=== PATIENT | male | born 1950 | race Caucasian/White ===

== ENCOUNTER 2018-05-07 12:44 | Observation (INO) | payer OTHER ==
[2018-05-07 13:24] LABS: Absolute Lymphocytes (CBC) 1.4 K/uL (0.7-4.9); Absolute Monocytes 0.5 K/uL (0.1-1.3); Absolute Neutrophil 8.1 K/uL (1.8-8.0); Basophils % 0.6 % (0-1.3); Eosinophils % 0.5 % (0-4.4); MCH 28.7 pg (27.0-35.0); MCV 86.6 fL (80-100); Monocytes % 4.8 % (3.3-12.3); RBC Red Blood Cell Count 4.62 M/uL (4.33-5.43)
[2018-05-07 13:28] LABS: Protime INR 1.02
[2018-05-07] MEDS ORDERED: ASPIRIN 81 MG CHEWABLE TABLET ONE (13:30)
[2018-05-07] MEDS ORDERED: MECLIZINE HCL 12.5 MG TAB ONE (13:31)
[2018-05-07] MEDS ORDERED: ONDANSETRON 4 MG/2 ML VIAL ONE (13:31)
[2018-05-07 13:39] LABS: Albumin 3.8 g/dL (3.4-5.0); Bilirubin Direct 0.1 mg/dL (0-0.2); Bilirubin Total 0.6 mg/dL (0.2-1.0); CKMB Creatine Kinase MB 2.2 ng/mL (0.3-3.6); Magnesium 1.9 mg/dL (1.8-2.4); Potassium 4.5 mmol/L (3.5-5.1); Protein, Total 7.8 g/dL (6.4-8.2)
--- NOTE | 2018-05-07 14:31 | EKG ---
Test Date: 2018-05-07 Test Time: 13:10:41 Space Scheduler: CESAR MEASUREMENT RESULTS: Intervals: Rate: 67 WV: 172 QRSD: 80 QT: 408 QTc: 431 [place]: P: 33 WV: 172 QRS: 42 T: 46 INTERPRETIVE STATEMENTS: Normal sinus rhythm Normal ECG Compared to ECG 09/09/2017 10:54:26 No significant changes Electronically Signed On 05-07-18 14:30:48 CDT by Daniel Taylor
--- NOTE | 2018-05-07 14:37 | RAD REPORT ---
EXAM DESCRIPTION: CT - Head Brain Wo Cont - 05/07/2018 2:25 pm CLINICAL HISTORY: Dizziness, syncope COMPARISON: None. TECHNIQUE: Axial 5 mm thick images of the head were obtained without IV contrast. All CT scans are performed using dose optimization technique as appropriate and may include automated exposure control or mA/KV adjustment according to patient size. FINDINGS: No intracranial hemorrhage, mass, edema or shift of mid-line structures. No acute infarcti on changes seen. No abnormal extra-axial fluid collections. Mild atrophy and chronic ischemic changes are present. Ventricular size is in proportion. Arterial and physiologic calcifications are present. Mastoid air cells are clear. No significant paranasal sinus finding. No acute bony findings. IMPRESSION: Negative non-contrast CT head examination for acute finding. Mild atrophy and chronic ischemic change.
--- NOTE | 2018-05-07 15:04 | EDPHYS ---
Physician Documentation [facility] Name: Augustine Gooden Age: 68 yrs Sex: Male : 1950 Arrival Date: 05/07/2018 Time: 12:48 Bed 23 Private MD: Fawad Gonzalez H ED Physician Greyson Grimm HPI: 05/07 13:17 This 68 yrs old Male presents to ER via Wheelchair with complaints of Chest jmm Pain, Dizziness, Vomiting. 13:17 The patient presents with dizziness. Onset: The symptoms/episode began/occurred jmm acutely, 2 day(s) ago. This is a 68 year old male with a history of CAD that presents to the ED with acute onset dizziness worsening with movement beginning Saturday. The patient also complains of a dull ache to his chest. Patient states his symptoms are worsened with movement. Patient also complains of a headache. Denies similar symptoms in the past. . Historical: - Allergies: 12:58 Codeine; ph - Home Meds: 12:58 Ecotrin 81MG Oral once daily [Active]; glimepiride 4 mg Oral tab [Active]; ph Hydrochlorothiazide Oral [Active]; losartan 100 mg Oral tab 1 tab once daily [Active]; meloxicam Oral [Active]; metformin 1,000 mg Oral TG24 2 times per day [Active]; Plavix 75 mg Oral tab 1 tab once daily [Active]; simvastatin 40 mg Oral tab once daily [Active]; Levemir subcutaneous subcutaneous [Active]; - PMHx: 12:58 Hyperlipidemia; Hypertension; Diabetes - IDDM; ph - PSHx: 12:58 Heart stents; Knee surgery; ph - Immunization history:: Pneumococcal vaccine is up to date, Flu vaccine is up to date. - Social history:: Smoking status: Patient/guardian denies using tobacco. - Ebola Screening: : No symptoms or risks identified at this time. ROS: 13:17 Constitutional: Negative for fever, chills, and weight loss, Eyes: Negative for injury, jmm pain, redness, and discharge. 13:17 Cardiovascular: Positive for chest pain. 13:17 Respiratory: Positive for shortness of breath. 13:17 Abdomen/GI: Positive for vomiting. 13:17 Neuro: Positive for dizziness, headache. 13:17 All other systems are negative. Exam: 13:17 Constitutional: This is a well developed, well nourished patient who is awake, alert, jmm and in no acute distress. Head/Face: atraumatic. 13:17 Neck: Trachea midline, Supple 13:17 Cardiovascular: Regular rate and rhythm. No edema appreciated Respiratory: Normal respirations, no respiratory distress appreciated Abdomen/GI: Non distended, soft 13:17 Eyes: Extraocular movements: intact throughout, Nystagmus: 13:17 Cardiovascular: Rate: normal, Rhythm: regular. 13:17 Respiratory: the patient does not display signs of respiratory distress, Respirations: normal, Breath sounds: are clear throughout. 13:17 Abdomen/GI: Inspection: abdomen appears normal, Bowel sounds: normal, Palpation: abdomen is soft and non-tender, in all quadrants. 13:17 Skin: Appearance: Color: normal in color. 13:17 Neuro: Orientation: is normal, Mentation: is normal, Memory: is normal, Cerebellar function: normal finger to nose testing. 13:17 Psych: Behavior/mood is pleasant, cooperative. Vital Signs: 12:56 BP 149 / 78; Pulse 80; Resp 28; Temp 98.1; Pulse Ox 100% on R/A; Weight 117.93 kg; ph Height 5 ft. 9 in. (175.26 cm); Pain 8/10; 14:15 BP 131 / 69; Pulse 69; Resp 26; Temp 98.5; Pulse Ox 95% on R/A; Pain 7/10; ch 15:17 BP 129 / 64; Pulse 71; Resp 28; Pulse Ox 98% on R/A; Pain 5/10; ch 17:16 BP 116 / 66; Pulse 69; Resp 26; Temp 98.5; Pulse Ox 99% on R/A; Pain 3/10; ch 12:56 Body Mass Index 38.39 (117.93 kg, 175.26 cm) ph MDM: 13:11 Patient medically screened. [facility] 15:01 Data reviewed: vital signs, nurses notes, lab test result(s), EKG, radiologic studies, [facility] CT scan, plain films. Counseling: I had a detailed discussion with the patient and/or guardian regarding: the historical points, exam findings, and any diagnostic results supporting the discharge/admit diagnosis, radiology results, the need for further work-up and treatment in the hospital. Physician consultation: Candida Pink MD. 05/07 13:01 Order name: Basic Metabolic Panel; Complete Time: 13:44 ch 05/07 13:01 Order name: CBC with Diff; Complete Time: 13:44 ch 05/07 13:01 Order name: Ckmb; Complete Time: 13:44 ch 05/07 13:01 Order name: CPK; Complete Time: 13:44 ch 05/07 13:01 Order name: LFT's; Complete Time: 13:44 ch 05/07 13:01 Order name: Magnesium; Complete Time: 13:44 ch 05/07 13:01 Order name: NT PRO-BNP; Complete Time: 13:44 ch 05/07 13:01 Order name: PT-INR; Complete Time: 13:44 ch 05/07 13:01 Order name: Ptt, Activated; Complete Time: 13:44 ch 05/07 13:01 Order name: Troponin (emerg Dept Use Only); Complete Time: 13:44 05/07 16:18 Order name: Basic Metabolic Panel [facility] 05/07 16:18 Order name: Troponin I [facility] 05/07 16:18 Order name: Hemoglobin A1c [facility] 05/07 16:18 Order name: Hemoglobin A1c [facility] 05/07 13:01 Order name: XRAY Chest (1 view); Complete Time: 15:07 05/07 13:01 Order name: EKG; Complete Time: 13:02 05/07 13:01 Order name: Cardiac monitoring; Complete Time: 13:24 05/07 13:01 Order name: EKG - Nurse/Tech; Complete Time: 13:24 05/07 13:01 Order name: IV Saline Lock; Complete Time: 13:24 05/07 13:01 Order name: Labs collected and sent; Complete Time: 13:24 05/07 13:01 Order name: O2 Per Protocol; Complete Time: 13:24 05/07 13:01 Order name: O2 Sat Monitoring; Complete Time: 13:24 05/07 14:12 Order name: CT Head Brain wo Cont; Complete Time: 14:41 jm 05/07 16:18 Order name: Consistent Carb (ADA) [address] [facility] 05/07 16:18 Order name: Echo with Doppler [facility] 05/07 16:39 Order name: Diet Regular; Complete Time: 16:40 bd Administered Medications: 13:33 Drug: Meclizine 25 mg Route: PO; 14:55 Follow up: Response: No adverse reaction; Marked relief of symptoms ch 13:33 Drug: Aspirin Chewable Tablet 324 mg Route: PO; ch 14:54 Follow up: Response: No adverse reaction; Marked relief of symptoms 14:18 Drug: Zofran 4 mg Route: IVP; Site: right antecubital; 14:55 Follow up: Response: No adverse reaction; Marked relief of symptoms Point of Care Testing: Blood Glucose: 17:47 Blood Glucose: 71 mg/dL; Ranges: Critical Glucose Levels:Adult <50 mg/dl or >400 mg/dl <40 mg/dl or >180 mg/dl Disposition: 05/07/18 15:03 Hospitalization ordered by Candida Pink for Observation. Preliminary diagnosis are Other chest pain, Dizziness. - Bed requested for Telemetry/MedSurg (observation). - Status is Observation. ch - Condition is Stable. - Problem is new. - Symptoms have improved. UTI on Admission? No Addendum: 05/09/2018 19:56 Co-signature as Attending Physician, Greyson Grimm MD I agree with the assessment and w a plan of care. Signatures: Dispatcher [employer] Glo Mcnamara RN Eva Piña ch RN Bill Olivares PA PA jmm Hall, Patricia, RN RN ph Appiah, William, MD MD wa Corrections: (The following items were deleted from the chart) 05/07 17:09 15:03 Hospitalization Ordered by Candida Pink MD for Observation. Preliminary diagnosis dw is Other chest pain; Dizziness. Bed requested for Telemetry/MedSurg (observation). Status is Observation. Condition is Stable. Problem is new. Symptoms have improved. UTI on Admission? No. [facility] 18:03 17:09 05/07/2018 15:03 Hospitalization Ordered by Candida Pink MD for Observation. ch Preliminary diagnosis is Other chest pain; Dizziness. Bed requested for Telemetry/MedSurg (observation). Status is Observation. Condition is Stable. Problem is new. Symptoms have improved. UTI on Admission? No. dw
--- NOTE | 2018-05-07 15:04 | ER ---
Nurse's Notes [facility] Name: Augustine Gooden Age: 68 yrs Sex: Male : 1950 Arrival Date: 05/07/2018 Time: 12:48 Bed 23 Private MD: Fawad oGnzalez H Diagnosis: Other chest pain;Dizziness Presentation: 05/07 12:54 Presenting complaint: Significant other states: " He has been having dizziness for a ph while now, this morning he started saying his chest was hurting and that he was feeling really SOB, we went to Dr Gonzalez's office and he said to come here." Pt reports R sided CP, dizziness, SOB, N/V. Transition of care: patient was not received from another setting of care. Onset of symptoms was May 07, 2018. Risk Assessment: Do you want to hurt yourself or someone else? Patient reports no desire to harm self or others. Initial Sepsis Screen: Does the patient meet any 2 criteria? No. Patient's initial sepsis screen is negative. Does the patient have a suspected source of infection? No. Patient's initial sepsis screen is negative. Care prior to arrival: None. 12:54 Method Of Arrival: Wheelchair ph 12:54 Acuity: JULIUS 3 ph Historical: - Allergies: 12:58 Codeine; ph - Home Meds: 12:58 Ecotrin 81MG Oral once daily [Active]; glimepiride 4 mg Oral tab [Active]; ph Hydrochlorothiazide Oral [Active]; losartan 100 mg Oral tab 1 tab once daily [Active]; meloxicam Oral [Active]; metformin 1,000 mg Oral TG24 2 times per day [Active]; Plavix 75 mg Oral tab 1 tab once daily [Active]; simvastatin 40 mg Oral tab once daily [Active]; Levemir subcutaneous subcutaneous [Active]; - PMHx: 12:58 Hyperlipidemia; Hypertension; Diabetes - IDDM; ph - PSHx: 12:58 Heart stents; Knee surgery; ph - Immunization history:: Pneumococcal vaccine is up to date, Flu vaccine is up to date. - Social history:: Smoking status: Patient/guardian denies using tobacco. - Ebola Screening: : No symptoms or risks identified at this time. Screenin:20 Abuse screen: Denies threats or abuse. Denies injuries from another. Nutritional ch screening: No deficits noted. Tuberculosis screening: No symptoms or risk factors identified. Fall Risk None identified. Assessment: 13:20 General: Appears in no apparent distress. uncomfortable, Behavior is calm, cooperative, ch appropriate for age. Pain: Complains of pain in head, back, chest, right arm and left arm Pain does not radiate. Pain currently is 7 out of 10 on a pain scale. Pain began gradually. Neuro: No deficits noted. Cardiovascular: Reports chest pain, shortness of breath, Heart tones S1 S2 present Capillary refill < 3 seconds in bilateral fingers toes Clubbing of nail beds is present Pulses are all present. Edema is 2+ to left midcalf, left ankle, right midcalf and right ankle Rhythm is regular. Respiratory: Airway is patent Trachea midline Respiratory effort is even, labored, gasping, pursed lip, with retractions, Respiratory pattern is tachypnea Breath sounds with wheezes bilaterally. GI: No signs and/or symptoms were reported involving the gastrointestinal system. : No signs and/or symptoms were reported regarding the genitourinary system. 13:20 Reassessment: Patient appears in no apparent distress at this time. Patient and/or ch family updated on plan of care and expected duration. Pain level reassessed. Patient is alert, oriented x 3, equal unlabored respirations, skin warm/dry/pink. Derm: Skin is intact, Skin is clammy, Skin is pale. 14:14 Reassessment: Patient appears in no apparent distress at this time. No changes from previously documented assessment. Patient and/or family updated on plan of care and expected duration. Pain level reassessed. Patient is alert, oriented x 3, equal unlabored respirations, skin warm/dry/pink. 14:19 Reassessment: Patient appears in no apparent distress at this time. pt vomiting, states ch he would like the nausea medication now. pt medicated per orders. pt has small amount of vomit in bag. 14:55 Reassessment: pt states he feels better, no s/s of distress. pt placed in recliner, ch states he can breathe better. pt is still very dizzy with standing and ambulation, but pt wanted to sit on the edge of bed. pt states he can stay in the recliner just fine, family is with pt, pt verb understanding not to stand without assistance. 15:16 Reassessment: Patient appears in no apparent distress at this time. pt states he does ch not need to urinate at this time, pt attempts to urinate in urinal, unsuccessful. pt states he just doesn't need to go. Hospitalist at bedside now. 17:16 Reassessment: Patient appears in no apparent distress at this time. attempting to call ch report now Patient states feeling better. Patient states symptoms have improved. 17:28 Reassessment: report given to Olinda Del Castillo 17:46 Reassessment: Patient appears in no apparent distress at this time. Patient and/or ch family updated on plan of care and expected duration. Pain level reassessed. Patient is alert, oriented x 3, equal unlabored respirations, skin warm/dry/pink. Patient states feeling better. Patient states symptoms have improved. Vital Signs: 12:56 BP 149 / 78; Pulse 80; Resp 28; Temp 98.1; Pulse Ox 100% on R/A; Weight 117.93 kg; ph Height 5 ft. 9 in. (175.26 cm); Pain 8/10; 14:15 BP 131 / 69; Pulse 69; Resp 26; Temp 98.5; Pulse Ox 95% on R/A; Pain 7/10; ch 15:17 BP 129 / 64; Pulse 71; Resp 28; Pulse Ox 98% on R/A; Pain 5/10; ch 17:16 BP 116 / 66; Pulse 69; Resp 26; Temp 98.5; Pulse Ox 99% on R/A; Pain 3/10; ch 12:56 Body Mass Index 38.39 (117.93 kg, 175.26 cm) ph ED Course: 12:48 Patient arrived in ED. as 12:48 Fawad Gonzalez DO is Private Physician. as 12:54 Bill Kumar PA is PHCP. [facility] 12:54 Greyson Grimm MD is Attending Physician. [facility] 12:56 Triage completed. ph 12:58 Arm band placed on. ph 13:00 Glo Yang, JUD is Primary Nurse. ch 13:18 EKG done, by carpet technician. reviewed by Bill SALVADOR. at1 13:20 No apparent distress. Resting quietly. ch 13:20 Patient has correct armband on for positive identification. Placed in gown. Bed in low ch position. Call light in reach. Side rails up X 1. Adult w/ patient. case monitor on. Pulse ox on. NIBP on. Warm blanket given. 13:20 Inserted saline lock: 18 gauge in right antecubital area, using aseptic technique. Blood collected. 13:55 XRAY Chest (1 view) In Process Unspecified. EDMS 13:56 X-ray completed. Portable x-ray completed in exam room. Patient tolerated procedure la2 well. 14:25 CT Head Brain wo Cont In Process Unspecified. EDMS 15:02 Candida Pikn MD is Hospitalizing Provider. [facility] 17:17 No provider procedures requiring assistance completed. Patient admitted, IV remains in ch place. Patient maintains SpO2 saturation greater than 95% on room air. Administered Medications: 13:33 Drug: Meclizine 25 mg Route: PO; ch 14:55 Follow up: Response: No adverse reaction; Marked relief of symptoms ch 13:33 Drug: Aspirin Chewable Tablet 324 mg Route: PO; ch 14:54 Follow up: Response: No adverse reaction; Marked relief of symptoms ch 14:18 Drug: Zofran 4 mg Route: IVP; Site: right antecubital; ch 14:55 Follow up: Response: No adverse reaction; Marked relief of symptoms Point of Care Testing: Blood Glucose: 17:47 Blood Glucose: 71 mg/dL; Ranges: Outcome: 15:03 Decision to Hospitalize by Provider. [facility] 17:46 Admitted to Med/surg accompanied by nurse, via wheelchair, room 422, with chart, Report ch called to Olinda Shah 17:46 Condition: stable 17:46 Instructed on the need for admit. 18:03 Patient left the ED. Signatures: Dispatcher [employer] EDMS Glo Yang, RN RN Bill Webber PA PA jmm Martinez, Amelia as gonzales, Amanda, powdered metal supervisor EKG Tat1 Wendie Nails RN RN Trang Garcia la2 Corrections: (The following items were deleted from the chart) 13:00 12:56 Pulse 80bpm; Resp 28bpm; Pulse Ox 100% RA; 117.93 kg; Height 5 ft. 9 in.; BMI: ph 38.3; Pain 8/10; ph 14:15 13:20 BP 131 / 69; Pulse 69bpm; Resp 26bpm; Pulse Ox 95% RA; Temp 98.5F; Pain 7/10; ch ch 17:18 17:16 BP 166 / 66; Pulse 69bpm; Resp 26bpm; Pulse Ox 99% RA; Temp 98.5F; Pain 3/10; ch ch
--- NOTE | 2018-05-07 15:05 | RAD REPORT ---
EXAM DESCRIPTION: RAD - Chest Single View - 05/07/2018 1:55 pm CLINICAL HISTORY: Shortness of breath COMPARISON: August 2017 TECHNIQUE: AP portable chest image was obtained 1345 hours . FINDINGS: Lung volumes are low. Body habitus and portable technique accentuate chest findings. No fo joselin lung parenchymal process suspected. Heart and vasculature are normal. No measurable pleural effus ion and no pneumothorax. No gross bony abnormality seen. No acute aortic findings suspected. IMPRESSION: Limited portable imaging without acute cardiopulmonary finding. No significant change from comparison.
[2018-05-07] MEDS ORDERED: NITROGLYCERIN 0.4 MG/TAB SL PRN (16:10)
[2018-05-07] MEDS ORDERED: MORPHINE 4 MG/ML SYR IV PRN (16:10)
[2018-05-07] MEDS: INSULIN -REGULAR HUMAN 50 UNIT/0.5 ML ML SQ SCH ×2 (16:30→21:00)
[2018-05-07] MEDS ORDERED: MECLIZINE HCL 12.5 MG TAB PO PRN (16:31)
[2018-05-07] MEDS ORDERED: ENOXAPARIN 30 MG/0.3 ML SQ SCH (17:00)
[2018-05-07 18:35] VITALS: BMI 38.4
[2018-05-07] MEDS: ACETAMINOPHEN 500 MG TAB PO PRN (18:41)
[2018-05-07 19:00] LABS: Urine Appearance CLEAR; Urine Bilirubin NEGATIVE (NEG); Urine Blood NEGATIVE (NEG); Urine Color YELLOW; Urine Glucose NEGATIVE (NEG); Urine Protein NEGATIVE (NEG); Urine pH 5.5 (5.0-7.0)
[2018-05-07 19:01] LABS: Urine Microscopic Reflex NO UMIC
[2018-05-07] MEDS ORDERED: METOPROLOL TAR 25 MG TAB PO SCH (21:00)
[2018-05-07] MEDS ORDERED: ATORVASTATIN 40 MG TAB PO SCH (21:00)
--- NOTE | 2018-05-08 00:22 | HP ---
Date of Admission: 05/07/2018 Mold Cooler: Cardiology. Primary Care Physician: Dr. Gonzalez. Chief Complaint: Dizziness, chest pain. History Of Present Illness: The patient is a 68-year-old male with past medical history of hypertension, hyperlipidemia, diabetes, coronary artery disease status post stent, arthritis, who has been having dizziness off and on for the past month, worse with change in position. The patient does get nauseated and has headache with these symptoms and has multiple episodes of vomiting. The patient denies any tinnitus. No changes in his medications recently. The patient also reports chest pain that has initiated 2 days prior to admission, substernal, nonradiating, constant, moderate, progressively worsening over the past 2 days. No palpitations or diaphoresis. The patient does have some shortness of breath secondary to his asbestosis, which is worse in the past couple of days. Due to his symptoms, the patient was seen by his primary care physician, Dr. Gonzalez, and was recommended to come to the ER after evaluation by his primary care physician for further workup. Upon arrival, the patient received aspirin, which improved his symptoms. His blood pressure was stable. When he came in, he was saturating 100% on room air. His workup revealed normal troponin level. No changes on EKG. His creatinine was 1.8. WBC count was normal. CT scan of the head was done, which was negative for any acute changes, did show some chronic changes. Chest x-ray was also normal. The patient was then referred for admission for chest pain, rule out ACS and dizziness. When seen in the ER, he was awake, alert, oriented x3, in some moderate distress. Past Medical History: Hypertension, hyperlipidemia, coronary artery disease, diabetes mellitus type 2 insulin requiring. He also has asbestosis and arthritis. Past Surgical History: Heart stents, knee surgery. Allergies: CODEINE. Medications: As per medication reconciliation list, reviewed. Social History: The patient denies any illicit drug use, alcohol use, tobacco use. The patient is and independent in his activities of daily living. Family History: No premature coronary artery disease. Review of Systems: An 11-point system reviewed, negative except as per HPI. Physical Examination: Vital Signs: Blood pressure 149/78, pulse 80, respirations 28, temperature 98.1 , O2 100% on room air. General: Awake, alert, oriented x3, in some mild distress. Obese male. HEENT: Normocephalic, atraumatic. PERRLA. EOMI. Dry mucous membranes. Oropharynx is clear. Normal dentition. Conjunctivae anicteric. Neck: Supple. No JVD. Trachea midline. CV: S1, S2. No murmurs. Regular rate and rhythm. Peripheral pulses are present. Respiratory: Clear to auscultation bilaterally. No wheezing. No stridor. No use of accessory muscles. Gastrointestinal: Abdomen is obese, soft, nontender, nondistended. Positive bowel sounds. No guarding or rigidity. No splenomegaly or hepatomegaly. Extremities: No clubbing, cyanosis. Trace pedal edema. No calf tenderness. Neuro: Cranial nerves 2 through 12 intact grossly. No focal neurological deficits. Speech is normal. Strength is 5/5 in bilateral upper and lower extremities. Sensation intact to light touch. Skin: No rashes. Normal skin turgor. Psych: Mood is okay. Affect is full. Insight and judgment are good. Laboratory Data: WBC 10.1, H and H 13.3 and 40, platelets 253, neutrophils 80% . INR 1.02. Sodium 142, potassium 4.5, chloride 111, CO2 23, BUN 34, creatinine 1.8, glucose 184, calcium 9.1, magnesium 1.9. AST 12, ALT 27, alkaline phosphatase 93. Troponin less than 0.02. BNP 174. EKG shows normal sinus rhythm, rate of 67, no significant changes from previous. Head CT scan shows negative noncontrast CT head examination for acute finding, mild atrophy and chronic ischemic change. Chest x-ray personally reviewed, shows limited portable imaging without acute cardiopulmonary finding, no significant change from previous. Assessment: A 68-year-old male with; 1. Chest pain, rule out acute coronary syndrome. The patient does have history of heart disease with stents, possibly unstable angina. We will start on chest pain guidelines, aspirin, statin, beta-araceli. The patient is on ARB , nitroglycerin p.r.n. We will obtain serial cardiac enzymes and EKG. Consult Cardiology. The patient sees Dr. 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 We will obtain echocardiogram. 2. Dizziness. The patient's symptoms seem to be indicative of benign positional vertigo. The patient may benefit from Katelyn maneuver. We will order meclizine for symptomatic treatment. 3. Obesity. 4. Essential hypertension. 5. Hyperlipidemia, mixed. 6. Diabetes mellitus type 2, insulin requiring, with hyperglycemia. We will check hemoglobin A1c, start on sliding scale insulin and continue Accu-Cheks. 7. Osteoarthritis, multiple joints. 8. Asbestosis. 9. Gastrointestinal and deep vein thrombosis prophylaxis with PPI and Lovenox. Plan: Admit the patient to Med-Surg, place as observation. CODE STATUS: FULL SA/MODL Voice ID: [id number] MTDD
[2018-05-08 06:18] LABS: BUN Blood Urea Nitrogen 37 mg/dL (7-18); Bicarbonate 24 mmol/L (21-32); Glucose Level 124 mg/dL (74-106); HDL Cholesterol 26 mg/dL (40-60); LDL Cholesterol, Calculated ND (<130); Potassium 3.9 mmol/L (3.5-5.1); Sodium Level 143 mmol/L (136-145)
[2018-05-08 06:21] LABS: Absolute Lymphocytes (CBC) 2.4 K/uL (0.7-4.9); Absolute Monocytes 0.7 K/uL (0.1-1.3); Absolute Neutrophil 5.6 K/uL (1.8-8.0); Basophils % 0.7 % (0-1.3); Eosinophils % 1.5 % (0-4.4); Hematocrit 34.3 % (39.6-49.0); Lymphocytes % 27.1 % (15.3-44.8); MCH 30.1 pg (27.0-35.0); MCV 86.6 fL (80-100); MPV 7.7 fL (7.6-11.3); RBC Red Blood Cell Count 3.96 M/uL (4.33-5.43)
[2018-05-08 06:42] LABS: LDL, Direct 53 mg/dL (100-129)
[2018-05-08] MEDS: INSULIN -REGULAR HUMAN 50 UNIT/0.5 ML ML SQ SCH ×2 (07:30→11:30)
[2018-05-08] MEDS: ACETAMINOPHEN 500 MG TAB PO PRN (08:09)
[2018-05-08] MEDS ORDERED: REGADENOSON 0.4 MG/5 ML SYR IV ONE (08:34)
[2018-05-08] MEDS ORDERED: ASPIRIN EC 81 MG TAB PO SCH (09:00)
[2018-05-08] MEDS ORDERED: HOME MED 1 EA UNK (Glimepiride [Amaryl] 4 MG) PO SCH (09:00)
[2018-05-08] MEDS ORDERED: INSULIN DETEMIR 26 UNIT SQ SCH (09:00)
[2018-05-08] MEDS ORDERED: CARVEDILOL 25 MG PO SCH (09:00)
[2018-05-08] MEDS ORDERED: ASPIRIN 81 MG PO SCH (09:00)
[2018-05-08] MEDS ORDERED: HYDROCHLOROTHIAZIDE 25 MG PO SCH (09:00)
[2018-05-08] MEDS ORDERED: HOME MED 1 EA UNK (Clopidogrel Bisulfate [Plavix*] 75 MG) PO SCH (09:00)
--- NOTE | 2018-05-08 10:29 | RAD REPORT ---
EXAM DESCRIPTION: NM - Rest Stress Cardiac Imaging - 05/08/2018 9:42 am CLINICAL HISTORY: Chest pain. COMPARISON: None. TECHNIQUE: The patient was administered approximately 10mCi of Tc 99m Sestamibi prior to resting SPE CT imaging of the heart. The patient was then administered approximately 30 mCi of Tc 99m Sestamibi f ollowing exercise or pharmacologic stress. Multiplanar SPECT images were reviewed. FINDINGS: There is uniformity of radiotracer uptake involving the entire left ventricular myocardium on rest and stress images. The left ventricular ejection fraction equals 65% IMPRESSION: Negative for a myocardial perfusion defect
[2018-05-08 12:26] VITALS: O2SAT 96
[2018-05-08 12:40] VITALS: BP 129/57; TEMP 97.6
--- NOTE | 2018-05-08 14:00 | ECHO ---
HEIGHT: 5 ft 9 in WEIGHT: 260 lb 0 oz DATE OF STUDY: 05/08/[address]: Candida Pink MD 2-DIMENSIONAL: YES M.MODE: YES DOPPLER: YES COLOR FLOW: YES TDS: PORTABLE: DEFINITY: BUBBLE STUDY: DIAGNOSIS: CHEST PAIN CARDIAC HISTORY: CATHERIZATION: NO SURGERY: YES PROSTHETIC VALVE: NO PACEMAKER: NO MEASUREMENTS (cm) DIASTOLIC (NORMALS) SYSTOLIC (NORMALS) IVSd 1.3 (0.6-1.2) LA Diam 3.7 (1.9-4.0) LVEF 72% LVIDd 4.3 (3.5-5.7) LVIDs 2.5 (2.0-3.5) %FS 41% LVPWd 1.3 (0.6-1.2) Ao Diam 3.1 (2.0-3.7) 2 DIMENSIONAL ASSESSMENT: RIGHT ATRIUM: NORMAL LEFT ATRIUM: NORMAL RIGHT VENTRICLE: NORMAL LEFT VENTRICLE: NORMAL TRICUSPID VALVE: NORMAL MITRAL VALVE: NORMAL PULMONIC VALVE: NORMAL AORTIC VALVE: NORMAL PERICARDIAL EFFUSION: NONE AORTIC ROOT: NORMAL LEFT VENTRICULAR WALL MOTION: NORMAL DOPPLER/COLOR FLOW: MILD TRICUSPID REGURGITATION. COMMENTS: NORMAL TWO DIMENSIONAL ECHOCARDIOGRAM. MILD TRICUSPID REGURGITATION. NORMAL RIGHT VENTRICULAR SYSTOLIC PRESSURE. NO WALL MOTION ABNORMALITY. NO EFFUSION. TECHNOLOGIST: HEMANTH ALMONTE
[2018-05-08] MEDS ORDERED: ATORVASTATIN 20 MG TAB PO SCH (21:00)
[2018-05-08] MEDS ORDERED: HOME MED 1 EA UNK (Losartan Potassium [Cozaar] 100 MG) PO SCH (21:00)
--- NOTE | 2018-05-09 05:34 | DS ---
Date of Discharge: 05/08/2018 Wireless Manager: Dr. Taylor with Cardiology. Procedures: Lexiscan stress test on 05/08/2018, negative for myocardial perfusion defect. EF 65%. Admitting Diagnoses: 1.Unstable angina. Rule out acute coronary syndrome. 2.Dizziness. 3.Obesity. 4.Essential hypertension. 5.Hyperlipidemia, mixed. 6.Diabetes mellitus type 2, insulin requiring with hyperglycemia. 7.Osteoarthritis, generalized. 8.Asbestosis. Discharge Diagnoses: 1.Unstable angina, acute coronary syndrome ruled out. Lexiscan negative. 2.Benign paroxysmal positional vertigo, improved with meclizine. The patient instructed on Katelyn anglin. 3.Obesity, body mass index 38.4, counseled. 4.Essential hypertension, stable. 5.Mixed hyperlipidemia, stable on statin. The patient has elevated triglycerides. 6.Diabetes mellitus type 2, insulin requiring with hyperglycemia. The patient has labile blood gluc ose levels. Hemoglobin A1c 7.4%. 7.Osteoarthritis, generalized. 8.History of asbestos exposure. 9.Chronic kidney injury. Hospital Course: The patient is a 68-year-old male, who comes into the hospital with chest pain and dizziness. The patient was sent in from his primary care physician's office after evaluation. The p livan was admitted to the hospital for chest pain to rule out ACS. His cardiac workup was negative. His troponin levels were negative x3. Lexiscan test was done, which showed no stress-induced perfu tong defect. Lipid panel did show a very low LDL at 53; however, his triglycerides were elevated at 414. His blood glucose levels were slightly elevated. He will continue on his home dose of insulin. His hemoglobin A1c is 7.4%. The patient's creatinine remained stable, slightly above baseline. Th e patient felt significantly better after IV fluids and rehydration. He was seen by Dr. Recio and was then cleared for discharge. His head CT scan did not show any acute changes. The patient was th en discharged home in a fair condition. Activity: Fall precautions. Diet: Diabetic. Followup: With PCP, Dr. Gonzalez, in 2 to 3 days. Follow up with university teacher, Dr. Recio, in 2 weeks. Return to ER for worsening condition. Medications: As per medication reconciliation list. Physical Examination: General: Awake, alert, oriented, no acute distress. CV: S1, S2. No murmurs. Respiratory: Clear to auscultation bilaterally. No wheezing. Gastrointestinal: Abdomen is soft, nontender, nondistended. Positive bowel sounds. Extremities: No clubbing, cyanosis, edema. Neurologic: Nonfocal. SA/MODL Voice ID: [id number] Report ID: [id number]
--- NOTE | 2018-05-10 00:29 | CON ---
Date of Consultation: 05/08/2018 Reason For Consultation: Chest pain, dizziness, vertigo, and headaches. History Of Present Illness: Mr. Gooden is a 68-year-old male, has seen Dr. Yap in the past. Has a history of coronary artery disease, status post stent. Has a history of diabetes, hypertension, and dyslipidemia. He sees Dr. Gonzalez as a family physician. He basically came in with symptoms of dizzine ss, vertigo, vomiting, headache, very atypical chest pain. EKG has been normal and chest x-ray and C T of his head has been normal. All his laboratory evaluations have been normal. Denied PND, orthopn ea, pedal edema, or palpitation. Symptoms were not exertional. They were related to head positions. Allergies: CODEINE. Review of Systems: Negative. Social History: Negative for tobacco, drugs, or alcohol. Family History: Positive for diabetes. Medications At Home: Include aspirin, glimepiride, losartan, metformin, Zocor, hydrochlorothiazide, and insulin. Physical Examination: General: Mr. Gooden was very pleasant, alert and oriented x3. vital Signs: Stable. He was afebrile. HEENT: Negative. Neck: Supple without any bruit, lymphadenopathy, JVD, or thyromegaly. Chest: Clear to auscultation and percussion. Cardiac: Revealed a regular rhythm and rate without any murmurs, gallops, or rubs. Abdomen: Benign. Extremities: Revealed no clubbing, cyanosis, or edema. Diagnostic Data: Normal. Impression And Plan: I believe Mr. Gooden's symptoms are secondary to benign positional vertigo or may be viral labyrinthitis. He has been started on meclizine by Dr. Pink and is feeling better. An ech ocardiogram and Lexiscan are pending because of his chest pain, but his chest pain is very atypical, but he has a history of CAD and stent and multiple risk factors including diabetes, dyslipidemia, and hypertension and we will make sure he is not having any cardiac issues. So far, his workup includin g EKGs, blood work, chest x-ray, and CT of his head have been negative. We will see what his testing shows before making final decisions. GORDON/MIKE Voice ID: [id number] Report ID: [id number]
== END 2018-05-08 14:36 | disposition home or self-care (01) ==
LOC: ER 12:44 → ERHOLD 15:56 → 4TH 17:54
PROVIDERS: ADMIT Family Medicine; ATTEND Family Medicine
DX: I25.110 Atherosclerotic heart disease of native coronary artery with unstable angina pectoris (principal); H81.10 Benign paroxysmal vertigo, unspecified ear; I10 Essential (primary) hypertension; E11.65 Type 2 diabetes mellitus with hyperglycemia; Z95.5 Presence of coronary angioplasty implant and graft; M19.90 Unspecified osteoarthritis, unspecified site; E78.2 Mixed hyperlipidemia; J61 Pneumoconiosis due to asbestos and other mineral fibers; E66.9 Obesity, unspecified; Z68.38 Body mass index [BMI] 38.0-38.9, adult; N17.9 Acute kidney failure, unspecified
CPT/HCPCS: 36415; 70450; 71045; 78452; 80048 ×2; 80061; 80076; 81003; 82550; 82553; 82962 ×4; 83036; 83721; 83735; 83880; 84484 ×3; 85025 ×2; 85610; 85730; 93005; 93017; 93306; 94760 ×3; 96374; 99285; A9500; G0378 ×2; J1650; J2405; J2785

== ENCOUNTER 2020-07-13 19:50 | Emergency (ER) | payer OTHER ==
[2020-07-13 20:36] LABS: Absolute Lymphocytes (CBC) 1.1 K/uL (0.7-4.9); Basophils % 0.5 % (0-1.3); Hematocrit 40.6 % (39.6-49.0); Lymphocytes % 9.8 % (15.3-44.8); MPV 7.6 fL (7.6-11.3); RBC Red Blood Cell Count 4.73 M/uL (4.33-5.43)
[2020-07-13 20:45] LABS: Protime INR 0.95
--- NOTE | 2020-07-13 20:48 | RAD REPORT ---
EXAM DESCRIPTION: RAD - Chest Single View - 07/13/2020 8:38 pm CLINICAL HISTORY: Code Sepsis Chest pain. COMPARISON: Chest Single View dated 05/07/2018; Chest Pa And Lat (2 Views) dated 09/09/2017; CHEST SI NGLE VIEW dated 05/26/2005 FINDINGS: Portable technique limits examination quality. The lungs are grossly clear. The heart is normal in size. No displaced fractures. IMPRESSION: No acute intrathoracic process suspected.
[2020-07-13 20:56] LABS: ALT/SGPT 21 U/L (12-78); AST/SGOT 14 U/L (15-37); Albumin 3.5 g/dL (3.4-5.0); Alkaline Phosphatase 104 U/L (45-117); Amylase 41 U/L (25-115); BUN Blood Urea Nitrogen 19 mg/dL (7-18); Bicarbonate 20 mmol/L (21-32); Bilirubin Direct 0.2 mg/dL (0-0.2); Bilirubin Total 0.5 mg/dL (0.2-1.0); CKMB Creatine Kinase MB 2.1 ng/mL (0.3-3.6); Creatine Phosphokinase 107 U/L (39-308); Glucose Level 189 mg/dL (74-106); Lipase 100 U/L (73-393); Potassium 4.3 mmol/L (3.5-5.1); Protein, Total 7.5 g/dL (6.4-8.2); Sodium Level 142 mmol/L (136-145); Troponin (Emerg Dept Use Only) < 0.02 ng/mL (0.0-0.045)
[2020-07-13] MEDS ORDERED: MORPHINE 2 MG/ML SYR ONE (21:14)
[2020-07-13] MEDS ORDERED: ONDANSETRON 4 MG/2 ML VIAL ONE (21:14)
[2020-07-13] MEDS ORDERED: NA CHLORIDE 0.9% 1,000 ML ONE ×2 (21:14→23:02)
--- NOTE | 2020-07-13 23:01 | ER ---
Nurse's Notes [facility] Name: Augustine Gooden Age: 70 yrs Sex: Male : 1950 Arrival Date: 07/13/2020 Time: 19:55 Bed 2 Private MD: Fawad Gonzalez H Diagnosis: Hydronephrosis with renal and ureteral calculous obstruction-5 mm distal right ureter;Unspecified kidney failure-renal insufficency Presentation: 07/13 20:15 Chief complaint: Patient states: abd pain started today, progressively got worse, dm5 started vomiting around 1630. Pain in RLQ rated at 9/10 at this time. Pt has a history of hernia. Coronavirus screen: Client denies travel out of the [place] in the last 14 days. nausea, vomiting. Client presents with at least one sign or symptom that may indicate coronavirus-19. Standard/surgical mask placed on the client. Provider contacted for isolation considerations. Ebola Screen: Patient negative for fever greater than or equal to 101.5 degrees Fahrenheit, and additional compatible Ebola Virus Disease symptoms Patient denies exposure to infectious person. Patient denies travel to an Ebola-affected area in the 21 days before illness onset. No symptoms or risks identified at this time. Initial Sepsis Screen: Does the patient meet any 2 criteria? RR > 20 per min. No. Patient's initial sepsis screen is negative. Does the patient have a suspected source of infection? Yes: Acute abdominal pain If YES to both, name of provider notified: Husam Nicolas MD Risk Assessment: Do you want to hurt yourself or someone else? Patient reports no desire to harm self or others. Onset of symptoms was July 13, 2020. 20:15 Method Of Arrival: Ambulatory dm5 20:15 Acuity: JULIUS 3 dm5 Triage Assessment: 20:15 General: Appears uncomfortable, obese, Behavior is cooperative, restless. Pain: dm5 Complains of pain in right lower quadrant Pain currently is 9 out of 10 on a pain scale. Pain began suddenly, 4 hours ago. Also complains of nausea. GI: Reports nausea, vomiting, normal BM this morning. Derm: Skin is intact, Skin is clammy, Skin is pale, Skin temperature is cool. - Family history:: not pertinent. Screenin:20 Abuse screen: Denies threats or abuse. Nutritional screening: No deficits noted. jb4 Tuberculosis screening: No symptoms or risk factors identified. Fall Risk None identified. Assessment: 20:20 General: Appears in no apparent distress. uncomfortable, Behavior is calm, cooperative, jb4 appropriate for age. Pain: Complains of pain in right lower quadrant Pain does not radiate. Pain currently is 9 out of 10 on a pain scale. Quality of pain is described as stabbing. Neuro: Level of Consciousness is awake, alert, obeys commands, Oriented to person, place, time, situation. Cardiovascular: Patient's skin is warm and dry. Respiratory: Airway is patent Respiratory effort is even, unlabored, Respiratory pattern is regular, symmetrical. GI: Abdomen is non-distended, obese, Bowel sounds present X 4 quads. Abd is soft and non tender X 4 quads. : No signs and/or symptoms were reported regarding the genitourinary system. EENT: No deficits noted. No signs and/or symptoms were reported regarding the EENT system. Derm: Skin is intact, Skin is pink, warm \T\ dry. Musculoskeletal: Circulation, motion, and sensation intact. Range of motion: intact in all extremities. 21:30 Reassessment: Patient appears in no apparent distress at this time. Patient and/or jb4 family updated on plan of care and expected duration. Pain level reassessed. Patient is alert, oriented x 3, equal unlabored respirations, skin warm/dry/pink. 22:15 Reassessment: Patient appears in no apparent distress at this time. Patient and/or jb4 family updated on plan of care and expected duration. Pain level reassessed. Patient is alert, oriented x 3, equal unlabored respirations, skin warm/dry/pink. Patient states feeling better. 23:30 Reassessment: Patient appears in no apparent distress at this time. Patient and/or jb4 family updated on plan of care and expected duration. Pain level reassessed. Patient is alert, oriented x 3, equal unlabored respirations, skin warm/dry/pink. Pt rates pain at 3/10. informed of providers plan to transfer. Pt and request to speak with provider about need for transfer. Provider notified. Patient states feeling better. 23:45 Reassessment: Provider notified of pt and families desire to be informed of need for jb4 transfer. 09/24 00:45 Reassessment: Patient appears in no apparent distress at this time. Patient and/or jb4 family updated on plan of care and expected duration. Pain level reassessed. Patient is alert, oriented x 3, equal unlabored respirations, skin warm/dry/pink. Vital Signs: 07/13 20:15 BP 191 / 87; Pulse 79; Resp 22; Temp 97.1; Pulse Ox 98% on R/A; Weight 117.93 kg; dm5 Height 5 ft. 9 in. (175.26 cm); Pain 9/10; 20:30 BP 187 / 81; Pulse 76; Resp 16; Pulse Ox 97% on R/A; Pain 8/10; jb4 22:00 BP 179 / 75; Pulse 79; Resp 19; Pulse Ox 98% on R/A; jb4 22:41 Pain 5/10; jb4 23:00 BP 165 / 88; Pulse 82; Resp 20; Pulse Ox 98% on R/A; jb4 07/14 00:00 BP 170 / 74; Pulse 76; Resp 21; Pulse Ox 100% on R/A; jb4 01:00 BP 172 / 68; Pulse 76; Resp 18; Pulse Ox 97% on R/A; jb4 07/13 20:15 Body Mass Index 38.39 (117.93 kg, 175.26 cm) 5 ED Course: 07/13 19:55 Patient arrived in ED. am2 19:55 Fawad Gonzalez DO is Private Physician. am2 20:15 Arm band placed on Patient placed in an exam room, on a stretcher. dm5 20:18 Triage completed. dm5 20:20 Patient has correct armband on for positive identification. Bed in low position. Call jb4 light in reach. Side rails up X 1. 20:27 Sorin Martinez, JUD is Primary Nurse. jb4 20:27 Inserted saline lock: 20 gauge in left antecubital area, using aseptic technique. Blood ds4 collected. 20:38 Chest Single View XRAY In Process Unspecified. EDMS 20:47 Husam Nicolas MD is Attending Physician. caleb 21:44 Abdomen In Process Unspecified. EDMS 23:00 initiated a transfer with Padmini Chambers from [facility]. mw2 23:45 administrative approval given by Padmini Chambers RN/ patient has been accepted to [address] transfer center/ pt going to bed 1643/ dr. Medel will be accepting the patient in transfer/ report number [id number]. 23:47 transfer approval time 2345 per Padmini Chambers RN with transfer center. 07/14 00:34 Daron Mcgovern MD is Referral Physician. [facility] 01:05 No provider procedures requiring assistance completed. IV discontinued, intact, jb4 bleeding controlled, No redness/swelling at site. Pressure dressing applied. Administered Medications: 07/13 21:12 Drug: Zofran (Ondansetron) 4 mg Route: IVP; Site: left antecubital; jb4 21:45 Follow up: Response: No adverse reaction; Nausea is decreased jb4 21:14 Drug: morphine 2 mg Route: IVP; Site: left antecubital; jb4 21:30 Drug: NS 0.9% 1000 ml Route: IV; Rate: 1 bolus; Site: left antecubital; jb4 21:43 Drug: morphine 2 mg Route: IVP; Site: left antecubital; jb4 22:41 Follow up: Pain 5/10 Adult; Response: No adverse reaction; Pain is decreased; RASS: [facility] Alert and Calm (0) 22:55 Drug: Flomax 0.4 mg Route: PO; jb4 23:25 Follow up: Response: No adverse reaction 4 23:00 Drug: Rocephin 1 grams Route: IV; Rate: per protocol; Site: left antecubital; jb4 23:05 Follow up: Response: No adverse reaction; IV Status: Completed infusion 4 23:00 Drug: NS 0.9% 1000 ml Route: IV; Rate: 1 bolus; Site: left antecubital; jb4 07/14 00:00 Follow up: Response: No adverse reaction; IV Status: Completed infusion [facility] 07/13 23:03 Drug: morphine 4 mg {Note: rass score 0.} Route: IVP; Site: left antecubital; jb4 23:30 Follow up: Response: No adverse reaction; Pain is decreased; RASS: Alert and Calm (0) [facility] Outcome: 23:01 ER care complete, transfer ordered by . [facility] 07/14 00:34 Discharge ordered by . [facility] 01:05 Discharged to home via wheelchair, with family. jb4 01:05 Condition: stable 01:05 Discharge instructions given to patient, family, Instructed on discharge instructions, follow up and referral plans. medication usage, Demonstrated understanding of instructions, follow-up care, medications, Prescriptions given X 3. 01:25 Patient left the ED. mw2 Signatures: Dispatcher [employer] EDMS Mehnaz Ocampo RN RN dm5 Jefferson Ross RN RN sg Anderson, Corey, MD MD cha Swanson, Donovan ds4 Sorin Martinez RN RN jb4 Senia Sharma am2 Meena Rhoades mw2 Corrections: (The following items were deleted from the chart) 07/13 22:18 22:00 BP 179 / 75; Pulse 79bpm; Resp 16bpm; Pulse Ox 98% RA; jb4 jb4
[2020-07-13] MEDS ORDERED: CEFTRIAXONE/SWI 1gm 1 GM/10 ML SYR ONE (23:02)
[2020-07-13] MEDS ORDERED: MORPHINE 4 MG/ML SYR ONE (23:02)
[2020-07-13] MEDS ORDERED: TAMSULOSIN 0.4 MG SR CAP ONE (23:02)
--- NOTE | 2020-07-13 23:02 | EDPHYS ---
Physician Documentation [facility] Name: Augustine Gooden Age: 70 yrs Sex: Male : 1950 Arrival Date: 07/13/2020 Time: 19:55 Bed 2 Private MD: Fawad Gonzalez H ED Physician Husam Nicolas HPI: 07/13 20:51 This 70 yrs old Male presents to ER via Ambulatory with complaints of Flank caleb Pain, Nausea/Vomiting. 20:51 The patient complains of pain in the right mid back and right low back. caleb 20:52 The patient presents with abdominal pain right lower quadrant, abdominal distention in caleb the upper abdomen, in the lower abdomen. Onset: The symptoms/episode began/occurred 4 hour(s) ago. The pain does not radiate. Onset: The symptoms/episode began/occurred 4 hour(s) ago. Modifying factors: The symptoms are alleviated by nothing. the symptoms are aggravated by nothing. Associated signs and symptoms: The patient has no apparent associated signs or symptoms. Associated signs and symptoms: none. - Family history:: not pertinent. ROS: 20:52 Constitutional: Negative for fever, chills, and weight loss, Eyes: Negative for injury, caleb pain, redness, and discharge, ENT: Negative for injury, pain, and discharge, Neck: Negative for injury, pain, and swelling, Cardiovascular: Negative for chest pain, palpitations, and edema, Respiratory: Negative for shortness of breath, cough, wheezing, and pleuritic chest pain, Back: Negative for injury and pain, : Negative for injury, bleeding, discharge, and swelling, MS/Extremity: Negative for injury and deformity, Skin: Negative for injury, rash, and discoloration, Neuro: Negative for headache, weakness, numbness, tingling, and seizure, Psych: Negative for depression, anxiety, suicide ideation, homicidal ideation, and hallucinations, Allergy/Immunology: Negative for hives, rash, and allergies, Endocrine: Negative for neck swelling, polydipsia, polyuria, polyphagia, and marked weight changes, Hematologic/Lymphatic: Negative for swollen nodes, abnormal bleeding, and unusual bruising. 20:52 Abdomen/GI: Positive for abdominal pain, of the right upper quadrant and right lower quadrant. Exam: 20:52 Constitutional: This is a well developed, well nourished patient who is awake, alert, caleb and in no acute distress. Head/Face: Normocephalic, atraumatic. Eyes: Pupils equal round and reactive to light, extra-ocular motions intact. Lids and lashes normal. Conjunctiva and sclera are non-icteric and not injected. Cornea within normal limits. Periorbital areas with no swelling, redness, or edema. ENT: Nares patent. No nasal discharge, no septal abnormalities noted. Tympanic membranes are normal and external auditory canals are clear. Oropharynx with no redness, swelling, or masses, exudates, or evidence of obstruction, uvula midline. Mucous membranes moist. Neck: Trachea midline, no thyromegaly or masses palpated, and no cervical lymphadenopathy. Supple, full range of motion without nuchal rigidity, or vertebral point tenderness. No Meningismus. Chest/axilla: Normal chest wall appearance and motion. Nontender with no deformity. No lesions are appreciated. Cardiovascular: Regular rate and rhythm with a normal S1 and S2. No gallops, murmurs, or rubs. Normal PMI, no JVD. No pulse deficits. Respiratory: Lungs have equal breath sounds bilaterally, clear to auscultation and percussion. No rales, rhonchi or wheezes noted. No increased work of breathing, no retractions or nasal flaring. Back: No spinal tenderness. No costovertebral tenderness. Full range of motion. Male : Normal genitalia with no discharge or lesions. Skin: Warm, dry with normal turgor. Normal color with no rashes, no lesions, and no evidence of cellulitis. MS/ Extremity: Pulses equal, no cyanosis. Neurovascular intact. Full, normal range of motion. Neuro: Awake and alert, GCS 15, oriented to person, place, time, and situation. Cranial nerves II-XII grossly intact. Motor strength 5/5 in all extremities. Sensory grossly intact. Cerebellar exam normal. Normal gait. Psych: Awake, alert, with orientation to person, place and time. Behavior, mood, and affect are within normal limits. 20:52 Abdomen/GI: Inspection: distension, Bowel sounds: normal, Palpation: mild abdominal tenderness, in the right lower quadrant, Liver: no appreciated palpable abnormalities, Hernia: not appreciated. 20:52 : CVA tenderness, is absent, Male external genitalia: normal, no abrasion, no discharge, no erythema, no injury, no swelling, no tenderness, no evidence of ulceration, Bladder: is normal, Sexual behavior: the patient is sexually active, and reports a single partner. 20:56 ECG was reviewed by the Attending Physician. caleb Vital Signs: 20:15 BP 191 / 87; Pulse 79; Resp 22; Temp 97.1; Pulse Ox 98% on R/A; Weight 117.93 kg; dm5 Height 5 ft. 9 in. (175.26 cm); Pain 9/10; 20:30 BP 187 / 81; Pulse 76; Resp 16; Pulse Ox 97% on R/A; Pain 8/10; jb4 22:00 BP 179 / 75; Pulse 79; Resp 19; Pulse Ox 98% on R/A; jb4 22:41 Pain 5/10; jb4 23:00 BP 165 / 88; Pulse 82; Resp 20; Pulse Ox 98% on R/A; jb4 07/14 00:00 BP 170 / 74; Pulse 76; Resp 21; Pulse Ox 100% on R/A; jb4 01:00 BP 172 / 68; Pulse 76; Resp 18; Pulse Ox 97% on R/A; jb4 07/13 20:15 Body Mass Index 38.39 (117.93 kg, 175.26 cm) dm5 MDM: 07/13 20:47 Patient medically screened. [facility] 20:54 Differential diagnosis: nephrolithiasis, pyelonephritis, pancreatitis, appendicitis, caleb cholecystitis, Cholelithiasis, gastritis, Mesenteric ischemia or infarction, non-specific abd pain, pancreatitis, Ureterolithiasis, urinary tract infection. Data reviewed: vital signs, nurses notes, lab test result(s), radiologic studies, CT scan. Data interpreted: monitor and storage bin tender: rate is 79 beats/min, rhythm is regular, Pulse oximetry: on room air is 98 %. Test interpretation: by ED physician or midlevel provider: ECG, plain radiologic studies. Counseling: I had a detailed discussion with the patient and/or guardian regarding: the historical points, exam findings, and any diagnostic results supporting the discharge/admit diagnosis, lab results, radiology results. 07/13 20:14 Order name: Amylase, Serum; Complete Time: 22:37 [facility] 07/13 20:14 Order name: Basic Metabolic Panel; Complete Time: 22:37 07/13 20:14 Order name: Blood Culture Adult (2) 07/13 20:14 Order name: CBC with Diff; Complete Time: 20:49 07/13 20:14 Order name: Ckmb; Complete Time: 22:37 07/13 20:14 Order name: CPK; Complete Time: 22:37 07/13 20:14 Order name: Lactate; Complete Time: 22:37 07/13 20:14 Order name: LFT's; Complete Time: 22:37 07/13 20:14 Order name: Lipase; Complete Time: 22:37 07/13 20:14 Order name: Procalcitonin; Complete Time: 22:37 07/13 20:14 Order name: Protime (+inr); Complete Time: 20:49 07/13 20:14 Order name: Ptt, Activated; Complete Time: 20:49 07/13 20:14 Order name: Troponin (emerg Dept Use Only); Complete Time: 22:37 07/13 20:14 Order name: Urine Microscopic Only 07/13 20:14 Order name: Chest Single View XRAY; Complete Time: 22:37 07/13 20:14 Order name: Accucheck; Complete Time: 20:45 07/13 20:14 Order name: Cardiac monitoring; Complete Time: 20:45 07/13 20:14 Order name: EKG - Nurse/Tech; Complete Time: 20:45 07/13 20:14 Order name: IV Saline Lock - Large Bore; Complete Time: 20:29 07/13 20:52 Order name: Glucose, Ancillary Testing; Complete Time: 22:37 EDMS 07/13 21:06 Order name: Abdomen EDMS 07/13 23:26 Order name: Urine Dipstick--Ancillary (enter results) [facility] 07/13 20:14 Order name: Labs collected and sent; Complete Time: 20:45 07/13 20:14 Order name: O2 Per Protocol; Complete Time: 20:44 07/13 20:14 Order name: O2 Sat Monitoring; Complete Time: 20:44 07/13 20:14 Order name: Urine Dipstick-Ancillary (obtain specimen); Complete Time: 23:25 5 EC:56 Rate is 77 beats/min. Rhythm is regular. QRS [place] is Normal. NC interval is normal. QRS caleb interval is normal. QT interval is normal. No Q waves. T waves are Normal. No ST changes noted. Clinical impression: Normal ECG and No evidence of ischemia. Interpreted by me. Reviewed by me. Administered Medications: 21:12 Drug: Zofran (Ondansetron) 4 mg Route: IVP; Site: left antecubital; [facility] 21:45 Follow up: Response: No adverse reaction; Nausea is decreased [facility] 21:14 Drug: morphine 2 mg Route: IVP; Site: left antecubital; [facility] 21:30 Drug: NS 0.9% 1000 ml Route: IV; Rate: 1 bolus; Site: left antecubital; [facility] 21:43 Drug: morphine 2 mg Route: IVP; Site: left antecubital; [facility] 22:41 Follow up: Pain 5/10 Adult; Response: No adverse reaction; Pain is decreased; RASS: [facility] Alert and Calm (0) 22:55 Drug: Flomax 0.4 mg Route: PO; [facility] 23:25 Follow up: Response: No adverse reaction [facility] 23:00 Drug: Rocephin 1 grams Route: IV; Rate: per protocol; Site: left antecubital; [facility] 23:05 Follow up: Response: No adverse reaction; IV Status: Completed infusion [facility] 23:00 Drug: NS 0.9% 1000 ml Route: IV; Rate: 1 bolus; Site: left antecubital; [facility] 07/14 00:00 Follow up: Response: No adverse reaction; IV Status: Completed infusion [facility] 07/13 23:03 Drug: morphine 4 mg {Note: rass score 0.} Route: IVP; Site: left antecubital; [facility] 23:30 Follow up: Response: No adverse reaction; Pain is decreased; RASS: Alert and Calm (0) [facility] Disposition: 07/14/20 00:34 Discharged to Home. Impression: Hydronephrosis with renal and ureteral calculous obstruction - 5 mm distal right ureter, Unspecified kidney failure - renal insufficency. - Condition is Stable. - Discharge Instructions: Kidney Stones, Kidney Stones, [id number], Hydronephrosis, Chronic Kidney Disease, Adult, [id number], Dietary Guidelines to Help Prevent Kidney Stones. - Prescriptions for Zofran 4 mg Oral Tablet - take 1 tablet by ORAL route every 12 hours As needed; 20 tablet. Flomax 0.4 mg Oral Capsule, Sust. Release 24 hr - take 1 capsule by ORAL route once daily 1/2 hour following the same meal each day; 30 capsule. Cipro 500 mg Oral Tablet - take 1 tablet by ORAL route every 12 hours for 7 days; 14 tablet. Tramadol 50 mg Oral Tablet - take 1 tablet by ORAL route every 8 hours as needed; 24 tablet. - Medication Reconciliation Form, Thank You Letter, Antibiotic Education, Prescription Opioid Use form. - Follow up: Daron Mcgovern; When: 2 - 3 days; Reason: Recheck today's complaints, Continuance of care, Re-evaluation by your physician. - Problem is new. - Symptoms have improved. Signatures: Dispatcher [employer] [facility] Mehnaz Ocampo RN RN [id number] Husam Nicolas MD MD cha Bryson, James, RN RN [id number] Meena Rhoades [id number] Corrections: (The following items were deleted from the chart) 21:06 20:51 Abdomen Pelvis W Con+CT.RAD.BRZ ordered. [facility] 07/14 00:32 07/13 23:01 07/13/2020 23:01 Transfer ordered to [facility]. [facility] Diagnosis is Hydronephrosis with renal and ureteral calculous obstruction - 5 mm distal ureter. Reason for transfer: Higher level of care. Accepting physician is to [facility]. Condition is Stable. Problem is new. Symptoms have improved. [facility] 07/14 01:25 00:34 07/14/2020 00:34 Discharged to Home. Impression: Hydronephrosis with renal and mw2 ureteral calculous obstruction - 5 mm distal right ureter; Unspecified kidney failure - renal insufficency. Condition is Stable. Discharge Instructions: Kidney Stones, Kidney Stones, [id number], Hydronephrosis, Chronic Kidney Disease, Adult, [id number], Dietary Guidelines to Help Prevent Kidney Stones. Prescriptions for Tylenol-Codeine #3 300-30 mg Oral Tablet - take 2 tablet by ORAL route every 6 hours As needed; 30 tablet, Zofran 4 mg Oral Tablet - take 1 tablet by ORAL route every 12 hours As needed; 20 tablet, Flomax 0.4 mg Oral Capsule, Sust. Release 24 hr - take 1 capsule by ORAL route once daily 1/2 hour following the same meal each day; 30 capsule, Cipro 500 mg Oral Tablet - take 1 tablet by ORAL route every 12 hours for 7 days; 14 tablet, Tylenol-Codeine #3 300-30 mg Oral Tablet - take 2 tablet by ORAL route every 6 hours As needed; 30 tablet, Zofran 4 mg Oral Tablet - take 1 tablet by ORAL route every 12 hours As needed; 20 tablet, Flomax 0.4 mg Oral Capsule, Sust. Release 24 hr - take 1 capsule by ORAL route once daily 1/2 hour following the same meal each day; 30 capsule, Cipro 500 mg Oral Tablet - take 1 tablet by ORAL route every 12 hours for 7 days; 14 tablet. and Forms are Medication Reconciliation Form, Thank You Letter, Antibiotic Education, Prescription Opioid Use. Follow up: Daron Mcgovern; When: 2 - 3 days; Reason: Recheck today's complaints, Continuance of care, Re-evaluation by your physician. Problem is new. Symptoms have improved. caleb
[2020-07-14 01:08] LABS: Urine Bacteria <20 /HPF (NONE SEEN); Urine RBC 20-50 /HPF (NONE SEEN)
[2020-07-14 01:09] LABS: Urine Culture Reflex Order NOT NEEDED
[2020-07-14 01:13] LABS: Urine Blood 2+ (NEG); Urine Glucose NEGATIVE (NEG); Urine Protein TRACE (NEG); Urine pH 5.5 (5.0-7.0)
[2020-07-14 01:32] VITALS: TEMP 97.1
[2020-07-14 01:35] VITALS: BP 179/75; O2SAT 98
--- NOTE | 2020-07-14 09:05 | RAD REPORT ---
EXAM DESCRIPTION: CT - Abdomen Pelvis Wo Contrast - 07/14/2020 6:41 am CLINICAL HISTORY: Abdominal pain. COMPARISON: 10/03/2014 TECHNIQUE: CT scan of the abdomen and pelvis was performed without IV contrast. This exam was perfor med according to our departmental dose-optimization program, which includes automated exposure contro l, adjustment of the mA and/or kV according to patient size and/or use of iterative reconstruction te chnique. FINDINGS: The lung bases are clear. No pleural or pericardial effusions. There is no hiatal hernia. There is a 5 mm obstructing stone in the distal right ureter with mild right-sided inflammation and h ydronephrosis. Liver, gallbladder, spleen, pancreas, adrenal glands, left kidney, and pelvic organs a re normal. The stomach and duodenum are unremarkable. No small bowel obstruction. The appendix is normal. No jarret dence of acute diverticulitis. No adenopathy, free fluid, or free air is identified. There is a small fat-containing umbilical hernia but without inflammatory changes. The aorta is zach l caliber and contains atherosclerotic calcifications. There are mild degenerative changes of the spi ne. IMPRESSION: 5 mm obstructing stone in the distal right ureter with mild right-sided inflammation and hydronephrosis. Electronically signed by: Markos Mayer MD 07/13/2020 10:08 PM CDT Due to temporary technical issues with the PACS/Fluency reporting system, reports are being signed by the in house radiologist without review as a courtesy to ensure prompt reporting. The interpreting r adiologist is fully responsible for the content of the report.
== END 2020-07-14 01:25 | disposition home or self-care (01) ==
LOC: ER 19:50
DX: N13.2 Hydronephrosis with renal and ureteral calculous obstruction (principal); N19 Unspecified kidney failure
CPT/HCPCS: 96361; 93005; 87040 ×2; 85025; 80048; 36415; 82150; 82550; 85610; 82947; 80076; 83605; 85730; 84484; 82553; 83690; 84145; 74176; 71045; 96375; 96374; 99284; J2270; J0696; J7030 ×2; J2405; 81003; 81015

== ENCOUNTER 2021-11-15 19:44 | Emergency (ER) | payer OTHER ==
--- OUTSIDE RECORDS SUMMARY | 2021-11-15 19:49 | XMS REPORT | Continuity of Care Document ---
:1950 Author Organization [facility] t Address [address] [place] [address] Care Team Providers Name Role Phone Jeancarlos Cj Attending Clinician Unavailable Stepan RENNER Attending Clinician Singer WILSON Attending Clinician Violeta Dumont MD Attending Clinician Carla HARRIS Attending Clinician Cami Kahn MD Attending Clinician Attending Clinician Unavailable Cami Kahn MD Admitting Clinician Payers Payer Name Policy Type Policy Number Effective Date Expiration Date S ource Problems Condition Condition Condition Status Onset Resolution Last Treating Co mments Source Name Details Category Date Date Treatment Clinician Date Type 2 Type 2 Disease Active Univers diabetes diabetes 07-17 ity of mellitus mellitus 00:00: [place] with with 00 Medical hyperglyce hyperglyce Br anch osvaldo, with osvaldo, with long-term long-term current current use of use of insulin insulin Hypertensi Hypertensi Disease Active U nivers , on, 07-17 [place] essential [place] Ureteral Ureteral Disease Active Unive rs stone with stone with 07-17 it y of hydronephr hydrone[place]r [place] osis [place]sis [place] CVA CVA Disease Active Univers (cerebral (cerebral 07-17 ity of vascular vascular 00:00: [place] accident) accident) 00 Medi joselin Branch CAD CAD Disease Active Univers (coronary (coronary 07-17 ity of artery artery 00:00: [place] disease) disease) 00 Medica l Branch Asbestosis Asbestosis Disease Active 2020- U nivers 07-17 ity of 00:00: [place] 00 Medical Branch Allergies, Adverse Reactions, Alerts Allergy Allergy Status Severity Reaction(s) Onset Inactive Treating Comm ents Source Name Type Date Date Clinician CODEINE DRUG Active N/V Univers INGREDI 07-17 ity of 00:00: [place] 00 Medical Branch Codeine Propensi Active Nausea Univers ty to and/or 07-17 ity of adverse Vomiting 00:00: [place] reaction 00 Medical s Branch Social History Social Habit Start Date Stop Date Quantity Comments Source Exposure to Not sure [facility] SARS-CoV-2 [place] [facility] (event) Branch History SDOH University o f Alcohol Std [place] Medical Drinks Branch History SDOH University o f Alcohol Binge [place] Medic al Branch Sex Assigned At [facility] of [place] [facility] Tobacco use and 2020-07-17 2020-07-17 Never used Universit y of exposure 00:00:00 00:00:00 [place] [facility] Alcohol intake 2020-07-17 2020-07-17 Ex-drinker University of 00:00:00 00:00:00 (finding) [place] [facility] History SDOH 2020-07-17 2020-07-17 1 University o f Alcohol Frequency 00:00:00 00:00:00 [facility] edical Branch Smoking Status Start Date Stop Date Source Never smoker [facility] Medical Branch Medications Ordered Filled Start Stop Current Ordering Indication Dosage Frequency Signature Comments Components Source Medication Medication Date Date Medication? Clinician (SIG) Name Name metFORMIN 2019- Yes 1000mg Take 1,000 Univers 1,000 mg 9-30 mg by ity of tablet 22:31: mouth 2 [place] 02 (two) Medical times Branch daily with meals. carvediloL 2019-0 Yes 25mg Take 25 mg U nivers 25 mg 9-30 by mouth 2 ity of tablet 22:31: (two) [place] 02 times Medical daily with Branch meals. losartan 2019-0 Yes 100mg Take 100 Univ ers 100 mg 9-30 mg by ity of tablet 22:31: mouth [place] 02 daily. Medical Branch glimepiride 2020-0 Yes 4mg Take 4 mg U nivers 4 mg tablet 9-30 by mouth 2 it y of 22:31: (two) [place] 02 times Medical daily. Branch metFORMIN 2020-0 Yes 1000mg Take 1,000 Univers 1,000 mg 9-30 mg by ity of tablet 22:31: mouth 2 [place] 02 (two) Medical times [place] daily with meals. carvediloL 2020-0 Yes 25mg Take 25 mg U nivers 25 mg 9-30 by mouth 2 ity of tablet 22:31: (two) [place] 02 times Medical daily with Branch meals. losartan 2020-0 Yes 100mg Take 100 Univ ers 100 mg 9-30 mg by ity of tablet 22:31: mouth [place] 02 daily. Medical Branch glimepiride 2020-0 Yes 4mg Take 4 mg U nivers 4 mg tablet 9-30 by mouth 2 it y of 22:31: (two) [place] 02 times Medical daily. Branch metFORMIN 2020-0 Yes 1000mg Take 1,000 Univers 1,000 mg 9-30 mg by ity of tablet 22:31: mouth 2 [place] 02 (two) Medical times [place] daily with meals. carvediloL 2020-0 Yes 25mg Take 25 mg U nivers 25 mg 9-30 by mouth 2 ity of tablet 22:31: (two) [place] 02 times Medical daily with Branch meals. losartan 2020-0 Yes 100mg Take 100 Univ ers 100 mg 9-30 mg by ity of tablet 22:31: mouth [place] 02 daily. Medical Branch glimepiride 2020-0 Yes 4mg Take 4 mg U nivers 4 mg tablet 9-30 by mouth 2 it y of 22:31: (two) [place] 02 times Medical daily. Branch carvediloL 2020-0 Yes 25mg 25 mg, Unive rs (COREG) 9-30 Oral, BID ity of tablet 25 22:00: MEALS, [place] mg 00 First dose Medical (after Branch last modificati on) on Sat07/20/20 at 1700, Until Discontinu ed, Routine aspirin 81 2020-0 2020- No 81mg Take 81 mg Univers mg chewable 07-20 by mouth ity of tablet 18:50: 00:00 daily. [place] 35 :00 Medical Branch simvastatin 2020-0 2020- No 40mg Take 40 mg Univers 40 mg 07-20 by mouth ity of tablet 18:50: 00:00 at [place] 35 :00 bedtime. Medical Branch carvediloL 2019-0 2020- No 6.25mg 6.25 mg, Univers (COREG) 07-20 Oral, BID ity of tablet 6.25 17:45: 18:20 MEALS, 1 [place] mg 00 :00 dose, Medical First dose Branch (after last modificati on) on Sat07/20/20 at 1245, Routine carvediloL 2019-0 2020- No 6.25mg 6.25 mg, Univers (COREG) 07-20 Oral, BID ity of tablet 6.25 13:00: 17:37 MEALS, [place] as mg 00 :03 First dose Medical on Sat Branch 07/20/20 at 0800, Until Discontinu ed, Routine aspirin 81 2019-0 Yes [id number] 81mg Take 1 Univers mg chewable 9-30 tablet by ity of tablet 00:00: mouth [place] 00 daily. Medical Branch simvastatin 2020-0 Yes [id number] 40mg Take 1 Univers 40 mg 9-30 tablet by ity of tablet 00:00: mouth at [place] 00 bedtime. Medical Branch tamsulosin 2020-0 Yes [id number] .4mg Take 1 Univers 0.4 mg 24 9-30 capsule by ity of hr capsule 00:00: mouth [place] 00 daily. Medical Branch aspirin 81 2020-0 Yes [id number] 81mg Take 1 Univers mg chewable 9-30 tablet by ity of tablet 00:00: mouth [place] 00 daily. Medical Branch simvastatin 2020-0 Yes [id number] 40mg Take 1 Univers 40 mg 9-30 tablet by ity of tablet 00:00: mouth at [place] 00 bedtime. Medical Branch tamsulosin 2020-0 Yes [id number] .4mg Take 1 Univers 0.4 mg 24 9-30 capsule by ity of hr capsule 00:00: mouth [place] 00 daily. Medical Branch aspirin 81 2020-0 Yes [id number] 81mg Take 1 Univers mg chewable 9-30 tablet by ity of tablet 00:00: mouth [place] 00 daily. Medical Branch simvastatin 2020-0 Yes [id number] 40mg Take 1 Univers 40 mg 9-30 tablet by ity of tablet 00:00: mouth at [place] 00 bedtime. Medical Branch tamsulosin 2020-0 Yes [id number] .4mg Take 1 Univers 0.4 mg 24 9-30 capsule by ity of hr capsule 00:00: mouth [place] 00 daily. Medical Branch clopidogreL 2020-0 2020- No [id number] 75mg Take 1 Univers 75 mg 9-30 10-22 tablet by ity of tablet 00:00: 04:59 mouth [place] 00 :00 daily for Medical 21 days. Branch clopidogreL 2020-0 2020- No [id number] 75mg Take 1 Univers 75 mg 9-30 10-22 tablet by ity of tablet 00:00: 04:59 mouth [place] 00 :00 daily for Medical 21 days. Branch clopidogreL 2020-0 2020- No [id number] 75mg Take 1 Univers 75 mg 9-30 10-22 tablet by ity of tablet 00:00: 04:59 mouth [place] 00 :00 daily for Medical 21 days. Branch iodixanol 2019-0 2020- No 200mL 200 mL, Uni vers (VISIPAQUE 07-19 Injection, it y of 320-100 mL) 23:00: 23:00 ONCE, 1 [place] injection 00 :00 dose, Tue Medic al 200 mL 07/19/20 at Branch 1800, Routine HYDROcodone 2020-0 Yes Oral, PRN, Univers -acetaminop 07-19 Starting ity of hen (NORCO 22:12: [facility] 5) 5-325 mg 34 07/19/20 at Wi dical tablet 1712, Branch Until Discontinu ed, Routine FENTanyl PF 2020-0 Yes Slow IV Uni vers (SUBLIMAZE 07-19 Push, PRN, ity of (PF)) 20:30: Starting [place] injection 21 [facility] 07/19/20 at Branch 1530, Until Discontinu ed, Routine midazolam 2020-0 Yes IV Push, Univ ers (VERSED) 07-19 PRN, ity of injection 20:30: [place] 11 [facility] 07/19/20 at Branch 1530, Until Discontinu ed, Routine sulfur 2020-0 2020- No 5mL 5 mL, Univers hexafluorid 07-19 Intravenou i ty of e microsphr 15:00: 20:00 s, ONCE, 1 [place] (LUMASON) 00 :00 dose, Tue Medic al injection 5 07/19/20 at Br anch mL 1000, Routine
hull line crew member approving Restricted medication : KAMILA WONG famotidine 2020-0 Yes 20mg 20 mg, Unive rs (PEPCID AC) 07-19 Oral, ity of tablet 20 14:00: DAILY, [place] mg 00 First dose Medical (after [place] last modificati on) on [facility] 07/19/20 at 0900, Until Discontinu ed, Routine Saline 2020-0 Yes 6mL 6 mL, Univers Bubble 07-19 Injection, ity of Study 13:46: SEE-INSTRU [place] 29 CTIONS, 2 Medical doses, Branch Starting [facility] 07/19/20 at 0846, Until Discontinu ed, Routine Saline 2020-0 Yes 6mL 6 mL, Univers Bubble 07-19 Injection, ity of Study 13:46: SEE-INSTRU [place] 24 CTIONS, 2 Medical doses, Branch Starting [facility] 07/19/20 at 0846, Until Discontinu ed, Routine simvastatin 2020-0 Yes 40mg 40 mg, Univ ers (ZOCOR) 07-19 Oral, QHS, ity of tablet 40 02:00: First dose [place] mg 00 on [facility] 07/18/20 at Branch 2100, Until Discontinu ed, Routine clopidogreL 2020-0 Yes 75mg 75 mg, Univ ers (PLAVIX) 07-18 Oral, ity of tablet 75 14:00: DAILY, [place] mg 00 First dose Medical on [facility] 07/18/20 at 0900, Until Discontinu ed, Routine carvediloL 2020-0 2020- No 25mg 25 mg, Univ ers (COREG) 07-18 Oral, BID ity of tablet 25 13:00: 13:39 MEALS, [place] mg 00 :02 First dose Medical on [facility] 07/18/20 at 0800, Until Discontinu ed, Routine atorvastati 2020-0 2020- No 20mg 20 mg, Uni vers n (LIPITOR) 07-18 Oral, QHS, i ty of tablet 20 02:00: 16:43 First dose [place] mg 00 :17 on [facility] 07/17/20 at Branch 2100, Until Discontinu ed, Routine tamsulosin 2020-0 Yes .4mg 0.4 mg, Univ ers (FLOMAX) 07-17 Oral, ity of capsule 0.4 14:30: DAILY, [place] mg 00 First dose Medical on [facility] 07/17/20 at 0930, Until Discontinu ed, Routine docusate 2020-0 Yes 100mg 100 mg, Unive rs (COLACE) 07-17 Oral, ity of capsule 100 14:00: DAILY, [place] mg 00 First dose Medical on [facility] 07/17/20 at 0900, Until Discontinu ed, Routine aspirin 2020-0 Yes 81mg 81 mg, Univers chewable 07-17 Oral, ity of tablet 81 14:00: DAILY, [place] mg 00 First dose Medical on [facility] 07/17/20 at 0900, Until Discontinu ed, Routine NaCl 0.9% 2020-0 Yes IV Univers (NS) IV 07-17 Infusion, ity of infusion 13:30: at 125 [place] 00 mL/hr, Medical CONTINUOUS [place] , Starting [place] 07/17/20 at 0830, Until Discontinu ed, Routine
Please start after 1L bolus has finished<b r> Sliding 2020-0 Yes Subcutaneo Univ ers Scale 07-17 us, TID ity of Insulin - 13:00: MEALS+HS, [place] Aspart 00 First dose Medical (NOVOLOG) + on [facility] 07/17/20 at Testing 0800, Until Discontinu ed, Routine heparin 2020-0 Yes 5000U 5,000 Univers (porcine) 07-17 Units, ity of injection 13:00: [place]cut[place]o [place] 5,000 Units 00 us, Q12H, Med ical First dose Branch on [place] 07/17/20 at 0800, Until Discontinu ed, Routine NaCl 0.9% 2020-0 2020- No 1000mL at 999 Uni vers (NS) bolus 07-17 mL/hr, ity of infusion 11:30: 10:54 1,000 mL, [place] 1,000 mL 00 :00 IV Medical Piggyback, [place] ONCE, 1 dose, [place] 07/17/20 at 0630, STAT ondansetron 2019-0 2020- No 4mg 4 mg, Slow Univers (ZOFRAN 07-17 IV Push, ity of (PF)) 08:30: 07:30 ONCE, 1 [place] injection 4 00 :00 dose, [place] Med ical mg 07/17/20 at Branch 0330, RAKAN NaCl 0.9% 0 2020- No 1000mL at 999 Uni vers (NS) bolus 07-17 mL/hr, ity of infusion 08:15: 08:28 1,000 mL, [place] 1,000 mL 00 :00 IV Medical Piggyback, Branch ONCE, 1 dose, 07/17/20 at 0315, STAT iohexol 100mL 100 mL, Unive rs (OMNIPAQUE 07-17 Intravenou it y of 350 07:30: 07:07 s, ONCE, 1 [place] BULK-100 00 :00 dose, [place] Medica l mL) 07/17/20 at Branch injection 0230, 100 mL Routine Vital Signs Vital Name Observation Time Observation Value Comments Source Systolic blood 2020-07-20 17:26:00 167 mm[facility]Hg[facility] Diastolic blood 2020-07-20 17:26:00 84 mm[Hg] [facility] 2020-07-20 17:26:00 70 /min [facility] Body temperature 2020-07-20 17:26:00 36.22 Jia [facility] Respiratory rate 2020-07-20 17:26:00 18 /min [facility] Oxygen saturation in 2020-07-20 17:26:00 97 /min [facility] Arterial blood by [facility] Pulse oximetry [place] Body height 2020-07-19 18:31:00 175.3 cm [facility] Body weight 2020-07-19 18:31:00 117.935 kg [facility] BMI 2020-07-19 18:31:00 38.40 kg/m2 [facility] Procedures Procedure Date / Time Performing Clinician Source Performed POCT GLUCOSE (AUTOMATED) 2020-07-20 18:09:00 Tere Dumont [facility] POCT GLUCOSE (AUTOMATED) 2020-07-20 13:42:00 Tere Dumont [facility] MAGNESIUM 2020-07-20 10:57:00 González Ponce [facility] BASIC METABOLIC PANEL 2020-07-20 10:57:00 González Ponce [facility] (NA, K, CL, CO2, GLUCOSE, Medica l Branch BUN, CREATININE, CA) POCT GLUCOSE (AUTOMATED) 2020-07-20 02:48[facility]00 [facility]) 2020-07-19 22:55:00 Tere Dumont [facility] IR ANGIOGRAM CEREBRAL 2020-07-19 21:45:04 [facility] 2020-07-19 17:00:00 Tere Dumont [facility] CAROTID DUPLEX BILATERAL 2020-07-19 13:57:06 Roosevelt Ponce [facility] BY VASCULAR LAB [facility] POCT GLUCOSE (AUTOMATED) 2020-07-19 13:06:00 [facility] 2020-07-19 10:52:00 González Ponce [facility] BASIC METABOLIC PANEL 2020-07-19 10:52:00 Jose Goldsmith [facility] (NA, K, CL, CO2, GLUCOSE, Medica l Branch BUN, CREATININE, CA) CBC WITH DIFF 2020-07-19 10:52:00 Jose Goldsmith [facility] PROTHROMBIN TIME / INR 2020-07-19 10:52:00 González Ponce [facility] POCT GLUCOSE (AUTOMATED) 2020-07-19 02:24:00 Tere Dumont [facility] POCT GLUCOSE (AUTOMATED) 2020-07-18 21:48:00 Tere Dumont [facility] VERIFYNOW ASPIRIN TEST 2020-07-18 19:30:00 González Ponce [facility] ECHO ROUTINE W/DOPPLER 2020-07-18 18:18:37 Jose Goldsmith [facility] COLOR [facility] POCT GLUCOSE (AUTOMATED) 2020-07-18 17:07:00 [facility] PO[facility]SE (AUTOMATED) 2020-07-18 13:11:00 Tere Dumont [facility] BASIC METABOLIC PANEL 2020-07-18 10:27:00 Jose Goldsmith [facility] (NA, K, CL, CO2, GLUCOSE, Medica l Branch BUN, CREATININE, CA) CBC WITH DIFF 2020-07-18 10:27:00 Jose Goldsmith [facility] PROTHROMBIN TIME / INR 2020-07-18 10:27:00 ToribioAdelfo [facility] ACTIVATED PARTIAL 2020-07-18 10:27:00 [facility] THRMPLAS [facility] MR BRAIN WO CONTRAST 2020-07-18 04:35:12 Jose Goldsmith [facility] BASIC METABOLIC PANEL 2020-07-18 02:28:00 [facility] (NA, K, CL, CO2, GLUCOSE, Medica l Branch BUN, CREATININE, CA) CREATININE, URINE RANDOM 2020-07-18 02:22:00 [facility] NITROGEN, URINE 2020-07-18 02:22:00 [facility] RAND[facility] SODIUM, URINE RANDOM 2020-07-18 02:22:00 [facility] PO[facility]SE (AUTOMATED) 2020-07-18 02:12:00 Tere Dumont [facility] POCT GLUCOSE (AUTOMATED) 2020-07-17 22:11:00 Tere Dumont [facility] POCT GLUCOSE (AUTOMATED) 2020-07-17 17:30:00 Tere Dumont [facility] POCT GLUCOSE (AUTOMATED) 2020-07-17 14:40:00 Tere Dumont [facility] COVID-19 (ID NOW RAPID 2020-07-17 07:40:00 Alida Carpenter [facility] TESTING) Medical Branch CT ANGIOGRAM HEAD 2020-07-17 07:15:16 Alida Carpenter [facility] CT ANGIOGRAM NECK 2020-07-17 07:15:16 Alida Carpenter [facility] CT ABDOMEN PELVIS WO 2020-07-17 07:13:32 Alida Carpenter [facility] CONTRAST Medical Branch CT HEAD WO CONTRAST 2020-07-17 07:12:11 Alida Carpenter [facility] Medical [place] URINALYSIS 2020-07-17 06:06:00 Singer [facility] XR CHEST 1 VW 2020-07-17 05:52:29 Singer [facility] EKG-12 LEAD 2020-07-17 05:25:31 Singer [facility] TROPONIN I 2020-07-17 05:22:00 Singer [facility] THYROID STIMULATING 2020-07-17 05:22:00 [facility] Branch COMP. METABOLIC PANEL 2020-07-17 05:22:00 Singer [facility] ([id number]) Medical Branch LIPID PANEL (44004)(TOTAL 2020-07-17 05:22:00 Alida Carpenter [facility] CHOLESTEROL, Medical Branch TRIGLYCERIDES, HDL) CBC WITH DIFF 2020-07-17 05:22:00 Singer [facility] GLYCOSYLATED HEMOGLOBIN 2020-07-17 05:22:00 Singer [facility] (A1C) Medical Branch EKG-12 LEAD 2020-07-17 05:18:57 Singer [facility] EMERGENCY DEPARTMENT 2020-07-17 05:01:00 Doctor Unassigned, [facility] DOCUMENTS [facility] [place] EMERGENCY [facility] 2020-07-17 05:01:00 [facility] AGRE[facility]S AND [facility] AUTHORIZATIONS Encounters Start End Encounter Admission Attending Care Care Encounter Source Date/Time Date/Time Type Type Clinicians Facility Department ID 2021-11-15 Outpatient Arshad, [facility] [id number] [address] 13:30:17 [place] [id number] [facility] 2021-11-15 Outpatient Arshad, [facility] [id number] 13:29:55 [place] [id number] [facility] 2021-11-15 Outpatient Arshad, [facility] [id number] 13:12:17 [place] [id number] [facility] 2021-11-15 Outpatient Arshad, [facility] 12:55:42 [place] [id number] [facility] 2021-11-15 Outpatient Arshad, [facility] 12:54:02 [place] [id number] [facility] 2021-11-15 Outpatient Arshad, [facility] 12:41:32 [place] [id number] [facility] 2021-11-15 Outpatient Arshad, [facility] 12:39:04 [place] [id number] [facility] 2021-11-15 [facility] 2021-08-14 2021-08-14 Outpatient [facility] [id number] [facility] 2021-05-15 2021-05-15 Outpatient [facility] [id number] [facility] 2021-05-08 2021-05-08 Outpatient [facility] [id number] [facility] 2021-03-31 2021-03-31 Outpatient [facility] [id number] [facility] 2021-03-09 2021-03-09 Outpatient [facility] [id number] [facility] 2021-02-13 2021-02-13 Outpatient [facility] [id number] [facility] 2021-02-13 2021-02-13 Outpatient [facility] [id number] [facility] 2021-02-07 2021-02-07 Out[facility] [id number] [facility] 2020-12-29 2020-12-29 Outpatient [facility] [id number] [facility] 2020-07-21 2020-07-21 Transition Julia Yingmiracle [id number] Univers 00:00:00 00:00:00 of Care Ashley Holty [id number] it y of [place] [id number] [facility] [id number] [place] [id number] Branch 2020-07-17 2020-07-20 Hospital Alida Carpenter [id number] Univers 00:15:00 16:05:00 Encounter Tere Dumont [id number] ity [employer] [id number] [place] Dinesh Deanadriel Almanza [id number] [place] [id number] Branch 2020-07-17 2020-07-17 Emergency X [facility]ER [facility] ERT [id number] Univers 00:15:00 00:15:00 ALIDA jaime [facility] Results Test Description Test Time Test Comments Results Result Comments Source POCT GLUCOSE (AUTOMATED) 2020-07-20 18:21:00 Test Item Value Reference Range Interpretation Comme nts POCT GLU (test code = 4924368555) 189 mg/dL 70-110 H Lab Interpretation (test code = 39654-5) [facility]normal [facility] 13:45:00 Test Item Value Reference Range Interpretation Comments POCT GLU (test code = 8118255208) 353 mg/dL 70-110 H Lab Interpretation (test code = Abnormal 03379-2) [facility] (NA, K, CL, CO2, GLUCOSE, BUN, CREATININE, CA)2020-07-20 11:48:00 Test Item Value Reference Range Interpretation Comments NA (test code = 141 mmol/L 135-145 0628207218) K (test code = 4.3 mmol/L 3.5-5 9475259118) CL (test code = 113 mmol/L 98-108 H 3734749529) CO2 TOTAL (test code = 21 mmol/L 23-31 L 9942672790) AGAP (test code = 2-16 5968441714) BUN (test code = 16 mg/dL 7-23 1405823423) GLUCOSE (test code = 189 mg/dL 70-110 H 0626336363) CREATININE (test code = 1.44 mg/dL 0.6-1.25 H 6412163556) CALCIUM (test code = 8.5 mg/dL 8.6-10.6 L 8601902740) eGFR Calculation mL/min/1.73m2 (Non-) (test code = 2717735430) eGFR Calculation mL/min/1.73m2 () (test code = 9517066578) SHAKIRA (test code = SHAKIRA) Association of Glomerular Filtration Rate (GFR) and Staging of Kidney Disease* + --+ --+ ------+| GFR (mL/min/1.73 m2) ?| With Kidney Damage ?| ?Without Kidney Damage+ --------+ --------+ +| ?>90 ?| ?Stage one ?| ? Normal ?+ ---+ ---+ -------+| ?60-89 ?| ?Stage two ?| ? Decreased GFR ? + --+ --+ ------+| ?30-59 ?| ?Stage three ?| ? Stage three ? + --+ --+ ------+| ?15-29 ?| ?Stage four ? | ? Stage four ?+ ---+ ---+ -------+| ?<15 (or dialysis) ? ?| ?Stage five ? | ? Stage five ?+ ---+ ---+ -------+ *Each stage assumes the associated GFR level has been in effect for at least three months. ?Stages 1 to 5, with or without kidney disease, indicate chronic kidney disease. Notes: Determination of stages one and two (with eGFR >59mL/min/1.73 m2) requires estimation of kidney damage for at least three months as defined by structural or functional abnormalities of the kidney, manifested by either:Pathological abnormalities or Markers of kidney damage (including abnormalities in the composition of the blood or urine or abnormalities in imaging tests). Lab Interpretation Abnormal (test code = 43275-0) [facility] 11:48:00 Test Item Value Reference Range Interpretation Comments MAGNESIUM (test code = 8245421938) 2.0 mg/dL 1.7-2.4 Lab Interpretation (test code = Normal 31407-2) [facility] GLUCOSE (AUTOMATED)2020-07-20 02:49:00 Test Item Value Reference Range Interpretation Comments POCT GLU (test code = 7918266673) 205 mg/dL 70-110 H Lab Interpretation (test code = Abnormal 19025-6) [facility] GLUCOSE (AUTOMATED)2020-07-19 22:58:00 Test Item Value Reference Range Interpretation Comments POCT GLU (test code = 9081330014) 139 mg/dL 70-110 H Lab Interpretation (test code = Abnormal 18499-5) [facility] GLUCOSE (AUTOMATED)2020-07-19 17:03:00 Test Item Value Reference Range Interpretation Comments POCT GLU (test code = 8279272771) 174 mg/dL 70-110 H Lab Interpretation (test code = Abnormal 68235-7) [facility] GLUCOSE (AUTOMATED)2020-07-19 13:11:00 Test Item Value Reference Range Interpretation Comments POCT GLU (test code = 2563621551) 183 mg/dL 70-110 H Lab Interpretation (test code = Abnormal 64374-8) [facility] (NA, K, CL, CO2, GLUCOSE, BUN, CREATININE, CA)2020-07-19 11:42:00 Test Item Value Reference Range Interpretation Comments NA (test code = 140 mmol/L 135-145 4539382217) K (test code = 4.4 mmol/L 3.5-5 7032461965) CL (test code = 113 mmol/L 98-108 H 0332989745) CO2 TOTAL (test code = 19 mmol/L 23-31 L 7669997356) AGAP (test code = 2-16 8684068107) BUN (test code = 27 mg/dL 7-23 H 5608766678) GLUCOSE (test code = 156 mg/dL 70-110 H 5094882038) CREATININE (test code = 2.29 mg/dL 0.6-1.25 H 1668968018) CALCIUM (test code = 8.1 mg/dL 8.6-10.6 L 2705144790) eGFR Calculation mL/min/1.73m2 (Non-) (test code = 6213640679) eGFR Calculation mL/min/1.73m2 () (test code = 4427084176) SHAKIRA (test code = SHAKIRA) Association of Glomerular Filtration Rate (GFR) and Staging of Kidney Disease* + --+ --+ ------+| GFR (mL/min/1.73 m2) ?| With Kidney Damage ?| ?Without Kidney Damage+ --------+ --------+ +| ?>90 ?| ?Stage one ?| ? Normal ?+ ---+ ---+ -------+| ?60-89 ?| ?Stage two ?| ? Decreased GFR ? + --+ --+ ------+| ?30-59 ?| ?Stage three ?| ? Stage three ? + --+ --+ ------+| ?15-29 ?| ?Stage four ? | ? Stage four ?+ ---+ ---+ -------+| ?<15 (or dialysis) ? ?| ?Stage five ? | ? Stage five ?+ ---+ ---+ -------+ *Each stage assumes the associated GFR level has been in effect for at least three months. ?Stages 1 to 5, with or without kidney disease, indicate chronic kidney disease. Notes: Determination of stages one and two (with eGFR >59mL/min/1.73 m2) requires estimation of kidney damage for at least three months as defined by structural or functional abnormalities of the kidney, manifested by either:Pathological abnormalities or Markers of kidney damage (including abnormalities in the composition of the blood or urine or abnormalities in imaging tests). Lab Interpretation Abnormal (test code = 65979-4) [facility] 11[facility]42:00 Test Item Value Reference Range Interpretation Comments MAGNESIUM (test code = 3676509262) 2.0 mg/dL 1.7-2.4 Lab Interpretation (test code = Normal 54659-6) [facility] / [id number] 11:31:00 Test Item Value Reference Range Interpretation Comments PROTIME PATIENT (test See_Comment H [Auto mated message] code = 5964-2) The system wh ich generated this result transmitted ref erence range: 10.1 - 1 2.6 Seconds. The reference range was not used to int erpret this result as normal/abnormal . INR (test code = 6301-6) Nor mal INR <1.1; Warfarin Therap eutic range 2.0 to 3. 0 or 2.5 to 3.5, dep ending upon the indica tions. Lab Interpretation (test Abnormal code = 64482-8) [facility] WITH [id number] 11:09:00 Test Item Value Reference Range Interpretation Comments WBC (test code = See_Comment [Automated 6690-2) message] The sy stem which generated this result transmitted reference range : 4.20 - 10.70 10*3/?L. The reference range was not used to interpret this result as normal/abnormal . RBC (test code = See_Comment L [Automated 789-8) message] The sy stem which generated this result transmitted reference range : 4.26 - 5.52 10*6/?L. The reference range was not used to interpret this result as normal/abnormal . HGB (test code = 11.0 g/dL 12.2-16.4 L 718-7) HCT (test code = 34.5 % 38.4-49.3 L 4544-3) MCV (test code = 87.6 fL 81.7-95.6 787-2) MCH (test code = 27.9 pg 26.1-32.7 785-6) MCHC (test code = 31.9 g/dL 31.2-35 786-4) RDW-SD (test code = 42.7 fL 38.5-51.6 60687-7) RDW-CV (test code = 13.3 % 12.1-15.4 788-0) PLT (test code = See_Comment [Automated 777-3) message] The sy stem which generated this result transmitted reference range : 150 - 328 10*3/ ?L. The reference r rossy was not used to interpret this result as normal/abnormal . MPV (test code = 9.2 fL 9.8-13 L 67487-0) NRBC/100 WBC (test See_Comment [Automat ed code = 7911148420) message] The system which generated this result transmitted reference range : 0.0 - 10.0 /100 WBCs. The refer ence range was not u sed to interpret th is result as normal/abnormal . NRBC x10^3 (test code <0.01 See_Comment [Auto mated = 6137675580) message] The s ystem which generated this result transmitted reference range : 10*3/?L. The reference range was not used to interpret this result as normal/abnormal . GRAN MAT (NEUT) % 68.1 % (test code = 770-8) IMM GRAN % (test code 0.40 % = 6744890886) LYMPH % (test code = 19.5 % 736-9) MONO % (test code = 9.2 % 5905-5) EOS % (test code = 2.4 % 713-8) BASO % (test code = 0.4 % 706-2) GRAN MAT x10^3(ANC) 4.88 10*3/uL 1.99-6.95 (test code = 0633545937) IMM GRAN x10^3 (test 0.03 10*3/uL 0-0.06 code = 7363919561) LYMPH x10^3 (test code 1.40 10*3/uL 1.09-3.23 = 731-0) MONO x10^3 (test code 0.66 10*3/uL 0.36-1.02 = 742-7) EOS x10^3 (test code = 0.17 10*3/uL 0.06-0.53 711-2) BASO x10^3 (test code 0.03 10*3/uL 0.01-0.09 = 704-7) Lab Interpretation Abnormal (test code = 29715-8) [facility] GLUCOSE (AUTOMATED)2020-07-19 02:24:00 Test Item Value Reference Range Interpretation Comments POCT GLU (test code = 8500294151) 211 mg/dL 70-110 H Lab Interpretation (test code = Abnormal 70449-2) [facility] GLUCOSE (AUTOMATED)2020-07-18 21:49:00 Test Item Value Reference Range Interpretation Comments POCT GLU (test code = 2781967608) 147 mg/dL 70-110 H Lab Interpretation (test code = Abnormal 08404-0) [facility] Center[facility]IFY[facility] ASPIRIN [id number] 20:11:00 Test Item Value Reference Range Interpretation Comments Ver[employer]Now Aspirin See Comment ARU Test (test code = 9638450278) SHAKIRA (test code = < 550 ARU - Evidence of SHAKIRA) platelet dysfunction due to aspirin>= 550 ARU - No evidence of aspirin-induced platelet dysfunction The performance of VerifyNow Aspirin test on patients with acquired non-drug induced platelet abnormalities is not known. Patients who have been treated with Glycoprotein IIb/IIIa inhibitor drugs should not be tested until platelet function has recovered. The recovery period after drug administration is discontinued is approximately 14 days for abciximab (ReoPro) and up to 48 hours for eptifibatide (Integrilin) and tirofiban (Aggrastat). The time to recovery of platelet functions varies among individuals and is longer for patients with renal dysfunction. Patient with low platelet counts may not give consistent results. Results should be interpreted in conjunction with other laboratory and clinical data available to the clinician. 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 Chronic microvascular ischemic changes in the deep white matter. Preliminary Report Dictated by Resident: Carol Ennis MD., have reviewed this study and agree with theabove report.EXAMINATION: MR BRAIN WO CONTRAST HISTORY: Neuro deficit(s), subacute COMPARISON: ?CT head without contrast 07/17/2020 TECHNIQUE: Multiplanar and multisequence MRI imaging of the brain wasobtained without contrast. FINDINGS: The ventricles and cerebral sulci are normal in caliber and configuration.No midline shift, hydrocephalus or pathological extra-axial fluidcollection is present. The basal cisterns are unremarkable. No intracranial hemorrhage or mass. At T2/FLAIR hyperintensity within the right precentral gyrus and adjacentdeep white matter is seen with corresponding diffusion restriction. Anothersmall focus of T2/FLAIR hyperintensity with corresponding diffusionrestriction is seen in the right postcentral gyrus. No abnormal gradientblooming. A few scattered periventricular and deep white matter T2/FLAIRhyperintensities are consistent with microvascular ischemic changes. Remote lacunar infarctions in the bilateral basal ganglia. The rightinternal carotid T2 flow void is not visualized, otherwise, the T2 flowvoids for the major intracranial vessels are unremarkable. No abnormalfluid signal is present in the mastoidair cells or paranasal air sinuses.The calvarium is normal. The orbits are unremarkable. The paranasal sinusesare essentially clear. [facility], Radiant Results Inft User - 07/18/2020 11:12 AM CDTEXAMINATION: MR BRAIN WO CONTRASTHISTORY: Neuro deficit(s), subacute COMPARISON: CT head without contrast 07/17/2020TECHNIQUE: Multiplanar and multisequence MRI imaging of the brain wasobtained without contrast.FINDINGS:The ventricles and cerebral sulci are normal in caliber and configuration.No midline shift, hydrocephalus or pathological extra-axial fluidcollection is present. The basal cisterns are unremarkable.No intracranial hemorrhage or mass. At T2/FLAIR hyperintensity within the right precentral gyrus and adjacentdeep white matter is seen with corresponding diffusion restriction. Anothersmall focus ofT2/FLAIR hyperintensity with corresponding diffusionrestriction is seen in the right postcentral gyrus. No abnormal gradientblooming. A few scattered periventricular and deep white matter T2/FLAIRhyperintensities are consistent with microvascular ischemic changes. Remote lacunar infarctions in the bilateral basal ganglia. The rightinternal carotid T2 flow void is not visualized, otherwise, the T2 flow voids for the major intracranial vessels are unremarkable. No abnormalfluid signal is present in themastoid air cells or paranasal air sinuses.The calvarium is normal. The orbits are unremarkable. Theparanasal sinusesare essentially clear. IMPRESSIONImpression:Acute infarctions in the right frontal and parietal region in the right MCAterritory. 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.Chronic microvascular ischemic changes in the deep white matter.Preliminary ReportDictated by Resident: Carol Andrade MD., have reviewed this study and agree with theabove report.[facility]2020-07-18 13:12:00 Test Item Value Reference Range Interpretation Comments POCT GLU (test code = 1928088474) 134 mg/dL 70-110 H Lab Interpretation (test code = Abnormal 35270-6) [facility] CenterPROTHROM[facility] / [id number] 11:34:00 Test Item Value Reference Range Interpretation Comments PROTIME PATIENT (test See_Comment H [Auto mated message] code = 5964-2) The system [email or web address] ich generated this result transmitted ref erence range: 10.1 - 1 2.6 Seconds. The reference range was not used to int erpret this result as normal/abnormal . INR (test code = 6301-6) Nor mal INR <1.1; Warfarin Therap eutic range 2.0 to 3. 0 or 2.5 to 3.5, dep ending upon the indica tions. Lab Interpretation (test Abnormal code = 19068-8) [facility] CenteraPTT2020-09-28 11:34:00 Test Item Value Reference Range Interpretation Comments APTT Patient (test code See_Comment L [Au tomated message] = 3173-2) The system [email or web address] generated this result transmitted ref erence range: 26 - 36 Seconds. The reference range was not used to int erpret this result as normal/abnormal . Lab Interpretation (test Abnormal code = 06391-7) [facility] (NA, K, CL, CO2, GLUCOSE, BUN, CREATININE, CA)2020-07-18 10:52:00 Test Item Value Reference Range Interpretation Comments NA (test code = 141 mmol/L 135-145 6550772078) K (test code = 4.4 mmol/L 3.5-5 5899049250) CL (test code = 112 mmol/L 98-108 H 3318535076) CO2 TOTAL (test code = 20 mmol/L 23-31 L 8485388134) AGAP (test code = 2-16 9926722640) BUN (test code = 28 mg/dL 7-23 H 5965905839) GLUCOSE (test code = 116 mg/dL 70-110 H 9290352966) CREATININE (test code = 2.30 mg/dL 0.6-1.25 H 2907173827) CALCIUM (test code = 7.9 mg/dL 8.6-10.6 L 2387990382) eGFR Calculation mL/min/1.73m2 (Non-) (test code = 5644813300) eGFR Calculation mL/min/1.73m2 () (test code = 4394136630) SHAKIRA (test code = SHAKIRA) Association of Glomerular Filtration Rate (GFR) and Staging of Kidney Disease* + --+ --+ ------+| GFR (mL/min/1.73 m2) ?| With Kidney Damage ?| ?Without Kidney Damage+ --------+ --------+ +| ?>90 ?| ?Stage one ?| ? Normal ?+ ---+ ---+ -------+| ?60-89 ?| ?Stage two ?| ? Decreased GFR ? + --+ --+ ------+| ?30-59 ?| ?Stage three ?| ? Stage three ? + --+ --+ ------+| ?15-29 ?| ?Stage four ? | ? Stage four ?+ ---+ ---+ -------+| ?<15 (or dialysis) ? ?| ?Stage five ? | ? Stage five ?+ ---+ ---+ -------+ *Each stage assumes the associated GFR level has been in effect for at least three months. ?Stages 1 to 5, with or without kidney disease, indicate chronic kidney disease. Notes: Determination of stages one and two (with eGFR >59mL/min/1.73 m2) requires estimation of kidney damage for at least three months as defined by structural or functional abnormalities of the kidney, manifested by either:Pathological abnormalities or Markers of kidney damage (including abnormalities in the composition of the blood or urine or abnormalities in imaging tests). Lab Interpretation Abnormal (test code = 41692-6) [facility] WITH [id number] 10:52:00 Test Item Value Reference Range Interpretation Comments WBC (test code = See_Comment [Automated 6590-2) message] The sy stem which generated this result transmitted reference range : 4.20 - 10.70 10*3/?L. The reference range was not used to interpret this result as normal/abnormal . RBC (test code = See_Comment L [Automated 789-8) message] The sy stem which generated this result transmitted reference range : 4.26 - 5.52 10*6/?L. The reference range was not used to interpret this result as normal/abnormal . HGB (test code = 11.1 g/dL 12.2-16.4 L 718-7) HCT (test code = 34.9 % 38.4-49.3 L 4544-3) MCV (test code = 89.5 fL 81.7-95.6 787-2) MCH (test code = 28.5 pg 26.1-32.7 785-6) MCHC (test code = 31.8 g/dL 31.2-35 786-4) RDW-SD (test code = 43.8 fL 38.5-51.6 48640-3) RDW-CV (test code = 13.4 % 12.1-15.4 788-0) PLT (test code = See_Comment [Automated 777-3) message] The sy stem which generated this result transmitted reference range : 150 - 328 10*3/ ?L. The reference r rossy was not used to interpret this result as normal/abnormal . MPV (test code = 9.1 fL 9.8-13 L 96432-4) NRBC/100 WBC (test See_Comment [Automat ed code = 2423043495) message] The system which generated this result transmitted reference range : 0.0 - 10.0 /100 WBCs. The refer ence range was not u sed to interpret th is result as normal/abnormal . NRBC x10^3 (test code <0.01 See_Comment [Auto mated = 6995367425) message] The s ystem which generated this result transmitted reference range : 10*3/?L. The reference range was not used to interpret this result as normal/abnormal . GRAN MAT (NEUT) % 65.9 % (test code = 770-8) IMM GRAN % (test code 0.40 % = 3578068422) LYMPH % (test code = 21.8 % 736-9) MONO % (test code = 9.5 % 5905-5) EOS % (test code = 2.1 % 713-8) BASO % (test code = 0.3 % 706-2) GRAN MAT x10^3(ANC) 5.07 10*3/uL 1.99-6.95 (test code = 7900831472) IMM GRAN x10^3 (test 0.03 10*3/uL 0-0.06 code = 3014702084) LYMPH x10^3 (test code 1.68 10*3/uL 1.09-3.23 = 731-0) MONO x10^3 (test code 0.73 10*3/uL 0.36-1.02 = 742-7) EOS x10^3 (test code = 0.16 10*3/uL 0.06-0.53 711-2) BASO x10^3 (test code <0.03 0.01-0.09 = 704-7) Lab Interpretation Abnormal (test code = 39190-5) [facility] CenterTHYROID STIMULATING [id number] 03:37:00 Test Item Value Reference Range Interpretation Comments TSH (test code = See_Comment Biotin has been 4359228531) reported to cau se a negative bias, interpret resul ts relative to grace romo's use of biotin. [Automated mess age] The system [employer] generated this result transmitted ref erence range: 0.45 - 4 .70 mIU/L. The refe rence range was not u sed to interpret this result as normal/abnor mal. Lab Interpretation (test Normal code = 15457-7) [facility] CenterSODIUM, URINE [id number] 02:48:00 Test Item Value Reference Range Interpretation Comments NA URINE (test code = 7766089324) 129 mmol/L [facility] CenterCREATININE, URINE [id number] 02:48:00 Test Item Value Reference Range Interpretation Comments CREAT U (test code = 6727057305) 112.6 mg/dL [facility] CenterUREA NITROGEN, URINE [id number] 02:48:00 Test Item Value Reference Range Interpretation Comments UREA N UR (test code = 7986695348) 808 mg/dL [facility] CenterBasic [facility] Panel (NA, K, CL, CO2, GLUCOSE, BUN, CREATININE, CA)2020-07-18 02:48:00 Test Item Value Reference Range Interpretation Comments NA (test code = 138 mmol/L 135-145 0028096286) K (test code = 4.5 mmol/L 3.5-5 0391220997) CL (test code = 110 mmol/L 98-108 H 5671419167) CO2 TOTAL (test code = 22 mmol/L 23-31 L 6886108117) AGAP (test code = 2-16 9614003436) BUN (test code = 29 mg/dL 7-23 H 1361503845) GLUCOSE (test code = 193 mg/dL 70-110 H 6511151072) CREATININE (test code = 2.34 mg/dL 0.6-1.25 H 4130543975) CALCIUM (test code = 8.1 mg/dL 8.6-10.6 L 9041001179) eGFR Calculation mL/min/1.73m2 (Non-) (test code = 1523835459) eGFR Calculation mL/min/1.73m2 () (test code = 3271719504) SHAKIRA (test code = SHAKIRA) Association of Glomerular Filtration Rate (GFR) and Staging of Kidney Disease* + --+ --+ ------+| GFR (mL/min/1.73 m2) ?| With Kidney Damage ?| ?Without Kidney Damage+ --------+ --------+ +| ?>90 ?| ?Stage one ?| ? Normal ?+ ---+ ---+ -------+| ?60-89 ?| ?Stage two ?| ? Decreased GFR ? + --+ --+ ------+| ?30-59 ?| ?Stage three ?| ? Stage three ? + --+ --+ ------+| ?15-29 ?| ?Stage four ? | ? Stage four ?+ ---+ ---+ -------+| ?<15 (or dialysis) ? ?| ?Stage five ? | ? Stage five ?+ ---+ ---+ -------+ *Each stage assumes the associated GFR level has been in effect for at least three months. ?Stages 1 to 5, with or without kidney disease, indicate chronic kidney disease. Notes: Determination of stages one and two (with eGFR >59mL/min/1.73 m2) requires estimation of kidney damage for at least three months as defined by structural or functional abnormalities of the kidney, manifested by either:Pathological abnormalities or Markers of kidney damage (including abnormalities in the composition of the blood or urine or abnormalities in imaging tests). Lab Interpretation Abnormal (test code = 93745-9) [facility] GLUCOSE (AUTOMATED)2020-07-18 02:13:00 Test Item Value Reference Range Interpretation Comments POCT GLU (test code = 4422869568) 193 mg/dL 70-110 H Lab Interpretation (test code = Abnormal 17613-0) [facility] GLUCOSE (AUTOMATED)2020-07-17 22:12:00 Test Item Value Reference Range Interpretation Comments POCT GLU (test code = 4078332580) 178 mg/dL 70-110 H Lab Interpretation (test code = Abnormal 81068-9) [facility] GLUCOSE (AUTOMATED)2020-07-17 17:41:00 Test Item Value Reference Range Interpretation Comments POCT GLU (test code = 1358473605) 166 mg/dL 70-110 H Lab Interpretation (test code = Abnormal 68599-6) [facility] CenterXR CHEST 1 [id number] 15:17:07 No acute intrathoracic abnormality. Preliminary Report Dictated by Resident: Javi Hancock MD., have reviewed this study and agree with the abovereport.PROCEDURE: XR CHEST 1 VW CLINICAL INDICATION: stroke COMPARISON: None FINDINGS: The lungs are clear. No pleural effusion or pneumothorax is seen. The heartis normal in size. No acute bony abnormality. [facility], Radiant Results Inft 07/17/2020 10:18 AM CDTPROCEDURE: XR CHEST 1 VWCLINICAL INDICATION: stroke COMPARISON: NoneFINDINGS:The lungs are clear. No pleural effusion or pneumothorax is seen. 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 The right MCA is smaller in caliber comparedto the left. Hypoplastic versus aplastic right A1. Findings were discussed with Dr. Carpenter at 2:50 AM. Preliminary Report Dictated by Resident: Bhavya Vaughn Report change Tamar Gomes reviewed this study and agree with the above reportwith the following modifications: 2 mm posterior inferior outpouching of left supraclinoid internal carotidartery favored to be infundibulum, aneurysm not excluded. Attention onfollow-up. Tamar Gomes ?MD. Logan, have reviewed this study and agree with theabove report.CT ANGIOGRAM NECK, CT ANGIOGRAM HEAD HISTORY: Neuro deficit(s), subacute TECHNIQUE: CTA of the head with coronal, sagittal reformats, and MIPSreconstruction was performed. COMPARISON: ?Same day CT head. FINDINGS: CTA NECK: Aortic arch and arch vessel origins: Two-vessel anatomy. The left commoncarotid artery shares a common origin with the brachiocephalicartery. Theostia of the major vessels are free of stenosis. Innominate and subclavian arteries: Mildatherosclerosis of the leftsubclavian artery is seen without significant stenosis. The rightsubclavian artery is unremarkable. Common carotids: Mild atherosclerosis of the bilateral common carotidarteries without significant stenosis. 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 Mild atherosclerosis of the left carotid bulb on the proximal cervical ICAwithout significantstenosis. Vertebral arteries: The vertebral arteries originate from the subclavianarteries. Mild atherosclerosis is seen at the ostium of the left vertebralartery without significant stenosis. The leftvertebral artery is dominant.The right vertebral artery functionally terminates as PICA. CTA HEAD: The PICA origin is visualized bilaterally. The basilar artery is normal incaliber. The superior cerebellar arteries are unremarkable. The posteriorcerebral arteries are unremarkable. 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 Calcified atherosclerosis of theleft carotid siphon resulting in mild to moderate stenosis of theparaclinoid ICA. The right anterior cerebral artery A1 segment is notvisualized. Otherwise, the anterior and left middle cerebral arteries areunremarkable. An anterior communicating artery is visualized. [facility], Radiant Results Inft User - 07/17/2020 10:04 AM CDTCT ANGIOGRAM NECK, CT ANGIOGRAM HEADHISTORY: Neuro deficit(s), subacute TECHNIQUE: CTA of the head with coronal, sagittal reformats, and MIPSreconstruction was performed.COMPARISON: Same day CT head.FINDINGS:CTA NECK:Aortic arch and arch vessel origins: Two-vessel anatomy. The left commoncarotid artery shares a com mon origin with the brachiocephalic artery. Theostia of the major vessels are free of stenosis.Innominate and subclavian arteries: Mild atherosclerosis of the leftsubclavian artery is seen without significant stenosis. 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 Mild atherosclerosis is seen at the ostium of the left vertebralartery without s ignificant stenosis. The left vertebral artery is dominant.The right vertebral artery functionally terminates as PICA.CTA HEAD:The PICA origin is visualized bilaterally. The basilar artery is normal incaliber. The superior cerebellar arteries are unremarkable. The posteriorcerebral arteries are unremarkable. 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 Calcified atherosclerosis of theleft carotid siphon resulting in mild to moderate stenosis of theparaclinoid ICA. The right anterior cerebral artery A1 segment is notvisualized. Otherwise, the anterior and left middle cerebral arteries areunremarkable. An anterior communicating artery is visualized.IMPRESSIONComplete occlusion of the right proximal internal carotid artery withdistal reconstitution of the right supraclinoid ICA probably from t heipsilateral ophthalmic artery. The right MCA is smaller in caliber comparedto the left. Hypoplastic versus aplastic right A1.Findings were discussed with Dr. Carpenter at 2:50 AM.Preliminary Report Dictated by Resident: Tamar Zacariash reviewed this study and agree with the above reportwith the following modifications:2 mm posterior inferior outpouching of left supraclinoid internal carotidartery favored to be infundibulum, aneurysm not excluded. Attention onfollow-up. 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 The right MCA is smaller in caliber comparedto the left. Hypoplastic versus aplastic right A1. Findings were discussed with Dr. Carpenter at 2:50 AM. Preliminary Report Dictated by Resident: Bhavya Vaughn Report change Tamar Gomes reviewed this study and agree with the above reportwith the following modifications: 2 mm posterior inferior outpouching of left supraclinoid internal carotidartery favored to be infundibulum, aneurysm not excluded. Attention onfollow-up. Tamar Gomes MD., have reviewed this study and agree with theabove report.CT ANGIOGRAM NECK, CT ANGIOGRAM HEAD HISTORY: Neuro deficit(s), subacute TECHNIQUE: CTA of the head with coronal, sagittal reformats, and MIPSreconstruction was performed. COMPARISON: ?Same day CT head. FINDINGS: CTA NECK: Aortic arch and arch vessel origins: Two-vessel anatomy. The left commoncarotid artery shares a common origin with the brachiocephalicartery. Theostia of the major vessels are free of stenosis. Innominate and subclavian arteries: Mildatherosclerosis of the leftsubclavian artery is seen without significant stenosis. The rightsubclavian artery is unremarkable. Common carotids: Mild atherosclerosis of the bilateral common carotidarteries without significant stenosis. 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 Mild atherosclerosis of the left carotid bulb on the proximal cervical ICAwithout significantstenosis. Vertebral arteries: The vertebral arteries originate from the subclavianarteries. Mild atherosclerosis is seen at the ostium of the left vertebralartery without significant stenosis. The leftvertebral artery is dominant.The right vertebral artery functionally terminates as PICA. CTA HEAD: The PICA origin is visualized bilaterally. The basilar artery is normal incaliber. The superior cerebellar arteries are unremarkable. The posteriorcerebral arteries are unremarkable. 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 Calcified atherosclerosis of theleft carotid siphon resulting in mild to moderate stenosis of theparaclinoid ICA. The right anterior cerebral artery A1 segment is notvisualized. Otherwise, the anterior and left middle cerebral arteries areunremarkable. An anterior communicating artery is visualized. [facility], [facility]iant Results Inft User - 07/17/2020 10:04 AM CDTCT ANGIOGRAM NECK, CT ANGIOGRAM HEADHISTORY: Neuro deficit(s), subacute TECHNIQUE: CTA of the head with coronal, sagittal reformats, and MIPSreconstruction was performed.COMPARISON: Same day CT head.FINDINGS:CTA NECK:Aortic arch and arch vessel origins: Two-vessel anatomy. The left commoncarotid artery shares a com mon origin with the brachiocephalic artery. Theostia of the major vessels are free of stenosis.Innominate and subclavian arteries: Mild atherosclerosis of the leftsubclavian artery is seen without significant stenosis. 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 Mild atherosclerosis is seen at the ostium of the left vertebralartery without s ignificant stenosis. The left vertebral artery is dominant.The right vertebral artery functionally terminates as PICA.CTA HEAD:The PICA origin is visualized bilaterally. The basilar artery is normal incaliber. The superior cerebellar arteries are unremarkable. The posteriorcerebral arteries are unremarkable. 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 Calcified atherosclerosis of theleft carotid siphon resulting in mild to moderate stenosis of theparaclinoid ICA. The right anterior cerebral artery A1 segment is notvisualized. Otherwise, the anterior and left middle cerebral arteries areunremarkable. An anterior communicating artery is visualized.IMPRESSIONComplete occlusion of the right proximal internal carotid artery withdistal reconstitution of the right supraclinoid ICA probably from t heipsilateral ophthalmic artery. The right MCA is smaller in caliber comparedto the left. Hypoplastic versus aplastic right A1.Findings were discussed with Dr. Carpenter at 2:50 AM.Preliminary Report Dictated by Resident: Tamar Zacarias reviewed this study and agree with the above reportwith the following modifications:2 mm posterior inferior outpouching of left supraclinoid internal carotidartery favored to be infundibulum, aneurysm not excluded. Attention onfollow-up. Tamar Gomes MD., have reviewed this study and agree with theabove report.[facility] GLUCOSE (AUTOMATED)2020-07-17 14:51:00 Test Item Value Reference Range Interpretation Comments POCT GLU (test code = 9625056916) 163 mg/dL 70-110 H Lab Interpretation (test code = Abnormal 35328-7) [facility] HEAD WO [id number] 14:36:44 Small right frontal lobe infarct. ASPECTS score (9) Findings were discussed with Dr. Carpenter at 2:33AM. Preliminary Report Dictated by Resident: Tamar Hancock reviewed this study and agree with the above reportwith the following additions: Small focal rightcortical/subcortical frontal acute to subacute infarct. Bilateral basal ganglia lacunar infarcts nadira angel dilated perivascularspaces. Intracranial atherosclerosis. Mild paranasal sinus mucosal thickening. Tamar Gomes MD., have reviewed this study and agree with theabove report.CT HEAD WO CONTRAST HISTORY: Neuro deficit(s), subacute , 2 days trouble writing numbers. COMPARISON: None. TECHNIQUE: Noncontrast CT scan of the head with coronal and sagittalreformats was performed. FINDINGS: The ventricles and cerebral sulci are normal in caliber and configuration.No hydrocephalus, midline shift or pathological extra-axial fluidcollection is present. The basal cisterns are unremarkable. Thereis no acute intracranial hemorrhage or significant mass effect. Rightfrontal lobe transcortical hypoattenuation is seen, most consistent with anacute infarct. The mastoid air cells and paranasal air sinuses are clear. The calvariumand central skull base are unremarkable. [facility], [facility] Results Inft User - 07/17/2020 9:41 AM CDTCT HEAD WO CONTRASTHISTORY: Neuro deficit(s), subacute , 2 days trouble writing numbers. COMPARISON: None.TECHNIQUE: Noncontrast CT scan of the head with coronal and sagittalreformats was performed.FINDINGS:The ventricles and cerebral sulci are normal in caliber and configuration.No hydrocephalus, midline shift or pathological extra-axial fluidcollection is present. The basal cisterns are unremarkable.There is no acute intracranial hemorrhage or significant mass effect. Rightfrontal lobe transcortical hypoattenuation is seen, most consistent with anacute infarct. The mastoid air cells and paranasal air sinuses are clear. The calvariumand central skull base are unremarkable.IMPRESSIONSmall right frontal lobe infarct. ASPECTS score (9)Findings were discussed with Dr. Carpenter at 2:33 AM.Preliminary Report Dictated by Resident: Tamar Kaminski reviewed this study and agree with the above reportwith the following additions: Small focal right cortical/subcortical frontal acute to subacute infarct. Bilateral basal ganglia lacunar infarcts versus dilated perivascularspaces. Intracranial atherosclerosis. Mild paranasal sinus mucosal thickening. Bobbi Gomes MD., have reviewed this study and agree with theabove report. [facility] WO [id number] 14:21:29 1. 3 mm obstructing right distal ureteric stone with mild upstreamhydroureteronephrosis.2. Diverticulosis of the sigmoid colon without CT evidence ofdiverticulitis3. Fat-containing umbilical hernia. Preliminary Report Dictated by Resident: Javi Hancock MD., have reviewed this study and agree with the abovereport.EXAM: CT ABDOMEN AND PELVIS WITHOUT CONTRAST HISTORY: Flank pain, stone disease suspected Stone suspected COMPARISON: None. TECHNIQUE AND FINDINGS: Contiguous axial imaging from the level of the lungbases through the pubic symphysis was performed w ithout the intravenousadministration of contrast. Coronal and sagittal reconstructions wereobtained.?Auto mA and/or iterative reconstruction were used to reduceradiation dose. FINDINGS: LOWER THORAX: The lungs bases are clear. No cardiomegaly. LIVER: No focal hepatic lesions. ?Normal liver contour. GA LLBLADDER AND BILIARY TREE: No biliary ductal dilation. ?No gallbladderwall thickening. SPLEEN: No splenomegaly. PANCREAS: No ductal dilation or masses. ADRENAL GLANDS: No adrenal nodules. KIDNEYS: A 4cm right renal interpolar simple cyst. A few other smallerlow-density lesions are seen in the right kidney. A 3 mm right distalureteric obstructing stone is seen with upstream mild righthydroureteronephrosis. No left hydronephrosis, stones, or masses. PERITONEUM AND RETROPERITONEUM: No free air or fluid. Fat-containingumbilical hernia is seen. LYMPH NODES: No enlarged lymphadenopathy. GI TRACT: No dilation or wall thickening. Diverticulosis involving thedescending and sigmoid colon. No evidence of diffuse withoutdiverticulitis. PELVIS/BLADDER: The urinary bladder is unremarkable.. VESSELS: Mild atherosclerosis. BONES AND SOFT TISSUES: No suspicious lytic or sclerotic bony lesions.Moderately severespondylosis are seen at L4-L5 and L5-S1 [facility], [facility] Results Inft User - 07/17/2020 9:22 AM CDTEXAM : CT ABDOMEN AND PELVIS WITHOUT CONTRASTHISTORY: Flank pain, stone disease suspected Stone suspectedCOMPARISON: None.TECHNIQUE AND FINDINGS: Contiguous axial imaging from the level of the lungbases through the pubic symphysis was performed without the intravenousadministration of contrast. Coronal andsagittal reconstructions wereobtained. Auto mA and/or iterative reconstruction were used to reduceradiation dose.FINDINGS:LOWER THORAX: The lungs bases are clear. No cardiomegaly.LIVER: No focal hepatic lesions. Normal liver contour.GALLBLADDER AND BILIARY TREE: No biliary ductal dilation. No gallbladderwall thickening.SPLEEN: No splenomegaly.PANCREAS: No ductal dilation or masses.ADRENAL GLANDS: No adrenal nodules.KIDNEYS: A 4 cm right renal interpolar simple cyst. A few other smallerlow-densitylesions are seen in the right kidney. A 3 mm right distalureteric obstructing stone is seen with upstream mild righthydroureteronephrosis. No left hydronephrosis, stones, or masses.PERITONEUM AND RETROPERITONEUM: No free air or fluid. Fat-containingumbilical hernia is seen.LYMPH NODES: No enlarged lymphadenopathy.GI TRACT: No dilation or wall thickening. Diverticulosis involving thedescending and sigmoid colon. No evidence of diffuse withoutdiverticulitis.PELVIS/BLADDER: The urinary bladder is unremarkable..VESSELS: Mild atherosclerosis.BONES AND SOFT TISSUES: No suspicious lytic or sclerotic bony lesions.Moderately severe spondylosis are seen at L4-L5 and L5-Z3TNGBIUGQLH4. 3 mm obstructing right distal ureteric stone with mild upstreamhydroureteronephrosis.2. Diverticulosis of the sigmoid colon w ithout CT evidence ofdiverticulitis3. Fat-containing umbilical hernia.Preliminary Report Dictated byResident: Bhavya Hart, Javi Das MD., have reviewed this study and agree with the abovereport.[facility]OVID[facility] ([facility] NOW RAPID TESTING) 2020-07-17 08:04:00 Test Item Value Reference Range Interpretation Comments SARS-CoV-2 Rapid ID NOW Not Detected Not Detected (test code = 88428-2) SHAKIRA (test code = SHAKIRA) ID NOW COVID-19 Assay is an isothermal nucleic acid amplification test intended for the qualitative detection of nucleic acid from SARS-CoV-2 viral RNA in nasopharyngeal ([employer]) specimens. It is used under Emergency Use Authorization (EUA) by FDA. The limit of detection (LOD) of the assay is 125 Genome Equivalents/mL. A positive result is indicative of the presence of SARS-CoV-2 RNA. ?Clinical correlation with patient history and other diagnostic information is necessary to determine patient infection status. A negative (Not Detected) result does not preclude SARS-CoV-2 infection. In patients with clinical symptoms and other tests that are consistent with SARS-CoV-2 infection, negative results should be treated as presumptive negative and a new specimen should be tested with alternative PCR molecular test. Invalid: Please collect a new specimen for repeat patient testing if clinically indicated. Lab Interpretation Normal (test code = 03433-4) [facility]2020-[facility]-27 06:24:00 Test Item Value Reference Range Interpretation Comments APPEARANCE (test code = Clear Clear 7917951301) COLOR (test code = Yellow Yellow 7274185805) PH (test code = 4.8-8.0 0095116827) SP GRAVITY (test code = 1.003-1.030 9087605646) GLU U QUAL (test code = Normal Normal 8133147243) BLOOD (test code = 1+ Negative A 0562667251) KETONES (test code = Negative Negative 6894004410) PROTEIN (test code = Negative Negative 2887-8) UROBILIN (test code = 2.0 mg/dL Normal A 7896649412) BILIRUBIN (test code = Negative Negative 3207698265) NITRITE (test code = Negative Negative 4165252861) LEUK MARLENE (test code = Negative Negative 7815705145) RBC/HPF (test code = See_Comment H [Autom ated message] 8247228883) The system [email or web address] generated this result transmit chris reference range : 0 - 3 HPF. The refe rence range was not u sed to interpret th is result as normal/abnormal . WBC/HPF (test code = See_Comment [Autom ated message] 6389352326) The system [email or web address] generated this result transmit chris reference range : 0 - 5 HPF. The refe rence range was not u sed to interpret th is result as normal/abnormal . BACTERIA (test code = Few Negative A 6373136550) SQ EPITH (test code = <1 HPF 7655969189) Lab Interpretation (test Abnormal code = 83243-6) [facility] CenterGLYCOSYLATED HEMOGLOBIN (A1C)2020-07-17 05:56:00 Test Item Value Reference Range Interpretation Comments HGB A1C (test code = 7.7 % 4-6 H 4548-4) SHAKIRA (test code = SHAKIRA) %A1C (NGSP) Interpretation (ADA)4.8-5.6 ? ? Normal or (Non-Diabetic Range)5.7-6.4 ? ? Increased Risk (Pre-Diabetic)>6.5 ?Diabetes Indicated Lab Interpretation Abnormal (test code = 11473-5) [facility] CenterTROPONIN [id number] 05:56:00 Test Item Value Reference Range Interpretation Comments TROPONIN I (test 0.001 ng/mL See_Comment [Automated code = 9641658660) message] The system which generated this result transmitted reference range : <=0.034. The reference range was not used to interpret this result as normal/abnormal . SHAKIRA (test code = Equal or Less than SHAKIRA) 0.034 ng/ml---Normal ?Note: Cardiac troponin begins to rise 3-4 hours after the onset of ischemia. Repeat in 4-6 hours if the sample was drawn within 3-4 hours of the onset of the symptom and found normal. Between 0.035 and 0.120 ng/mL--- Borderline. Questionable myocardial injury or necrosis ? ?Note: Serial measurement may be necessary to confirm or exclude the diagnosis of myocardial injury or necrosis; Clinical correlation (symptoms, EKGs, imaging studies, and others) required; Repeat in 4-6 hours if clinically indicated. ? Equal or Higher than 0.121 ng/mL---Abnormal. Myocardial Injury or Necrosis Likely ? Biotin has been reported to cause a negative bias, interpret results relative to patient's use of biotin. ? Lab Interpretation Normal (test code = 40250-5) [facility] CenterCOMP. METABOLIC PANEL (86418)2020-07-17 05:43:00 Test Item Value Reference Range Interpretation Comments NA (test code = 139 mmol/L 135-145 8303853190) K (test code = 4.3 mmol/L 3.5-5 8399245424) CL (test code = 106 mmol/L 98-108 4495482574) CO2 TOTAL (test code = 24 mmol/L 23-31 7562506462) AGAP (test code = 2-16 2943293870) BUN (test code = 29 mg/dL 7-23 H 5643749677) GLUCOSE (test code = 178 mg/dL 70-110 H 1815798934) CREATININE (test code = 2.55 mg/dL 0.6-1.25 H 8844317494) TOTAL BILI (test code = 0.7 mg/dL 0.1-1.5 2978202645) CALCIUM (test code = 8.8 mg/dL 8.6-10.6 3571578231) T PROTEIN (test code = 6.8 g/dL 6.3-8.2 1272195463) ALBUMIN (test code = 3.7 g/dL 3.5-5 2188445181) ALK PHOS (test code = 75 U/L 34-122 7427142423) ALTv (test code = 14 U/L 5-50 1742-6) AST(SGOT) (test code = 17 U/L 13-40 7443481201) eGFR Calculation mL/min/1.73m2 (Non-) (test code = 0165277253) eGFR Calculation mL/min/1.73m2 () (test code = 7416572268) SHAKIRA (test code = SHAKIRA) Association of Glomerular Filtration Rate (GFR) and Staging of Kidney Disease* + --+ --+ ------+| GFR (mL/min/1.73 m2) ?| With Kidney Damage ?| ?Without Kidney Damage+ --------+ --------+ +| ?>90 ?| ?Stage one ?| ? Normal ?+ ---+ ---+ -------+| ?60-89 ?| ?Stage two ?| ? Decreased GFR ? + --+ --+ ------+| ?30-59 ?| ?Stage three ?| ? Stage three ? + --+ --+ ------+| ?15-29 ?| ?Stage four ? | ? Stage four ?+ ---+ ---+ -------+| ?<15 (or dialysis) ? ?| ?Stage five ? | ? Stage five ?+ ---+ ---+ -------+ *Each stage assumes the associated GFR level has been in effect for at least three months. ?Stages 1 to 5, with or without kidney disease, indicate chronic kidney disease. Notes: Determination of stages one and two (with eGFR >59mL/min/1.73 m2) requires estimation of kidney damage for at least three months as defined by structural or functional abnormalities of the kidney, manifested by either:Pathological abnormalities or Markers of kidney damage (including abnormalities in the composition of the blood or urine or abnormalities in imaging tests). Lab Interpretation Abnormal (test code = 20736-6) [facility] BranchLIPID PANEL (94293)(TOTAL CHOLESTEROL, TRIGLYCERIDES, HDL)2020-07-17 05:43:00 Test Item Value Reference Range Interpretation Comments CHOL (test code = 105 mg/dL 120-200 L 4466849322) HDL (test code = 32 mg/dL >40 L 4446125786) HDLC RATIO (test code = See_Comment [Au tomated message] 3489065077) The system [email or web address] generated this result transmit chris reference range : <=5.0. The refe rence range was not u sed to interpret th is result as normal/abnormal . TRIG (test code = 104 mg/dL 30-170 4769897092) LDL CHOL (test code = 52 mg/dL See_Comment [Auto mated message] 77576-7) The system [email or web address] generated this result transmit chris reference range : <=160. The refe rence range was not u sed to interpret th is result as normal/abnormal . VLDL (test code = 21 mg/dL 5-60 1027973771) Lab Interpretation (test Abnormal code = 58174-1) [facility] WITH [id number] 05:28:00 Test Item Value Reference Range Interpretation Comments WBC (test code = See_Comment [Automated 6690-2) message] The sy stem which generated this result transmitted reference range : 4.20 - 10.70 10*3/?L. The reference range was not used to interpret this result as normal/abnormal . RBC (test code = See_Comment L [Automated 789-8) message] The sy stem which generated this result transmitted reference range : 4.26 - 5.52 10*6/?L. The reference range was not used to interpret this result as normal/abnormal . HGB (test code = 11.8 g/dL 12.2-16.4 L 718-7) HCT (test code = 38.0 % 38.4-49.3 L 4544-3) MCV (test code = 89.8 fL 81.7-95.6 787-2) MCH (test code = 27.9 pg 26.1-32.7 785-6) MCHC (test code = 31.1 g/dL 31.2-35 L 786-4) RDW-SD (test code = 43.8 fL 38.5-51.6 69445-3) RDW-CV (test code = 13.3 % 12.1-15.4 788-0) PLT (test code = See_Comment [Automated 777-3) message] The sy stem which generated this result transmitted reference range : 150 - 328 10*3/ ?L. The reference r rossy was not used to interpret this result as normal/abnormal . MPV (test code = 9.2 fL 9.8-13 L 26362-5) NRBC/100 WBC (test See_Comment [Automat ed code = 5504568954) message] The system which generated this result transmitted reference range : 0.0 - 10.0 /100 WBCs. The refer ence range was not u sed to interpret th is result as normal/abnormal . NRBC x10^3 (test code <0.01 See_Comment [Auto mated = 7012397903) message] The s ystem which generated this result transmitted reference range : 10*3/?L. The reference range was not used to interpret this result as normal/abnormal . GRAN MAT (NEUT) % 68.5 % (test code = 770-8) IMM GRAN % (test code 0.70 % = 1271925304) LYMPH % (test code = 18.5 % 736-9) MONO % (test code = 10.6 % 5905-5) EOS % (test code = 1.3 % 713-8) BASO % (test code = 0.4 % 706-2) GRAN MAT x10^3(ANC) 6.31 10*3/uL 1.99-6.95 (test code = 4599263017) IMM GRAN x10^3 (test 0.06 10*3/uL 0-0.06 code = 1805997455) LYMPH x10^3 (test code 1.70 10*3/uL 1.09-3.23 = 731-0) MONO x10^3 (test code 0.98 10*3/uL 0.36-1.02 = 742-7) EOS x10^3 (test code = 0.12 10*3/uL 0.06-0.53 711-2) BASO x10^3 (test code 0.04 10*3/uL 0.01-0.09 = 704-7) Lab Interpretation Abnormal (test code = 59076-6) [facility]"
[2021-11-15 20:53] LABS: Hematocrit 39.1 % (39.6-49.0); Lymphocytes % 14.7 % (15.3-44.8); MPV 7.7 fL (7.6-11.3)
--- NOTE | 2021-11-15 21:21 | RAD REPORT ---
EXAM DESCRIPTION: RAD - Chest Single View - 11/15/2021 9:14 pm CLINICAL HISTORY: Cough;Dyspnea Chest pain. COMPARISON: <Comparisons> FINDINGS: Portable technique limits examination quality. Mild interstitial opacities bilaterally this likely represents a viral infection. The heart is upper limit of in size. No displaced fractures.
[2021-11-15 21:24] LABS: SARS-COV-2 RT PCR POSITIVE (NEGATIVE)
[2021-11-15] MEDS ORDERED: ONDANSETRON 4 MG/2 ML VIAL ONE (21:41)
[2021-11-15] MEDS ORDERED: METHYLPREDNISOLONE 125 MG INJ ONE (21:41)
[2021-11-15] MEDS ORDERED: NA CHLORIDE 0.9% 1,000 ML ONE (21:42)
[2021-11-15 21:55] LABS: Ferritin 863.4 ng/mL (26-388); Potassium 4.5 mmol/L (3.5-5.1)
--- NOTE | 2021-11-15 23:29 | ER ---
Nurse's Notes [facility] Name: Augustine Gooden Age: 71 yrs Sex: Male : 1950 Arrival Date: 11/15/2021 Time: 19:48 Bed 18 Private MD: Diagnosis: SARS-associated coronavirus as the cause of diseases classified elsewhere;Dehydration Presentation: 11/15 20:20 Chief complaint: Patient states: Patient has had diarrhea, body aches, nausea and al4 fatigue for the past week. Coronavirus screen: Vaccine status: Patient reports being unvaccinated. Client presents with at least one sign or symptom that may indicate coronavirus-19. Ebola Screen: No symptoms or risks identified at this time. Initial Sepsis Screen: Does the patient meet any 2 criteria? No. Patient's initial sepsis screen is negative. Does the patient have a suspected source of infection? No. Patient's initial sepsis screen is negative. Risk Assessment: Do you want to hurt yourself or someone else? Patient reports no desire to harm self or others. Onset of symptoms was November 09, 2021. 20:20 Method Of Arrival: Wheelchair al4 20:20 Acuity: JULIUS 3 al4 Triage Assessment: 20:22 General: Appears in no apparent distress. uncomfortable, Behavior is calm, cooperative, al4 appropriate for age. General:. Pain: Denies pain. Cardiovascular: Capillary refill < 3 seconds Patient's skin is warm and dry. Respiratory: Airway is patent Respiratory effort is even, unlabored, Respiratory pattern is regular, symmetrical. GI: Patient currently denies nausea, vomiting. Historical: - Allergies: 20:22 Codeine; al4 - PMHx: 20:22 Diabetes - IDDM; Hyperlipidemia; Hypertension; al4 - Immunization history:: Adult Immunizations up to date, Client reports having NOT received the Covid vaccine. Pneumococcal vaccine is not up to date. - Social history:: Smoking status: Patient denies any tobacco usage or history of. - Family history:: not pertinent. - Hospitalizations: : No recent hospitalization is reported. Screenin:00 Abuse screen: Denies threats or abuse. Denies injuries from another. Nutritional tk1 screening: No deficits noted. Tuberculosis screening: No symptoms or risk factors identified. Fall Risk No fall in past 12 months (0 pts). Secondary diagnosis (15 points) impaired mobility, IV access (20 points). Ambulatory Aid- Crutches/Cane/Walker (15 pts). Gait- Impaired (20 pts.). Mental Status- Oriented to own ability (0 pts). Total Cardoso Fall Scale indicates High Risk Score (45 or more points). Fall prevention measures have been instituted. Side Rails Up X 2 Placed Close to Nursing Station Frequent Obs/Assessments Occuring As available patient and family educated on Fall Prevention Program and Strategies. Pneumonia Screening: Non.Productive Cough (2pts), Shortness of Breath (3pts), Total Score: 3 Pts. or > (High Risk), Charge Nurse notified of patients arrival. Assessment: 21:00 General: Appears in no apparent distress. uncomfortable, obese, Behavior is calm, tk1 cooperative, appropriate for age. Pain: Complains of pain in Whole body Pain currently is 7 out of 10 on a pain scale. Quality of pain is described as aching, Pain began 1 day ago. Is continuous. Neuro: No deficits noted. Level of Consciousness is awake, alert, obeys commands. Cardiovascular: No deficits noted. 21:00 Respiratory: Reports shortness of breath cough that is non-productive, pain with cough tk1 Airway is patent Breath sounds are diminished bilaterally. GI: Abdomen is round obese, Last BM was November 15, 2021. Bowel sounds present X 4 quads. Abd is soft X 4 quads Abdomen is tender to palpation Reports diarrhea, nausea. : No deficits noted. EENT: No deficits noted. Derm: No deficits noted. Musculoskeletal: No deficits noted. 22:15 Reassessment: Patient appears in no apparent distress at this time. No changes from tk1 previously documented assessment. 23:56 Reassessment: D/C per MD order. Discharge/Prescription instructions given to patient. tk1 Verbalized understanding. Vital Signs: 20:28 BP 82 / 57; Pulse 79; Resp 18; Temp 98.6; Pulse Ox 96% on R/A; Weight 124.74 kg; Height al4 5 ft. 9 in. (175.26 cm); 21:00 BP 105 / 41 Sitting (auto/reg); Pulse 89 MON; Resp 22 S; Pulse Ox 97% ; Pain 4/10; tk1 22:00 BP 123 / 60 LA Sitting (auto/reg); Pulse 89 MON; Resp 20 S; Temp 98.6(O); Pulse Ox 96% tk1 ; Pain 4/10; 23:00 BP 134 / 83 LA Sitting (auto/reg); Pulse 91 MON; Resp 20 S; Pulse Ox 96% ; Pain 3/10; tk1 20:28 Body Mass Index 40.61 (124.74 kg, 175.26 cm) al4 Vitals: 21:00 Cardiac Rhythm Assessment Regular Sinus rhythm. tk1 ED Course: 19:48 Patient arrived in ED. ja2 20:20 Clinton Mcclain MD is Attending Physician. rn 20:22 Triage completed. al4 20:24 Arm band placed on left wrist. al4 20:45 COVID-19/FLU A+B (Document "Date of Onset" if Symptomatic) Sent, Ferritin, tk1 Procalcitonin, Basic Metabolic Panel Sent. 20:45 Inserted saline lock: 20 gauge in right antecubital area, using aseptic technique. tk1 21:00 Bed in low position. Call light in reach. Side rails up X2. tk1 21:00 No provider procedures requiring assistance completed. tk1 21:14 XRAY Chest (1 view) In Process Unspecified. EDMS 21:22 Barbara Irving is Primary Nurse. tk1 23:56 IV discontinued, intact, bleeding controlled, No redness/swelling at site. Pressure tk1 dressing applied. Administered Medications: 20:35 CANCELLED (Duplicate Order): NS 0.9% 500 ml IV at bolus once rn 21:00 Drug: Zofran (Ondansetron) 4 mg Route: IVP; Site: right antecubital; tk1 21:00 Drug: SOLU-Medrol (methylPrednisoLONE) 125 mg Route: IVP; Site: right antecubital; tk1 21:47 Drug: NS 0.9% 1000 ml Route: IV; Rate: 1000 ml; Site: right antecubital; tk1 Outcome: 23:00 Discharged to home via wheelchair, with family, with significant other. tk1 23:00 Condition: stable 23:00 Discharge instructions given to patient, family, Instructed on discharge instructions, medication usage, Demonstrated understanding of instructions, follow-up care, medications, Prescriptions given X 3. 23:28 Discharge ordered by . rn 11/16 00:00 Patient left the ED. tk1 Signatures: Dispatcher [employer] EDMS Clinton Mcclain MD MD rn Cristina Hunter Alexis al4 Kirby, Tammie tk1 Corrections: (The following items were deleted from the chart) 11/15 21:51 21:49 COVID-19/FLU A+B+MOL.LAB.BRZ drawn and sent. tk1 tk1 : 21:49 FERRITIN+C.LAB.BRZ drawn and sent. tk1 tk1 : 21:49 PCT+C.LAB.BRZ drawn and sent. tk1 tk1 : 21:49 BASIC METABOLIC PANEL+C.LAB.BRZ drawn and sent. tk1 tk1 22: 22:07 Respiratory: Reports shortness of breath cough that is non-productive, pain with tk1 cough Airway is patent Breath sounds are diminished bilaterally. tk1 : 22:07 GI: Abdomen is round obese, Last BM was November 15, 2021. Bowel sounds present X tk1 4 quads. Abd is soft X 4 quads Abdomen is tender to palpation Reports diarrhea, nausea, tk1 : 22:07 : No deficits noted. tk1 tk1 : 22:07 EENT: No deficits noted. tk1 tk1 : 22:07 Derm: No deficits noted. tk1 tk1 22: 22:07 Musculoskeletal: No deficits noted. tk1 tk1 22: 21:49 C-REACTIVE PROTEIN+C.LAB.BRZ drawn and sent. tk1 EDMS 22: 20:45 C-REACTIVE PROTEIN+C.LAB.BRZ drawn and sent. tk1 EDMS
--- NOTE | 2021-11-15 23:29 | EDPHYS ---
Physician Documentation [facility] Name: Augustine Gooden Age: 71 yrs Sex: Male : 1950 Arrival Date: 11/15/2021 Time: 19:48 Bed 18 Private MD: ED Physician Clinton Mcclain HPI: 11/15 20:31 This 71 yrs old Male presents to ER via Wheelchair with complaints of FATIGUE, rn Diarrhea, Decreased Appetite, Nausea. 20:31 The patient presents to the emergency department with nausea, vomiting, diarrhea. rn Onset: The symptoms/episode began/occurred 1 week(s) ago. Possible causes: unknown, sick contacts, by family, . The symptoms are aggravated by nothing. The symptoms are alleviated by nothing. Associated signs and symptoms: Pertinent positives: diarrhea, nausea, vomiting, Pertinent negatives: abdominal pain, fever, GI bleeding. Severity of symptoms: At their worst the symptoms were moderate in the emergency department the symptoms are unchanged. The patient has not experienced similar symptoms in the past. The patient has not recently seen a physician. Pt reports 1 week of not feeling well, with identical symptoms, + cough with mild sob, + malaise and headache, no GI bleed. Not COVID vaccinated. . Historical: - Allergies: 20:22 Codeine; al4 - PMHx: 20:22 Diabetes - IDDM; Hyperlipidemia; Hypertension; al4 - Immunization history:: Adult Immunizations up to date, Client reports having NOT received the Covid vaccine. Pneumococcal vaccine is not up to date. - Social history:: Smoking status: Patient denies any tobacco usage or history of. - Family history:: not pertinent. - Hospitalizations: : No recent hospitalization is reported. ROS: 20:31 Constitutional: + chills and malaise Eyes: Negative for injury, pain, redness, and tax intern, ENT: Negative for injury, pain, and discharge, Neck: Negative for injury, pain, and swelling, Cardiovascular: Negative for chest pain, palpitations, and edema, Respiratory: + cough and sob Abdomen/GI: + nausea/vomiting/diarrhea MS/Extremity: Negative for injury and deformity, Skin: Negative for injury, rash, and discoloration, Neuro: + headache and generalized weakness Exam: 20:31 Constitutional: Overweight male, appears weak Head/Face: Normocephalic, atraumatic. rn Eyes: Periorbital areas with no swelling, redness, or edema. ENT: dry MM Cardiovascular: Regular rate and rhythm . No pulse deficits. Respiratory: Mild tachypnea, no retractions. Mild cough during exam. Abdomen/GI: soft, non-tender Skin: Warm, dry MS/ Extremity: Pulses equal, no cyanosis. Neurovascular intact. Full, normal range of motion. Equal circumference. Neuro: Awake and alert, GCS 15, oriented to person, place, time, and situation. Vital Signs: 20:28 BP 82 / 57; Pulse 79; Resp 18; Temp 98.6; Pulse Ox 96% on R/A; Weight 124.74 kg; Height al4 5 ft. 9 in. (175.26 cm); 21:00 BP 105 / 41 Sitting (auto/reg); Pulse 89 MON; Resp 22 S; Pulse Ox 97% ; Pain 4/10; tk1 22:00 BP 123 / 60 LA Sitting (auto/reg); Pulse 89 MON; Resp 20 S; Temp 98.6(O); Pulse Ox 96% tk1 ; Pain 4/10; 23:00 BP 134 / 83 LA Sitting (auto/reg); Pulse 91 MON; Resp 20 S; Pulse Ox 96% ; Pain 3/10; tk1 20:28 Body Mass Index 40.61 (124.74 kg, 175.26 cm) al4 MDM: 20:20 Patient medically screened. rn 22:46 Differential diagnosis: viral gastroenteritis, gastroenteritis, dehydration, COVID. rn Data reviewed: vital signs, nurses notes, lab test result(s), EKG, radiologic studies, plain films. Counseling: I had a detailed discussion with the patient and/or guardian regarding: the historical points, exam findings, and any diagnostic results supporting the discharge/admit diagnosis, lab results, radiology results. Response to treatment: the patient's symptoms have mildly improved after treatment. 23:26 Special discussion: I discussed with the patient/guardian in detail that at this point rn there is no indication for admission to the hospital. It is understood, however, that if the symptoms persist or worsen the patient needs to return immediately for re-evaluation. ED course: Pt with moderate dehydration, markedly improved with IV fluids, states feels much better, CXR without pneumonia, shows mild viral infection, no oxygen requirement. After long discussion with patient, joint decision made to dc home with return precautions. . 11/15 20:26 Order name: CBC with Diff; Complete Time: 21:44 rn 11/15 20:26 Order name: Basic Metabolic Panel; Complete Time: 22:14 rn 11/15 20:26 Order name: Procalcitonin; Complete Time: 22:14 rn 11/15 20:26 Order name: Ferritin; Complete Time: 22:14 rn 11/15 20:26 Order name: XRAY Chest (1 view); Complete Time: 21:44 rn 11/15 20:36 Order name: COVID-19/FLU A+B (Document "Date of Onset" if Symptomatic) mw2 11/15 20:37 Order name: COVID-19/FLU A+B; Complete Time: 21:44 EDMS 11/15 22:04 Order name: Glucose, Ancillary Testing; Complete Time: 22:14 EDMS 11/15 20:26 Order name: IV Start; Complete Time: 21:49 rn 11/15 20:26 Order name: EKG; Complete Time: 20:26 rn 11/15 20:26 Order name: EKG - Nurse/Tech rn 11/15 20:35 Order name: Glucose Level; Complete Time: 21:41 rn 11/15 20:52 Order name: Cardiac monitoring; Complete Time: 21:41 rn Administered Medications: 20:35 CANCELLED (Duplicate Order): NS 0.9% 500 ml IV at bolus once rn 21:00 Drug: Zofran (Ondansetron) 4 mg Route: IVP; Site: right antecubital; tk1 21:00 Drug: SOLU-Medrol (methylPrednisoLONE) 125 mg Route: IVP; Site: right antecubital; tk1 21:47 Drug: NS 0.9% 1000 ml Route: IV; Rate: 1000 ml; Site: right antecubital; tk1 Disposition Summary: 11/15/21 23:28 Discharge Ordered Location: Home rn Problem: new rn Symptoms: have improved rn Condition: Stable rn Diagnosis - SARS-associated coronavirus as the cause of diseases classified elsewhere rn - Dehydration rn Followup: rn - With: Private Physician - When: As needed - Reason: Recheck today's complaints, Re-evaluation by your physician Discharge Instructions: - Discharge Summary Sheet rn - Dehydration, Adult rn - COVID-19 rn - 10 Things You Can Do to Manage Your COVID-19 Symptoms at Home - [facility] rn - Viral Illness, Adult rn Forms: - Medication Reconciliation Form rn - Thank You Letter rn - Antibiotic epidemiology intern - Prescription Opioid Use rn Prescriptions: - ondansetron 4 mg Oral tablet,disintegrating - place 1 tablet by TRANSLINGUAL route every 8 hours As needed; 15 tablet; rn Refills: 0, Product Selection Permitted - Zithromax Z-Jaylen 250 mg Oral Tablet - take 1 tablet by ORAL route as directed for 5 days Day 1 - take two (2) tablets rn one time. Day 2, 3, 4 , 5 take one (1) tablet once daily.; 6 tablet; Refills: 0, Product Selection Permitted - Medrol (Jaylen) 4 mg Oral Tablets, Dose Pack - take 1 tablet by ORAL route as directed - follow package instructions; 1 rn packet; Refills: 0, Product Selection Permitted Signatures: Dispatcher [employer] EDClinton Cowan MD MD rn Ledbetter, Alexis al4 Barbara Irving tk1 Corrections: (The following items were deleted from the chart) 20:35 20:26 NS 0.9% 500 ml IV at bolus once ordered. rn rn 22:10 20:26 C-REACTIVE PROTEIN+C.LAB.BRZ ordered. EDCT EDCT 23:30 23:29 ED course: Pt with moderate dehydration, markedly improved with IV fluids, states rn feels much better, CXR without pneumonia, shows mild viral infection, no oxygen requirement. After long discussion with patient, joint decision made to dc home with return precautions. . rn
[2021-11-16 00:37] VITALS: TEMP 98.6; O2SAT 96
[2021-11-16 00:39] VITALS: BP 134/83
== END 2021-11-16 | disposition home or self-care (01) ==
LOC: ER 19:44
DX: U07.1 COVID-19 (principal); E86.0 Dehydration; I10 Essential (primary) hypertension; Z88.5 Allergy status to narcotic agent
CPT/HCPCS: 93005; 85025; 80048; 36415; 82947; 82728; 84145; 0240U; 71045; 96375; 96374; 99284; J7030; J2930; J2405

== ENCOUNTER 2021-11-25 10:55 | Inpatient (IN) | payer OTHER ==
--- OUTSIDE RECORDS SUMMARY | 2021-11-25 10:59 | XMS REPORT | Continuity of Care Document ---
:1950 Author Organization [facility] t Address [address] [place] [address] Care Team Providers Name Role Phone Jeancarlos [...] insulin insulin Hypertensi Hypertensi Disease Active U nivalysa , , 07-17 ity of essential essential 00:00: [place] [...] Quantity Comments Source Exposure to Not sure [facility] SARS-CoV-2 [place] Medical (event) Branch [...] University o f Alcohol Frequency 00:00:00 00:00:00 [facility] edical Branch Smoking Status Start Date Stop Date Source Never smoker [facility] Medical Branch Medications Ordered Filled Start [...] mouth 2 [place] 02 (two) Medical times [place] daily with meals. carvediloL 2020-0 Yes 25mg [...] mouth 2 [place] 02 (two) Medical times [place] daily with meals. carvediloL 2020-0 Yes 25mg [...] Discontinu ed, Routine aspirin 81 2019-0 Yes [id number] 81mg Take 1 Univers mg chewable 9-30 tablet by ity of tablet 00:00: mouth [place] 00 daily. Medical Branch simvastatin 2020-0 Yes [id number] 40mg Take 1 Univers 40 mg 9-30 tablet by ity of tablet 00:00: mouth at [place] 00 bedtime. Medical Branch tamsulosin 2020-0 Yes [id number] .4mg Take 1 Univers 0.4 mg 24 9-30 capsule by ity of hr capsule 00:00: mouth [place] 00 daily. Medical Branch aspirin 81 2020-0 Yes [id number] 81mg Take 1 Univers mg chewable 9-30 tablet by ity of tablet 00:00: mouth [place] 00 daily. Medical Branch simvastatin 2020-0 Yes [id number] 40mg Take 1 Univers 40 mg 9-30 tablet by ity of tablet 00:00: mouth at [place] 00 bedtime. Medical Branch tamsulosin 2020-0 Yes [id number] .4mg Take 1 Univers 0.4 mg 24 9-30 capsule by ity of hr capsule 00:00: mouth [place] 00 daily. Medical Branch aspirin 81 2020-0 Yes [id number] 81mg Take 1 Univers mg chewable 9-30 tablet by ity of tablet 00:00: mouth [place] 00 daily. Medical Branch simvastatin 2020-0 Yes [id number] 40mg Take 1 Univers 40 mg 9-30 tablet by ity of tablet 00:00: mouth at [place] 00 bedtime. Medical Branch tamsulosin 2020-0 Yes [id number] .4mg Take 1 Univers 0.4 mg 24 9-30 capsule by ity of hr capsule 00:00: mouth [place] 00 daily. Medical Branch clopidogreL 2020-0 2020- No [id number] 75mg Take 1 Univers 75 mg 9-30 10-22 tablet by ity of tablet 00:00: 04:59 mouth [place] 00 :00 daily for Medical 21 days. Branch clopidogreL 2020-0 2020- No [id number] 75mg Take 1 Univers 75 mg 9-30 10-22 tablet by ity of tablet 00:00: 04:59 mouth [place] 00 :00 daily for Medical 21 days. Branch clopidogreL 2020-0 2020- No [id number] 75mg Take 1 Univers 75 mg 9-30 [...] 07-19 Starting ity of hen (NORCO 22:12: [facility] 5) 5-325 mg 34 07/19/20 at Pr dical tablet 1712, Branch Until Discontinu ed, Routine FENTanyl PF 2020-0 Yes Slow IV Uni vers (SUBLIMAZE 07-19 Push, PRN, ity of (PF)) 20:30: Starting [place] injection 21 [facility] 07/19/20 at Branch 1530, Until Discontinu ed, Routine midazolam 2020-0 Yes IV Push, Univ ers (VERSED) 07-19 PRN, ity of injection 20:30: [place] 11 [facility] 07/19/20 at Branch 1530, Until Discontinu ed, Routine sulfur 2020-0 2020- No 5mL 5 mL, Univers hexafluorid 07-19 Intravenou i ty of e microsphr 15:00: 20:00 s, ONCE, 1 [place] (LUMASON) 00 :00 dose, Tue Medic al injection 5 07/19/20 at Br anch mL 1000, Routine
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 approving Restricted medication : KAMILA WONG famotidine 2020-0 Yes 20mg 20 mg, Unive rs (PEPCID AC) 07-19 Oral, ity of tablet 20 14:00: DAILY, [place] mg 00 First dose Medical (after [place] last modificati on) on [facility] 07/19/20 at 0900, Until Discontinu ed, Routine Saline 2020-0 Yes 6mL 6 mL, Univers Bubble 07-19 Injection, ity of Study 13:46: SEE-INSTRU [place] 29 CTIONS, 2 Medical doses, Branch Starting [facility] 07/19/20 at 0846, Until Discontinu ed, Routine Saline 2020-0 Yes 6mL 6 mL, Univers Bubble 07-19 Injection, ity of Study 13:46: SEE-INSTRU [place] 24 CTIONS, 2 Medical doses, Branch Starting [facility] 07/19/20 at 0846, Until Discontinu ed, Routine simvastatin 2020-0 Yes 40mg 40 mg, Univ ers (ZOCOR) 07-19 Oral, QHS, ity of tablet 40 02:00: First dose [place] mg 00 on [facility] 07/18/20 at Branch 2100, Until Discontinu ed, Routine clopidogreL 2020-0 Yes 75mg 75 mg, Univ ers (PLAVIX) 07-18 Oral, ity of tablet 75 14:00: DAILY, [place] mg 00 First dose Medical on [facility] 07/18/20 at 0900, Until Discontinu ed, Routine carvediloL 2020-0 2020- No 25mg 25 mg, Univ ers (COREG) 07-18 Oral, BID ity of tablet 25 13:00: 13:39 MEALS, [place] mg 00 :02 First dose Medical on [facility] 07/18/20 at 0800, Until Discontinu ed, Routine atorvastati 2020-0 2020- No 20mg 20 mg, Uni vers n (LIPITOR) 07-18 Oral, QHS, i ty of tablet 20 02:00: 16:43 First dose [place] mg 00 :17 on [facility] 07/17/20 at Branch 2100, Until Discontinu ed, Routine tamsulosin 2020-0 Yes .4mg 0.4 mg, Univ ers (FLOMAX) 07-17 Oral, ity of capsule 0.4 14:30: DAILY, [place] mg 00 First dose Medical on [facility] 07/17/20 at 0930, Until Discontinu ed, Routine docusate 2020-0 Yes 100mg 100 mg, Unive rs (COLACE) 07-17 Oral, ity of capsule 100 14:00: DAILY, [place] mg 00 First dose Medical on [facility] 07/17/20 at 0900, Until Discontinu ed, Routine aspirin 2020-0 Yes 81mg 81 mg, Univers chewable 07-17 Oral, ity of tablet 81 14:00: DAILY, [place] mg 00 First dose Medical on [facility] 07/17/20 at 0900, Until Discontinu ed, Routine NaCl 0.9% 2020-0 Yes IV Univers (NS) IV 07-17 Infusion, ity of infusion 13:30: at 125 [place] 00 mL/hr, Medical CONTINUOUS [place] , Starting [place] 07/17/20 at 0830, Until Discontinu ed, Routine
Please start after 1L bolus has finished<b r> Sliding 2020-0 Yes Subcutaneo Univ ers Scale 07-17 us, TID ity of Insulin - 13:00: MEALS+HS, [place] as Aspart 00 First dose Medical (NOVOLOG) + on [facility] 07/17/20 at Testing 0800, Until Discontinu ed, Routine heparin 2020-0 Yes 5000U 5,000 Univers (porcine) 07-17 Units, ity of injection 13:00: Subcut[place]o [place] 5,000 Units 00 us, Q12H, Med ical First dose Branch on [place] 07/17/20 at 0800, Until Discontinu ed, Routine NaCl 0.9% 2020-0 2020- No 1000mL at 999 Uni vers (NS) bolus 07-17 mL/hr, ity of infusion 11:30: 10:54 1,000 mL, [place] as 1,000 mL 00 :00 IV Medical Piggyback, [place] ONCE, 1 dose, [place] 07/17/20 at 0630, STAT ondansetron 2019-0 2020- No 4mg 4 mg, Slow Univers (ZOFRAN 07-17 IV Push, ity of (PF)) 08:30: 07:30 ONCE, 1 [place] injection 4 00 :00 dose, [place] Med ical mg 07/17/20 at Branch 0330, [...] 1 [place] BULK-100 00 :00 dose, [place] Medica l mL) 07/17/20 at Branch injection 0230, 100 mL Routine Vital Signs Vital Name Observation Time Observation Value Comments Source Systolic blood 2020-07-20 17:26:00 167 mm[Hg] [facility] Diastolic blood 2020-07-20 17:26:00 84 mm[Hg] [facility] rate 2020-07-20 17:26:00 70 /min [facility] Body temperature 2020-07-20 17:26:00 36.22 [facility] Respiratory rate 2020-07-20 17:26:00 18 /[facility] Oxygen saturation in 2020-07-20 17:26:00 97 /min [facility] Arterial blood by [facility] Pulse oximetry [place] Body height 2020-07-19 18:31:00 175.3 cm [facility] Body weight 2020-07-19 18:31:00 117.935 kg [facility] BMI 2020-07-19 18:31:00 38.40 kg/m2 [facility] Procedures Procedure Date / Time Performing Clinician Source Performed POCT GLUCOSE (AUTOMATED) 2020-07-20 18:09:00 Tere Dumont [facility] POCT GLUCOSE (AUTOMATED) 2020-07-20 13:42:00 Tere Dumont [facility] MAGNESIUM 2020-07-20 10:57:00 González Ponce [facility] BASIC METABOLIC PANEL 2020-07-20 10:57:00 González Ponce [facility] (NA, K, CL, CO2, GLUCOSE, Medica l Branch BUN, CREATININE, CA) POCT GLUCOSE (AUTOMATED) 2020-07-20 [facility]:48[facility] 2020-07-19 22:55:00 Tere Dumont [facility] IR ANGIOGRAM CEREBRAL 2020-07-19 21:45:04 [facility] ([facility]OMATED) 2020-07-19 17:00:00 Tere Dumont [facility] CAROTID DUPLEX BILATERAL 2020-07-19 13:57:06 Roosevelt Ponce [facility] BY VASCULAR LAB [facility] POCT GLUCOSE (AUTOMATED) 2020-07-19 13:06[facility] 2020-07-19 10:52:00 González Ponce [facility] BASIC METABOLIC PANEL 2020-07-19 10:52:00 Jose Goldsmith [facility] (NA, K, CL, CO2, GLUCOSE, Medica l Branch BUN, CREATININE, CA) CBC WITH DIFF 2020-07-19 10:52:00 Jose Goldsmith [facility] PROTHROMBIN TIME / INR 2020-07-19 10:52:00 González Ponce [facility] POCT GLUCOSE (AUTOMATED) 2020-07-19 02:24:00 Tere Dumont [facility] POCT GLUCOSE (AUTOMATED) 2020-07-18 21:48:00 Tere Dumont [facility] VERIFYNOW ASPIRIN TEST 2020-07-18 19:30:00 González Ponce [facility] ECHO ROUTINE W/DOPPLER 2020-07-18 18:18:37 Jose Goldsmith [facility] COLOR [facility] POCT GLUCOSE (AUTOMATED) 2020-07-18 [facility]:07[facility] ([facility]OMATED) 2020-07-18 13:11:00 Tere Dumont [facility] BASIC METABOLIC PANEL 2020-07-18 10:27:00 Jose Goldsmith [facility] (NA, K, CL, CO2, GLUCOSE, Medica l Branch BUN, CREATININE, CA) CBC WITH DIFF 2020-07-18 10:27:00 Jose Goldsmith [facility] PROTHROMBIN TIME / INR 2020-07-18 10:27:00 ToribioAdelfo [facility] ACTIVATED PARTIAL 2020-07-18 10:27:00 [facility] THRMPLAS [facility] MR BRAIN WO CONTRAST 2020-07-18 04:35:12 Jose Goldsmith [facility] BASIC METABOLIC PANEL 2020-07-18 02:28:00 Bari Gibbons [facility] (NA, K, CL, CO2, GLUCOSE, Medica l Branch BUN, CREATININE, CA) CREATININE, URINE RANDOM 2020-07-18 02:22:00 [facility] [place] UREA NITROGEN, URINE 2020-07-18 02:22:00 [facility] RANDOM [facility] SODIUM, URINE RANDOM 2020-07-18 02:22:00 [facility] POCT GLUCOSE (AUTOMATED) 2020-07-18 02:12:00 Tere Dumont [facility] POCT GLUCOSE (AUTOMATED) 2020-07-17 22:11:00 Tere Dumont [facility] POCT GLUCOSE (AUTOMATED) 2020-07-17 17:30:00 Tere Dumont [facility] POCT GLUCOSE (AUTOMATED) 2020-07-17 14:40:00 Tere Dumont [facility] COVID-19 (ID NOW RAPID 2020-07-17 07:40:00 Alida Carpenter [facility] TESTING) Medical Branch CT ANGIOGRAM HEAD 2020-07-17 07:15:16 Alida Carpenter [facility] CT ANGIOGRAM NECK 2020-07-17 07:15:16 Alida Carpenter [facility] CT ABDOMEN PELVIS WO 2020-07-17 07:13:32 Alida Carpenter [facility] CONTRAST Medical Branch CT HEAD WO CONTRAST 2020-07-17 07:12:11 Alida Carpenter [facility] Medical [place] URINALYSIS 2020-07-17 06:06:00 Singer [facility] XR CHEST 1 VW 2020-07-17 05:52:29 Singer [facility] EKG-12 LEAD 2020-07-17 05:25:31 [facility] TROPONIN I 2020-07-17 05:22:00 [facility] THYROID STIMULATING 2020-07-17 05:22:00 [facility] Trung [facility] Branch COMP. METABOLIC PANEL 2020-07-17 05:22:00 Singer Alida [facility] ([id number]) Medical Branch LIPID PANEL ([id number])(TOTAL 2020-07-17 05:22:00 Alida Carpenter [facility] CHOLESTEROL, Medical Branch TRIGLYCERIDES, HDL) CBC WITH DIFF 2020-07-17 05:22:00 Singer [facility] GLYCOSYLATED HEMOGLOBIN 2020-07-17 05:22:00 Singer [facility] (A1C) Medical Branch EKG-12 LEAD 2020-07-17 05:18:57 Singer [facility] EMERGENCY DEPARTMENT 2020-07-17 05:01:00 Doctor Unassigned, [facility] DOCUMENTS [place] [facility] [place] EMERGENCY SERVICES 2020-07-17 05:01:00 Doctor Marco, [facility] AGREEMENTS AND [place] [facility] Branch AUTHORIZATIONS Encounters Start End Encounter Admission Attending Care Care Encounter Source Date/Time Date/Time Type Type Clinicians Facility Department ID 2021-11-15 Outpatient Arshad, [facility] [id number] [address] 13:30:17 [place] [id number] [facility] 2021-11-15 Outpatient Arshad, [facility] [id number] 13:29:55 [place] [id number] [facility] 2021-11-15 Outpatient Arshad, [facility] [id number] 13:12:17 [place] [id number] [facility] 2021-11-15 Outpatient Arshad, [facility] 12:55:42 [place] [id number] [facility] 2021-11-15 Outpatient Arshad, [facility] 12:54:02 [place] [id number] [facility] 2021-11-15 Outpatient Arshad, [facility] 12:41:32 [place] [id number] [facility] 2021-11-15 Outpatient Arshad, [facility] 12:39:04 [place] [address] [facility] 2021-11-15 Outpatient Arshad, [facility] 10:56:02 [facility] [facility] 2021-11-15 2021-11-15 ambulatory [facility] [id number] [facility] 2021-11-15 2021-11-15 ambulatory [facility] [id number] [facility] 2021-08-14 2021-08-14 Outpatient [facility] [id number] [facility] 2021-05-15 2021-05-15 Outpatient [facility] [id number] [facility] 2021-05-08 2021-05-08 Outpatient [facility] [id number] [facility] 2021-03-31 2021-03-31 Outpatient [facility]LMLC [facility] [id number] [facility] 2021-03-09 2021-03-09 Outpatient [facility] [id number] [facility] 2021-02-13 2021-02-13 Outpatient [facility] [id number] [facility] 2021-02-13 2021-02-13 Outpatient [facility] [id number] [facility] 2021-02-07 2021-02-07 Outpatient [facility] [id number] [facility] 2020-12-29 2020-12-29 Outpatient [facility] [id number] [facility] 2020-07-21 2020-07-21 Olivia Beal [id number] Univers 00:00:00 00:00:00 of Care Ashley Stuart [id number] it y of [place] [id number] [facility] [id number] [address] 2020-07-17 2020-07-20 Hospital Alida Carpenter [id number] Univers 00:15:00 16:05:00 Encounter Tere Dumont [id number] ity of [facility] [id number] [place] Dean Kahn [id number] [address] 2020-07-17 2020-07-17 Emergency X [facility] ERT [id number] Univers 00:15:00 00:15:00 ALIDA jaime [facility] Results Test Description Test Time Test Comments Results Result Comments Source POCT GLUCOSE (AUTOMATED) 2020-07-20 18:21:00 Test Item Value Reference Range Interpretation Comme nts POCT GLU (test code = 1118084721) 189 mg/dL 70-110 H Lab Interpretation (test code = 29401-7) Abnormal [facility]2020-07-20 13:45:00 Test Item Value Reference Range Interpretation Comments POCT GLU (test code = 7716905456) 353 mg/dL 70-110 H Lab Interpretation (test code = Abnormal 89213-0) [facility] METABOLIC PANEL (NA, K, CL, CO2, GLUCOSE, BUN, CREATININE, CA)2020-07-20 11:48:00 Test Item Value Reference Range Interpretation Comments NA (test code = 141 mmol/L 135-145 4925748071) K (test code = 4.3 mmol/L 3.5-5 1164032124) CL (test code = 113 mmol/L 98-108 H 3352606950) CO2 TOTAL (test code = 21 mmol/L 23-31 L 3792441042) AGAP (test code = 2-16 4920011248) BUN (test code = 16 mg/dL 7-23 0221064481) GLUCOSE (test code = 189 mg/dL 70-110 H 7135372083) CREATININE (test code = 1.44 mg/dL 0.6-1.25 H 5258235032) CALCIUM (test code = 8.5 mg/dL 8.6-10.6 L 0521889066) eGFR Calculation mL/min/1.73m2 (Non-) (test code = 8212004415) eGFR Calculation mL/min/1.73m2 () (test code = 1428337240) SHAKIRA (test code = SHAKIRA) Association of [...] tests). Lab Interpretation Abnormal (test code = 89861-5) [facility]30 11:48:00 Test Item Value Reference Range Interpretation Comments MAGNESIUM (test code = 4290033220) 2.0 mg/dL 1.7-2.4 Lab Interpretation (test code = Normal 10344-9) [facility] GLUCOSE (AUTOMATED)2020-07-20 02:49:00 Test Item Value Reference Range Interpretation Comments POCT GLU (test code = 1199452916) 205 mg/dL 70-110 H Lab Interpretation (test code = Abnormal 10101-7) [facility] GLUCOSE (AUTOMATED)2020-07-19 22:58:00 Test Item Value Reference Range Interpretation Comments POCT GLU (test code = 4534976950) 139 mg/dL 70-110 H Lab Interpretation (test code = Abnormal 10020-1) [facility] GLUCOSE (AUTOMATED)2020-07-19 17:03:00 Test Item Value Reference Range Interpretation Comments POCT GLU (test code = 3382671987) 174 mg/dL 70-110 H Lab Interpretation (test code = Abnormal 24579-8) [facility] GLUCOSE (AUTOMATED)2020-07-19 13:11:00 Test Item Value Reference Range Interpretation Comments POCT GLU (test code = 7558004119) 183 mg/dL 70-110 H Lab Interpretation (test code = Abnormal 58129-8) [facility] (NA, K, CL, CO2, GLUCOSE, BUN, CREATININE, CA)2020-07-19 11:42:00 Test Item Value Reference Range Interpretation Comments NA (test code = 140 mmol/L 135-145 3360821662) K (test code = 4.4 mmol/L 3.5-5 8017262318) CL (test code = 113 mmol/L 98-108 H 3410229981) CO2 TOTAL (test code = 19 mmol/L 23-31 L 8362561759) AGAP (test code = 2-16 0698850821) BUN (test code = 27 mg/dL 7-23 H 0663727725) GLUCOSE (test code = 156 mg/dL 70-110 H 8987511870) CREATININE (test code = 2.29 mg/dL 0.6-1.25 H 3121730444) CALCIUM (test code = 8.1 mg/dL 8.6-10.6 L 1003218793) eGFR Calculation mL/min/1.73m2 (Non-) (test code = 8504609384) eGFR Calculation mL/min/1.73m2 () (test code = 1920454145) SHAKIRA (test code = SHAKIRA) Association of [...] tests). Lab Interpretation Abnormal (test code = 25550-4) [facility]2020-09-29 11:42:00 Test Item Value Reference Range Interpretation Comments MAGNESIUM (test code = 1690522038) 2.0 mg/dL 1.7-2.4 Lab Interpretation (test code = Normal 66276-2) [facility]wood[facility] / [id number] 11:31:00 Test Item Value Reference Range Interpretation [...] tions. Lab Interpretation (test Abnormal code = 09721-5) [facility]wood[facility] WITH [id number] 11:09:00 Test Item Value Reference Range Interpretation Comments WBC (test code = See_Comment [Automated 6690-2) message] The sy stem which generated this result transmitted reference range : 4.20 - 10.70 10*3/?L. The reference range was not used to interpret this result as normal/abnormal . RBC (test code = See_Comment L [Automated 969-8) message] The sy stem which generated this [...] RDW-SD (test code = 42.7 fL 38.5-51.6 97942-9) RDW-CV (test code = 13.3 % 12.1-15.4 788-0) PLT (test code = See_Comment [Automated 777-3) message] The sy stem which generated this result transmitted reference range : 150 - 328 10*3/ ?L. The reference r rossy was not used to interpret this result as normal/abnormal . MPV (test code = 9.2 fL 9.8-13 L 29537-0) NRBC/100 WBC (test See_Comment [Automat ed code = 0115419936) message] The system which generated this result transmitted reference range : 0.0 - 10.0 /100 WBCs. The refer ence range was not u sed to interpret th is result as normal/abnormal . NRBC x10^3 (test code <0.01 See_Comment [Auto mated = 5647625728) message] The s ystem which generated this result transmitted reference range : 10*3/?L. The reference range was not used to interpret this result as normal/abnormal . GRAN MAT (NEUT) % 68.1 % (test code = 770-8) IMM GRAN % (test code 0.40 % = 7683835845) LYMPH % (test code = 19.5 % 736-9) MONO % (test code = 9.2 % 5905-5) EOS % (test code = 2.4 % 713-8) BASO % (test code = 0.4 % 706-2) GRAN MAT x10^3(ANC) 4.88 10*3/uL 1.99-6.95 (test code = 3206896396) IMM GRAN x10^3 (test 0.03 10*3/uL 0-0.06 code = 2236968547) LYMPH x10^3 (test code 1.40 10*3/uL 1.09-3.23 = 731-0) MONO x10^3 (test code 0.66 10*3/uL 0.36-1.02 = 742-7) EOS x10^3 (test code = 0.17 10*3/uL 0.06-0.53 711-2) BASO x10^3 (test code 0.03 10*3/uL 0.01-0.09 = 704-7) Lab Interpretation Abnormal (test code = 03676-7) [facility] GLUCOSE (AUTOMATED)2020-07-19 02:24:00 Test Item Value Reference Range Interpretation Comments POCT GLU (test code = 6972484711) 211 mg/dL 70-110 H Lab Interpretation (test code = Abnormal 08232-4) [facility] GLUCOSE (AUTOMATED)2020-07-18 21:49:00 Test Item Value Reference Range Interpretation Comments POCT GLU (test code = 6636647855) 147 mg/dL 70-110 H Lab Interpretation (test code = Abnormal 57533-6) [facility]wood[facility]IFYNOW ASPIRIN [id number] 20:11:00 Test Item Value Reference Range Interpretation Comments VerifyNow Aspirin See Comment ARU Test (test code = 1735780959) SHAKIRA (test code = < 550 ARU [...] and clinical data available to the clinician. 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 The paranasal sinusesare essentially clear. [facility], Radiant Results Inft User - 07/18/2020 11:12 [...] reviewed this study and agree with theabove report.[facility] GL[facility] (AUTOMATED)2020-07-18 13:12:00 Test Item Value Reference Range Interpretation Comments POCT GLU (test code = 6293572310) 134 mg/dL 70-110 H Lab Interpretation (test code = Abnormal 86872-0) [facility]woodPROTHROMBIN [facility] / [id number] 11:34:00 Test Item Value Reference Range Interpretation Comments PROTIME PATIENT (test See_Comment H [Auto mated message] code = 5964-2) The system UTILICASE generated this result transmitted ref erence range: 10.1 - 1 2.6 Seconds. The reference range was not used to int erpret this result as normal/abnormal . INR (test code = 6301-6) Nor mal INR <1.1; Warfarin Therap eutic range 2.0 to 3. 0 or 2.5 to 3.5, dep ending upon the indica tions. Lab Interpretation (test Abnormal code = 34945-0) [facility]woodaPTT2020-09-28 11:34:00 Test Item Value Reference Range Interpretation Comments APTT Patient (test code See_Comment L [Au tomated message] = 3173-2) The system [employer] h generated this result transmitted ref erence range: 26 - 36 Seconds. The reference range was not used to int erpret this result as normal/abnormal . Lab Interpretation (test Abnormal code = 33123-1) [facility] (NA, K, CL, CO2, GLUCOSE, BUN, CREATININE, CA)2020-07-18 10:52:00 Test Item Value Reference Range Interpretation Comments NA (test code = 141 mmol/L 135-145 3243789950) K (test code = 4.4 mmol/L 3.5-5 9042993747) CL (test code = 112 mmol/L 98-108 H 4905460525) CO2 TOTAL (test code = 20 mmol/L 23-31 L 5480036299) AGAP (test code = 2-16 4900465611) BUN (test code = 28 mg/dL 7-23 H 8456706171) GLUCOSE (test code = 116 mg/dL 70-110 H 0524963692) CREATININE (test code = 2.30 mg/dL 0.6-1.25 H 7255472727) CALCIUM (test code = 7.9 mg/dL 8.6-10.6 L 8782602897) eGFR Calculation mL/min/1.73m2 (Non-) (test code = 3251202520) eGFR Calculation mL/min/1.73m2 () (test code = 2336232540) SHAKIRA (test code = SHAKIRA) Association of [...] tests). Lab Interpretation Abnormal (test code = 87488-4) [facility] WITH [id number] 10:52:00 Test Item Value Reference Range Interpretation [...] RDW-SD (test code = 43.8 fL 38.5-51.6 60865-1) RDW-CV (test code = 13.4 % 12.1-15.4 788-0) PLT (test code = See_Comment [Automated 777-3) message] The sy stem which generated this result transmitted reference range : 150 - 328 10*3/ ?L. The reference r rossy was not used to interpret this result as normal/abnormal . MPV (test code = 9.1 fL 9.8-13 L 67338-2) NRBC/100 WBC (test See_Comment [Automat ed code = 7737568311) message] The system which generated this result transmitted reference range : 0.0 - 10.0 /100 WBCs. The refer ence range was not u sed to interpret th is result as normal/abnormal . NRBC x10^3 (test code <0.01 See_Comment [Auto mated = 1001963780) message] The s ystem which generated this result transmitted reference range : 10*3/?L. The reference range was not used to interpret this result as normal/abnormal . GRAN MAT (NEUT) % 65.9 % (test code = 770-8) IMM GRAN % (test code 0.40 % = 9863304726) LYMPH % (test code = 21.8 % 736-9) MONO % (test code = 9.5 % 5905-5) EOS % (test code = 2.1 % 713-8) BASO % (test code = 0.3 % 706-2) GRAN MAT x10^3(ANC) 5.07 10*3/uL 1.99-6.95 (test code = 0778816964) IMM GRAN x10^3 (test 0.03 10*3/uL 0-0.06 code = 3113666299) LYMPH x10^3 (test code 1.68 10*3/uL 1.09-3.23 = 731-0) MONO x10^3 (test code 0.73 10*3/uL 0.36-1.02 = 742-7) EOS x10^3 (test code = 0.16 10*3/uL 0.06-0.53 711-2) BASO x10^3 (test code <0.03 0.01-0.09 = 704-7) Lab Interpretation Abnormal (test code = 74290-3) [facility] [id number] 03:37:00 Test Item Value Reference Range Interpretation Comments TSH (test code = See_Comment Biotin has been 6489561875) reported to cau se a negative bias, interpret resul ts relative to pat ient's use of biotin. [Automated mess age] The system uControl generated this result transmitted ref erence range: 0.45 - 4 .70 mIU/L. The refe rence range was not u sed to interpret this result as normal/abnor mal. Lab Interpretation (test Normal code = 79373-2) [facility]wood[facility], URINE [id number] 02:48:00 Test Item Value Reference Range Interpretation Comments NA URINE (test code = 2610702780) 129 mmol/L [facility]wood[facility]AT[facility], URINE [id number] 02:48:00 Test Item Value Reference Range Interpretation Comments CREAT U (test code = 3980860874) 112.6 mg/dL [facility]woodUREA NITROGEN, URINE [id number] 02:48:00 Test Item Value Reference Range Interpretation Comments UREA N UR (test code = 9260254467) 808 mg/dL [facility] Metabolic Panel (NA, K, CL, CO2, GLUCOSE, BUN, CREATININE, CA)2020-07-18 02:48:00 Test Item Value Reference Range Interpretation Comments NA (test code = 138 mmol/L 135-145 5748189887) K (test code = 4.5 mmol/L 3.5-5 2237078969) CL (test code = 110 mmol/L 98-108 H 9645391950) CO2 TOTAL (test code = 22 mmol/L 23-31 L 9306180060) AGAP (test code = 2-16 4432074086) BUN (test code = 29 mg/dL 7-23 H 4582687705) GLUCOSE (test code = 193 mg/dL 70-110 H 4188419299) CREATININE (test code = 2.34 mg/dL 0.6-1.25 H 7739531852) CALCIUM (test code = 8.1 mg/dL 8.6-10.6 L 8515286740) eGFR Calculation mL/min/1.73m2 (Non-) (test code = 2872513329) eGFR Calculation mL/min/1.73m2 () (test code = 0718341594) SHAKIRA (test code = SHAKIRA) Association of [...] tests). Lab Interpretation Abnormal (test code = 59618-6) [facility] GLUCOSE (AUTOMATED)2020-07-18 02:13:00 Test Item Value Reference Range Interpretation Comments POCT GLU (test code = 2137101208) 193 mg/dL 70-110 H Lab Interpretation (test code = Abnormal 90924-9) [facility] GLUCOSE (AUTOMATED)2020-07-17 22:12:00 Test Item Value Reference Range Interpretation Comments POCT GLU (test code = 4434562648) 178 mg/dL 70-110 H Lab Interpretation (test code = Abnormal 24105-7) [facility] GLUCOSE (AUTOMATED)2020-07-17 17:41:00 Test Item Value Reference Range Interpretation Comments POCT GLU (test code = 7644814674) 166 mg/dL 70-110 H Lab Interpretation (test code = Abnormal 87542-1) [facility]wood[facility] CHEST 1 [id number] 15:17:07 No acute intrathoracic abnormality. Preliminary Report Dictated by Resident: Javi Hancock MD., have reviewed this study and agree with the abovereport.PROCEDURE: XR CHEST 1 VW CLINICAL INDICATION: stroke COMPARISON: None FINDINGS: The lungs are clear. No pleural effusion or pneumothorax is seen. The heartis normal in size. No acute bony abnormality. [facility], Radiant Results Inft - 07/17/2020 10:18 AM CDTPROCEDURE: XR CHEST 1 VWCLINICAL INDICATION: stroke COMPARISON: NoneFINDINGS:The lungs are clear. No pleural effusion or pneumothorax is seen. The heartis normal in size.No acute bony abnormality.IMPRESSIONNo acute intrathoracic abnormality.PreliminaryReport Dictated by Resident: Bhavya EstradaikhI, Javi Dsa MD., have reviewed this study and agree with the abovereport.[facility] ANGIOGRAM [id number] 15:03:11 Complete occlusion of the right proximal [...] at 2:50 AM.Preliminary Report Dictated by Resident: Bhavya JetthReport changeTamar Gomes reviewed this study and agree with the above reportwith the following modifications:2 mm posterior inferior outpouching of left supraclinoid internal carotidartery favored to be infundibulum, aneurysm not excluded. Attention onfollow-up. Tamar Gomes MD., have reviewed this study and agree with theabove report.[facility]CT ANGIOGRAM [id number] 15:03:11 Complete occlusion of the right proximal [...] at 2:50 AM.Preliminary Report Dictated by Resident: Bhavya Nava changeTamar Gomes reviewed this study and agree with the above reportwith the following modifications:2 mm posterior inferior outpouching of left supraclinoid internal carotidartery favored to be infundibulum, aneurysm not excluded. Attention onfollow-up. Tamar Gomes MD., have reviewed this study and agree with theabove report.[facility]wood[facility] GLU[facility]SE (AUTOMATED)2020-07-17 14:51:00 Test Item Value Reference Range Interpretation Comments POCT GLU (test code = 0928913173) 163 mg/dL 70-110 H Lab Interpretation (test code = Abnormal 26363-3) [facility] HEAD WO [id number] 14:36:44 Small right frontal lobe infarct. ASPECTS [...] The calvariumand central skull base are unremarkable. [facility], Radiant Results Inft - 07/17/2020 9:41 AM CDTCT HEAD WO [...] this study and agree with theabove report. [facility]CT ABDOMEN PELVIS WO [id number] 14:21:29 1. 3 mm obstructing right distal ureteric stone with mild upstreamhydroureteronephrosis.2. Diverticulosis of the sigmoid colon without CT evidence ofdiverticulitis3. Fat-containing umbilical hernia. Preliminary Report Dictated by Resident: Javi Hancock ?MD Thiago., have reviewed this study and agree with [...] severe spondylosis are seen at L4-L5 and L5-D2KTKWYRBNWG5. 3 mm obstructing right distal ureteric stone with mild upstreamhydroureteronephrosis.2. Diverticulosis of the sigmoid colon w ithout CT evidence ofdiverticulitis3. Fat-containing umbilical hernia.Preliminary Report Dictated byResident: Javi aKminski MD., have reviewed this study and agree with the abovereport.[facility]woodCOVID[facility] (ID NOW RAPID TESTING) 2020-07-17 08:04:00 Test Item Value Reference Range Interpretation Comments SARS-CoV-2 Rapid ID NOW Not Detected Not Detected (test code = 90690-6) SHAKIRA (test code = SHAKIRA) ID NOW COVID-19 Assay is an isothermal nucleic acid amplification test intended for the qualitative detection of nucleic acid from SARS-CoV-2 viral RNA in nasopharyngeal (TRAVEL AGENT) specimens. It is used under Emergency Use [...] indicated. Lab Interpretation Normal (test code = 37081-0) [facility]woodURINAL[facility]IS2020-09-27 06:24:00 Test Item Value Reference Range Interpretation Comments APPEARANCE (test code = Clear Clear 9458711331) COLOR (test code = Yellow Yellow 1184889288) PH (test code = 4.8-8.0 8880141490) SP GRAVITY (test code = 1.003-1.030 0383127305) GLU U QUAL (test code = Normal Normal 1637011544) BLOOD (test code = 1+ Negative A 3757875354) KETONES (test code = Negative Negative 4778613495) PROTEIN (test code = Negative Negative 2887-8) UROBILIN (test code = 2.0 mg/dL Normal A 0174555238) BILIRUBIN (test code = Negative Negative 5710834461) NITRITE (test code = Negative Negative 4527082679) LEUK MARLENE (test code = Negative Negative 8965863897) RBC/HPF (test code = See_Comment H [Autom ated message] 2548212752) The system uControl generated this result transmit chris reference range : 0 - 3 HPF. The refe rence range was not u sed to interpret th is result as normal/abnormal . WBC/HPF (test code = See_Comment [Autom ated message] 3573896211) The system uControl generated this result transmit chris reference range : 0 - 5 HPF. The refe rence range was not u sed to interpret th is result as normal/abnormal . BACTERIA (test code = Few Negative A 3185519711) SQ EPITH (test code = <1 HPF 0117173878) Lab Interpretation (test Abnormal code = 91610-3) [facility]woodTROPONIN [id number] 05:56:00 Test Item Value Reference Range Interpretation Comments TROPONIN I (test 0.001 ng/mL See_Comment [Automated code = 5215238212) message] The system which generated this result [...] ? Lab Interpretation Normal (test code = 37687-1) [facility]woodGLYCOSYLATED HEMOGLOBIN (A1C)2020-07-17 05:56:00 Test Item Value Reference Range Interpretation Comments HGB A1C (test code = 7.7 % 4-6 H 4548-4) SHAKIRA (test code = SHAKIRA) %A1C (NGSP) Interpretation (ADA)4.8-5.6 ? ? Normal or (Non-Diabetic Range)5.7-6.4 ? ? Increased Risk (Pre-Diabetic)>6.5 ?Diabetes Indicated Lab Interpretation Abnormal (test code = 35660-5) [facility]woodCOMP. METABOLIC PANEL (98033)2020-07-17 05:43:00 Test Item Value Reference Range Interpretation Comments NA (test code = 139 mmol/L 135-145 7575345067) K (test code = 4.3 mmol/L 3.5-5 5913525000) CL (test code = 106 mmol/L 98-108 0625128839) CO2 TOTAL (test code = 24 mmol/L 23-31 3645835620) AGAP (test code = 2-16 3318091644) BUN (test code = 29 mg/dL 7-23 H 2398439602) GLUCOSE (test code = 178 mg/dL 70-110 H 3087562998) CREATININE (test code = 2.55 mg/dL 0.6-1.25 H 5721878964) TOTAL BILI (test code = 0.7 mg/dL 0.1-1.2 4102921888) CALCIUM (test code = 8.8 mg/dL 8.6-10.6 8078211099) T PROTEIN (test code = 6.8 g/dL 6.3-8.2 9253194275) ALBUMIN (test code = 3.7 g/dL 3.5-5 3821064560) ALK PHOS (test code = 75 U/L 34-122 8342709922) ALTv (test code = 14 U/L 5-50 2-6) AST(SGOT) (test code = 17 U/L 13-40 0511450909) eGFR Calculation mL/min/1.73m2 (Non-) (test code = 7564563230) eGFR Calculation mL/min/1.73m2 () (test code = 5429017064) SHAKIRA (test code = SHAKIRA) Association of [...] tests). Lab Interpretation Abnormal (test code = 60849-9) [facility]woodLIPID PANEL (07853)(TOTAL CHOLESTEROL, TRIGLYCERIDES, HDL)2020-07-17 05:43:00 Test Item Value Reference Range Interpretation Comments CHOL (test code = 105 mg/dL 120-200 L 1312240680) HDL (test code = 32 mg/dL >40 L 4107773413) HDLC RATIO (test code = See_Comment [Au tomated message] 0228544308) The system uControl generated this result transmit chris reference range : <=5.0. The refe rence range was not u sed to interpret th is result as normal/abnormal . TRIG (test code = 104 mg/dL 30-170 7262364902) LDL CHOL (test code = 52 mg/dL See_Comment [Auto mated message] 00061-1) The system uControl generated this result transmit chris reference range : <=160. The refe rence range was not u sed to interpret th is result as normal/abnormal . VLDL (test code = 21 mg/dL 5-60 9002429115) Lab Interpretation (test Abnormal code = 12342-2) [facility]woodCB WITH [id number] 05:28:00 Test Item Value Reference Range Interpretation Comments WBC (test code = See_Comment [Automated 7990-2) message] The sy stem which generated this result transmitted reference range : 4.20 - 10.70 10*3/?L. The reference range was not used to interpret this result as normal/abnormal . RBC (test code = See_Comment L [Automated 769-8) message] The sy stem which generated this [...] RDW-SD (test code = 43.8 fL 38.5-51.6 47906-8) RDW-CV (test code = 13.3 % 12.1-15.4 788-0) PLT (test code = See_Comment [Automated 777-3) message] The sy stem which generated this result transmitted reference range : 150 - 328 10*3/ ?L. The reference r rossy was not used to interpret this result as normal/abnormal . MPV (test code = 9.2 fL 9.8-13 L 32442-0) NRBC/100 WBC (test See_Comment [Automat ed code = 8840799964) message] The system which generated this result transmitted reference range : 0.0 - 10.0 /100 WBCs. The refer ence range was not u sed to interpret th is result as normal/abnormal . NRBC x10^3 (test code <0.01 See_Comment [Auto mated = 5963367073) message] The s ystem which generated this result transmitted reference range : 10*3/?L. The reference range was not used to interpret this result as normal/abnormal . GRAN MAT (NEUT) % 68.5 % (test code = 770-8) IMM GRAN % (test code 0.70 % = 9956341021) LYMPH % (test code = 18.5 % 736-9) MONO % (test code = 10.6 % 5905-5) EOS % (test code = 1.3 % 713-8) BASO % (test code = 0.4 % 706-2) GRAN MAT x10^3(ANC) 6.31 10*3/uL 1.99-6.95 (test code = 5440667073) IMM GRAN x10^3 (test 0.06 10*3/uL 0-0.06 code = 0901449423) LYMPH x10^3 (test code 1.70 10*3/uL 1.09-3.23 = 731-0) MONO x10^3 (test code 0.98 10*3/uL 0.36-1.02 = 742-7) EOS x10^3 (test code = 0.12 10*3/uL 0.06-0.53 711-2) BASO x10^3 (test code 0.04 10*3/uL 0.01-0.09 = 704-7) Lab Interpretation Abnormal (test code = 66701-7) [facility]"
[2021-11-25] MEDS ORDERED: NA CHLORIDE 0.9% 1,000 ML ONE (11:26)
[2021-11-25 11:38] LABS: Absolute Lymphocytes (CBC) 1.2 K/uL (0.7-4.9); Hematocrit 41.2 % (39.6-49.0); Lymphocytes % 9.4 % (15.3-44.8); MPV 7.6 fL (7.6-11.3); RBC Red Blood Cell Count 4.89 M/uL (4.33-5.43)
[2021-11-25 11:53] LABS: C-Reactive Protein 5.92 mg/L (<3.00); Potassium 4.9 mmol/L (3.5-5.1)
--- NOTE | 2021-11-25 12:55 | RAD REPORT ---
EXAM DESCRIPTION: Moirat Single View11/25/2021 11:50 am CLINICAL HISTORY: Cough COMPARISON: November 22, 2021 FINDINGS: No significant change in bilateral pulmonary opacities. Heart is borderline enlarged IMPRESSION: No significant change in the mild to moderate bilateral pulmonary opacities probably pne umonia
--- NOTE | 2021-11-25 13:28 | EDPHYS ---
Physician Documentation [facility] Name: Augustine Gooden Age: 71 yrs Sex: Male : 1950 Arrival Date: 11/25/2021 Time: 10:55 Bed 17 Private MD: [facility] ED Physician Clinton Mcclain HPI: 11/25 13:22 This 71 yrs old Male presents to ER via Ambulatory with complaints of Breathing rn Difficulty, weakness, COVID. 13:22 The patient has shortness of breath at rest, with light activity. Onset: The rn symptoms/episode began/occurred 2 week(s) ago. Duration: The symptoms are continuous. The patient's shortness of breath is aggravated by exertion, light activity, is alleviated by nothing. Associated signs and symptoms: Pertinent positives: non-productive cough, dizziness, Pertinent negatives: fever, hemoptysis. Severity of symptoms: At their worst the symptoms were moderate in the emergency department the symptoms are worse. The patient has experienced similar episodes in the past. The patient has been recently seen at the [facility] Emergency Department. This is patient's third visit for Covid related complaint. Reports weakness is getting worse, tried to get out of bed and went to ground, no syncope, unable to stand on his own and unable to help him up. Reports generalized weakness and fatigue with dizziness. Not eating or drinking. No appetite. Reports shortness of breath has not significantly worsened. Now about 2 weeks into Covid diagnosis. is improving but he is not.. Historical: - Allergies: 11:06 Codeine; jh5 - PMHx: 11:06 Diabetes - IDDM; Hyperlipidemia; Hypertension; jh5 - Immunization history:: Adult Immunizations up to date. - Social history:: Smoking status: Patient reports the use of cigarette tobacco products. - Family history:: not pertinent. - Hospitalizations: : No recent hospitalization is reported. 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 rn 13:22 Constitutional: This is a well developed, well nourished patient who is awake, alert, rn appears weaker than the other time I saw him Head/Face: Normocephalic, atraumatic. Eyes: Periorbital areas with no swelling, redness, or edema. ENT: Dry mucous membranes, no stridor Cardiovascular: Regular rate and rhythm. No pulse deficits. Respiratory: Mild tachypnea, diminished breath sounds at bases Abdomen/GI: Soft, nontender Skin: Warm, dry, no cyanosis MS/ Extremity: Pulses equal, no cyanosis. Neuro: Awake and alert, GCS 15, oriented to person, place, time, and situation. Cranial nerves II-XII grossly intact. Motor strength 4/5 in all extremities. Sensory grossly intact. Vital Signs: 11:04 BP 92 / 50; Pulse 87; Resp 20; Pulse Ox 96% on R/A; Weight 115.67 kg; Height 5 ft. 10 5 in. (177.80 cm); 11:55 BP 105 / 64; Pulse 81; Resp 16; Pulse Ox 99% on R/A; hilario 14:00 BP 113 / 64; Pulse 70; Resp 18; Temp 97.5; Pulse Ox 99% on R/A; hilario 11:04 Body Mass Index 36.59 (115.67 kg, 177.80 cm) 5 MDM: 10:59 Patient medically screened. rn 13:22 Differential diagnosis: Anemia pneumonia, Sepsis COVID, dehydration, electrolyte rn disturbance. Data reviewed: vital signs, nurses notes, lab test result(s), EKG, radiologic studies, plain films, and as a result, I will admit patient. Counseling: I had a detailed discussion with the patient and/or guardian regarding: the historical points, exam findings, and any diagnostic results supporting the discharge/admit diagnosis, lab results, radiology results, the need for further work-up and treatment in the hospital. Response to treatment: the patient's symptoms have mildly improved after treatment, and as a result, I will admit patient. Admission orders: after a detailed discussion of the patient's condition and case, the admit orders are written by me. ED course: admitted to Dr. Sanches.. 11/25 11:21 Order name: CBC with Diff; Complete Time: 12:57 rn 11/25 11:21 Order name: Basic Metabolic Panel; Complete Time: 12:57 rn 11/25 11:21 Order name: CRP; Complete Time: 12:57 rn 11/25 11:21 Order name: Procalcitonin; Complete Time: 12:57 rn 11/25 13:59 Order name: COVID-19 SARS RT PCR (Document "Date of Onset" if Symptomatic) 11/25 14:38 Order name: UR CREAT EDMS 11/25 14:38 Order name: UR SODIUM EDMS 11/25 14:38 Order name: CBC with Automated Diff EDMS 11/25 14:38 Order name: CBC with Automated Diff EDMS 11/25 14:38 Order name: Comprehensive Metabolic Panel EDMS 11/25 14:38 Order name: Comprehensive Metabolic Panel EDMS 11/25 14:41 Order name: Magnesium EDDE 11/25 14:41 Order name: Magnesium EDDE 11/25 14:41 Order name: Magnesium EDDE 11/25 11:21 Order name: IV Start; Complete Time: 11:35 rn 11/25 11:21 Order name: EKG; Complete Time: 11:22 rn 11/25 11:21 Order name: EKG - Nurse/Tech; Complete Time: 11:36 rn 11/25 11:21 Order name: XRAY Chest (1 view); Complete Time: 12:57 rn 11/25 11:21 Order name: O2 Sat Monitoring; Complete Time: 11:35 rn 11/25 11:21 Order name: Cardiac monitoring; Complete Time: 11:35 rn 11/25 14:38 Order name: CONS Physician Consult EDDE 11/25 14:38 Order name: Occupational Therapy Consult EDMS 11/25 14:38 Order name: Physical Therapy Consult EDDE 11/25 14:38 Order name: 60g Consistent Carbohydrate (ADA 1800/2000) EDMS 11/25 14:40 Order name: Social Service Consult EDMS 11/25 14:41 Order name: Magnesium EDMS EC:38 Rate is 78 beats/min. Rhythm is regular. QRS Fiatt is Normal. MA interval is normal. QRS rn interval is normal. QT interval is normal. No Q waves. T waves are Normal. No ST changes noted. Clinical impression: Normal ECG. Interpreted by me. Reviewed by me. Administered Medications: 11:35 Drug: NS 0.9% 1000 ml Route: IV; Rate: 1000 ml; Site: left antecubital; hilario Disposition Summary: 11/25/21 13:27 Hospitalization Ordered Hospitalization Status: Observation rn Provider: Tasha Sanches rn Location: Telemetry/MedSurg (observation) rn Condition: Stable rn Problem: an ongoing problem rn Symptoms: have worsened rn Bed/Room Type: Standard rn Room Assignment: 411(11/25/21 15:22) eb Diagnosis - Pneumonia due to SARS-associated coronavirus rn - Muscle weakness (generalized) rn - Dehydration rn Forms: - Medication Reconciliation Form rn - SBAR form rn Signatures: Dispatcher [employer] EDClinton Cowan MD MD rn Botello, Elizabeth eb Rees, Jessica RN RN jh5 Janna Cohen RN RN hilario Corrections: (The following items were deleted from the chart) 13:27 marciano fernández
--- NOTE | 2021-11-25 13:28 | ER ---
Nurse's Notes [facility] Name: Augustine Gooden Age: 71 yrs Sex: Male : 1950 Arrival Date: 11/25/2021 Time: 10:55 Bed 17 Private MD: Trell Arshad Diagnosis: Pneumonia due to SARS-associated coronavirus;Muscle weakness (generalized);Dehydration Presentation: 11/25 11:04 Chief complaint: Patient states: was here a couple of daysd ago; COVID+ and dx with jh5 pneumonia; getting worse and having hard time breathing, weakness, and lack of appetite. Coronavirus screen: Vaccine status: Patient reports being unvaccinated. Client denies travel out of the [place] in the last 14 days. Ebola Screen: Patient negative for fever greater than or equal to 101.5 degrees Fahrenheit, and additional compatible Ebola Virus Disease symptoms Patient denies exposure to infectious person. Patient denies travel to an Ebola-affected area in the 21 days before illness onset. Initial Sepsis Screen: Does the patient meet any 2 criteria? No. Patient's initial sepsis screen is negative. Does the patient have a suspected source of infection? No. Patient's initial sepsis screen is negative. Risk Assessment: Do you want to hurt yourself or someone else? Patient reports no desire to harm self or others. 11:04 Method Of Arrival: Ambulatory [facility] 11:04 Acuity: JULIUS 3 [facility] 11:15 Onset of symptoms was November 25, 2021. hilario Triage Assessment: 11:06 General: Appears in no apparent distress. obese, Behavior is calm, cooperative, [facility] appropriate for age. Pain: Denies pain. Respiratory: Reports shortness of breath at rest on exertion Onset: The symptoms/episode began/occurred gradually, the patient has moderate shortness of breath. Historical: - Allergies: 11:06 Codeine; jh5 - PMHx: 11:06 Diabetes - IDDM; Hyperlipidemia; Hypertension; jh5 - Immunization history:: Adult Immunizations up to date. - Social history:: Smoking status: Patient reports the use of cigarette tobacco products. - Family history:: not pertinent. - Hospitalizations: : No recent hospitalization is reported. Screenin:14 Abuse screen: Denies threats or abuse. Denies injuries from another. Nutritional hilario screening: No deficits noted. Tuberculosis screening: No symptoms or risk factors identified. Fall Risk None identified. Assessment: 11:15 Cardiovascular: Reports fatigue, shortness of breath, Rhythm is regular. Respiratory: Airway is patent Breath sounds are diminished bilaterally. 11:16 Respiratory: Respiratory effort is even, unlabored, shallow. Vital Signs: 11:04 BP 92 / 50; Pulse 87; Resp 20; Pulse Ox 96% on R/A; Weight 115.67 kg; Height 5 ft. 10 [facility] in. (177.80 cm); 11:55 BP 105 / 64; Pulse 81; Resp 16; Pulse Ox 99% on R/A; hilario 14:00 BP 113 / 64; Pulse 70; Resp 18; Temp 97.5; Pulse Ox 99% on R/A; hilario 11:04 Body Mass Index 36.59 (115.67 kg, 177.80 cm) [facility] ED Course: 10:55 Patient arrived in ED. am2 10:56 Trell Arshad DO is Private Physician. am2 10:59 Clinton Mcclain MD is Attending Physician. rn 11:06 Triage completed. [facility] 11:06 Arm band placed on right wrist. [facility] 11:14 Bed in low position. hilario 11:14 No provider procedures requiring assistance completed. hilario 11:35 CBC with Diff Sent. hilario 11:36 XRAY Chest (1 view) Sent. 11:50 XRAY Chest (1 view) In Process Unspecified. EDAL 13:27 Tasha Sanches MD is Hospitalizing Provider. rn 14:18 COVID-19 SARS RT PCR (Document "Date of Onset" if Symptomatic) Sent. 16:18 Patient admitted, IV remains in place. Administered Medications: 11:35 Drug: NS 0.9% 1000 ml Route: IV; Rate: 1000 ml; Site: left antecubital; Outcome: 13:27 Decision to Hospitalize by Provider. rn 16:18 Admitted to 16:18 Condition: good 16:18 Instructed on the need for admit. 16:18 Patient left the ED. Signatures: Dispatcher [employer] EDMS Clinton Mcclain MD MD rn Moreno, Amanda am2 Cristina Scott RN RN [facility] Au-StagerJanna RN RN
--- NOTE | 2021-11-25 14:27 | P.HP ---
Certification for Inpatient Patient admitted to: Inpatient With expected LOS: >2 Midnights Patient will require the following post-hospital care: Home Health Services Practitioner: I am a practitioner with admitting privileges, knowledge of patient current condition, hospital course, and medical plan of care. Services: Services provided to patient in accordance with Admission requirements found in Title 42 Section 412.3 of the Code of Federal Regulations Patient History Date of Service: 11/25/21 Reason for admission: weakness, fall History of Present Illness: 71 yr old male with HTN , DM,HTN,HLD , RECENT Covid pneumonia since last two weeks , unvaccinated , repeated ER visit for recurrent weakness, anorexia , and falls at home presented today after falling from bed and unable to get up even with assit from the spouse . patient admit to anorexia, poor po intake but no nausea or vomiting , No recent diarrhea. He state easy fatigue and exertional dyspnea on ambulation . He reports no cough or fever . 02 sat was 94% on room air . CXR shows persistent but unchanged infiltrates consistent with covid pneumonia . He is being admitted for weakness and covid pneumonia. on admission he was noted with elevated creatinine of 2.03 and BUN of 66 but review of his records shows his creatinine range 1.8-2.3 since 2017 Allergies codeine Allergy (Verified 05/07/18 17:37) HEADACHES/VOMITING Home Medications: Aspirin [Ecotrin 81 MG] 81 mg PO DAILY 09/09/17 Clopidogrel Bisulfate [Plavix*] 75 mg PO DAILY 09/09/17 Glimepiride [Amaryl] 4 mg PO BID 09/09/17 Losartan Potassium [Cozaar] 100 mg PO BEDTIME 09/09/17 Simvastatin 40 mg PO DAILY 09/09/17 Insulin Detemir [Levemir*] 26 units SQ BID 05/07/18 Metformin ER [Glucophage ER*] 1,000 mg PO BID 05/07/18 carvediloL [Coreg*] 25 mg PO BID 05/07/18 hydroCHLOROthiazide [Hydrochlorothiazide*] 25 mg PO DAILY 05/07/18 Meclizine HCl [Antivert*] 25 mg PO Q6H PRN #30 tab 05/08/18 - Past Medical/Surgical History Diabetic: Yes -: Diabetes Type 2 -: Asbestosis -: Hyperlipidemia -: Hypertension -: Heart Surgery -: Left Knee Surgery -: BACK SURGERY -: Cardiac Stents x 2 - Family History Mother -: Heart disease Notes: of heart attack Brother -: Diabetes - Social History Smoking Status: Never smoker Smoking therapy provided: No Patient receptive to therapy: No Alcohol use: No CD- Drugs: No Caffeine use: Yes Place of Residence: Home Review of Systems General: Weakness, Malaise Eyes: Pain, Vision Change, Conjunctivae Inflammation, Eyelid Inflammation, Redness, Other, As per HPI, Unremarkable ENT: Ear Pain, Ear Discharge, Nose Pain, Nose Discharge, Nose Congestion, Mouth Pain, Mouth Swelling, Throat Pain, Throat Swelling, Other, As per HPI, Unremarkable Respiratory: SOB with Excertion Gastrointestinal: Nausea, Vomiting, Abdominal Pain, Diarrhea, Distention, No Distention, Constipation, Melena, Hematochezia, Other, As per HPI, Unremarkable Genitourinary: Dysuria, Frequency, Urgency, Incontinence, Hematuria, Retention, Other, As per HPI, Unremarkable Musculoskeletal: Atrophy, Neck Pain, Shoulder Pain, Arm Pain, Back Pain, Hand Pain, Leg Pain, Foot Pain, Pedal edema, Other, As per HPI, Unremarkable Neurological: Weakness Physical Examination - Physical Exam General: Alert, Obese HEENT: Atraumatic, Normocephalic Neck: 2+ carotid pulse no bruit, JVD not distended Respiratory: Clear to auscultation bilaterally, Normal air movement, Diminished Cardiovascular: No edema, Normal pulses, Regular rate/rhythm, Normal S1 S2 Gastrointestinal: Normal bowel sounds, Soft and benign, Non-distended Integumentary: No rashes, No breakdown, No significant lesion Neurological: Normal speech, Normal strength at 5/5 x4 extr, Normal tone - Studies Laboratory Data (last 24 hrs) 11/25/21 11:30: Sodium 136, Potassium 4.9, BUN 66 H, Creatinine 2.03 H, Glucose 382 H 11/25/21 11:30: WBC 12.70 H D, Hgb 13.2 L, Hct 41.2, Plt Count 320 Assessment and Plan Discharge Plan: Home - Advance Directives Does patient have a Living Will: No Does patient have a Durable POA for Healthcare: No Physician Review: Patient Assessed, Agree with Above Assessment and Plan Physician Review Additional Text: Weakness- due to recent Covid infection chronic kidney disease stage IIIb - relatively Unchangedbut possible ARF Covid pneumonia - stable HTN DM HLD PLAN - will admit to observation -start gentle IVF with NS - Urine studies for fena -Hold diuretics hctz and losartan use -consult PT/OT for muscle strengthening exercises -Patient appetite has improved now , observed to be eating lunch well , follow po intake over the next 24 hrs -since mild infiltrates on CXR , suggest improving Covid pneumonia , no need to start steroid regime -will do zinc sulfate -follow creatinine trend - currently at baseline -strict glycemic control -lovenox for dvt Prphylaxis -Possible home in am if improving strength Time Spent Managing Pts Care (In Minutes): 65
[2021-11-25] MEDS ORDERED: ACETAMINOPHEN 500 MG TAB PO PRN (14:32)
[2021-11-25] MEDS ORDERED: MORPHINE 2 MG/ML SYR IV PRN (14:32)
[2021-11-25] MEDS ORDERED: ALBUTEROL 2.5 MG/3 ML NEB SOL NEB PRN ×2 (14:32→15:41)
[2021-11-25] MEDS ORDERED: ONDANSETRON 4 MG/2 ML VIAL IV PRN (14:32)
[2021-11-25] MEDS ORDERED: HYDRALAZINE HCL 20 MG/ML VIAL IV PRN (14:38)
[2021-11-25] MEDS ORDERED: NA CHLORIDE 0.9% 1,000 ML IV SCH (15:00)
[2021-11-25] MEDS: INSULIN -REGULAR HUMAN 50 UNIT/0.5 ML ML SQ SCH ×2 (18:35→20:55)
[2021-11-25 19:39] VITALS: BMI 36.6
[2021-11-25] MEDS: ATORVASTATIN 20 MG TAB PO SCH (20:55)
[2021-11-25] MEDS: SODIUM BICARB 325 MG TAB PO SCH (20:55)
[2021-11-25] MEDS: METFORMIN ER 500 MG TAB PO SCH (20:55)
[2021-11-26 03:48] LABS: Absolute Lymphocytes (CBC) 1.4 K/uL (0.7-4.9); Hematocrit 37.4 % (39.6-49.0); Lymphocytes % 13.4 % (15.3-44.8); MPV 7.4 fL (7.6-11.3); RBC Red Blood Cell Count 4.52 M/uL (4.33-5.43)
[2021-11-26 04:06] LABS: Albumin 2.4 g/dL (3.4-5.0); Bilirubin Total 0.6 mg/dL (0.2-1.0); Potassium 4.3 mmol/L (3.5-5.1)
--- NOTE | 2021-11-26 06:29 | P.PN ---
Date of Service: 11/26/21 Subjective: Feeling better Ambulated to bathroom earlier this morning Still feels very weak, tired Renal function improved ROS: 10 point ROS as noted above, otherwise negative Physical exam GEN: Alert, oriented, NAD HEENT: Normal conjunctiva, sclera anicteric CV: Regular rate and rhythm, no edema Pulm: Non-labored respiration on room air Abd: Soft, nontender, nondistended Neuro: Normal speech, normal affect Problem List failure to thrive / debility / generalized weakness- due to decreased PO intake / COVID infection LÁZARO on chronic kidney disease stage IIIb Covid pneumonia - stable HTN DM HLD improving with gentle IVF overnight more energy/strength this morning renal function improved stable on RA appetite improved continue current regimen VTE: lovenox Code: full Dispo: anticipate dc home within 24hrs Time Spent Managing Pts Care (In Minutes): 35
[2021-11-26] MEDS: SODIUM BICARB 325 MG TAB PO SCH ×3 (08:07→22:05)
[2021-11-26] MEDS: METFORMIN ER 500 MG TAB PO SCH ×2 (08:07→22:05)
[2021-11-26] MEDS: CLOPIDOGREL 75 MG TABLET PO SCH (08:07)
[2021-11-26] MEDS: ENOXAPARIN 40 MG/0.4 ML SQ SCH (08:07)
[2021-11-26] MEDS: ASPIRIN EC 81 MG TAB PO SCH (08:07)
[2021-11-26] MEDS: INSULIN -REGULAR HUMAN 50 UNIT/0.5 ML ML SQ SCH ×4 (08:31→22:05)
[2021-11-26] MEDS ORDERED: INFLUENZA VACCINE (for 6+ mo) 0.5 ML DOSE IMVAC ONE (12:00)
[2021-11-26] MEDS ORDERED: PNEUMOCOCCAL VACCINE 0.5 ML IMVAC ONE (12:00)
[2021-11-26 12:32] VITALS: O2SAT 97
--- NOTE | 2021-11-26 14:45 | EKG ---
Test Date: 2021-11-25 Test Time: 11:36:22 Electrotype Caster: JOSE ARMANDO MEASUREMENT RESULTS: Intervals: Rate: 76 NM: 140 QRSD: 78 QT: 378 QTc: 425 [place]: P: 62 NM: 140 QRS: 50 T: 55 INTERPRETIVE STATEMENTS: Normal sinus rhythm Normal ECG Compared to ECG 11/22/2021 15:34:51 No significant changes Electronically Signed On 11-26-21 14:43:35 [employer] by Zaheer Recio
--- NOTE | 2021-11-26 15:39 | P.CNS ---
Date of Consult: 11/26/21 Reason for Consult: CKD stage 3, Covid Pneumonia, vol depletion Requesting Physician: Tasha Sanches Chief Complaint: weakness, fall History of Present Illness: 71 y o male pt with hx of DM, HTN, HLD, CKD stage 3, CAD and recently diagnosis of covid 19 disease associated pneumonia who was re-admitted for episode of weakness nand fall. he has been noted to have elevated cr of 2.03 and he was also volume depleted. he was started on IV fluid and supportive care for covid 19 disease. he was asked to be evaluated by nephrology due to his abnormal kidney function. Allergies codeine Allergy (Verified 05/07/18 17:37) HEADACHES/VOMITING morphine Adverse Reaction (Verified 11/25/21 18:42) Nausea/Vomiting Home Medications: Aspirin [Ecotrin 81 MG] 81 mg PO DAILY 09/09/17 Glimepiride [Amaryl] 4 mg PO BID 09/09/17 Simvastatin 40 mg PO BEDTIME 09/09/17 Carvedilol [Coreg] 1 tab PO BID 11/26/21 Insulin Degludec [Tresiba] 35 unit SQ DAILY 11/26/21 Losartan/Hydrochlorothiazide [Losartan-Hctz 100-25 mg Tab] 1 tab PO DAILY 11/26/21 Sitagliptin Phos/Metformin HCl [Janumet Xr 50-1,000 mg Tablet] 1 tab PO DAILY AT SUPPER 11/26/21 - Past Medical/Surgical History Diabetic: Yes -: Diabetes Type 2 -: Asbestosis -: Hyperlipidemia -: Hypertension -: CAD Dr Recio -: Heart Surgery -: Left Knee Surgery -: BACK SURGERY -: Cardiac Stents x 2 Dr Yap - Family History Mother Medical History: Heart disease Notes: of heart attack Brother Medical History: Diabetes - Social History Alcohol use: No CD- Drugs: No Caffeine use: Yes Place of Residence: Home Review of Systems Unremarkable Physical Examination Temp Pulse Resp BP Pulse Ox 97.1 F 87 16 125/58 L 97 11/26/21 12:00 11/26/21 12:00 11/26/21 12:00 11/26/21 12:00 11/26/21 12:00 General: Alert, Oriented x3, Cooperative HEENT: Atraumatic, Normocephalic Neck: Supple Respiratory: Normal air movement Cardiovascular: Regular rate/rhythm, Normal S1 S2 Gastrointestinal: Soft and benign Musculoskeletal: No swelling Neurological: Normal speech, Normal strength at 5/5 x4 extr Conclusions/Impression: COVID 19 disease Volume depletion CKD stage 3 Hypertension DM 2 Hyperlipidemia Plan: His cr is trending down from 2 to 1.6 after IV hydration;. we will hold all IV fluid for now due to concerns about ards associated with covi 19 disease. oral hydration is encouraged. we will follow trend of kidney function. we will obtain renal US to evaluate echo and size of kidneys. we will dose meds for eGFR and avoid nephrotoxins. we are of the opinion that long standing hypertension and DM are significant contributors to his ckd stage 3 status.
[2021-11-26] MEDS ORDERED: NA CHLORIDE 0.9% 1,000 ML IV SCH ×2 (17:00)
[2021-11-26] MEDS: ATORVASTATIN 20 MG TAB PO SCH (22:04)
[2021-11-27 03:54] LABS: Absolute Lymphocytes (CBC) 1.5 K/uL (0.7-4.9); Hematocrit 34.6 % (39.6-49.0); Lymphocytes % 14.9 % (15.3-44.8); MPV 7.6 fL (7.6-11.3); RBC Red Blood Cell Count 4.18 M/uL (4.33-5.43)
[2021-11-27 04:23] LABS: C-Reactive Protein 10.2 mg/L (<3.00); Ferritin 906.2 ng/mL (26-388); Potassium 4.6 mmol/L (3.5-5.1)
--- NOTE | 2021-11-27 05:57 | P.PN ---
Subjective Date of Service: 11/27/21 Chief Complaint: weakness, fall Subjective: No new changes, Improving Physical Examination - Vital Signs Temperature: 97 F Blood Pressure: 113/65 Pulse: 100 Respirations: 20 Pulse Ox (%): 96 - Physical Exam General: Alert, Oriented x3 HEENT: Atraumatic, Normocephalic Neck: Supple Respiratory: Normal air movement Cardiovascular: No edema Gastrointestinal: Soft and benign Neurological: Normal strength at 5/5 x4 extr, Sensation intact, Cranial nerves 3-12 intact Assessment And Plan - Plan COVID 19 disease Volume depletion-resolved. CKD stage 3 Hypertension DM 2 Hyperlipidemia Plan: His cr is stable at 1.6. we will continue oral hydration. we will follow trend of kidney function. we will obtain renal US to evaluate echo and size of kidneys. we will dose meds for eGFR and avoid nephrotoxins. we are of the opinion that long standing hypertension and DM are significant contributors to his ckd stage 3 status. Physician Review: Patient Assessed, Agree with Above Assessment and Plan Physician Review Additional Text: Weakness- due to recent Covid infection chronic kidney disease stage IIIb - relatively Unchangedbut possible ARF Covid pneumonia - stable HTN DM HLD PLAN - will admit to observation -start gentle IVF with NS - Urine studies for fena -Hold diuretics hctz and losartan use -consult PT/OT for muscle strengthening exercises -Patient appetite has improved now , observed to be eating lunch well , follow po intake over the next 24 hrs -since mild infiltrates on CXR , suggest improving Covid pneumonia , no need to start steroid regime -will do zinc sulfate -follow creatinine trend - currently at baseline -strict glycemic control -lovenox for dvt Prphylaxis -Possible home in am if improving strength
[2021-11-27] MEDS: INSULIN -REGULAR HUMAN 50 UNIT/0.5 ML ML SQ SCH ×2 (08:16→11:35)
[2021-11-27] MEDS: ASPIRIN EC 81 MG TAB PO SCH (08:22)
[2021-11-27] MEDS: METFORMIN ER 500 MG TAB PO SCH (08:22)
[2021-11-27] MEDS: ENOXAPARIN 40 MG/0.4 ML SQ SCH (08:22)
[2021-11-27] MEDS: CLOPIDOGREL 75 MG TABLET PO SCH (08:22)
[2021-11-27] MEDS ORDERED: dexAMETHasone 4 MG TAB PO SCH (09:00)
--- NOTE | 2021-11-27 09:23 | RAD REPORT ---
EXAM DESCRIPTION: RAD - Chest Single View - 11/27/2021 7:10 am CLINICAL HISTORY: f/u covid, hypoxia Chest pain. COMPARISON: Chest Single View dated 11/25/2021; Chest Single View dated 11/22/2021; Chest Single View da chris 11/15/2021; Chest Single View dated 07/13/2020 FINDINGS: Portable technique limits examination quality. Bilateral pulmonary opacities are again seen, mildly progressive since the comparative study. The hea rt is upper limit of normal in size. No displaced fractures. IMPRESSION: Mild worsening in bilateral pulmonary opacities since prior study.
--- NOTE | 2021-11-27 09:23 | RAD REPORT ---
EXAM DESCRIPTION: US - Renal Ultrasound-Complete - 11/27/2021 6:33 am CLINICAL HISTORY: eval of ckd in diabetic pt. Flank pain COMPARISON: No comparisons FINDINGS: Both kidneys are normal in size, shape and echotexture. Benign bilateral renal cysts. The right kidney measures 11.3 x 5.3 x 4.5 cm. No hydronephrosis, focal mass or perinephric fluid. The left kidney measures 11.6 x 5.0 x 4.5 cm. No hydronephrosis, focal mass or perinephric fluid. The urinary bladder is incompletely distended without gross abnormality seen. IMPRESSION: Benign bilateral renal cysts are present. Otherwise, negative study.
[2021-11-27] MEDS: SODIUM BICARB 325 MG TAB PO SCH (11:27)
--- NOTE | 2021-11-27 11:34 | EKG ---
Test Date: 2021-11-25 Test Time: 11:38:20 Open Source Developer: JOSE ARMANDO MEASUREMENT RESULTS: Intervals: Rate: 78 MS: 140 QRSD: 84 QT: 360 QTc: 410 [place]: P: 68 MS: 140 QRS: 49 T: 62 INTERPRETIVE STATEMENTS: Normal sinus rhythm Normal ECG Compared to ECG 11/25/2021 11:36:22 No significant changes Electronically Signed On 11-27-21 11:30:45 C UNIX DEVELOPER by Zaheer Recio
[2021-11-27 13:50] VITALS: BP 115/52; TEMP 97.7
--- NOTE | 2021-11-27 14:01 | P.DS ---
Admission Date: 11/26/21 Discharge Date: 11/27/21 Disposition: ROUTINE DISCHARGE Discharge Condition: GOOD Reason for Admission: weakness, fall Consultations: Nephrology Procedures: Problem List failure to thrive / debility / generalized weakness- due to decreased PO intake / COVID infection LÁZARO on chronic kidney disease stage IIIb Covid pneumonia - stable HTN DM HLD. Brief History of Present Illness: 71 yr old male with HTN , DM,HTN,HLD , RECENT Covid pneumonia since last two weeks , unvaccinated , repeated ER visit for recurrent weakness, anorexia , and falls at home presented today after falling from bed and unable to get up even with assit from the spouse . patient admit to anorexia, poor po intake but no nausea or vomiting , No recent diarrhea. He state easy fatigue and exertional dyspnea on ambulation . He reports no cough or fever . 02 sat was 94% on room air . CXR shows persistent but unchanged infiltrates consistent with covid pneumonia . He is being admitted for weakness and covid pneumonia. on admission he was noted with elevated creatinine of 2.03 and BUN of 66 but review of his records shows his creatinine range 1.8-2.3 since 2017s): 35 Hospital Course: Patient was found to have COVID-19 pneumonia, with dehydration leading to generalized weakness. Improved with IV fluid hydration, and initiation of steroids. On day of discharge, his appetite was improved, tolerating diet, ambulating in his room, and oxygen saturations > 94% on room air. Discharged home to continue steroids. Advised to increase his daily insulin dose by 5 units while taking steroids. Can increase by 2units / day if remains significantly elevated, and back down to usual insulin dose once no longer taking steroids. Follow up with PCP in ~1 week. Blood pressure was noted to be low to low-normal without his antihypertensive medication. He was advised to hold his Losartan -HCTZ medication for the next few days, monitor blood pressure at home and restart once his systolic blood pressure is >140 Vital Signs/Physical Exam: Physical exam GEN: Alert, oriented, NAD HEENT: Normal conjunctiva, sclera anicteric CV: Regular rate and rhythm, no edema Pulm: Non-labored respirations on room air at rest Abd: Soft, nontender, nondistended Neuro: Normal speech, normal affect Temp Pulse Resp BP Pulse Ox 97.7 F 92 H 18 115/52 L 98 11/27/21 12:00 11/27/21 12:00 11/27/21 12:00 11/27/21 12:00 11/27/21 12:00 Laboratory Data at Discharge: WBC 10.10 K/uL (4.3-10.9) 11/27/21 03:18 Hgb 11.7 g/dL (13.6-17.9) L 11/27/21 03:18 Hct 34.6 % (39.6-49.0) L 11/27/21 03:18 Plt Count 213 K/uL (152-406) 11/27/21 03:18 Sodium 140 mmol/L (136-145) 11/27/21 03:18 Potassium 4.6 mmol/L (3.5-5.1) 11/27/21 03:18 BUN 51 mg/dL (7-18) H 11/27/21 03:18 Creatinine 1.58 mg/dL (0.55-1.3) H 11/27/21 03:18 Glucose 247 mg/dL (74-106) H 11/27/21 03:18 Magnesium Cancelled 11/27/21 14:45 Total Bilirubin 0.6 mg/dL (0.2-1.0) 11/26/21 03:26 AST 11 U/L (15-37) L 11/26/21 03:26 ALT 34 U/L (12-78) 11/26/21 03:26 Alkaline Phosphatase 76 U/L (45-117) 11/26/21 03:26 Home Medications: Aspirin [Ecotrin 81 MG] 81 mg PO DAILY 09/09/17 Glimepiride [Amaryl] 4 mg PO BID 09/09/17 Simvastatin 40 mg PO BEDTIME 09/09/17 Carvedilol [Coreg] 1 tab PO BID 11/26/21 Insulin Degludec [Tresiba] 35 unit SQ DAILY 11/26/21 Losartan/Hydrochlorothiazide [Losartan-Hctz 100-25 mg Tab] 1 tab PO DAILY 11/26/21 Sitagliptin Phos/Metformin HCl [Janumet Xr 50-1,000 mg Tablet] 1 tab PO DAILY AT SUPPER 11/26/21 dexAMETHasone [Decadron*] 4 mg PO DAILY 5 Days #5 tab 11/27/21 New Medications: dexAMETHasone [Decadron*] 4 mg PO DAILY 5 Days #5 tab Physician Discharge Instructions: Patient was found to have COVID-19 pneumonia, with dehydration leading to generalized weakness. Improved with IV fluid hydration, and initiation of steroids. On day of discharge, his appetite was improved, tolerating diet, ambulating in his room, and oxygen saturations > 94% on room air. Discharged home to continue steroids. Advised to increase his daily insulin dose by 5 units while taking steroids. Can increase by 2units / day if remains significantly elevated, and back down to usual insulin dose once no longer taking steroids. Follow up with PCP in ~1 week. Blood pressure was noted to be low to low-normal without his antihypertensive medication. He was advised to hold his Losartan -HCTZ medication for the next few days, monitor blood pressure at home and restart once his systolic blood pressure is >140 Diet: ADA Activity: Ad michelle Followup: Trell Arshad, [Primary Care Provider] - 1 Week (PCP- call to schedule an appointment ) Time spent managing pt's care (in minutes): 45
== END 2021-11-27 13:00 | disposition home or self-care (01) | DRG 177 ==
LOC: ER 10:55 → INTOOBSV 15:29 → ERHOLD 15:29 → 4TH 16:10 → OBSVTOIN 11-26 16:32
PROVIDERS: ADMIT Internal Medicine; ATTEND Hospitalist
DX: U07.1 COVID-19 (principal); J12.82 Pneumonia due to coronavirus disease 2019; N17.9 Acute kidney failure, unspecified; E86.0 Dehydration; I12.9 Hypertensive chronic kidney disease with stage 1 through stage 4 chronic kidney disease, or unspecified chronic kidney disease; E11.22 Type 2 diabetes mellitus with diabetic chronic kidney disease; N18.32 Chronic kidney disease, stage 3b; E78.5 Hyperlipidemia, unspecified; R53.81 Other malaise; I25.10 Atherosclerotic heart disease of native coronary artery without angina pectoris; I95.9 Hypotension, unspecified; E66.9 Obesity, unspecified; Z68.36 Body mass index [BMI] 36.0-36.9, adult; Z95.5 Presence of coronary angioplasty implant and graft
CPT/HCPCS: 36415; 71045; 76770; 80048; 80053; 82570; 82728; 82947; 83735; 84145; 84300; 85025; 86140; 93005; 97116; 97162; 97530; 99285; G0378; J1650; J2270; J7030; J8540; U0003

== ENCOUNTER 2022-07-23 06:30 | Day surgery (SDC) | payer OTHER ==
[2022-07-20 10:26] LABS: Absolute Lymphocytes (CBC) 1.7 K/uL (0.7-4.9); Hematocrit 38.3 % (39.6-49.0); Lymphocytes % 18.5 % (15.3-44.8); MCV 85.2 fL (80-100); MPV 7.3 fL (7.6-11.3); RBC Red Blood Cell Count 4.49 M/uL (4.33-5.43)
--- NOTE | 2022-07-20 10:27 | RAD REPORT ---
EXAM DESCRIPTION: Shanae Chen (2 Views)07/20/2022 9:57 am CLINICAL HISTORY: Preop for cardiac catheterization. Hypertension COMPARISON: November 2021 FINDINGS: The lungs appear clear of acute infiltrate. The heart is normal size IMPRESSION: No acute abnormalities displayed
[2022-07-20 10:38] LABS: Potassium 4.4 mmol/L (3.5-5.1)
[2022-07-20 10:39] LABS: SARS-CoV-2 Antigen Rapid Res Negative (Negative)
[~2022-07-23 06:30] MED LIST: ATROPINE SULF 1 MG/10 ML SYR IV ONE; FENTANYL CITR 100 MCG/2 ML ONE; MIDAZOLAM HCL 2 MG/2 ML INJ ONE; NA CHLORIDE 0.9% 50 ML IV ONE
[2022-07-23] MEDS ORDERED: NA CHLORIDE 0.9% 500 ML ONE ×2 (06:43→06:51)
[2022-07-23] MEDS ORDERED: LIDOCAINE 1% MPF 30 ML VIAL ONE (06:46)
[2022-07-23] MEDS ORDERED: HEPA 1000U/500MLS 2,000 UNIT/1,000 ML BAG IV ONE (06:46)
[2022-07-23 06:57] VITALS: TEMP 97.8
[2022-07-23] MEDS ORDERED: NITROGLYCERIN 100 MCG/ML SYR (for cath lab use only) IV ONE (07:19)
[2022-07-23] MEDS ORDERED: NITROGLYCERIN/D5W 25 MG/250 ML BTL IV ONE (07:19)
[2022-07-23] MEDS ORDERED: MIDAZOLAM HCL 2 MG/2 ML INJ ONE (07:50)
[2022-07-23] MEDS ORDERED: PRASUGREL (EFFIENT) 10 MG TAB ONE (08:24)
[2022-07-23] MEDS ORDERED: ACETYLCYST 20% 4 ML VIAL IH ONE (08:24)
[2022-07-23] MEDS ORDERED: FENTANYL CITR 100 MCG/2 ML ONE ×2 (10:01→10:06)
[2022-07-23] MEDS ORDERED: ACETAMINOPHEN 325 MG TABLET ONE (14:44)
[2022-07-23 16:13] VITALS: BP 147/74; O2SAT 99
--- NOTE | 2022-07-24 16:40 | OP ---
Surgeon: Zaheer Recio MD Gas Appliance Servicer Helper: Ms. Ada Brunson. The patient admitted to the rn labor and delivery as an outpatient on 07/23/2022. He underwent a left heart polina terization, selective coronary arteriogram, common femoral artery arteriogram, angioplasty and stent of the ostial RCA, angioplasty and stent of the mid RCA, angioplasty of the distal RCA. Indication: Unstable angina. The patient was brought to the rn labor and delivery. Has a history of diabetes, h ypertension, dyslipidemia, unstable angina. Procedure In Detail: Brought to the rn labor and delivery as an outpatient, prepped and draped in routine sterile fashion. Given Versed and fentanyl for sedation. A 6-Indonesian sheath introduced in the right common femoral artery successfully using the Seldinger technique and 10 cc of Xylocaine. Angiography there was normal. Angio-Seal was used to close the case. Everardo catheter left and right were used to can nulate the left main and right main respectively. He was found to have a normal left main, about a 5 0% proximal LAD. He had a 90% OM1. Circumflex was otherwise positive for moderate plaquing througho ut. The LAD had some moderate plaquing as well. The OM1 was a small vessel. The RCA showed a 70% o stial stenosis, 99% mid RCA stenosis, and 70% distal stenosis. We decided to intervene. He was give n Angiomax. He was given 60 mg of Effient. A JR4 guide catheter was used to cannulate the right antelmo n. A Dukedom wire was used to cross the lesion with 0.014 wire . I initially used a ____ balloon to dilate the distal lesion from 70% to 20%. The mid RCA was pre-dilated with a 2.5 x 1 2 Emerge Compliant balloon at multiple sites with multiple inflations. The balloon was then pulled o ut of the RCA. A 2.5 x 16 Synergy stent was placed in the mid RCA successfully with 0% residual. An additional 2.5 x 12 Synergy stent was placed the RCA with 0% residual. The patient henny ated the procedure well. Anesthesia: Total conscious sedation was 120 minutes. Blood Loss: 10 cc. Final Diagnoses: Status post successful angioplasty of the distal RCA, angioplasty and stent of the ostial RCA, angioplasty and stent of the mid RCA. He also had moderate LAD disease, which we will treat medically. He has a 90% OM1 stenosis. The blo od vessel was small, nondominant. We will treat that medically. The patient was instructed to incre ase his statin from 40 mg to 80 mg and take Zocor at home. He will also be on Plavix 75 mg daily in addition to his home medication. He will remain at bedrest for 2 hours and he will go home in 8 hour s and I will see him in the office in 2 weeks. GORDON/MIKE Voice ID: [id number] Report ID: [id number]
== END 2022-07-23 16:15 | disposition home or self-care (01) ==
LOC: CCL 06:30
DX: I25.110 Atherosclerotic heart disease of native coronary artery with unstable angina pectoris (principal); I12.9 Hypertensive chronic kidney disease with stage 1 through stage 4 chronic kidney disease, or unspecified chronic kidney disease; E11.22 Type 2 diabetes mellitus with diabetic chronic kidney disease; N18.30 Chronic kidney disease, stage 3 unspecified; I65.23 Occlusion and stenosis of bilateral carotid arteries; E78.2 Mixed hyperlipidemia; Z87.891 Personal history of nicotine dependence; Z79.4 Long term (current) use of insulin; Z79.899 Other long term (current) drug therapy; Z88.5 Allergy status to narcotic agent
CPT/HCPCS: 85025; 80048; 36415; 85610; 82947; 85730; 71046; 93454; 87811; C1893; Q9967; C1725; C9600; J2250 ×2; J3010 ×2; J0583; J7040 ×2; J1644

== ENCOUNTER 2022-11-19 11:00 | Inpatient (IN) | payer OTHER ==
[2022-11-16 14:59] LABS: Absolute Lymphocytes (CBC) 2.4 K/uL (0.7-4.9); Hematocrit 36.3 % (39.6-49.0); Lymphocytes % 24.2 % (15.3-44.8); MCV 84.5 fL (80-100); MPV 6.8 fL (7.6-11.3)
[2022-11-16 15:03] LABS: Protime INR 1.05
[2022-11-16 15:13] LABS: Potassium 4.3 mmol/L (3.5-5.1)
[~2022-11-19 11:00] MED LIST changes: +ASPIRIN 325 MG TAB ONE; +CLOPIDOGREL 75 MG TABLET ONE; +HEPA 1000U/500MLS 2,000 UNIT/1,000 ML BAG IV ONE; +HEPARIN 10,000 UNIT/10 ML VIAL IV ONE; +HEPARIN 5000 UNIT/ML 1 ML VIAL ONE; +LIDOCAINE 1% 20 ML MDV ONE; -NA CHLORIDE 0.9% 50 ML IV ONE; +TICAGRELOR 90 MG TABLET PO ONE; +VERAPAMIL HCL 10 MG/4 ML VIAL IV ONE
[2022-11-19] MEDS ORDERED: NA CHLORIDE 0.9% 500 ML ONE (11:25)
[2022-11-19] MEDS ORDERED: HEPA 1000U/500MLS 1,000 UNIT/500 ML BAG IV ONE (12:49)
[2022-11-19] MEDS ORDERED: HEPA 1000U/500MLS 2,000 UNIT/1,000 ML BAG IV ONE (12:50)
[2022-11-19] MEDS ORDERED: NACHLORIDE 0.45% 1,000 ML IV ONE (14:09)
[2022-11-19] MEDS ORDERED: ACETAMINOPHEN 325 MG TABLET PO PRN ×2 (15:28→17:20)
[2022-11-19] MEDS ORDERED: ONDANSETRON 4 MG/2 ML VIAL IV PRN (15:33)
[2022-11-19] MEDS ORDERED: GLUCAGON 1 MG/VIAL IM PRN (15:42)
--- NOTE | 2022-11-19 15:43 | P.HP ---
Certification for Inpatient Patient admitted to: Inpatient With expected LOS: >2 Midnights Patient will require the following post-hospital care: None Practitioner: I am a practitioner with admitting privileges, knowledge of patient current condition, hospital course, and medical plan of care. Services: Services provided to patient in accordance with Admission requirements found in Title 42 Section 412.3 of the Code of Federal Regulations Patient History Date of Service: 11/19/22 History of Present Illness: Patient is a 72-year-old woman with a past medical history significant for CAD with stents, DM 2, hypertension, CKD, HLD, obesity presents with complaint of left jaw pain. Patient reported that he had 3 stents placed in July 2022. Patient reported that he has been having jaw pain as well as intermittent substernal chest pain for the past couple of months Patient reported that he had agreed with his cardiology to perform the PCI of the distal RCA that was critically occluded. Per fishing boat captain patient had the maximum normal contrast allowed due to his chronic kidney disease. Patient rated jaw pain as 7/10 and described pain as aching in quality. Patient denies any other signs or symptoms. Symptoms are aggravated or relieved by nothing. Patient was admitted to the hospital for IV hydration and further stening of the RCA in 2 0r 3 days . Allergies codeine Allergy (Verified 11/16/22 14:24) HEADACHES/VOMITING Home Medications: Glimepiride [Amaryl] 4 mg PO BID 09/09/17 Simvastatin 40 mg PO BEDTIME 09/09/17 Carvedilol [Coreg] 1 tab PO BID 11/26/21 Insulin Degludec [Tresiba] 46 unit SQ DAILY 11/26/21 Losartan/Hydrochlorothiazide [Losartan-Hctz 100-25 mg Tab] 100 tab PO DAILY 11/26/21 Sitagliptin Phos/Metformin HCl [Janumet Xr 50-1,000 mg Tablet] 1 tab PO DAILY AT SUPPER 11/26/21 Clopidogrel Bisulfate [Plavix] 75 mg PO ONCE 11/19/22 - Past Medical/Surgical History Diabetic: Yes -: Diabetes Type 2 -: Asbestosis -: Hyperlipidemia -: Hypertension -: CAD Dr Recio -: Heart Surgery -: Left Knee Surgery -: BACK SURGERY -: Cardiac Stents x 2 Dr Yap - Family History Mother -: Heart disease Notes: of heart attack Brother -: Diabetes - Social History Smoking Status: Former smoker Alcohol use: No CD- Drugs: No Caffeine use: Yes Place of Residence: Home Review of Systems General: Unremarkable Eyes: Unremarkable ENT: Unremarkable Respiratory: Unremarkable Cardiovascular: Chest Pain Gastrointestinal: Unremarkable Genitourinary: Unremarkable Musculoskeletal: Other (Jaw pain) Integumentary: Unremarkable Neurological: Unremarkable Lymphatics: Unremarkable Physical Examination - Vital Signs Temperature: 97 F Blood Pressure: 117/50 Pulse: 72 Respirations: 16 - Physical Exam General: Alert, In no apparent distress, Oriented x3 HEENT: Atraumatic, PERRLA, Mucous membr. moist/pink, EOMI, Sclerae nonicteric Neck: Supple, 2+ carotid pulse no bruit, No LAD, Without JVD or thyroid abnormality Respiratory: Clear to auscultation bilaterally, Normal air movement Cardiovascular: No edema, Regular rate/rhythm, Normal S1 S2 Capillary refill: <2 Seconds Gastrointestinal: Normal bowel sounds, Soft and benign, Non-distended, No tenderness Musculoskeletal: No clubbing, No swelling, No contractures, Tenderness Integumentary: No rashes, No breakdown, No significant lesion, No tenderness/swelling Neurological: Normal speech, Normal tone, Normal affect Lymphatics: No axilla or inguinal lymphadenopathy Assessment and Plan - Plan --CAD. Status post PCI of distal RCA. Consumer Marketing Specialist on board. Continue aspirin and statin. Patient has reached the maximum contrast load during procedure Plan to finish PCI of the RCA after adequate IV hydration. Further management per fishing boat captain. --CKD 3B. Stable. We will continue to monitor renal functions. --Anemia of chronic disease H&H stable. We will continue to monitor hemoglobin and transfuse if less than 7.0 --Hyperlipidemia. Continue statin. --DM2. BS monitoring with sliding scale insulin and insulin glargine.. --History of CVA. Continue aspirin and statin. --Obesity. Likely secondary to excess calories intake. Patient counseled on weight reduction, diet and exercise therapy. --Acute pain. We will manage pain with current pain medication regimen. -- DVT prophylaxis with heparin subQ. Discharge Plan: Home Plan to discharge in: Greater than 2 days - Advance Directives Does patient have a Living Will: No Does patient have a Durable POA for Healthcare: No - Code Status/Comfort Care Code Status Assessed: Yes Physician Review: Patient Assessed, Agree with Above Assessment and Plan Critical Care: No
--- OUTSIDE RECORDS SUMMARY | 2022-11-19 15:55 | XMS REPORT | Continuity of Care Document ---
:1950 Author Organization [facility] t Address [address] [place] [address] Care Team Providers Name Role Phone Radha Arshadh Cj Attending Clinician Unavailable Ashley Ying RN Attending Clinician Alida Carpenter DO Attending Clinician Tim HARRIS, Tere Mcdaniel Attending Clinician Carla HARRIS, Len Attending Clinician Femi HARRIS, Dean Almanza Attending Clinician ALIDA CARPENTER Attending Clinician Unavailable Femi HARRIS, Dean Almanza Admitting Clinician Payers Payer Name Policy Type Policy Number Effective Date Expiration Date S bev [employer] MEDICARE 53 [id number] 2021 [facility] 00:00:00 [facility] AETNA MEDICARE 53 [id number] 2020 [facility] 00:00:[address] - [facility] MEDICARE MB [id number] 2013 [facility] NOVITAS 00:00:[address] - [facility] MEDICARE MB [id number] 2013 [facility] NOVITAS 00:00:00 [facility] Problems Condition Condition Condition Status Onset Resolution Last Treating Co mments Source Name Details Category Date Date Treatment Clinician Date Ureteral Ureteral Disease Active Unive rs stone with stone with 07-17 it y of hydronephr [place] osis [place]sis 00 Medical Branch CVA CVA Disease Active Univers (cerebral (cerebral 07-17 ity of vascular vascular 00:00: [place] accident) accident) 00 Medi joselin Branch CAD CAD Disease Active Univers (coronary (coronary 07-17 ity of artery artery 00:00: [place] disease) disease) 00 Medica l Branch Asbestosis Asbestosis Disease Active U nivers 07-17 ity of 00:00: [place] 00 Medical Branch Anorexia Anorexia Problem Active Commo n Spirit - [facility] Malignant Hypertensi Problem Active Co mmon hypertensi ve chronic Sp ivon ve chronic kidney - CHI kidney disease w St disease stg [facility] 1-4/[facility] [id number] Body mass Problem Active Com mon index Spirit (BMI) of - [facility] 40[facility] 44[facility]9 in [facility] Chronic Chronic Problem Active Common kidney kidney Spirit disease disease, - CHI stage [address] (disorder) unspecifie [facility] [id number] Other Problem Active Common chronic Spirit pain - [facility] [id number] Kidney Problem Active Common stones Spirit - [facility] [id number] Essential Problem Active Comm on hypertensi Spirit on - [facility] [id number] Body mass Problem Active Com mon index Spirit [BMI] - [facility] 39.0-39.9, [facility] [id number] Primary Problem Active Commo n osteoarthr Spirit itis - [facility]I involving [facility] joints [facility] [id number] Type 2 Problem Active Common diabetes Spirit mellitus - CHI with [facility] [id number] Stented Problem Active Commo n coronary Spirit artery - [facility] [id number] Type 2 Problem Active Commo n 05 diabetes Spirit mellitus - CHI with diabetic [facility] chronic Medical kidney Center disease [id number] Mixed Problem Active Common hyperlipid Spirit emia - [facility] [id number] Coronary Problem Active Comm on artery Spirit disease - [facility] involving [facility] coronary Medical artery of Center [facility] [place] heart with angina pectoris [id number] Bilateral Problem Active Com mon carotid Spirit artery - CHI stenosis [facility] [id number] 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 SARS-CoV-2 [place] [facility] (event) Branch History SDIA University o f Alcohol Std [place] [facility] Drinks Branch History of [facility] - Tobacco Use [facility] History [facility] University o f Alcohol Binge [place] [facility] al Branch Sex Assigned At Common Sp ivon - [facility] Tobacco use and 2020-07-17 2020-07-17 Never used Universit y of exposure 00:00:00 00:00:00 [facility] Alcohol intake 2020-07-17 2020-07-17 Ex-drinker University 00:00:00 00:00:00 (finding) [place] [facility] [place] History SDOH 2020-07-17 2020-07-17 1 University o f Alcohol Frequency 00:00:00 00:00:00 [facility] edical Branch Smoking Status Start Date Stop Date Source Former Smoker 2022-05-05 00:00:00 2022-05-05 00:00:00 [facility] S pirit - [facility] Never smoker University [facility] xa Medical Branch Medications Ordered Filled Start Stop Current Ordering Indication Dosage Frequency Signature Comments Components Source Medication Medication Date Date Medication? Clinician (SIG) Name Name Benzonatate Benzonatate 2021- No 1{capsu TID 200 MG 200 MG 11-15 le} 00:00: 00:00 00 :00 Benzonatate Benzonatate 2021- No 1{capsu TID Benzonatat 200 MG 200 MG 11-15 le} e 200 MG 00:00: 00:00 00 :00 Azithromyci Azithromyci 2021- No QD n 250 MG n 250 MG 11-15 00:00: 00:00 00 :00 Azithromyci Azithromyci 2021- No QD Azithromyc n 250 MG n 250 MG 11-15 in 250 MG 00:00: 00:00 00 :00 Tresiba Tresiba No QD Tresiba FlexTouch FlexTouch 05-15 FlexTouch 100 UNIT/ML 100 UNIT/ML 00:00: 100 00 UNIT/ML metFORMIN 2020-0 Yes 1000mg Take 1,000 Univers 1,000 mg 9-30 mg by ity of tablet 22:31: mouth 2 [place] (two) Medical times Branch daily with meals. carvediloL 2020-0 Yes 25mg [...] by ity of tablet 22:31: mouth 2 [place] 02 (two) Medical times Branch daily with meals. carvediloL 2020-0 Yes 25mg [...] Medical times Branch daily with meals. carvediloL 2020-0 Yes 25mg [...] 4 mg U nivers 4 mg tablet 30 by mouth 2 it y of 22:31: (two) [place] 02 times Medical daily. Branch carvediloL 2020-0 Yes 25mg 25 mg, Unive rs (COREG) 07-20 Oral, BID ity of tablet 25 22:00: MEALS, [place] mg 00 First dose Medical (after Branch last modificati on) on Sat07/20/20 at 1700, Until Discontinu ed, Routine aspirin 81 2019-0 2020- No 81mg Take 81 mg Univers mg chewable 07-20 by mouth ity of tablet 18:50: 00:00 daily. [place] 35 :00 Medical Branch simvastatin 2020-0 2020- No 40mg Take 40 mg Univers 40 mg 07-20 by mouth ity of tablet 18:50: 00:00 at [place] 35 :00 bedtime. Medical Branch carvediloL 2020-0 2020- No 6.25mg 6.25 mg, Univers (COREG) 07-20 Oral, BID ity of tablet 6.25 17:45: 18:20 MEALS, 1 [place] mg 00 :00 dose, Medical First dose Branch (after last modificati on) on Sat07/20/20 at 1245, Routine carvediloL 2020-0 2020- No 6.25mg 6.25 mg, Univers (COREG) 07-20 Oral, BID ity of tablet 6.25 13:00: 17:37 MEALS, [place] mg 00 :03 First dose Medical on Sat Branch 07/20/20 at 0800, Until Discontinu ed, Routine aspirin 81 2020-0 Yes [id number] 81mg Take 1 Univers mg chewable - tablet by ity of tablet 00:00: mouth [place] 00 daily. Medical Branch simvastatin 2020-0 Yes [id number] 40mg Take 1 Univers 40 mg 9-30 tablet by ity of tablet 00:00: mouth at [place] 00 bedtime. Medical Branch tamsulosin 2020-0 Yes [id number] .4mg Take 1 Univers 0.4 mg 24 9-30 capsule by ity of hr capsule 00:00: mouth [place] 00 daily. Medical Branch aspirin 81 2020-0 Yes [id number] 81mg Take 1 Univers mg chewable 9-30 tablet by ity of tablet 00:00: mouth [place] 00 daily. Medical Branch simvastatin 2020-0 Yes [id number] 40mg Take 1 Univers 40 mg 9-30 tablet by ity of tablet 00:00: mouth at [place] 00 bedtime. Medical Branch tamsulosin 2020-0 Yes [id number] .4mg Take 1 Univers 0.4 mg 24 9-30 capsule by ity of hr capsule 00:00: mouth [place] 00 daily. Medical Branch aspirin 81 2020-0 Yes [id number] 81mg Take 1 Univers mg chewable 9-30 tablet by ity of tablet 00:00: mouth [place] 00 daily. Medical Branch simvastatin 2020-0 Yes [id number] 40mg Take 1 Univers 40 mg 9-30 tablet by ity of tablet 00:00: mouth at [place] 00 bedtime. Medical Branch tamsulosin 2020-0 Yes [id number] .4mg Take 1 Univers 0.4 mg 24 9-30 capsule by ity of hr capsule 00:00: mouth [place] 00 daily. Medical Branch clopidogreL 2020-0 2020- No [id number] 75mg Take 1 Univers 75 mg 9-30 10-22 tablet by ity of tablet 00:00: 04:59 mouth [place] 00 :00 daily for Medical 21 days. Branch clopidogreL 2020-0 2020- No [id number] 75mg Take 1 Univers 75 mg 9-30 10-22 tablet by ity of tablet 00:00: 04:59 mouth [place] 00 :00 daily for Medical 21 days. Branch clopidogreL 2020-0 2020- No [id number] 75mg Take 1 Univers 75 mg 9-30 10-22 tablet by ity of tablet 00:00: 04:59 mouth [place] 00 :00 daily for Medical 21 days. Branch iodixanol 2020-0 2020- No 200mL 200 mL, Uni vers (VISIPAQUE 07-19- Injection, it y of 320-100 mL) 23:00: 23:00 ONCE, 1 [place] injection 00 :00 dose, [facility] Medic al 200 mL 07/19/20 at Branch 1800, Routine HYDROcodone 2020-0 Yes Oral, PRN, Univers -acetaminop 07-19 Starting ity of hen (NORCO 22:12: [facility]) 5-325 mg 34 07/19/20 at [place] d[place] tablet 1712, Branch Until Discontinu ed, Routine FENTanyl PF 2020-0 Yes Slow IV Uni vers (SUBLIMAZE 07-19 Push, PRN, ity of (PF)) 20:30: Starting [place] injection 21 [facility] 07/19/20 at Branch 1530, Until Discontinu ed, Routine midazolam 2020-0 Yes IV Push, Univ ers (VERSED) 07-19 PRN, ity of injection 20:30: [place] 11 [facility] 07/19/20 at Branch 1530, Until Discontinu ed, Routine sulfur 2020-0 2020- No 5mL 5 mL, Univers hexafluorid 07-19 Intravenou i ty of e microsphr 15:00: 20:00 s, ONCE, 1 [place] (LUMASON) 00 :00 dose, [facility] Medic al injection 5 07/19/20 at Br anch mL 1000, Routine
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 Restricted medication : KAMILA WONG famotidine 2020-0 Yes 20mg 20 mg, [place] [facility] (PEPCID AC) 07-19 Oral, ity of tablet 20 14:00: DAILY, [place] mg 00 First dose Medical (after [place] last modificati on) on [facility] 07/19/20 at 0900, Until Discontinu ed, Routine Saline 2020-0 Yes 6mL 6 mL, Univers Bubble 07-19 Injection, ity of Study 13:46: SEE-INSTRU [place] 29 CTIONS, 2 Medical doses, Branch Starting [facility] 07/19/20 at 0846, Until Discontinu ed, Routine Saline 2020-0 Yes 6mL 6 mL, Univers Bubble 07-19 Injection, ity of Study 13:46: SEE-INSTRU [place] 24 CTIONS, 2 Medical doses, Branch Starting [facility] 07/19/20 at 0846, Until Discontinu ed, Routine simvastatin 2020-0 Yes 40mg 40 mg, [facility] ers (ZOCOR) 07-19 Oral, QHS, ity of tablet 40 02:00: First dose [place] mg 00 on [facility] 07/18/20 at Branch 2100, Until Discontinu ed, Routine clopidogreL 2020-0 Yes 75mg 75 mg, Univ ers (PLAVIX) 07-18 Oral, ity of tablet 75 14:00: DAILY, [place] mg 00 First dose Medical on [facility] 07/18/20 at 0900, Until Discontinu ed, Routine carvediloL 2020-0 2020- No 25mg 25 mg, Univ ers (COREG) 07-18 Oral, BID ity of tablet 25 13:00: 13:39 MEALS, [place] mg 00 :02 First dose Medical on [facility] 07/18/20 at 0800, Until Discontinu ed, Routine atorvastati 2020-0 2020- No 20mg 20 mg, Uni vers n (LIPITOR) 07-18 Oral, QHS, i ty of tablet 20 02:00: 16:43 First dose [place] mg 00 :17 on [facility] 07/17/20 at Branch 2100, Until Discontinu ed, Routine tamsulosin 2020-0 Yes .4mg 0.4 mg, Univ ers (FLOMAX) 07-17 Oral, ity of capsule 0.4 14:30: DAILY, [place] mg 00 First dose Medical on [facility] 07/17/20 at 0930, Until Discontinu ed, Routine docusate 2020-0 Yes 100mg 100 mg, Unive rs (COLACE) 07-17 Oral, ity of capsule 100 14:00: DAILY, [place] mg 00 First dose Medical on [facility] 07/17/20 at 0900, Until Discontinu ed, Routine aspirin 2020-0 Yes 81mg 81 mg, Univers chewable 07-17 Oral, ity of tablet 81 14:00: DAILY, [place] mg 00 First dose Medical on [facility] 07/17/20 at 0900, Until Discontinu ed, Routine NaCl 0.9% 2020-0 Yes IV Univers (NS) IV 07-17 Infusion, ity of infusion 13:30: at 125 [place] 00 mL/hr, Medical CONTINUOUS [place] , Starting [place] 07/17/20 at 0830, Until Discontinu ed, Routine
Please start after 1L bolus has finished<b r> Sliding 2020-0 Yes Subcutaneo Univ ers Scale 07-17 us, TID ity of Insulin - 13:00: MEALS+HS, [place] Aspart 00 First dose Medical (NOVOLOG) + on [facility] 07/17/20 at Testing 0800, Until Discontinu ed, Routine heparin 2020-0 Yes 5000U 5,000 Univers (porcine) 07-17 Units, ity of injection 13:00: [place]cut[place]o [place] 5,000 Units 00 us, Q12H, Med ical First dose Branch on [place] 07/17/20 at 0800, Until Discontinu ed, Routine NaCl 0.9% 2020-0 2020- No 1000mL at 999 Uni vers (NS) bolus 07-17 mL/hr, ity of infusion 11:30: 10:54 1,000 mL, [place] 1,000 mL 00 :00 IV Medical [facility] [place] ONCE, 1 dose, [place] 07/17/20 at 0630, STAT ondansetron 2020-0 2020- No 4mg 4 mg, Slow Univers (ZOFRAN 07-17 IV Push, ity of (PF)) 08:30: 07:30 ONCE, 1 [place] injection 4 00 :00 dose, [place] Med ical mg 07/17/20 at Branch 0330, RAKAN NaCl 0.9% 20200 2020- No 1000mL at 999 Uni vers (NS) bolus 07-17 mL/hr, ity of infusion 08:15: 08:28 1,000 mL, [place] 1,000 mL 00 :00 IV Medical [facility] [place] ONCE, 1 dose, [place] 07/17/20 at 0315, STAT iohexol 2020-0 2020- No 100mL 100 mL, Unive rs (OMNIPAQUE 07-17 Intravenou it y of 350 07:30: 07:07 s, ONCE, 1 [place] BULK-100 00 :00 dose, [place] Medica l mL) 07/17/20 at [place] injection 0230, 100 mL Routine Ecotrin Low Ecotrin Low No Ecotrin Strength Strength Low Strength Glimepiride Glimepiride No 1{table BID Glimepirid 4 MG 4 MG t_with_ e [address]_or_t he_firs t_main_ meal_of _the_da y} Glucose Glucose No Glucose testing testing testing strips strips strips Janumet XR Janumet XR No 2{table QD Janumet XR 50-1000 MG 50-1000 MG ts_with 50-1000 MG _evenin g_meal} Carvedilol Carvedilol No 1{table BID Carvedilol 25 MG 25 MG t_with_ 25 MG food} Tresiba Tresiba No QD Tresiba FlexTouch FlexTouch FlexTouch 100 UNIT/ML 100 UNIT/ML 100 UNIT/ML Lancets 28G Lancets 28G No Lancets 28G Losartan Losartan No 1{table QD Losartan Potassium-H Potassium-H t} Potassium- CTZ 100-25 CTZ 100-25 HCTZ MG MG 100-25 MG Glimepiride Glimepiride No Glimepirid 4 MG 4 MG e 4 MG Simvastatin Simvastatin No 1{table QD Simvastati 40 MG 40 MG t_in_th n 40 MG e_eveni ng} Levemir Levemir No Levemir FlexTouch FlexTouch FlexTouch 100 UNIT/ML 100 UNIT/ML 100 UNIT/ML Carvedilol Carvedilol No 25 MG 25 MG Janumet XR Janumet XR No 2{table QD 50-1000 MG 50-1000 MG ts_with _evenin g_meal} Simvastatin Simvastatin No 1{table QD 40 MG 40 MG t_in_th e_eveni ng} Glimepiride Glimepiride No 1{table BID 4 MG 4 MG t_with_ breakfa st_or_t he_firs t_main_ meal_of _the_da y} Lancets 28G Lancets 28G No Glucose Glucose No testing testing strips strips Ecotrin Low Ecotrin Low No Strength Strength Carvedilol Carvedilol No 1{table BID 25 MG 25 MG t_with_ food} Tresiba Tresiba No QD FlexTouch FlexTouch 100 UNIT/ML 100 UNIT/ML Losartan Losartan No 1{table QD Potassium-H Potassium-H t} CTZ 100-25 CTZ 100-25 MG MG Levemir Levemir No FlexTouch FlexTouch 100 UNIT/ML 100 UNIT/ML Simvastatin Simvastatin No 40 MG 40 MG Glimepiride Glimepiride No 4 MG 4 MG Carvedilol Carvedilol No Carvedilol 25 MG 25 MG 25 MG Janumet XR Janumet XR No 2{table QD Janumet XR 50-1000 MG 50-1000 MG ts_with 50-1000 MG _evenin g_meal} Simvastatin Simvastatin No 1{table QD Simvastati 40 MG 40 MG t_in_th n 40 MG e_eveni ng} Glimepiride Glimepiride No 1{table BID Glimepirid 4 MG 4 MG t_with_ e [address]_or_t he_firs t_main_ meal_of _the_da y} Lancets 28G Lancets 28G No Lancets 28G Glucose Glucose No Glucose testing testing testing strips strips strips Ecotrin Low Ecotrin Low No Ecotrin Strength Strength Low Strength Carvedilol Carvedilol No 1{table BID Carvedilol 25 MG 25 MG t_with_ 25 MG food} Tresiba Tresiba No QD Tresiba FlexTouch FlexTouch FlexTouch 100 UNIT/ML 100 UNIT/ML 100 UNIT/ML Losartan Losartan No 1{table QD Losartan Potassium-H Potassium-H t} Potassium- CTZ 100-25 CTZ 100-25 HCTZ MG MG 100-25 MG Levemir Levemir No Levemir FlexTouch FlexTouch FlexTouch 100 UNIT/ML 100 UNIT/ML 100 UNIT/ML Simvastatin Simvastatin No Simvastati 40 MG 40 MG n 40 MG Glimepiride Glimepiride No Glimepirid 4 MG 4 MG e 4 MG Glucose Glucose No Glucose testing testing testing strips strips strips Ecotrin Low Ecotrin Low No Ecotrin Strength Strength Low Strength Glimepiride Glimepiride No 1{table BID Glimepirid 4 MG 4 MG t_with_ e [address]_or_t he_firs t_main_ meal_of _the_da y} Simvastatin Simvastatin No 1{table QD Simvastati 40 MG 40 MG t_in_th n 40 MG e_eveni ng} Lancets 28G Lancets 28G No Lancets 28G Carvedilol Carvedilol No 1{table BID Carvedilol 25 MG 25 MG t_with_ 25 MG food} Losartan Losartan No 1{table QD Losartan Potassium-H Potassium-H t} Potassium- CTZ 100-25 CTZ 100-25 HCTZ MG MG 100-25 MG Simvastatin Simvastatin No Simvastati 40 MG 40 MG n 40 MG Carvedilol Carvedilol No Carvedilol 25 MG 25 MG 25 MG Janumet XR Janumet XR No 2{table QD Janumet XR 50-1000 MG 50-1000 MG ts_with 50-1000 MG _evenin g_meal} Glimepiride Glimepiride No Glimepirid 4 MG 4 MG e 4 MG Levemir Levemir No Levemir FlexTouch FlexTouch FlexTouch 100 UNIT/ML 100 UNIT/ML 100 UNIT/ML Tresiba Tresiba No QD Tresiba FlexTouch FlexTouch FlexTouch 100 UNIT/ML 100 UNIT/ML 100 UNIT/ML Ecotrin Low Ecotrin Low No Ecotrin Strength Strength Low Strength Simvastatin Simvastatin No Simvastati 40 MG 40 MG n 40 MG Carvedilol Carvedilol No Carvedilol 25 MG 25 MG 25 MG Levemir Levemir No Levemir FlexTouch FlexTouch FlexTouch 100 UNIT/ML 100 UNIT/ML 100 UNIT/ML Lancets 28G Lancets 28G No Lancets 28G Tresiba Tresiba No QD Tresiba FlexTouch FlexTouch FlexTouch 100 UNIT/ML 100 UNIT/ML 100 UNIT/ML Carvedilol Carvedilol No 1{table BID Carvedilol 25 MG 25 MG t_with_ 25 MG food} Simvastatin Simvastatin No 1{table QD Simvastati 40 MG 40 MG t_in_th n 40 MG e_eveni ng} Janumet XR Janumet XR No 2{table QD Janumet XR 50-1000 MG 50-1000 MG ts_with 50-1000 MG _evenin g_meal} Losartan Losartan No 1{table QD Losartan Potassium-H Potassium-H t} Potassium- CTZ 100-25 CTZ 100-25 HCTZ MG MG 100-25 MG Glucose Glucose No Glucose testing testing testing strips strips strips Glimepiride Glimepiride No Glimepirid 4 MG 4 MG e 4 MG Glimepiride Glimepiride No 1{table BID Glimepirid 4 MG 4 MG t_with_ e [address]_or_t he_firs t_main_ meal_of _the_da y} Ecotrin Low Ecotrin Low No Ecotrin Strength Strength Low Strength Simvastatin Simvastatin No Simvastati 40 MG 40 MG n 40 MG Carvedilol Carvedilol No Carvedilol 25 MG 25 MG 25 MG Levemir Levemir No Levemir FlexTouch FlexTouch FlexTouch 100 UNIT/ML 100 UNIT/ML 100 UNIT/ML Lancets 28G Lancets 28G No Lancets 28G Tresiba Tresiba No QD Tresiba FlexTouch FlexTouch FlexTouch 100 UNIT/ML 100 UNIT/ML 100 UNIT/ML Carvedilol Carvedilol No 1{table BID Carvedilol 25 MG 25 MG t_with_ 25 MG food} Simvastatin Simvastatin No 1{table QD Simvastati 40 MG 40 MG t_in_ n 40 MG e_eveni ng} Janumet XR Janumet XR No 2{table QD Janumet XR 50-1000 MG 50-1000 MG ts_with 50-1000 MG _evenin g_meal} Losartan Losartan No 1{table QD Losartan Potassium-H Potassium-H t} Potassium- CTZ 100-25 CTZ 100-25 HCTZ MG MG 100-25 MG Glucose Glucose No Glucose testing testing testing strips strips strips Glimepiride Glimepiride No Glimepirid 4 MG 4 MG e 4 MG Glimepiride Glimepiride No 1{table BID Glimepirid 4 MG 4 MG t_with_ e [address]_or_t he_firs t_main_ meal_of _the_da y} Ecotrin Low Ecotrin Low No Ecotrin Strength Strength Low Strength Simvastatin Simvastatin No Simvastati 40 MG 40 MG n 40 MG Carvedilol Carvedilol No Carvedilol 25 MG 25 MG 25 MG Levemir Levemir No Levemir FlexTouch FlexTouch FlexTouch 100 UNIT/ML 100 UNIT/ML 100 UNIT/ML Lancets 28G Lancets 28G No Lancets 28G Tresiba Tresiba No QD Tresiba FlexTouch FlexTouch FlexTouch 100 UNIT/ML 100 UNIT/ML 100 UNIT/ML Carvedilol Carvedilol No 1{table BID Carvedilol 25 MG 25 MG t_with_ 25 MG food} Simvastatin Simvastatin No 1{table QD Simvastati 40 MG 40 MG t_in_th n 40 MG e_eveni ng} Janumet XR Janumet XR No 2{table QD Janumet XR 50-1000 MG 50-1000 MG ts_with 50-1000 MG _evenin g_meal} Losartan Losartan No 1{table QD Losartan Potassium-H Potassium-H t} Potassium- CTZ 100-25 CTZ 100-25 HCTZ MG MG 100-25 MG Glucose Glucose No Glucose testing testing testing strips strips strips Glimepiride Glimepiride No Glimepirid 4 MG 4 MG e 4 MG Glimepiride Glimepiride No 1{table BID Glimepirid 4 MG 4 MG t_with_ e [address]_or_t he_firs t_main_ meal_of _the_da y} Glimepiride Glimepiride No Glimepirid 4 MG 4 MG e 4 MG Glimepiride Glimepiride No 1{table BID Glimepirid 4 MG 4 MG t_with_ e [address]_or_t he_firs t_main_ meal_of _the_da y} Glucose Glucose No Glucose testing testing testing strips strips strips Janumet XR Janumet XR No 2{table QD Janumet XR 50-1000 MG 50-1000 MG ts_with 50-1000 MG _evenin g_meal} Simvastatin Simvastatin No 1{table QD Simvastati 40 MG 40 MG t_in_th n 40 MG e_eveni ng} Simvastatin Simvastatin No Simvastati 40 MG 40 MG n 40 MG Tresiba Tresiba No QD Tresiba FlexTouch FlexTouch FlexTouch 100 UNIT/ML 100 UNIT/ML 100 UNIT/ML Lancets 28G Lancets 28G No Lancets 28G Levemir Levemir No Levemir FlexTouch FlexTouch FlexTouch 100 UNIT/ML 100 UNIT/ML 100 UNIT/ML Carvedilol Carvedilol No 1{table BID Carvedilol 25 MG 25 MG t_with_ 25 MG food} Losartan Losartan No 1{table QD Losartan Potassium-H Potassium-H t} Potassium- CTZ 100-25 CTZ 100-25 HCTZ MG MG 100-25 MG Ecotrin Low Ecotrin Low No Ecotrin Strength Strength Low Strength Carvedilol Carvedilol No Carvedilol 25 MG 25 MG 25 MG Glimepiride Glimepiride No Glimepirid 4 MG 4 MG e 4 MG Glimepiride Glimepiride No 1{table BID Glimepirid 4 MG 4 MG t_with_ e [address]_or_t he_firs t_main_ meal_of _the_da y} Glucose Glucose No Glucose testing testing testing strips strips strips Janumet XR Janumet XR No 2{table QD Janumet XR 50-1000 MG 50-1000 MG ts_with 50-1000 MG _evenin g_meal} Simvastatin Simvastatin No 1{table QD Simvastati 40 MG 40 MG t_in_th n 40 MG e_eveni ng} Simvastatin Simvastatin No Simvastati 40 MG 40 MG n 40 MG Tresiba Tresiba No QD Tresiba FlexTouch FlexTouch FlexTouch 100 UNIT/ML 100 UNIT/ML 100 UNIT/ML Lancets 28G Lancets 28G No Lancets 28G Levemir Levemir No Levemir FlexTouch FlexTouch FlexTouch 100 UNIT/ML 100 UNIT/ML 100 UNIT/ML Carvedilol Carvedilol No 1{table BID Carvedilol 25 MG 25 MG t_with_ 25 MG food} Losartan Losartan No 1{table QD Losartan Potassium-H Potassium-H t} Potassium- CTZ 100-25 CTZ 100-25 HCTZ MG MG 100-25 MG Ecotrin Low Ecotrin Low No Ecotrin Strength Strength Low Strength Carvedilol Carvedilol No Carvedilol 25 MG 25 MG 25 MG Glucose Glucose No Glucose testing testing testing strips strips strips Ecotrin Low Ecotrin Low No Ecotrin Strength Strength Low Strength Glimepiride Glimepiride No 1{table BID Glimepirid 4 MG 4 MG t_with_ e [address]_or_t he_firs t_main_ meal_of _the_da y} Simvastatin Simvastatin No 1{table QD Simvastati 40 MG 40 MG t_in_th n 40 MG e_eveni ng} Carvedilol Carvedilol No Carvedilol 25 MG 25 MG 25 MG Simvastatin Simvastatin No Simvastati 40 MG 40 MG n 40 MG Lancets 28G Lancets 28G No Lancets 28G Losartan Losartan No 1{table QD Losartan Potassium-H Potassium-H t} Potassium- CTZ 100-25 CTZ 100-25 HCTZ MG MG 100-25 MG Glimepiride Glimepiride No Glimepirid 4 MG 4 MG e 4 MG Tresiba Tresiba No QD Tresiba FlexTouch FlexTouch FlexTouch 100 UNIT/ML 100 UNIT/ML 100 UNIT/ML Levemir Levemir No Levemir FlexTouch FlexTouch FlexTouch 100 UNIT/ML 100 UNIT/ML 100 UNIT/ML Janumet XR Janumet XR No Janumet XR 50-1000 MG 50-1000 MG 50-1000 MG Carvedilol Carvedilol No 1{table BID Carvedilol 25 MG 25 MG t_with_ 25 MG food} Glucose Glucose No Glucose testing testing testing strips strips strips Losartan Losartan No 1{table QD Losartan Potassium-H Potassium-H t} Potassium- CTZ 100-25 CTZ 100-25 HCTZ MG MG 100-25 MG Ecotrin Low Ecotrin Low No Ecotrin Strength Strength Low Strength Simvastatin Simvastatin No 1{table QD Simvastati 40 MG 40 MG t_in_th n 40 MG e_eveni ng} Levemir Levemir No Levemir FlexTouch FlexTouch FlexTouch 100 UNIT/ML 100 UNIT/ML 100 UNIT/ML Glimepiride Glimepiride No 1{table BID Glimepirid 4 MG 4 MG t_with_ e [address]_or_t he_firs t_main_ meal_of _the_da y} Lancets 28G Lancets 28G No Lancets 28G Carvedilol Carvedilol No 1{table BID Carvedilol 25 MG 25 MG t_with_ 25 MG food} Janumet XR Janumet XR No 2{table QD Janumet XR 50-1000 MG 50-1000 MG ts_with 50-1000 MG _evenin g_meal} Vital Signs Vital Name Observation Time Observation Value Comments Source height 2022-05-10 13:10:00 67 [in_i] [facility] weight 2022-05-10 13:10:00 266.0 [lb_av] [facility] temperature 2022-05-10 13:10:00 98.7 [degF] [facility] bmi 2022-05-10 13:10:00 41.66 kg/m2 Common [facility] oximetry 2022-05-10 13:10:00 96 % Common [facility] respiratory rate 2022-05-10 13:10:00 17 /min Comm on [facility] blood pressure 2022-05-10 13:10:00 137 mm[Hg] Common [facility] - systolic [facility] blood pressure 2022-05-10 13:10:00 77 mm[Hg] Common [facility] - diastolic [facility] height 2022-02-06 15:40:00 67 [in_i] Common [facility] weight 2022-02-06 15:40:00 261.6 [lb_av] [facility] temperature 2022-02-06 15:40:00 98.1 [degF] [facility] bmi 2022-02-06 15:40:00 40.97 kg/m2 [facility] oximetry 2022-02-06 15:40:00 97 % Common [facility] respiratory rate 2022-02-06 15:40:00 17 /min Comm on [facility] blood pressure 2022-02-06 15:40:00 138 mm[Hg] Common [facility] - systolic [facility] blood pressure 2022-02-06 15:40:00 73 mm[Hg] [facility] height 2022-02-06 15:40:00 67 [in_i] Common S [facility] weight 2022-02-06 15:40:00 261.6 [lb_av] Common [facility] temperature 2022-02-06 15:40:00 98.1 [degF] [facility] bmi 2022-02-06 15:40:00 40.97 kg/m2 [facility] oximetry 2022-02-06 15:40:00 97 % [facility] respiratory rate 2022-02-06 15:40:00 17 /min Comm on [facility] blood pressure 2022-02-06 15:40:00 138 mm[Hg] Common [facility] - systolic [facility] blood pressure 2022-02-06 15:40:00 73 mm[Hg] [facility] height 2021-12-04 14:20:00 67 [in_i] Common [facility] weight 2021-12-04 14:20:00 246.3 [lb_av] [facility] temperature 2021-12-04 14:20:00 97.3 [degF] [facility] bmi 2021-12-04 14:20:00 38.57 kg/m2 [facility] oximetry 2021-12-04 14:20:00 97 % [facility] respiratory rate 2021-12-04 14:20:00 17 /min Comm on [facility] blood pressure 2021-12-04 14:20:00 130 mm[Hg] Common [facility] - systolic [facility] blood pressure 2021-12-04 14:20:00 67 mm[Hg] Common [facility] - diastolic [facility] height 2021-11-15 13:10:00 67 [in_i] [facility] weight 2021-11-15 13:10:00 260 [lb_av] [facility] temperature 2021-11-15 13:10:00 98 [degF] [facility] bmi 2021-11-15 13:10:00 40.72 kg/m2 [facility] blood pressure 2021-11-15 13:10:00 132 mm[Hg] [facility] systolic [facility] blood pressure 2021-11-15 13:10:00 65 mm[Hg] Common [facility] - diastolic [facility] height 2021-08-14 13:10:00 67 [in_i] [facility] weight 2021-08-14 13:10:00 262.4 [lb_av] [facility] temperature 2021-08-14 13:10:00 98.1 [degF] [facility] bmi 2021-08-14 13:10:00 41.09 kg/m2 Common [facility] oximetry 2021-08-14 13:10:00 96 % Common [facility] respiratory rate 2021-08-14 13:10:00 17 /min Comm on [facility] blood pressure 2021-08-14 13:10:00 133 mm[Hg] Common [facility] - systolic [facility] blood pressure 2021-08-14 13:10:00 63 mm[Hg] Common [facility] - diastolic [facility] height 2021-05-15 09:40:00 67 [in_i] Common [facility] weight 2021-05-15 09:40:00 255.8 [lb_av] [facility] temperature 2021-05-15 09:40:00 97.4 [degF] [facility] bmi 2021-05-15 09:40:00 40.06 kg/m2 [facility] oximetry 2021-05-15 09:40:00 96 % Common [facility] respiratory rate 2021-05-15 09:40:00 18 /min Comm on [facility] blood pressure 2021-05-15 09:40:00 138 mm[Hg] Common [facility] - systolic [facility] blood pressure 2021-05-15 09:40:00 62 mm[Hg] Common [facility] - diastolic [facility] Systolic blood 2020-07-20 17:26:00 167 mm[Hg] Prince robbins of [facility] Diastolic blood 2020-07-20 17:26:00 84 mm[Hg] Unive rsity of pressure [facility] Heart rate 2020-07-20 17:26:00 70 /min [facility] Body temperature 2020-07-20 17:26:00 36.22 [facility] Res[facility] rate 2020-07-20 17:26:00 18 /min [facility] Oxygen saturation in 2020-07-20 17:26:00 97 /min [facility] blood by [facility] Pulse oximetry [place] Body height 2020-07-19 18:31:00 175.3 cm [facility] Body weight 2020-07-19 18:31:00 117.935 kg [facility] BMI 2020-07-19 18:31:00 38.40 kg/m2 [facility] Procedures Procedure Date / Time Performing Clinician Source Performed POCT GLUCOSE (AUTOMATED) 2020-07-20 18:09[facility] 2020-07-20 13:42:00 Tere Dumont [facility] MAGNESIUM 2020-07-20 10:57:00 González Ponce [facility] BASIC METABOLIC PANEL 2020-07-20 10:57:00 González Ponce [facility] (NA, K, CL, CO2, GLUCOSE, Medica l Branch BUN, CREATININE, CA) POCT GLUCOSE (AUTOMATED) 2020-07-20 02:48:00 [facility] (AUTOMATED) 2020-07-19 22:55:00 Tere Dumont [facility] IR ANGIOGRAM CEREBRAL 2020-07-19 21:45:04 González Ponce [facility] POCT GLUCOSE (AUTOMATED) 2020-07-19 17:00:00 [facility] CAROTID DUPLEX BILATERAL 2020-07-19 13:57:06 Roosevelt Ponce [facility] BY VASCULAR LAB [facility] POCT GLUCOSE (AUTOMATED) 2020-07-19 13:06:00 Hommel, [facility] MAGNESI[facility] 2020-07-19 10:52:00 González Ponce [facility] BASIC METABOLIC PANEL 2020-07-19 10:52:00 Jose Goldsmith [facility] (NA, K, CL, CO2, GLUCOSE, Medica l Branch BUN, CREATININE, CA) CBC WITH DIFF 2020-07-19 10:52:00 Jose Goldsmith [facility] PROTHROMBIN TIME / INR 2020-07-19 10:52:[address] [facility] POCT GLUCOSE (AUTOMATED) 2020-07-19 02:24:00 Tere Dumont [facility] POCT GLUCOSE (AUTOMATED) 2020-07-18 21:48:00 Tere Dumont [facility] VERIFYNOW ASPIRIN TEST 2020-07-18 19:30:[address] [facility] ECHO ROUTINE W/DOPPLER 2020-07-18 18:18:37 Jose Goldsmith [facility] POCT GLUCOSE (AUTOMATED) 2020-07-18 17:07[facility]00 [facility] ([facility]) 2020-07-18 13:11:00 Tere Dumont [facility] BASIC METABOLIC PANEL 2020-07-18 10:27:00 Jose Goldsmith [facility] (NA, K, CL, CO2, GLUCOSE, Medica l Branch BUN, CREATININE, CA) CBC WITH DIFF 2020-07-18 10:27:00 Jose Goldsmith [facility] PROTHROMBIN TIME / INR 2020-07-18 10:27:00 [facility] ACTIVATED PARTIAL 2020-07-18 10:27:00 [facility] 2020-07-18 04:35:12 Jose Goldsmith [facility] BASIC METABOLIC PANEL 2020-07-18 02:28:00 Bari Gibbons [facility] (NA, K, CL, CO2, GLUCOSE, Medica l Branch BUN, CREATININE, CA) CREATININE, URINE RANDOM 2020-07-18 02:22:00 [facility] UREA NITROGEN, URINE 2020-07-18 02:22:00 [facility] RANDOM [facility] SODIUM, URINE RANDOM 2020-07-18 02:22:00 [facility] POCT GLUCOSE (AUTOMATED) 2020-07-18 02:12:00 Tere Dumont [facility] POCT GLUCOSE (AUTOMATED) 2020-07-17 22:11:00 Tere Dumont [facility] POCT GLUCOSE (AUTOMATED) 2020-07-17 17:30:00 Tim [facility] POCT GLUCOSE (AUTOMATED) 2020-07-17 14:40:00 Tim [facility] COVID-19 (ID NOW RAPID 2020-07-17 07:40:00 Alida Carpenter [facility] TESTING) Medical Branch CT ANGIOGRAM HEAD 2020-07-17 07:15:16 Singer [facility] [address] ANGIOGRAM NECK 2020-07-17 07:15:16 Singer [facility] CT ABDOMEN PELVIS WO 2020-07-17 07:13:32 Alida Carpenter [facility] CONTRAST Medical Branch CT HEAD WO CONTRAST 2020-07-17 07:12:11 Alida Carpenter [facility] URINALYSIS 2020-07-17 06:06:00 Alida Carpenter [facility] XR CHEST 1 VW 2020-07-17 05:52:29 Singer Alida [facility] EKG-12 LEAD 2020-07-17 05:25:31 Singer [facility] TROPONIN I 2020-07-17 05:22:00 Alida Carpenter [facility] THYROID STIMULATING 2020-07-17 05:22:00 [facility] HORMONE [facility] COMP. METABOLIC PANEL 2020-07-17 05:22:00 Alida Carpenter [facility] ([id number]) Medical Branch LIPID PANEL (38207)(TOTAL 2020-07-17 05:22:00 Alida Carpenter [facility] CHOLESTEROL, Medical Branch TRIGLYCERIDES, HDL) CBC WITH DIFF 2020-07-17 05:22:00 Alida Carpenter [facility] GLYCOSYLATED HEMOGLOBIN 2020-07-17 05:22:00 Alida Carpenter [facility] (A1C) Medical Branch EKG-12 LEAD 2020-07-17 05:18:57 Singer [facility] EMERGENCY DEPARTMENT 2020-07-17 05:01:00 Doctor Unassigned, [facility] DOCUMENTS [facility] [place] EMERGENCY SERVICES 2020-07-17 05:01:00 Doctor Unassigned, [facility] AGREEMENTS AND [facility] AUTHORIZATIONS Encounters Start End Encounter Admission Attending Care Care Encounter Source Date/Time Date/Time Type Type Clinicians Facility Department ID 2022-08-09 [facility] [id number] Common 10:01:01 Pending Sale To [facility] [address] [facility] 2021-12-04 [facility] [id number] Common 14:22:02 Tre[place] [id number] [facility] 2021-11-15 [facility] [id number] Common 13:30:17 Trell [address] [facility] 2021-11-15 [facility] [id number] Common 13:29:55 Trell [address] [facility] 2021-11-15 [facility] [id number] Common 13:12:17 Trell [address]24 [facility] 2021-11-15 [facility] [id number] Common 12:55:42 Trell 05779 [facility] 2021-11-15 [facility] [id number] Common 12:54:02 Trell [address] [facility] 2021-11-15 [facility] [id number] Common 12:41:32 Trell [address] [facility] 2021-11-15 Outpatient Arshad, STLMLC ST[facility] [id number] Common 12:39:04 Trell [address] [facility] 2021-11-15 Outpatient Arshad, STLMLC ST[facility]C [id number] Common 10:56:02 Trell [facility] 2022-05-10 2022-05-10 OFFICE STLMLC STLMLC [id number] Co mmon 00:00:00 00:00:00 VISIT [facility] ESTAB PT - CHI LEVEL 4 [facility] 2022-02-06 2022-02-06 OFFICE STLMLC STLMLC [id number] Co mmon 00:00:00 00:00:00 VISIT [facility] PT - CHI LEVEL 4 [facility] 2022-02-06 2022-02-06 SUB ANNUAL STLMLC STLMLC [id number] Common 00:00:00 00:00:00 MCR [facility] WELLNESS - [facility] VISIT [facility] 2021-12-27 2021-12-27 (TEL) STLMLC STLMLC [id number] Co mmon 00:00:00 00:00:00 [facility] 2021-12-04 2021-12-04 (TEL) STLMLC STLMLC [id number] Co mmon 00:00:00 00:00:00 [facility] 2021-12-04 2021-12-04 (HOSP F/U) STLMLC STLMLC [id number] Common 00:00:00 00:00:00 [facility] 2021-11-28 2021-11-28 (TEL) STLMLC STLMLC [id number] Co mmon 00:00:00 00:00:00 [facility] 2021-11-15 2021-11-15 OFFICE STLMLC STLMLC [id number] Co mmon 00:00:00 00:00:00 VISIT [facility] ESTAB PT - CHI LEVEL 4 [facility] 2021-11-15 2021-11-15 (TEL) STLMLC STLMLC [id number] Co mmon 00:00:00 00:00:00 [facility] 2021-08-14 2021-08-14 OFFICE STLMLC STLMLC [id number] Co mmon 00:00:00 00:00:00 VISIT [facility] ESTAB PT - CHI LEVEL 4 [facility] 2021-05-15 2021-05-15 OFFICE STLMLC STLMLC [id number] Co mmon 00:00:00 00:00:00 VISIT [facility] ESTAB PT - CHI LEVEL 4 [facility] 2021-05-08 2021-05-08 Outpatient STLMLC STLMLC [id number] Common 00:00:00 00:00:00 [facility] 2021-03-31 2021-03-31 Outpatient STLMLC STLMLC [id number] Common 00:00:00 00:00:00 [facility] 2021-03-09 2021-03-09 Outpatient STLMLC STLMLC [id number] Common 00:00:00 00:00:00 [facility] 2021-02-13 2021-02-13 Outpatient STLMLC STLMLC [id number] Common 00:00:00 00:00:00 [facility] 2021-02-13 2021-02-13 Outpatient STLMLC STLMLC [id number] Common 00:00:00 00:00:00 [facility] 2021-02-07 2021-02-07 Outpatient STLMLC STLMLC [id number] Common 00:00:00 00:00:00 [facility] 2020-12-29 2020-12-29 Outpatient STLMLC STLMLC [id number] Common 00:00:00 00:00:00 [facility] 2020-07-21 2020-07-21 Transition Olivia Ying [id number] Univers 00:00:00 00:00:00 of Care Ashley Stuart [id number] [id number] [address] Branch 2020-07-17 2020-07-20 [facility] Alida Carpenter [id number] Univers 00:15:00 16:05:00 Encounter Tere Dumont [id number] [facility] [id number] [place] Dean Kahn [id number] [address] 2020-07-17 2020-07-17 Emergency X [facility] ERT [id number] Univers 00:15:00 00:15:00 ALIDA jaime [facility] Results Test Description Test Time Test Comments Results Result Comments Source POCT GLUCOSE (AUTOMATED) 2020-07-20 18:21:00 Test Item Value Reference Range Interpretation Comme nts POCT GLU (test code = 6665422497) 189 mg/dL 70-110 H Lab Interpretation (test code = 53959-2) [facility]normal [facility]2020-07-20 13:45:00 Test Item Value Reference Range Interpretation Comments POCT GLU (test code = 6116155630) 353 mg/dL 70-110 H Lab Interpretation (test code = Abnormal 98244-6) [facility] (NA, K, CL, CO2, GLUCOSE, BUN, CREATININE, CA)2020-07-20 11:48:00 Test Item Value Reference Range Interpretation Comments NA (test code = 141 mmol/L 135-145 2141505239) K (test code = 4.3 mmol/L 3.5-5 3527133051) CL (test code = 113 mmol/L 98-108 H 6917942324) CO2 TOTAL (test code = 21 mmol/L 23-31 L 6195450326) AGAP (test code = 2-16 4470184422) BUN (test code = 16 mg/dL 7-23 7768088236) GLUCOSE (test code = 189 mg/dL 70-110 H 6337709617) CREATININE (test code = 1.44 mg/dL 0.6-1.25 H 4170632924) CALCIUM (test code = 8.5 mg/dL 8.6-10.6 L 5323916486) eGFR Calculation mL/min/1.73m2 (Non-) (test code = 1186937436) eGFR Calculation mL/min/1.73m2 () (test code = 5162604524) SHAKIRA (test code = SHAKIRA) Association of [...] tests). Lab Interpretation Abnormal (test code = 78480-8) [facility]00 Test Item Value Reference Range Interpretation Comments MAGNESIUM (test code = 8870452822) 2.0 mg/dL 1.7-2.4 Lab Interpretation (test code = Normal 61390-7) [facility]2020-07-20 02:49:00 Test Item Value Reference Range Interpretation Comments POCT GLU (test code = 1258951600) 205 mg/dL 70-110 H Lab Interpretation (test code = Abnormal 27359-9) [facility] GLU[facility]SE (AUTOMATED)2020-07-19 22:58:00 Test Item Value Reference Range Interpretation Comments POCT GLU (test code = 1067131523) 139 mg/dL 70-110 H Lab Interpretation (test code = Abnormal 05895-7) [facility] GLU[facility]SE (AUTOMATED)2020-07-19 17:03:00 Test Item Value Reference Range Interpretation Comments POCT GLU (test code = 1576101271) 174 mg/dL 70-110 H Lab Interpretation (test code = Abnormal 25153-3) [facility] GLU[facility]SE (AUTOMATED)2020-07-19 13:11:00 Test Item Value Reference Range Interpretation Comments POCT GLU (test code = 9399515023) 183 mg/dL 70-110 H Lab Interpretation (test code = Abnormal 39849-2) [facility] Metabolic Panel (NA, K, CL, CO2, GLUCOSE, BUN, CREATININE, CA)2020-07-19 11:42:00 Test Item Value Reference Range Interpretation Comments NA (test code = 140 mmol/L 135-145 7748611603) K (test code = 4.4 mmol/L 3.5-5 1027495732) CL (test code = 113 mmol/L 98-108 H 1103150755) CO2 TOTAL (test code = 19 mmol/L 23-31 L 8617935116) AGAP (test code = 2-16 3300139076) BUN (test code = 27 mg/dL 7-23 H 2529663292) GLUCOSE (test code = 156 mg/dL 70-110 H 8108848484) CREATININE (test code = 2.29 mg/dL 0.6-1.25 H 7799265370) CALCIUM (test code = 8.1 mg/dL 8.6-10.6 L 3849963475) eGFR Calculation mL/min/1.73m2 (Non-) (test code = 2844319399) eGFR Calculation mL/min/1.73m2 () (test code = 7519936843) SHAKIRA (test code = SHAKIRA) Association of [...] tests). Lab Interpretation Abnormal (test code = 61067-1) [facility]29 11:42:00 Test Item Value Reference Range Interpretation Comments MAGNESIUM (test code = 1325760666) 2.0 mg/dL 1.7-2.4 Lab Interpretation (test code = Normal 18560-4) [facility] / [id number] 11:31:00 Test Item Value Reference Range Interpretation [...] tions. Lab Interpretation (test Abnormal code = 79176-8) [facility] WITH [id number] 11:09:00 Test Item Value Reference Range Interpretation Comments WBC (test code = See_Comment [Automated 3990-2) message] The sy stem which generated this [...] RDW-SD (test code = 42.7 fL 38.5-51.6 97271-5) RDW-CV (test code = 13.3 % 12.1-15.4 788-0) PLT (test code = See_Comment [Automated 777-3) message] The sy stem which generated this result transmitted reference range : 150 - 328 10*3/ ?L. The reference r rossy was not used to interpret this result as normal/abnormal . MPV (test code = 9.2 fL 9.8-13 L 22188-2) NRBC/100 WBC (test See_Comment [Automat ed code = 8541981423) message] The system which generated this result transmitted reference range : 0.0 - 10.0 /100 WBCs. The refer ence range was not u sed to interpret th is result as normal/abnormal . NRBC x10^3 (test code <0.01 See_Comment [Auto mated = 3989078290) message] The s ystem which generated this result transmitted reference range : 10*3/?L. The reference range was not used to interpret this result as normal/abnormal . GRAN MAT (NEUT) % 68.1 % (test code = 770-8) IMM GRAN % (test code 0.40 % = 9995423093) LYMPH % (test code = 19.5 % 736-9) MONO % (test code = 9.2 % 5905-5) EOS % (test code = 2.4 % 713-8) BASO % (test code = 0.4 % 706-2) GRAN MAT x10^3(ANC) 4.88 10*3/uL 1.99-6.95 (test code = 0532438014) IMM GRAN x10^3 (test 0.03 10*3/uL 0-0.06 code = 8244960359) LYMPH x10^3 (test code 1.40 10*3/uL 1.09-3.23 = 731-0) MONO x10^3 (test code 0.66 10*3/uL 0.36-1.02 = 742-7) EOS x10^3 (test code = 0.17 10*3/uL 0.06-0.53 711-2) BASO x10^3 (test code 0.03 10*3/uL 0.01-0.09 = 704-7) Lab Interpretation Abnormal (test code = 21975-4) [facility])2020-07-19 02:24:00 Test Item Value Reference Range Interpretation Comments POCT GLU (test code = 3993089926) 211 mg/dL 70-110 H Lab Interpretation (test code = Abnormal 90679-5) [facility] GLU[facility]SE (AUTOMATED)2020-07-18 21:49:00 Test Item Value Reference Range Interpretation Comments POCT GLU (test code = 2017634068) 147 mg/dL 70-110 H Lab Interpretation (test code = Abnormal 27732-7) [facility] ASP[facility]IN [id number] 20:11:00 Test Item Value Reference Range Interpretation Comments VerifyNow Aspirin See Comment ARU Test (test code = 6974532277) SHAKIRA (test code = < 550 ARU [...] and clinical data available to the clinician. 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 Chronic microvascular ischemic changes in the deep white matter. Preliminary Report Dictated by Resident: Carol Ennis MD., have reviewed this study and agree with theove report.EXAMINATION: MR BRAIN WO CONTRAST HISTORY: Neuro deficit(s), subacute COMPARISON: ?CT head without contrast 07/17/2020 TECHNIQUE:Multiplanar and multisequence MRI imaging of the brain wasobtained without contrast. FINDINGS: The ventricles and cerebral sulci are normal in caliber and configuration.No midline shift, hydrocephalus or pathological extra-axial fluidcollection is present. The basal cisterns are unremarkable. No intracranial hemorrhage or mass. At T2/FLAIR hyperintensity within the right precentral gyrus and adjacentdeep white matter is seen with corresponding diffusion restriction. Anothersmall focus of T2/FLAIR hyp erintensity with corresponding diffusionrestriction is seen in the right postcentral gyrus. No abnormal gradientblooming. A few scattered periventricular and deep white matter T2/FLAIRhyperintensities are consistent with microvascular ischemic changes. Remote lacunar infarctions in the bilateral basalganglia. The rightinternal carotid T2 flow void is not visualized, otherwise, the T2 flowvoids for the major intracranial vessels are unremarkable. No abnormalfluid signal is present in the mastoid aircells or paranasal air sinuses.The calvarium is normal. The orbits are unremarkable. The paranasal sinusesare essentially clear. [facility], Radiant Results Inft User 07/18/2020 11:12 AM CDTEXAMINATION: MR BRAIN WO CONTRASTHISTORY: Neuro deficit(s), subacute COMPARISON: CT head without contrast 07/17/2020TECHNIQUE: Multiplanar and multisequence MRI imaging of the brain wasobtained without contrast.FINDINGS:The ventricles and cerebral sulci are normal in caliber and configuration.No midline shift, hydrocephalus or pathological extra-axial fluidcollection is present. The basal cisterns are unremarkable.Nointracranial hemorrhage or mass. At T2/FLAIR hyperintensity within the right precentral gyrus and adjacentdeep white matter is seen with corresponding diffusion restriction. Anothersmall focus of T2/FLAIR hyperintensity with corresponding diffusionrestriction is seen in the right postcentral gyrus. Noabnormal gradientblooming. A few scattered periventricular and deep white matter T2/FLAIRhyperintensities are consistent with microvascular ischemic changes. Remote lacunar infarctions in the bilateralbasal ganglia. The rightinternal carotid T2 flow void is not visualized, otherwise, the T2 flowvoidsfor the major intracranial vessels are unremarkable. No abnormalfluid signal is present in the mastoid air cells or paranasal air sinuses.The calvarium is normal. The orbits are unremarkable. The paranasal sinusesare essentially clear. IMPRESSIONImpression:Acute infarctions in the right frontal and parietal region in the right MCAterritory. 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.Chronic microvascular ischemic changes in the deep white matter.Preliminary Report Dictated by Resident: Carol Andrdae MD., have reviewed this study and agree with theabove report.[facility]18 13:12:00 Test Item Value Reference Range Interpretation Comments POCT GLU (test code = 6458122972) 134 mg/dL 70-110 H Lab Interpretation (test code = Abnormal 56260-1) [facility]viewPROTHROM[facility] / [id number] 11:34:00 Test Item Value Reference Range Interpretation Comments PROTIME PATIENT (test See_Comment H [Auto mated message] code = 5964-2) The system [employer] generated this result transmitted ref erence range: 10.1 - 1 2.6 Seconds. The reference range was not used to int erpret this result as normal/abnormal . INR (test code = 6301-6) Nor mal INR <1.1; Warfarin Therap eutic range 2.0 to 3. 0 or 2.5 to 3.5, dep ending upon the indica tions. Lab Interpretation (test Abnormal code = 80544-9) [facility]2020-09-28 11:34:00 Test Item Value Reference Range Interpretation Comments APTT Patient (test code See_Comment L [Au tomated message] = 3173-2) The system [employer] generated this result transmitted ref erence range: 26 - 36 Seconds. The reference range was not used to int erpret this result as normal/abnormal . Lab Interpretation (test Abnormal code = 02209-6) [facility] Metabolic Panel (NA, K, CL, CO2, GLUCOSE, BUN, CREATININE, CA)2020-07-18 10:52:00 Test Item Value Reference Range Interpretation Comments NA (test code = 141 mmol/L 135-145 1724883848) K (test code = 4.4 mmol/L 3.5-5 8656282882) CL (test code = 112 mmol/L 98-108 H 5225715008) CO2 TOTAL (test code = 20 mmol/L 23-31 L 6667340661) AGAP (test code = 2-16 7383491402) BUN (test code = 28 mg/dL 7-23 H 3737089068) GLUCOSE (test code = 116 mg/dL 70-110 H 0909583843) CREATININE (test code = 2.30 mg/dL 0.6-1.25 H 9494364385) CALCIUM (test code = 7.9 mg/dL 8.6-10.6 L 0403762601) eGFR Calculation mL/min/1.73m2 (Non-) (test code = 2979867704) eGFR Calculation mL/min/1.73m2 () (test code = 5850098009) SHAKIRA (test code = SHAKIRA) Association of [...] tests). Lab Interpretation Abnormal (test code = 43751-6) [facility] WITH [id number] 10:52:00 Test Item Value Reference Range Interpretation [...] RDW-SD (test code = 43.8 fL 38.5-51.6 99560-8) RDW-CV (test code = 13.4 % 12.1-15.4 788-0) PLT (test code = See_Comment [Automated 777-3) message] The sy stem which generated this result transmitted reference range : 150 - 328 10*3/ ?L. The reference r rossy was not used to interpret this result as normal/abnormal . MPV (test code = 9.1 fL 9.8-13 L 57756-6) NRBC/100 WBC (test See_Comment [Automat ed code = 4387765070) message] The system which generated this result transmitted reference range : 0.0 - 10.0 /100 WBCs. The refer ence range was not u sed to interpret th is result as normal/abnormal . NRBC x10^3 (test code <0.01 See_Comment [Auto mated = 2916934636) message] The s ystem which generated this result transmitted reference range : 10*3/?L. The reference range was not used to interpret this result as normal/abnormal . GRAN MAT (NEUT) % 65.9 % (test code = 770-8) IMM GRAN % (test code 0.40 % = 1362460314) LYMPH % (test code = 21.8 % 736-9) MONO % (test code = 9.5 % 5905-5) EOS % (test code = 2.1 % 713-8) BASO % (test code = 0.3 % 706-2) GRAN MAT x10^3(ANC) 5.07 10*3/uL 1.99-6.95 (test code = 8806668815) IMM GRAN x10^3 (test 0.03 10*3/uL 0-0.06 code = 8231045678) LYMPH x10^3 (test code 1.68 10*3/uL 1.09-3.23 = 731-0) MONO x10^3 (test code 0.73 10*3/uL 0.36-1.02 = 742-7) EOS x10^3 (test code = 0.16 10*3/uL 0.06-0.53 711-2) BASO x10^3 (test code <0.03 0.01-0.09 = 704-7) Lab Interpretation Abnormal (test code = 08805-9) [facility] STIMULATING [id number] 03:37:00 Test Item Value Reference Range Interpretation Comments TSH (test code = See_Comment Biotin has been 6841023966) reported to cau se a negative bias, interpret resul ts relative to grace romo's use of biotin. [Automated mess age] The system [employer] generated this result transmitted ref erence range: 0.45 - 4 .70 mIU/L. The refe rence range was not u sed to interpret this result as normal/abnor mal. Lab Interpretation (test Normal code = 62675-5) [facility]viewSODIUM, URINE [id number] 02:48:00 Test Item Value Reference Range Interpretation Comments NA URINE (test code = 2314449248) 129 mmol/L [facility]viewCREATININE, URINE [id number] 02:48:00 Test Item Value Reference Range Interpretation Comments CREAT U (test code = 0488324416) 112.6 mg/dL [facility]viewUREA NITROGEN, URINE [id number] 02:48:00 Test Item Value Reference Range Interpretation Comments UREA N UR (test code = 9782280723) 808 mg/dL [facility] (NA, K, CL, CO2, GLUCOSE, BUN, CREATININE, CA)2020-07-18 02:48:00 Test Item Value Reference Range Interpretation Comments NA (test code = 138 mmol/L 135-145 8445385171) K (test code = 4.5 mmol/L 3.5-5 2662153072) CL (test code = 110 mmol/L 98-108 H 3975262574) CO2 TOTAL (test code = 22 mmol/L 23-31 L 8956329639) AGAP (test code = 2-16 5111517344) BUN (test code = 29 mg/dL 7-23 H 2045315400) GLUCOSE (test code = 193 mg/dL 70-110 H 3126855620) CREATININE (test code = 2.34 mg/dL 0.6-1.25 H 9706895715) CALCIUM (test code = 8.1 mg/dL 8.6-10.6 L 1184377665) eGFR Calculation mL/min/1.73m2 (Non-) (test code = 9735291257) eGFR Calculation mL/min/1.73m2 () (test code = 2804637086) SHAKIRA (test code = SHAKIRA) Association of [...] tests). Lab Interpretation Abnormal (test code = 57156-7) [facility] 02:13:00 Test Item Value Reference Range Interpretation Comments POCT GLU (test code = 7678145788) 193 mg/dL 70-110 H Lab Interpretation (test code = Abnormal 70341-4) [facility]2020-07-17 22:12:00 Test Item Value Reference Range Interpretation Comments POCT GLU (test code = 8061392203) 178 mg/dL 70-110 H Lab Interpretation (test code = Abnormal 67905-5) [facility]2020-07-17 17:41:00 Test Item Value Reference Range Interpretation Comments POCT GLU (test code = 6044194448) 166 mg/dL 70-110 H Lab Interpretation (test code = Abnormal 68254-7) [facility]viewXR CHEST 1 [id number] 15:17:07 No acute intrathoracic abnormality. Preliminary Report Dictated by Resident: Javi Hancock MD., have reviewed this study and agree with the abovereport.PROCEDURE: XR CHEST 1 VW CLINICAL INDICATION: stroke COMPARISON: None FINDINGS: The lungs are clear. No pleural effusion or pneumothorax is seen. The heartis normal in size. No acute bony abnormality. [facility], Radiant Results Inft User - 07/17/2020 10:18 AM CDTPROCEDURE: XR CHEST 1 VWCLINICAL INDICATION: strokeCOMPARISON: NoneFINDINGS:The lungs are clear. No pleural effusion or pneumothorax is seen. The heartis normal in size.No acute bony abnormality.IMPRESSIONNo acute intrathoracic abnormality.Preliminary Report Dictated by Resident: Javi Kaminski MD., have reviewedthis study and agree with the abovereport.[facility]CT ANG[facility] [id number] 15:03:11 Complete occlusion of the right proximal [...] artery shares a common origin with the brachiocephalic artery. Theostia of the major vessels are free of stenosis. Innominate and subclavian arteries: Mild atherosclerosis of the leftsubclavian artery is seen without significant stenosis. The rightsubclavianartery is unremarkable. Common carotids: Mild atherosclerosis of the bilateral common carotidarteries without significant stenosis. 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 Mild atherosclerosis of the left carotid bulb on the proximal cervical ICAwithout significant stenosis. Vertebral arteries: The vertebral arteries originate from the subclavianarteries. Mild atherosclerosis is seen at the ostium of the left vertebralartery without significant stenosis. The left vertebral artery is dominant.The [...] of theleft carotid siphon resulting in mild tomoderate stenosis of theparaclinoid ICA. The right anterior cerebral artery A1 segment is notvisualized. Otherwise, the anterior and left middle cerebral arteries areunremarkable. An anterior communicating artery is visualized. [facility], [facility]iant Results Inft User - 07/17/2020 10:04 AM CDTCT ANGIOGRAM NECK, CT ANGIOGRAM HEADHISTORY: Neuro deficit(s), subacute TECHNIQUE: CTA of the head with coronal, sagittal reformats, and MIPSreconstruction was performed.COMPARISON: Same day CT head.FINDINGS:CTA NECK:Aortic arch and arch vessel origins: Two-vessel anatomy. The left commoncarotid artery shares a common origin with the brachiocephalic artery. Theostia of the major vessels are free of stenosis.Innominateand subclavian arteries: Mild atherosclerosis of the leftsubclavian artery is seen without significant stenosis. 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 Mild atherosclerosis is seen at the ostium of the left vertebralartery without signif icant stenosis. The left vertebral artery is dominant.The [...] ophthalmic artery with attenuation of the distal U4ihihryud on theright-sided in comparison to the left. [...] Dictated by Resident: Tamar Zacarias reviewed this studyand agree with the above reportwith the following modifications:2 mm posterior inferior outpouching of left supraclinoid internal carotidartery favored to be infundibulum, aneurysm not excluded. Attention onfollow-up. Tamar Gomes MD., have reviewed this study and agree with theabove report.[facility] [id number] 15:03:11 Complete occlusion of the right proximal [...] be infundibulum, aneurysm not excluded. Attention onfollow-up. ITamar MD., have reviewed this study and agree with theabove report.CT ANGIOGRAM NECK, CT ANGIOGRAM HEAD HISTORY: Neuro deficit(s), subacute TECHNIQUE: CTA of the head with coronal, sagittal reformats, and MIPSreconstruction was performed. COMPARISON: ?Same day CT head. FINDINGS: CTA NECK: Aortic arch and arch vessel origins: Two-vessel anatomy. The left commoncarotid artery shares a common origin with the brachiocephalic artery. Theostia of the major vessels are free of stenosis. Innominate and subclavian arteries: Mild atherosclerosis of the leftsubclavian artery is seen without significant stenosis. The rightsubclavianartery is unremarkable. Common carotids: Mild atherosclerosis of the bilateral common carotidarteries without significant stenosis. 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 Mild atherosclerosis of the left carotid bulb on the proximal cervical ICAwithout significant stenosis. Vertebral arteries: The vertebral arteries originate from the subclavianarteries. Mild atherosclerosis is seen at the ostium of the left vertebralartery without significant stenosis. The left vertebral artery is dominant.The [...] of theleft carotid siphon resulting in mild tomoderate stenosis of theparaclinoid ICA. The right anterior cerebral artery A1 segment is notvisualized. Otherwise, the anterior and left middle cerebral arteries areunremarkable. An anterior communicating artery is visualized. [facility], Radiant Results Inft User - 07/17/2020 10:04 AM CDTCT ANGIOGRAM NECK, CT ANGIOGRAM HEADHISTORY: Neuro deficit(s), subacute TECHNIQUE: CTA of the head with coronal, sagittal reformats, and MIPSreconstruction was performed.COMPARISON: Same day CT head.FINDINGS:CTA NECK:Aortic arch and arch vessel origins: Two-vessel anatomy. The left commoncarotid artery shares a common origin with the brachiocephalic artery. Theostia of the major vessels are free of stenosis.Innominateand subclavian arteries: Mild atherosclerosis of the leftsubclavian artery is seen without significant stenosis. 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 Mild atherosclerosis is seen at the ostium of the left vertebralartery without signif icant stenosis. The left vertebral artery is dominant.The [...] ophthalmic artery with attenuation of the distal [id number] on theright-sided in comparison to the left. [...] Dictated by Resident: Tamar Zacarias reviewed this studyand agree with the above reportwith the following modifications:2 mm posterior inferior outpouching of left supraclinoid internal carotidartery favored to be infundibulum, aneurysm not excluded. Attention onfollow-up. Tamar Gomes MD., have reviewed this study and agree with theabove report.[facility]2020-07-17 14:51:00 Test Item Value Reference Range Interpretation Comments POCT GLU (test code = 5084370926) 163 mg/dL 70-110 H Lab Interpretation (test code = Abnormal 23905-4) [facility]CT HEAD WO [id number] 14:36:44 Small right frontal lobe infarct. ASPECTS score (9) Findings were discussed with Dr. Carpenter at 2:33AM. Preliminary Report Dictated by Resident: Tamar Hancock reviewed this study and agree with the above reportwith the following additions: Small focal right cortical/subcortical frontal acute to subacute infarct. Bilateral basal ganglia lacunar infarcts versus dilated perivascularspaces. Intracranial atherosclerosis. Mild paranasal sinus mucosal thickening.Tamar Gomes MD., have reviewed this study and [...] is present. The basal cisterns are unremarkable. There is no acute intracranial hemorrhage or significant [...] cerebral sulci are normal in caliber and configuration.Nohydrocephalus, midline shift or pathological extra-axial fluidcollection is [...] perivascularspaces. Intracranial atherosclerosis. Mild paranasal sinus mucosal thickening.Tamar Gomes MD., have reviewed this study and agree with theabove report.[facility] ABDOMEN PELVIS WO [id number] 14:21:29 1. 3 mm obstructing right distal ureteric stone with mild upstreamhydroureteronephrosis.2. Diverticulosis of the sigmoid colon without CT evidence ofdiverticulitis3. Fat-containing umbilical hernia. Pr eliminary Report Dictated by Resident: Javi Hancock MD., have reviewed this study and agree with the abovereport.EXAM: CT ABDOMEN AND PELVIS WITHOUT CONTRAST HISTORY: Flank pain, stone disease suspected Stone suspected COMPARISON: None. TECHNIQUE AND FINDINGS: Contiguous axial imaging from the level of the lungbases through the pubic symphysis was performed without the intravenousadministration of contrast. Coronal and sagittal reconstructions wereobtained.?Auto mA and/or iterative reconstruction were used to reduceradiation dose. FINDINGS: LOWER THORAX: The lungs bases are clear. No cardiomegaly. LIVER: No focal hepatic lesions. ?Normal liver contour. GALLBLADDER AND BILIARY TREE: No biliary ductal dilation. [...] AND RETROPERITONEUM: No free air or fluid. Fat- containingumbilical hernia is seen. LYMPH NODES: No enlarged lymphadenopathy. GI TRACT: No dilation or wall thickening. Diverticulosis involving thedescending and sigmoid colon. No evidence of diffuse withoutdiverticulitis. PELVIS/BLADDER: The urinary bladder is unremarkable.. VESSELS: Mild atherosclerosis. BONES AND SOFT TISSUES: No suspicious lytic or sclerotic bony lesions.Moderately severe spondylosis are seen at L4-L5 and L5-S1 [facility], [facility]iant Results Inft User - 07/17/2020 9:22 AM CDTEXAM: CT ABDOMEN AND PELVIS WITHOUT CONTRASTHISTORY: Flank pain, stone disease suspected Stone suspectedCOMPARISON: None.TECHNIQUE AND FINDINGS: Contiguous axial imaging from the level of the lungbases through the pubic symphysis was performed without the intravenousadministration of contrast. Coronal and sagittal reconstructions wereobtained. Auto mA and/or iterative reconstruction were used to reduceradiation dose.FINDINGS:LOWER THORAX: The lungs bases are clear. No cardiomegaly.LIVER: No focal hepaticlesions. Normal liver contour.GALLBLADDER AND BILIARY TREE: No [...] AND RETROPERITONEUM: No free air or fluid. Fat- containingumbilical hernia is seen.LYMPH NODES: No enlarged lymphadenopathy.GI TRACT: No dilation or wall thickening. Diverticulosis involving thedescending and sigmoidcolon. No evidence of diffuse withoutdiverticulitis.PELVIS/BLADDER: The urinary bladder is unremarkable..VESSELS: Mild atherosclerosis.BONES AND SOFT TISSUES: No suspicious lytic or sclerotic bony lesions.Moderately severe spondylosis are seen at L4-L5 and L5-C0MLHCAHOHKM7. 3 mm obstructing right dista l ureteric stone with mild upstreamhydroureteronephrosis.2. Diverticulosis of the sigmoid colon without CT evidence ofdiverticulitis3. Fat-containing umbilical hernia.Preliminary Report Dictated by Resident: Javi Kaminski MD., have reviewed this study and agree w ith the abovereport.[facility]OVID[facility] (ID NOW RAPID TESTING)2020-07-17 08:04:00 Test Item Value Reference Range Interpretation Comments SARS-CoV-2 Rapid ID NOW Not Detected Not Detected (test code = 13221-1) SHAKIRA (test code = SHAKIRA) ID NOW COVID-19 Assay is an isothermal nucleic acid amplification test intended for the qualitative detection of nucleic acid from SARS-CoV-2 viral RNA in nasopharyngeal (CLINIC MANAGER) specimens. It is used under Emergency Use [...] indicated. Lab Interpretation Normal (test code = 76034-1) [facility]2020-09-27 06:24:00 Test Item Value Reference Range Interpretation Comments APPEARANCE (test code = Clear Clear 1966981646) COLOR (test code = Yellow Yellow 4948648435) PH (test code = 4.8-8.0 1681357913) SP GRAVITY (test code = 1.003-1.030 6731449621) GLU U QUAL (test code = Normal Normal 5016580112) BLOOD (test code = 1+ Negative A 9927609242) KETONES (test code = Negative Negative 3160053122) PROTEIN (test code = Negative Negative 2887-8) UROBILIN (test code = 2.0 mg/dL Normal A 2271948250) BILIRUBIN (test code = Negative Negative 1233719719) NITRITE (test code = Negative Negative 3329878174) LEUK MRALENE (test code = Negative Negative 9962416122) RBC/HPF (test code = See_Comment H [Autom ated message] 8382050949) The system [employer] generated this result transmit chris reference range : 0 - 3 HPF. The refe rence range was not u sed to interpret th is result as normal/abnormal . WBC/HPF (test code = See_Comment [Autom ated message] 2925686945) The system [employer] generated this result transmit chris reference range : 0 - 5 HPF. The refe rence range was not u sed to interpret th is result as normal/abnormal . BACTERIA (test code = Few Negative A 2504340209) SQ EPITH (test code = <1 HPF 3466769520) Lab Interpretation (test Abnormal code = 28517-1) [facility]YCOSYLATED HEMOGLOBIN (A1C)2020-07-17 05:56:00 Test Item Value Reference Range Interpretation Comments HGB A1C (test code = 7.7 % 4-6 H 4548-4) SHAKIRA (test code = SHAKIRA) %A1C (NGSP) Interpretation (ADA)4.8-5.6 ? ? Normal or (Non-Diabetic Range)5.7-6.4 ? ? Increased Risk (Pre-Diabetic)>6.5 ?Diabetes Indicated Lab Interpretation Abnormal (test code = 40792-3) [facility]viewTROP[facility] [id number] 05:56:00 Test Item Value Reference Range Interpretation Comments TROPONIN I (test 0.001 ng/mL See_Comment [Automated code = 8560246274) message] The system which generated this result [...] ? Lab Interpretation Normal (test code = 11130-2) [facility]. METABOLIC PANEL (42618)2020-07-17 05:43:00 Test Item Value Reference Range Interpretation Comments NA (test code = 139 mmol/L 135-145 1020400450) K (test code = 4.3 mmol/L 3.5-5 9004346045) CL (test code = 106 mmol/L 98-108 6057877710) CO2 TOTAL (test code = 24 mmol/L 23-31 9945981214) AGAP (test code = 2-16 6656333046) BUN (test code = 29 mg/dL 7-23 H 5573033453) GLUCOSE (test code = 178 mg/dL 70-110 H 3673365745) CREATININE (test code = 2.55 mg/dL 0.6-1.25 H 4112220389) TOTAL BILI (test code = 0.7 mg/dL 0.1-1.8 1419624105) CALCIUM (test code = 8.8 mg/dL 8.6-10.6 4583124021) T PROTEIN (test code = 6.8 g/dL 6.3-8.2 2702293176) ALBUMIN (test code = 3.7 g/dL 3.5-5 8821482053) ALK PHOS (test code = 75 U/L 34-122 8780520416) ALTv (test code = 14 U/L 5-50 1742-6) AST(SGOT) (test code = 17 U/L 13-40 5242347833) eGFR Calculation mL/min/1.73m2 (Non-) (test code = 7168923588) eGFR Calculation mL/min/1.73m2 () (test code = 0875391589) SHAKIRA (test code = SHAKIRA) Association of [...] tests). Lab Interpretation Abnormal (test code = 67179-4) [facility] LongviewLIPID PANEL (27020)(TOTAL CHOLESTEROL, TRIGLYCERIDES, HDL)2020-07-17 05:43:00 Test Item Value Reference Range Interpretation Comments CHOL (test code = 105 mg/dL 120-200 L 5575984037) HDL (test code = 32 mg/dL >40 L 2822191679) HDLC RATIO (test code = See_Comment [Au tomated message] 9534887743) The system [employer] generated this result transmit chris reference range : <=5.0. The refe rence range was not u sed to interpret th is result as normal/abnormal . TRIG (test code = 104 mg/dL 30-170 9143920501) LDL CHOL (test code = 52 mg/dL See_Comment [Auto mated message] 95196-8) The system [employer] generated this result transmit chris reference range : <=160. The refe rence range was not u sed to interpret th is result as normal/abnormal . VLDL (test code = 21 mg/dL 5-60 2471007465) Lab Interpretation (test Abnormal code = 53313-8) [facility] WITH [id number] 05:28:00 Test Item Value Reference Range Interpretation [...] RDW-SD (test code = 43.8 fL 38.5-51.6 79241-6) RDW-CV (test code = 13.3 % 12.1-15.4 788-0) PLT (test code = See_Comment [Automated 777-3) message] The sy stem which generated this result transmitted reference range : 150 - 328 10*3/ ?L. The reference r rossy was not used to interpret this result as normal/abnormal . MPV (test code = 9.2 fL 9.8-13 L 13341-5) NRBC/100 WBC (test See_Comment [Automat ed code = 5928485125) message] The system which generated this result transmitted reference range : 0.0 - 10.0 /100 WBCs. The refer ence range was not u sed to interpret th is result as normal/abnormal . NRBC x10^3 (test code <0.01 See_Comment [Auto mated = [id number]) message] The s ystem which generated this result transmitted reference range : 10*3/?L. The reference range was not used to interpret this result as normal/abnormal . GRAN MAT (NEUT) % 68.5 % (test code = 770-8) IMM GRAN % (test code 0.70 % = 9838331510) LYMPH % (test code = 18.5 % 736-9) MONO % (test code = 10.6 % 5905-5) EOS % (test code = 1.3 % 713-8) BASO % (test code = 0.4 % 706-2) GRAN MAT x10^3(ANC) 6.31 10*3/uL 1.99-6.95 (test code = 6773464772) IMM GRAN x10^3 (test 0.06 10*3/uL 0-0.06 code = 5424038753) LYMPH x10^3 (test code 1.70 10*3/uL 1.09-3.23 = 731-0) MONO x10^3 (test code 0.98 10*3/uL 0.36-1.02 = 742-7) EOS x10^3 (test code = 0.12 10*3/uL 0.06-0.53 711-2) BASO x10^3 (test code 0.04 10*3/uL 0.01-0.09 = 704-7) Lab Interpretation Abnormal (test code = 67384-3) [facility]"
[2022-11-19] MEDS ORDERED: NA CHLORIDE 0.9% 1,000 ML IV SCH ×2 (16:00→18:00)
[2022-11-19] MEDS ORDERED: D10W 250 ML BAG IV PRN (16:19)
[2022-11-19] MEDS: INSULIN -REGULAR HUMAN 50 UNIT/0.5 ML ML SQ SCH ×2 (16:30→21:00)
[2022-11-19 17:04] LABS: Magnesium 2.2 mg/dL (1.6-2.4); Phosphorus 3.4 mg/dL (2.5-4.9); Thyroid Stimulating Hormone 1.74 uIU/mL (0.358-3.740)
[2022-11-19] MEDS ORDERED: NITROGLYCERIN 0.4 MG/TAB SL PRN (17:19)
[2022-11-19 17:51] VITALS: BMI 39.4
--- NOTE | 2022-11-19 19:47 | CON ---
Date of Consultation: 11/19/2022 Reason For Consultation: Coronary artery disease management. History Of Present Illness: This is a 72-year-old male with history of diabetes, coronary artery dis ease, hypertension, dyslipidemia, status post multiple PCIs in the past, and has chronic kidney disea se. Today I did on him PCI of distal RCA that was critical at 99%. It was a very difficult procedur e, heavily calcified vessel and required about 110 cc of contrast and he has CKD. He does have signi ficant stenosis and the rest of the artery needs more work. However, due to the contrast load, decid ed to stop after stenting the 99% lesion and plan for hydration and to do a repeat angiogram on or and plan to finish the PCI of the RCA. He also will need FFR of his LAD as well. Past History: As outlined above in HPI. Medications: Refer to reconciliation sheet for detailed list. Allergies: CODEINE. Family History: No premature coronary artery disease or cancer. Social History: Does not smoke or drink. Does not use any drugs. Review of Systems: All systems reviewed and they were negative except for mentioned in HPI. Physical Examination: Vital Signs: Reviewed. Head And Neck: Pupils are equal and reactive to light. Intact eye movements. No JVD. No cervical lymphadenopathy. Neck is supple. Thyroid is not enlarged. Lungs: Clear to auscultation bilaterally. No rhonchi, wheezing, or crackles. No accessory muscle u se. Heart: Regular rate and rhythm. No extra sounds. Abdomen: Soft, nontender. Bowel sounds positive. No organomegaly. No masses or hernia. No rigidi ty or rebound. Extremities: No edema, clubbing, or cyanosis. Intact pulses. Skin: No rash or nodules. Neurologic: Alert, awake, and oriented x3. No acute focal deficits appreciated. Lymph Nodes: No cervical or axillary lymphadenopathy. Investigations: BUN 35, creatinine 1.73, and hemoglobin is 10.9. Assessment/recommendation: 1.Severe coronary artery disease, status post successful percutaneous coronary intervention of dista l right coronary artery. However, due to the chronic kidney disease and the contrast load, procedure was stopped and he still needs further work on his right coronary artery proximally and ostially. W e will admit him and gentle hydration with half-normal saline at 50 cc/hour and we will plan for repe at angiogram on Saturday or to finish the percutaneous coronary intervention of the right c oronary artery and we will plan for FFR of the left anterior descending moderate stenosis. 2.Chronic kidney disease. Hydration as outlined above due to the recent contrast exposure and check labs daily and consult Nephrology. 3.Dyslipidemia. Start him on Lipitor 40 mg. SR/MODL Voice ID: [id number] Report ID: [id number]
[2022-11-19] MEDS ORDERED: INFLUENZA VACCINE (for 6+ mo) 0.5 ML DOSE IMVAC ONE (20:00)
[2022-11-19] MEDS: HYDROCODONE/APAP 5/325 MG TAB PO PRN (20:42)
[2022-11-19] MEDS: carvediloL 12.5 MG TAB PO SCH (20:43)
[2022-11-19] MEDS: ATORVASTATIN 20 MG TAB PO SCH (20:43)
--- NOTE | 2022-11-19 22:22 | OP ---
Date of Procedure: 11/19/2022 Surgeon: ANALI REYES Procedures Performed: 1.Selective coronary angiogram. 2.Left heart catheterization. 3.Percutaneous coronary intervention of severe distal right coronary artery 99% stenosis. Used 2.5 x 12 mm Synergy drug-eluting stent. Indication: Unstable angina. Access: Right radial artery 6-Danish closed with TR band. Complications: None. Bleeding: Less than 20 mL. Anesthesia: Total sedation time was 70 minutes, used fentanyl and Versed. Description Of Procedure: After risks, benefits, and alternatives were explained, patient agreed to procedure and signed informed consent. Patient was brought into the cardiac catheterization laborato , prepped and draped in usual sterile fashion. Then, I accessed right radial artery using [employer] micropuncture kit with 6-Danish slender sheath and took 5-[place]anish [place] 4 catheter into the aortic r oot, engaged left main and right coronary artery and took standard views and the catheter was pushed over the wire into the LV. Measured the LVEDP and pullback not recorded gradient. Then, we gave sys temic heparin to assure ACT level above 250. Loaded with aspirin and Plavix and took a 6-Danish 3DRC guide into the aortic root, engaged the RCA, and took a short run-through wire into the RCA passing the stenosis. Then, try to stent balloons to dilate the lesion. However, it will get stuck at the o stium because of the stent that he has. Eventually, I was able to pass a 1.5 balloon, dilated the st ent, and then was able to send the balloon down to dilate the 99% lesion distally and then I placed 2 .5 x 12 mm Synergy drug-eluting stent successfully. Then, we did a balloon angioplasty using a 3.0 x 12 mm NC balloon to the proximal RCA stent and stopped the procedure due to contrast load. Planned for admission, hydration, and then bring him back in 2 days to finish the work on the RCA. Then, we removed the guide catheter and sheath and placed TR band for good hemostasis. Patient tolerated the procedure very well. Findings: 1.Left main: Large and normal. 2.LAD: Proximal diffuse 60% and then the mid segment becomes 80% and then luminal irregularities. 3.Left circumflex: Ostial 60% and then luminal irregularities. 4.RCA: Large and dominant, has proximal 80% ISR, status post successful balloon angioplasty. Then, in the mid segment, there is 80% diffuse disease, which was not treated yet and distally there is a focal 99%, status post successful PCI as above. 5.LVEDP: Normal at 8 mmHg. Conclusion: 1.Severe distal RCA stenosis, status post successful PCI. 2.Residual severe mid RCA stenosis and mid LAD stenosis with plan for staged PCI in 2-3 days. Plan: 1.Aspirin, Plavix, high-dose statin. 2.Half NS at 50 cc/hour and monitor his kidney function. SR/MODL Voice ID: [id number] Report ID: [id number]
[2022-11-20] MEDS: NACHLORIDE 0.45% 1,000 ML IV SCH (00:51)
[2022-11-20 06:05] LABS: Absolute Lymphocytes (CBC) 1.9 K/uL (0.7-4.9); Hematocrit 33.5 % (39.6-49.0); Lymphocytes % 18.8 % (15.3-44.8); MCV 86.3 fL (80-100); MPV 7.4 fL (7.6-11.3); RBC Red Blood Cell Count 3.88 M/uL (4.33-5.43)
[2022-11-20 06:12] LABS: Protime INR 1.05
[2022-11-20 06:21] LABS: Bilirubin Total 0.5 mg/dL (0.2-1.0); Protein, Total 6.3 g/dL (6.4-8.2)
--- NOTE | 2022-11-20 06:55 | P.PN ---
Date of Service: 11/20/22 Subjective: no acute events overnight patient feels better after PCI no new/worsening symptoms denies chest pain ROS: A complete review of systems was performed and is negative except as mentioned above Physical Exam: Gen: NAD, AOx3 HEENT: normal conjunctiva, sclera anicteric CV: regular rate & rhythm, no edema Pulm: non-labored respirations, clear bilaterally Abd: soft, non-tender, non-distended Neuro: normal speech, normal affect, moves all extremities vitals reviewed Problem List CAD s/p PCI CKD 3b Anemia of chronic disease HLD DM2, insulin dependent h/o CVA Obesity s/p PCI of distal RCA 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
[2022-11-20] MEDS: INSULIN -REGULAR HUMAN 50 UNIT/0.5 ML ML SQ SCH ×4 (07:30→20:52)
[2022-11-20] MEDS ORDERED: PNEUMOCOCCAL VACCINE 0.5 ML IMVAC ONE (08:00)
[2022-11-20] MEDS: dexAMETHasone 4 MG TAB PO SCH (08:55)
[2022-11-20] MEDS: ASPIRIN EC 81 MG TAB PO SCH (08:55)
[2022-11-20] MEDS: carvediloL 12.5 MG TAB PO SCH ×2 (08:55→20:52)
[2022-11-20] MEDS: CLOPIDOGREL 75 MG TABLET PO SCH (08:55)
[2022-11-20] MEDS ORDERED: ASPIRIN 81 MG CHEWABLE TABLET PO SCH (09:00)
[2022-11-20] MEDS ORDERED: HEPARIN 5000 UNIT/ML 1 ML VIAL SQ SCH (09:00)
[2022-11-20] MEDS ORDERED: ASPIRIN EC 81 MG TAB PO SCH (09:00)
[2022-11-20] MEDS ORDERED: INSULIN GLARGINE 100 UNIT/ML SQ SCH (09:00)
[2022-11-20] MEDS ORDERED: HOME MED 1 EA UNK (Insulin Degludec [Tresiba] 100 UNIT/ML Vial) SQ SCH (09:00)
--- NOTE | 2022-11-20 17:09 | EKG ---
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
[2022-11-20] MEDS: ATORVASTATIN 20 MG TAB PO SCH (20:51)
[2022-11-20] MEDS ORDERED: ALPRAZOLAM 0.25 MG TABLET PO ONE (22:36)
[2022-11-20] MEDS: HYDROCODONE/APAP 5/325 MG TAB PO PRN (22:45)
[2022-11-20] MEDS: INSULIN GLARGINE 100 UNIT/ML SQ SCH (22:47)
--- NOTE | 2022-11-20 23:20 | CON ---
Date of Consultation: 11/20/2022 Chief Complaint: Chronic kidney disease stage 3. History Of Present Illness: The patient is a 72-year-old man with history of coronary artery disease , history of stent, history of diabetes mellitus, hypertension, hyperlipidemia, and obesity. He pres ented to the hospital because of chest pain radiating to left jaw. The patient was seen by the [facility] ologist. Previously, he had a stent placed in July 2022. The patient was complaining of intermit tent substernal chest pain over the last several weeks and in the recent past was having also jaw lou n. Nephrology consultation is requested for chronic kidney disease. The patient had cardiac cathete rization during this admission and was found to have distal RCA that was critically occluded and had a PCI performed. The patient received IV contrast for cardiac angiogram. Currently, the patient is on IV fluids started after procedure. Past Medical History: Chronic kidney disease with baseline creatinine level 1.6 to 1.8, previous his tory of prerenal azotemia. The patient did not require dialysis. Serum creatinine was up to 2.2 on previous occasion. The patient has history of diabetes mellitus, coronary artery disease, obesity, a nd hyperlipidemia. Past Surgical History: Procedure for coronary artery disease. Social History: Denies tobacco, alcohol, or illicit drugs. Family History: No kidney disease in the family. Physical Examination: General: The patient is awake, alert, follows commands. Eyes: Anicteric sclerae. EOMI. Ears, Nose, Mouth, And Throat: Oral mucosa moist. No pallor. Neck: Supple. No bruits. Lungs: Diminished breath sounds at bases. Heart: S1, S2. Abdomen: Soft, benign. Extremities: No edema. No clubbing. No cyanosis. Neurologic: Moving extremities. Cranial nerves intact. Laboratory Data: Sodium 142, potassium 4.0, chloride 111, CO2 25, BUN 31, creatinine 1.66, glucose 1 46, and total bilirubin 0.5. Urinalysis showed specific gravity 1.020, pH 5.5, glucose negative, and leukocyte esterase negative. Impression And Plan: 1.The patient has chronic kidney disease stage 3. He presented to the hospital because of angina, w as found to have severe coronary artery disease, underwent stent placement and is on IV fluids to pre vent contrast-induced nephropathy. Plan is to reevaluate urinalysis to check for proteinuria. The p atient likely has underlying diabetic kidney disease. The patient needs to be ruled out for monoclon al gammopathy of unknown significance. Plan is to continue IV fluids in attempt to prevent contrast- induced nephropathy and worsening of the renal function. 2.Hypertension. Continue blood pressure medication. Monitor blood pressure and adjust medication a ccording to blood pressure log. 3.Diabetes mellitus. Avoid metformin. Continue insulin for diabetic control. EB/MODL Voice ID: [id number] Report ID: [id number]
[2022-11-21] MEDS: NACHLORIDE 0.45% 1,000 ML IV SCH (00:17)
[2022-11-21 01:09] LABS: Renal Epithelial <5 /HPF (None Seen); Specific Gravity 1.016 (1.005-1.030); UR PROTEIN 10.2 mg/dL (<11.9); Urine Bacteria None Seen /HPF (<20); Urine Bilirubin NEGATIVE (Negative); Urine Blood Negative (Negative); Urine Clarity Clear (Clear); Urine Color Colorless (Yellow); Urine Glucose 4+ (Over) (Negative); Urine Mucus Slight /HPF (None Seen); Urine Protein NEGATIVE (Negative); Urine Protein/Creatinine Ratio 0.16 ratio (<0.15); Urine RBC <5 /HPF (None Seen); Urine Urobilinogen Normal (Normal); Urine pH 5.5 (5.0-7.0)
[2022-11-21 06:15] LABS: Magnesium 2.4 mg/dL (1.6-2.4); Potassium 4.3 mmol/L (3.5-5.1)
--- NOTE | 2022-11-21 07:02 | P.PN ---
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 Will require further PCI of the RCA; planned for tomorrow monitor renal function - stable nephrology consulted continue IVF, received mucomyst continue aspirin/plavix, statin Code: full Dispo: home, anticipate saturday
[2022-11-21 07:05] LABS: Hepatitis B surface AG Interp. Nonreactive (Nonreactive); Hepatitis C Virus Ab Nonreactive (Nonreactive)
--- NOTE | 2022-11-21 07:22 | RAD REPORT ---
EXAM DESCRIPTION: US - Renal Ultrasound-Complete - 11/21/2022 5:56 am CLINICAL HISTORY: ckd COMPARISON: Renal Ultrasound-Complete dated 11/27/2021 FINDINGS: The right kidney measures 10.3 x 6.2 x 4.6 cm. The left kidney measures 10.8 x 5.9 x 5.7 cm. Renal cortical thickness and echogenicity are normal. No hydronephrosis or suspicious renal mass. A 4.7 centimeter lower pole right renal cyst present. A 2.4 centimeter lateral mid left renal cyst p resent. No bladder wall thickening or mass. No intraluminal stone or mass. IMPRESSION: No hydronephrosis or suspicious renal mass. Bilateral renal cysts are present, benign characteristics. These are similar to comparison.
[2022-11-21] MEDS: INSULIN GLARGINE 100 UNIT/ML SQ SCH ×2 (07:50→20:35)
[2022-11-21] MEDS: ACETYLCYST 20% 800 MG/4 ML VIAL PO SCH ×2 (09:00→21:10)
[2022-11-21] MEDS: CLOPIDOGREL 75 MG TABLET PO SCH (09:04)
[2022-11-21] MEDS: dexAMETHasone 4 MG TAB PO SCH (09:04)
[2022-11-21] MEDS: carvediloL 12.5 MG TAB PO SCH ×2 (09:04→20:33)
[2022-11-21] MEDS: ASPIRIN EC 81 MG TAB PO SCH (09:05)
[2022-11-21] MEDS: INSULIN -REGULAR HUMAN 50 UNIT/0.5 ML ML SQ SCH ×4 (09:05→20:34)
[2022-11-21] MEDS ORDERED: HEPA 1000U/500MLS 2,000 UNIT/1,000 ML BAG IV ONE (15:20)
[2022-11-21] MEDS ORDERED: LIDOCAINE 1% 20 ML MDV ONE (15:20)
[2022-11-21] MEDS ORDERED: FENTANYL CITR 100 MCG/2 ML ONE (15:21)
[2022-11-21] MEDS ORDERED: VERAPAMIL HCL 10 MG/4 ML VIAL IV ONE (15:22)
[2022-11-21] MEDS ORDERED: HEPARIN 5000 UNIT/ML 1 ML VIAL ONE (15:22)
[2022-11-21] MEDS ORDERED: CLOPIDOGREL 75 MG TABLET ONE (15:22)
[2022-11-21] MEDS ORDERED: MIDAZOLAM HCL 2 MG/2 ML INJ ONE ×2 (15:22→16:18)
[2022-11-21] MEDS ORDERED: ATROPINE SULF 1 MG/10 ML SYR IV ONE (15:23)
[2022-11-21] MEDS ORDERED: HEPARIN 10,000 UNIT/10 ML VIAL IV ONE ×2 (15:23→16:21)
[2022-11-21] MEDS ORDERED: NA CHLORIDE 0.9% 500 ML ONE (15:43)
[2022-11-21] MEDS ORDERED: REGADENOSON 0.4 MG/5 ML SYR IV ONE (16:00)
--- NOTE | 2022-11-21 16:32 | PN ---
Date of Progress Note: 11/21/2022 Subjective: The patient was admitted with non-ST elevation [place]. The patient had cardiac cath plan fo r another cardiac cath today. The patient had chronic kidney disease with acute kidney injury. Physical Examination: Vital Signs: Blood pressure 155/76, pulse of 79, afebrile. Chest: Clear to auscultation. Heart: S1, S2. Regular. Abdomen: Soft, nontender. Extremities: No edema. Neurologic: Alert. No focality. Laboratory Data: Hemoglobin 10.9. Sodium 140, potassium 4.3, bicarb 21, BUN 29, creatinine 1.6, GFR of 44, calcium 8.8, magnesium 2.4. Current Medications: The patient on, include: Plavix, atorvastatin, carvedilol 12.5. Dexamethasone , normal saline at 50 per hour, Mucomyst. Assessment And Plan: 1.Acute kidney injury secondary to cardiorenal contrast end use nephropathy, normal-sized kidney, pr oteinuric, non nephrotic. I am going to continue hydration given the fact that the patient is going to expose to another contrast today and we will follow up. 2.Hypertension, controlled, optimal. We will follow up after cardiac cath. 3.Coronary artery disease, non-ST elevation myocardial infarction, as per primary and Cardiology. W e will follow up post catheterization. SHALOM Voice ID: [id number] Report ID: [id number]
[2022-11-21] MEDS ORDERED: HEPA 1000U/500MLS 1,000 UNIT/500 ML BAG IV ONE (16:42)
--- NOTE | 2022-11-21 18:59 | PN ---
Date of Progress Note: 11/21/2022 Subjective: Seen by bedside, doing clinically well. No chest pain. Review of Systems: No chest pain, shortness of breath, orthopnea, cough, nausea, vomiting, diarrhea. All other systems reviewed and they were negative. Physical Examination: Vital signs: Reviewed. Head and Neck: Pupils are equal, reactive to light. Intact eye movements. No JVD. No cervical lym phadenopathy. Neck is supple. Thyroid is not enlarged. Lungs: Clear to auscultation bilaterally. No rhonchi, wheezing, or crackles. No accessory muscle u se. Heart: Regular rate and rhythm. No extra sounds. Abdomen: Soft, nontender. Bowel sounds positive. No organomegaly. No masses or hernia. No rigidi ty or rebound. Extremities: No edema, clubbing, or cyanosis. Intact pulses. Skin: No rash. Neurologic: Alert, awake, oriented x3. No acute focal deficits appreciated. Investigations: BUN 29, creatinine 1.63, and hemoglobin is 10.9. Assessment And Recommendations: 1.Severe coronary artery disease of the right coronary artery, status post distal RCA stent placemen t. He needs the rest of the RCA stented. He is n.p.o., plan for PCI of the rest of the RCA today. 2.Chronic kidney disease, status post hydration over the past 2 days. We will plan for coronary ang iogram today using limited amount of contrast to finish the work on the RCA and then he will need FFR/PCI of the LAD at the later time. From Cardiology standpoint post PCI today, can be discharged a nd follow up as an outpatient. /MIKE Voice ID: [id number] Report ID: [id number]
[2022-11-21] MEDS: ATORVASTATIN 20 MG TAB PO SCH (20:33)
[2022-11-21] MEDS: HYDROCODONE/APAP 5/325 MG TAB PO PRN (21:10)
--- NOTE | 2022-11-21 21:43 | OP ---
Date of Procedure: 11/21/2022 Surgeon: ANALI REYES Procedures Performed: 1.Right coronary artery coronary angiogram. 2.Percutaneous coronary intervention of the proximal and mid right coronary artery, used 3.0 x 28 mm Synergy drug-eluting stent overlapped distally with a 3.0 x 16 mm Synergy drug-eluting stent, post d ilated using 3.0 x 15 mm NC balloon. Indication: Known severe coronary artery disease. Access: Right radial artery 6-[place] closed with TR band. Complications: None. Estimated Blood Loss: Bleeding less than 10 mL. Total amount of contrast was 24 cc. The total sedation time was 45 minutes, used fentanyl and Versed . Description Of Procedure: After risks, benefits, and alternatives were explained, the patient agreed to procedure and signed informed consent. The patient was brought into the cardiac catheterization laboratory and prepped and draped in usual sterile fashion. Then I accessed right radial artery usin g pediatric micropuncture kit to place a 6-[place] Slender sheath and took 6-[place] 3DRC guide with si de holes into the aortic root, engaged RCA, took a Runthrough wire into the RCA, placed it distally. Systemic heparin was given to assure ACT level above 250 and the patient was already on aspirin and Plavix. I used a 3.5 x 15 mm NC balloon to pre-dilate and then placed proximally 3.0 x 28 mm Synergy drug-eluting stent overlapped distally with 3 0 x 16 mm Synergy drug-eluting stent as I could not de liver the long stent due to the heavy calcium in the artery and then the area of the overlap was post dilated using a 3.5 x 15 mm NC balloon. The whole stent was post dilated. Angiographically the ves ayaka appeared much better. No significant residual stenosis. Then we removed the wire and the guide and the sheath and placed TR band with good hemostasis. Findings: Severe mid RCA stenosis status post successful PCI as above. Plan: 1.Continue aspirin, Plavix, and statin. 2.Plan for FFR versus stress test to evaluate the LAD at a later time in about 4 weeks. The patient can be released and follow up with me in the office in 4 weeks. SR/MODL Voice ID: [id number] Report ID: [id number]
[2022-11-22] MEDS: NACHLORIDE 0.45% 1,000 ML IV SCH (05:47)
[2022-11-22 06:22] LABS: Albumin 3.1 g/dL (3.4-5.0); Magnesium 2.4 mg/dL (1.6-2.4); Phosphorus 3.1 mg/dL (2.5-4.9); Potassium 4.3 mmol/L (3.5-5.1)
--- NOTE | 2022-11-22 06:51 | P.PN ---
Date of Service: 11/22/22 Subjective: doing well no new/worsening symptoms hyperglycemic ROS: A complete review of systems was performed and is negative except as mentioned above Physical Exam: Gen: NAD, AOx3 HEENT: normal conjunctiva, sclera anicteric CV: regular rate & rhythm, no edema Pulm: non-labored respirations, clear bilaterally Abd: soft, non-tender, non-distended Neuro: normal speech, normal affect, moves all extremities vitals reviewed Problem List CAD s/p PCI CKD 3b Anemia of chronic disease HLD DM2, insulin dependent h/o CVA Obesity s/p PCI of distal RCA and second staged PCI on 11/21 monitor renal function - stable nephrology consulted continue IVF, received mucomyst repeat labs in AM continue aspirin/plavix, statin significant hyperglycemia; review of meds - patient was started on decadron, discontinued increase semglee, increase sliding scale continued to be high. patient's diet was changed to heart healthy after cath - was diabetic above factors leading to hyperglycemia change back to diabetic diet Code: full Dispo: home, anticipate tomorrow
[2022-11-22] MEDS: INSULIN -REGULAR HUMAN 50 UNIT/0.5 ML ML SQ SCH ×4 (07:30→21:00)
[2022-11-22] MEDS: CLOPIDOGREL 75 MG TABLET PO SCH (08:54)
[2022-11-22] MEDS: ASPIRIN EC 81 MG TAB PO SCH (08:54)
[2022-11-22] MEDS: dexAMETHasone 4 MG TAB PO SCH (08:54)
[2022-11-22] MEDS: carvediloL 12.5 MG TAB PO SCH (08:55)
[2022-11-22] MEDS: ACETYLCYST 20% 800 MG/4 ML VIAL PO SCH ×2 (08:56→21:14)
[2022-11-22] MEDS ORDERED: INSULIN GLARGINE 100 UNIT/ML SQ SCH (09:00)
[2022-11-22 09:10] VITALS: O2SAT 99
--- NOTE | 2022-11-22 12:01 | PN ---
Date of Progress Note: 11/22/2022 Subjective: The patient was admitted with non-ST elevation [place]. The patient undergone cardiac cath. This is the second cardiac cath with PTCA. The patient tolerated the procedure. The patient had ac [place] kidney injury secondary to contrast-induced nephropathy. Physical Examination: Vital Signs: Blood pressure 153/73, pulse of 76, afebrile. The patient had good urine output. Chest: Clear to auscultation. Heart: S1, S2. Systolic murmur. Abdomen: Soft, nontender, obese. Could not appreciate any organomegaly. Extremities: No edema. Neurologic: Alert. No focality. Skin: No rash. Laboratory Data: Hemoglobin 10.9. Sodium 141, potassium 4.3, bicarb 23, BUN 37, creatinine 1.7, GFR down to 41, calcium 8.4, phosphorus 3.1, magnesium 2.4, albumin 3.1. Corrected calcium is 9.2. Current Medications: The patient on include aspirin, Plavix, atorvastatin, carvedilol 12.5 b.i.d., d examethasone, Zofran, normal saline at 50 per hour, Mucomyst. Assessment And Plan: 1.Acute kidney injury and contrast nephropathy. The patient nonoliguric. No hyperkalemia. Kidney function plateaued. I am going to watch for another 24 hours to pass 48 hours. Then if it stays sta ble, the patient okay to be released to follow up in 2 weeks with chemistry to evaluate for late athe roembolic or contrast induced, worsening in kidney function and we will follow up the patient. 2.Hypertension, controlled, not optimal. I am going to go ahead and increase his carvedilol to 25 m g. We will avoid any RAYNA inhibitor or ARB for the time being given the recent exposure to contrast a nd recent acute kidney injury. I am going to go ahead and also discontinue IV fluid and we will foll ow up. 3.Coronary artery disease status post percutaneous transluminal coronary angioplasty and contrast as above. We will follow up with Cardiology. ANDRÉS/MIKE Voice ID: [id number] Report ID: [id number]
[2022-11-22] MEDS ORDERED: INSULIN GLARGINE 100 UNIT/ML SQ ONE (12:11)
[2022-11-22] MEDS: carvediloL 25 MG TAB PO SCH (21:08)
[2022-11-22] MEDS: ATORVASTATIN 20 MG TAB PO SCH (21:09)
[2022-11-22] MEDS ORDERED: INSULIN -REGULAR HUMAN 50 UNIT/0.5 ML ML IV ONE (21:14)
[2022-11-22] MEDS ORDERED: D50W 25 GM/50 ML SYRINGE IV PRN (21:14)
[2022-11-22] MEDS ORDERED: INSULIN -REGULAR HUMAN 50 UNIT/0.5 ML ML SQ SCH ×2 (21:15→22:07)
[2022-11-23 06:16] LABS: Magnesium 2.6 mg/dL (1.6-2.4); Potassium 4.6 mmol/L (3.5-5.1)
[2022-11-23] MEDS ORDERED: PNEUMOCOCCAL VACCINE 0.5 ML IMVAC ONE (08:00)
[2022-11-23] MEDS ORDERED: INFLUENZA VACCINE (for 6+ mo) 0.5 ML DOSE IMVAC ONE (08:00)
[2022-11-23 08:35] VITALS: BP 152/79; TEMP 97.7
[2022-11-23] MEDS: ASPIRIN EC 81 MG TAB PO SCH (09:00)
[2022-11-23] MEDS: carvediloL 25 MG TAB PO SCH (09:00)
[2022-11-23] MEDS: ACETYLCYST 20% 800 MG/4 ML VIAL PO SCH (09:00)
[2022-11-23] MEDS: CLOPIDOGREL 75 MG TABLET PO SCH (09:00)
[2022-11-23] MEDS ORDERED: INSULIN GLARGINE 100 UNIT/ML SQ SCH (09:00)
[2022-11-23 21:25] LABS: Albumin, (SPE) 3.7 g/dL (3.8-4.8); Alpha-1-Globulins 0.4 g/dL (0.2-0.3); Alpha-2-Globulins 0.9 g/dL (0.5-0.9); Gamma Globulins 0.7 g/dL (0.8-1.7); INTERPRETATION REPORT
--- NOTE | 2022-11-25 22:16 | P.DS ---
Admission Date: 11/19/22 Discharge Date: 11/23/22 Disposition: ROUTINE DISCHARGE Discharge Condition: GOOD Reason for Admission: CAD Consultations: Cardiology - Dr. Cota Nephrology - Dr. Atkinson Brief History of Present Illness: 72yo M, PMH: CAD s/p PCI / stents, CKD, HLD, obesity. Presented with left jaw pain. Patient reported that he had 3 stents placed in July 2022. 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 Patient rated jaw pain as 7/10 and described pain as aching in quality. Patient denies any other signs or symptoms. Symptoms are aggravated or relieved by nothing. Patient was admitted to the hospital for IV hydration and further stening of the RCA in 2 or 3 days . Hospital Course: Problem List CAD s/p PCI CKD 3b Anemia of chronic disease HLD DM2, insulin dependent h/o CVA Obesity Patient underwent cardiac Catheterization with PCI/stentinig of RCA. He required a staged procedure for further stenting to minimize acute kidney injury from contrast. Cardiology and Nephrology were consulted. Patient did well throughout hospitalization, renal function remained stable. Patient stable for discharge home. Due to recent contrast use and risk of acute kidney injury advised to hold his losartan/HCTZ medication for a few days / until follow up with his PCP/nephrology Double Carvedilol, from 12.5mg to 25mg twice daily in the meantime to help with blood pressure. Continue other home medications. Restart janumet tomorrow. Monitor blood pressure daily. Vital Signs/Physical Exam: Temp Pulse Resp BP Pulse Ox 97.7 F 77 14 152/79 H 93 11/23/22 08:00 11/23/22 08:00 11/23/22 08:00 11/23/22 08:00 11/23/22 08:00 General: Alert, In no apparent distress, Oriented x3 HEENT: EOMI, Sclerae nonicteric Neck: Supple, No LAD Respiratory: Clear to auscultation bilaterally, Normal air movement Cardiovascular: No edema, Regular rate/rhythm Gastrointestinal: Soft and benign, Non-distended, No tenderness Musculoskeletal: No contractures, No tenderness Integumentary: No rashes, No significant lesion Neurological: Normal speech, Normal affect Laboratory Data at Discharge: WBC 9.90 K/uL (4.3-10.9) 11/20/22 05:38 Hgb 10.9 g/dL (13.6-17.9) L 11/20/22 05:38 Hct 33.5 % (39.6-49.0) L 11/20/22 05:38 Plt Count 190 K/uL (152-406) 11/20/22 05:38 PT 11.6 SECONDS (9.5-12.5) 11/20/22 05:38 INR 1.05 11/20/22 05:38 APTT 28.4 SECONDS (24.3-36.9) 11/16/22 14:45 Sodium 141 mmol/L (136-145) 11/23/22 05:18 Potassium 4.6 mmol/L (3.5-5.1) 11/23/22 05:18 BUN 39 mg/dL (7-18) H 11/23/22 05:18 Creatinine 1.51 mg/dL (0.70-1.30) H 11/23/22 05:18 Glucose 236 mg/dL (74-106) H 11/23/22 05:18 Phosphorus 3.0 mg/dL (2.5-4.9) 11/23/22 05:18 Magnesium 2.6 mg/dL (1.6-2.4) H 11/23/22 05:18 Total Bilirubin 0.5 mg/dL (0.2-1.0) 11/20/22 05:33 AST 19 U/L (15-37) 11/20/22 05:33 ALT 21 U/L (16-61) 11/20/22 05:33 Alkaline Phosphatase 72 U/L (45-117) 11/20/22 05:33 Home Medications: Glimepiride [Amaryl] 4 mg PO BID 09/09/17 Simvastatin 40 mg PO BEDTIME 09/09/17 Carvedilol [Coreg] 1 tab PO BID 11/26/21 Insulin Degludec [Tresiba] 46 unit SQ DAILY 11/26/21 Losartan/Hydrochlorothiazide [Losartan-Hctz 100-25 mg Tab] 100 tab PO DAILY 11/26/21 Sitagliptin Phos/Metformin HCl [Janumet Xr 50-1,000 mg Tablet] 1 tab PO DAILY AT SUPPER 11/26/21 Clopidogrel Bisulfate [Plavix] 75 mg PO ONCE 11/19/22 carvediloL [Coreg*] 25 mg PO BID tab 11/23/22 Physician Discharge Instructions: Patient underwent cardiac Catheterization with PCI/stentinig of RCA. He required a staged procedure for further stenting to minimize acute kidney injury from contrast. Cardiology and Nephrology were consulted. Patient did well throughout hos pitalization, renal function remained stable. Patient stable for discharge home. Due to recent contrast use and risk of acute kidney injury advised to hold his losartan/HCTZ medication for a few days / until follow up with his PCP/nephrology Double Carvedilol, from 12.5mg to 25mg twice daily in the meantime to help with blood pressure. Continue other home medications. Restart janumet tomorrow. Monitor blood pressure daily. Time spent managing pt's care (in minutes): 45
== END 2022-11-23 10:13 | disposition home or self-care (01) | DRG 247 ==
LOC: PRE 11:00 → 2ND 15:39
PROVIDERS: ADMIT Internal Medicine; ATTEND Hospitalist
PROC: 027034Z Dilation of Coronary Artery, One Artery with Drug-eluting Intraluminal Device, Percutaneous Approach (ICD-10-PCS; principal; 2022-11-19)
PROC: 4A023N7 Measurement of Cardiac Sampling and Pressure, Left Heart, Percutaneous Approach (ICD-10-PCS; 2022-11-19)
PROC: B2011ZZ Plain Radiography of Multiple Coronary Arteries using Low Osmolar Contrast (ICD-10-PCS; 2022-11-19)
PROC: 027034Z Dilation of Coronary Artery, One Artery with Drug-eluting Intraluminal Device, Percutaneous Approach (ICD-10-PCS; 2022-11-21)
PROC: B2001ZZ Plain Radiography of Single Coronary Artery using Low Osmolar Contrast (ICD-10-PCS; 2022-11-21)
DX: I21.4 Non-ST elevation (NSTEMI) myocardial infarction (principal); N17.9 Acute kidney failure, unspecified; I25.110 Atherosclerotic heart disease of native coronary artery with unstable angina pectoris; N14.11 Contrast-induced nephropathy; E11.65 Type 2 diabetes mellitus with hyperglycemia; E11.22 Type 2 diabetes mellitus with diabetic chronic kidney disease; I12.9 Hypertensive chronic kidney disease with stage 1 through stage 4 chronic kidney disease, or unspecified chronic kidney disease; N18.32 Chronic kidney disease, stage 3b; E78.5 Hyperlipidemia, unspecified; D63.1 Anemia in chronic kidney disease; E66.9 Obesity, unspecified; T50.8X5A Adverse effect of diagnostic agents, initial encounter; Z68.39 Body mass index [BMI] 39.0-39.9, adult; Z95.5 Presence of coronary angioplasty implant and graft; Z87.891 Personal history of nicotine dependence; Z86.73 Personal history of transient ischemic attack (TIA), and cerebral infarction without residual deficits
CPT/HCPCS: 36415; 76770; 76937; 80048; 80053; 80069; 81001; 82550; 82570; 82947; 83735; 83880; 84100; 84156; 84165; 84439; 84443; 85025; 85347; 85610; 85730; 86021; 86803; 87340; 92928; 93005; 93458; C1725; C1893; C9600; J0461; J1644; J1815; J2001; J2250; J2785; J3010; J7040; J7608; J8540; Q9967

== ENCOUNTER 2023-02-25 06:30 | Day surgery (SDC) | payer OTHER ==
--- NOTE | 2023-02-22 12:50 | RAD REPORT ---
EXAM DESCRIPTION: RAD - Chest Pa And Lat (2 Views) - 02/22/2023 12:38 pm CLINICAL HISTORY: pre op pending heart catheterization, hypertension, diabetes COMPARISON: Chest Pa And Lat (2 Views) dated 07/20/2022; Chest Single View dated 11/27/2021; Chest Sing le View dated 11/25/2021; Chest Single View dated 11/22/2021 FINDINGS: Lines: None. Lungs: No evidence of edema or pneumonia. Pleural: No significant pleural effusions or pneumothorax. Cardiac: The heart size is within normal limits. Mediastinum: Within normal limits. Bones: No acute fractures. Other: None IMPRESSION: No acute cardiopulmonary disease.
[2023-02-22 13:40] LABS: Absolute Lymphocytes (CBC) 1.8 K/uL (0.7-4.9); Hematocrit 35.6 % (39.6-49.0); Lymphocytes % 23.1 % (15.3-44.8); MCV 84.2 fL (80-100); MPV 7.5 fL (7.6-11.3); RBC Red Blood Cell Count 4.23 M/uL (4.33-5.43)
[2023-02-22 13:51] LABS: Potassium 4.1 mEq/L (3.5-5.1)
[2023-02-25] MEDS ORDERED: HEPA 1000U/500MLS 2,000 UNIT/1,000 ML BAG IV ONE (06:43)
[2023-02-25] MEDS ORDERED: LIDOCAINE 1% 20 ML MDV ONE (06:43)
[2023-02-25] MEDS ORDERED: FENTANYL CITR 100 MCG/2 ML ONE (06:44)
[2023-02-25] MEDS ORDERED: HEPARIN 5000 UNIT/ML 1 ML VIAL ONE (06:44)
[2023-02-25] MEDS ORDERED: MIDAZOLAM HCL 2 MG/2 ML INJ ONE (06:44)
[2023-02-25] MEDS ORDERED: VERAPAMIL HCL 10 MG/4 ML VIAL IV ONE (06:45)
[2023-02-25] MEDS ORDERED: CLOPIDOGREL 75 MG TABLET ONE (06:45)
[2023-02-25] MEDS ORDERED: ASPIRIN 325 MG TAB ONE (06:45)
[2023-02-25] MEDS ORDERED: NITROGLYCERIN 100 MCG/ML SYR (for cath lab use only) IV ONE (06:46)
[2023-02-25] MEDS ORDERED: TICAGRELOR 90 MG TABLET PO ONE (06:46)
[2023-02-25] MEDS ORDERED: REGADENOSON 0.4 MG/5 ML SYR IV ONE (06:46)
[2023-02-25] MEDS ORDERED: HEPARIN 10,000 UNIT/10 ML VIAL IV ONE (06:46)
[2023-02-25] MEDS ORDERED: ATROPINE SULF 1 MG/10 ML SYR IV ONE (06:47)
[2023-02-25] MEDS ORDERED: NITROGLYCERIN/D5W 25 MG/250 ML BTL IV ONE (06:47)
[2023-02-25] MEDS ORDERED: NA CHLORIDE 0.9% 500 ML ONE (06:51)
[2023-02-25 07:11] VITALS: TEMP 98.6
[2023-02-25 11:31] VITALS: BP 152/64; O2SAT 100
--- NOTE | 2023-02-25 22:32 | OP ---
Date of Procedure: 02/25/2023 Surgeon: ANALI REYES Procedures Performed: 1.Selective coronary angiogram. 2.Fractional flow reserve of proximal to mid left anterior descending artery, which was very signifi cant at 0.66. 3.Percutaneous coronary intervention of zmhiibce-[id number] anterior descending artery, used 3.0 x 32 mm Synergy drug-eluting stent and was inflated to high pressure to a size of 3.25 proximally. Access: Right radial artery 6-Norwegian closed with TR band. Complications: None. Estimated Blood Loss: Bleeding less than 10 mL. Indication: Unstable angina. Anesthesia: Total sedation time was 40 minutes, used fentanyl and Versed. Description Of Procedure: After risks, benefits, and alternatives were explained, the patient agreed to the procedure and signed informed consent. The patient was brought in for cardiac catheterizatio n laboratory and prepped and draped in usual sterile fashion. Then I accessed right radial artery us ing pediatric micropuncture kit, placed 6-Norwegian Slender sheath, and took 5-Norwegian [place] 4 catheter i nto aortic root and engaged the left main, took standard views and then I took EBU 3.5 guide over a J -wire into the aortic root and engaged the left main. We gave systemic heparin to assure ACT pressur e level above 250. Then I took a pressure wire, FFR wire into the aortic root and pressures were equ alized. Then wire was advanced into the LAD, placed distally passing the area of stenosis. FFR was done using Lexiscan and it was very significant at 0.66. Pullback did not record any drift, so decid ed to proceed with PCI. I used the 3.0 balloon for balloon angioplasty and lesions were expanded nadira y well and then I placed the 3.0 x 32 mm Synergy drug-eluting stent from the [id number]-md-aza LAD with excellent expansion and inflated the balloon to a high pressure in the proximal portion for a size o f 3.25 mm. I then removed the wire and final angiogram was satisfactory. I removed the guide and sh eatpriyanka and placed TR band with good hemostasis. Findings: 1.Left main: Large and normal. 2.LAD: Diffuse wuktsahl-bx-[id number] 70% stenosis with positive FFR of 0.66, status post PCI as above and then the LAD becomes normal with some luminal irregularities and the diagonal branches have luminal irregularities. 3.Left circumflex: Ostial 60% and then luminal irregularities. 4.RCA was not injected. Conclusions: 1.Severe proximal left anterior descending artery stenosis confirmed by fractional flow reserve, sta tus post successful percutaneous coronary intervention as above. 2.Moderate left circumflex stenosis. Plan: 1.Aspirin, statin, and Plavix. 2.I will plan for a stress test in about 6 months and then reassess the need to do the left circumfl ex PCI. SR/MODL Voice ID: [id number] Report ID: [id number]
--- NOTE | 2023-02-26 08:03 | EKG ---
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
== END 2023-02-25 11:36 | disposition home or self-care (01) ==
LOC: CCL 06:30
PROVIDERS: ATTEND Internal Medicine
DX: I25.110 Atherosclerotic heart disease of native coronary artery with unstable angina pectoris (principal); Z88.5 Allergy status to narcotic agent; Z88.8 Allergy status to other drugs, medicaments and biological substances
CPT/HCPCS: 36415; 71046; 76937; 80048; 82947; 85025; 85347; 85610; 85730; 93005; 93454; 93571; C1725; C1769; C1893; C9600; J0461; J1644; J2001; J2250; J2785; J3010; J7040; Q9966

== ENCOUNTER 2023-04-14 16:24 | Emergency (ER) | payer OTHER ==
--- OUTSIDE RECORDS SUMMARY | 2023-04-14 16:31 | XMS REPORT | Continuity of Care Document ---
:[address] [facility] t Address [address] [place] [address] [place] [id number] Care Team Providers Name Role Phone Radha [...] Effective Date Expiration Date S bev AETNA 53 [id number] 2021 [facility] 00:00:00 [facility] AETNA MEDICARE 53 [id number] 2020 [facility] 00:00:00 [facility] MEDICARE [id number] 2013 [facility] NOVITAS 00:00:[address] - [facility] MEDICARE MB [id number] 2013 [facility] NOVITAS 00:00:00 [facility] Problems Condition Condition Condition Status Onset Resolution [...] [place] 00 Medical Branch Anorexia Anorexia Problem Commo n Spirit - [facility] 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 w St disease [facility] 1-4/[facility] [id number] Body mass Problem Com mon index Spirit (BMI) of - CHI [address] 44[facility]9 in [facility] Chronic Chronic Problem Common kidney kidney Spirit disease disease, - CHI stage [address] (disorder) unspecifie [facility] [id number] Neuropathy Problem Comm on due to Spirit secondary - CHI diabetes [facility] [id number] Other Problem Common chronic Spirit pain - [facility] [id number] Kidney Problem Common stones Spirit - [facility] [id number] Essential Problem Comm on hypertensi Spirit on - [facility] [id number] Body mass Problem Com mon index Spirit [BMI] - CHI 39.0-39.9, [facility] [id number] Primary Problem Commo n osteoarthr Spirit itis - CHI involving [facility] joints [facility] [id number] Type 2 Problem Common diabetes Spirit mellitus - CHI with [facility] [id number] Stented Problem Commo n coronary Spirit artery - [facility] [id number] Type 2 Problem Commo n 05 diabetes Spirit mellitus - CHI with diabetic 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 Allergies, Adverse Reactions, Alerts Allergy Allergy Status [...] Quantity Comments Source Exposure to Not sure [facility] SARS-CoV-2 [place] [facility] (event) Branch History SDOH University o f Alcohol Std [place] Medical Drinks Branch History SDME University o f Alcohol Binge [place] Medic al Branch History of [facility] - Tobacco Use [facility] Sex Assigned At [facility]on - [facility] Tobacco use and 2020-07-17 2020-07-17 Never used Universit y of exposure 00:00:00 00:00:00 [facility] Branch Alcohol intake 2020-07-17 2020-07-17 Ex-drinker University 00:00:00 00:00:00 (finding) [place] [facility] Branch History SDOH 2020-07-17 2020-07-17 1 University o f Alcohol Frequency 00:00:00 00:00:00 [facility] edical Branch Smoking Status Start Date Stop Date Source Former Smoker 2022-11-28 00:00:00 2022-11-28 00:00:00 [facility] - [facility] Never smoker [facility] Medications Ordered Filled Start Stop Current Ordering Indication Dosage Frequency Signature Comments Components Source Medication Medication Date Date Medication? Clinician (SIG) Name Name Clopidogrel Clopidogrel 2021-10 No 1{table QD Clopidogre Bisulfate Bisulfate 0-24 t} l 75 MG 75 MG 00:00: Bisulfate 00 75 MG Benzonatate Benzonatate 2021- No 1{capsu TID 200 [...] by ity of tablet 22:31: mouth 2 (two) Medical times Branch daily with meals. carvediloL 2020-0 Yes 25mg Take 25 mg U nivers 25 mg 9-30 by mouth 2 ity of tablet 22:31: (two) [place] 02 times Medical daily with Branch meals. losartan 2020-0 Yes 100mg Take 100 Univ ers 100 mg 9-30 mg by ity of tablet 22:31: mouth daily. Medical Branch glimepiride 2020-0 Yes 4mg Take 4 mg U nivers 4 mg tablet 9-30 by mouth 2 it y of 22:31: (two) [place] times Medical daily. Branch metFORMIN 2020-0 Yes 1000mg Take 1,000 Univers 1,000 mg 9-30 mg by ity of tablet 22:31: mouth 2 (two) Medical times Branch daily with meals. carvediloL 2020-0 Yes 25mg Take 25 mg U nivers 25 mg 9-30 by mouth 2 ity of tablet 22:31: (two) [place] times Medical daily with Branch meals. losartan [...] mouth 2 it y of 22:31: (two) [place] 02 times Medical daily. Branch carvediloL 2020-0 Yes 25mg 25 mg, Unive rs (COREG) 07-20 Oral, BID ity of tablet 25 22:00: MEALS, [place] mg 00 First dose Medical (after Branch last modificati on) on Sat07/20/20 at 1700, Until Discontinu ed, Routine aspirin 81 2019-0 2020- No 81mg Take 81 mg Univers mg chewable 07-20 by mouth ity of tablet 18:50: 00:00 daily. [place] 35 :00 Medical Branch simvastatin 2020-0 2020- [...] Discontinu ed, Routine aspirin 81 2020-0 Yes [id number] 81mg Take 1 Univers mg chewable 9-30 tablet by ity of tablet 00:00: mouth [place] 00 daily. Medical Branch simvastatin 2020-0 Yes [id number] 40mg Take 1 Univers 40 mg 9-30 tablet by ity of tablet 00:00: mouth at [place] 00 bedtime. Medical Branch tamsulosin 2020-0 Yes [id number] .4mg Take 1 Univers 0.4 mg 24 9-30 capsule by ity of hr capsule 00:00: mouth [place] 00 daily. Medical Branch aspirin 81 2020-0 Yes [id number] 81mg Take 1 Univers mg chewable 9-30 tablet by ity of tablet 00:00: mouth [place] 00 daily. Medical Branch simvastatin 2020-0 Yes [id number] 40mg Take 1 Univers 40 mg 9-30 tablet by ity of tablet 00:00: mouth at [place] 00 bedtime. Medical Branch tamsulosin 2020-0 Yes [id number] .4mg Take 1 Univers 0.4 mg 24 9-30 capsule by ity of hr capsule 00:00: mouth [place] 00 daily. Medical Branch aspirin 81 2020-0 Yes [id number] 81mg Take 1 Univers mg chewable 9-30 tablet by ity of tablet 00:00: mouth [place] 00 daily. Medical Branch simvastatin 2020-0 Yes [id number] 40mg Take 1 Univers 40 mg 9-30 tablet by ity of tablet 00:00: mouth at [place] 00 bedtime. Medical Branch tamsulosin 2020-0 Yes [id number] .4mg Take 1 Univers 0.4 mg 24 9-30 capsule by ity of hr capsule 00:00: mouth [place] 00 daily. Medical Branch clopidogreL 2020-0 2020- No [id number] 75mg Take 1 Univers 75 mg 9-30 10-22 tablet by ity of tablet 00:00: 04:59 mouth [place] 00 :00 daily for Medical 21 days. Branch clopidogreL 2020-0 2020- No [id number] 75mg Take 1 Univers 75 mg 9-30 10-22 tablet by ity of tablet 00:00: 04:59 mouth [place] 00 :00 daily for Medical 21 days. Branch clopidogreL 2020-0 2020- No [id number] 75mg Take 1 Univers 75 mg 9-30 [...] 07-19 Starting ity of hen (NORCO 22:12: [facility] 5) 5-325 mg 34 07/19/20 at Ia dical tablet 1712, Branch Until Discontinu ed, Routine FENTanyl PF 2020-0 Yes Slow IV Uni vers (SUBLIMAZE 07-19 Push, PRN, ity of (PF)) 20:30: Starting [place] injection 21 [facility] 07/19/20 at Branch 1530, Until Discontinu ed, Routine midazolam 2020-0 Yes IV Push, Univ ers (VERSED) 07-19 PRN, ity of injection 20:30: Starting [place] 11 [facility] 07/19/20 at Branch 1530, Until Discontinu ed, Routine sulfur 2020-0 2020- No 5mL 5 mL, Univers hexafluorid 07-19 Intravenou i ty of e microsphr 15:00: 20:00 s, ONCE, 1 [place] (LUMASON) 00 :00 dose, e Medic al injection 5 07/19/20 at Br anch mL 1000, Routine
production team member approving Restricted medication : KAMILA WONG famotidine 2020-0 Yes 20mg 20 mg, Unive rs (PEPCID AC) 07-19 Oral, ity of tablet 20 14:00: DAILY, [place] mg 00 First dose Medical (after [place] last modificati on) on [facility] 07/19/20 at 0900, Until Discontinu ed, Routine Saline 2020-0 Yes 6mL 6 mL, Univers Bubble 07-19 Injection, ity of Study 13:46: SEE-INSTRU [place] 29 CTIONS, 2 Medical doses, Branch Starting [facility] 07/19/20 at 0846, Until Discontinu ed, Routine Saline 2020-0 Yes 6mL 6 mL, Univers Bubble 07-19 Injection, ity of Study 13:46: SEE-INSTRU [place] 24 CTIONS, 2 Medical doses, Branch Starting [facility] 07/19/20 at 0846, Until Discontinu ed, Routine simvastatin 2020-0 Yes 40mg 40 mg, Univ ers (ZOCOR) 07-19 Oral, QHS, ity of tablet 40 02:00: First dose [place] mg 00 on [facility] 07/18/20 at Branch 2100, Until Discontinu ed, Routine clopidogreL 2020-0 Yes 75mg 75 mg, [facility] ers (PLAVIX) 07-18 Oral, ity of tablet 75 14:00: DAILY, [place] mg 00 First dose Medical on [facility] 07/18/20 at 0900, Until Discontinu ed, Routine carvediloL 2020-0 2020- No 25mg 25 mg, Univ ers (COREG) 07-18 Oral, BID ity of tablet 25 13:00: 13:39 MEALS, [place] mg 00 :02 First dose Medical on [facility] 07/18/20 at 0800, Until Discontinu ed, Routine atorvastati 2020-0 2020- No 20mg 20 mg, Uni vers n (LIPITOR) 07-18 Oral, QHS, i ty of tablet 20 02:00: 16:43 First dose [place] mg 00 :17 on [facility] 07/17/20 at Branch 2100, Until Discontinu ed, Routine tamsulosin 2020-0 Yes .4mg 0.4 mg, [facility] ers (FLOMAX) 07-17 Oral, ity of capsule 0.4 14:30: DAILY, [place] mg 00 First dose Medical on [facility] 07/17/20 at 0930, Until Discontinu ed, Routine docusate 2020-0 Yes 100mg 100 mg, Unive rs (COLACE) 07-17 Oral, ity of capsule 100 14:00: DAILY, [place] mg 00 First dose Medical on [facility] 07/17/20 at 0900, Until Discontinu ed, Routine aspirin 2020-0 Yes 81mg 81 mg, Univers chewable 07-17 Oral, ity of tablet 81 14:00: DAILY, [place] mg 00 First dose Medical on [facility] 07/17/20 at 0900, Until Discontinu ed, Routine NaCl 0.9% 2020-0 Yes IV Univers (NS) IV 07-17 Infusion, ity of infusion 13:30: at 125 [place] 00 mL/hr, Medical CONTINUOUS Branch , Starting [place] 07/17/20 at 0830, Until Discontinu ed, Routine
Please start after 1L bolus has finished<b r> Sliding 2020-0 Yes Subcutaneo Univ ers Scale 07-17 us, TID ity of Insulin - 13:00: MEALS+HS, [place] as Aspart 00 First dose Medical (NOVOLOG) + on [place] Branch Fsbg 07/17/20 at Testing 0800, Until Discontinu ed, Routine heparin 2020-0 Yes 5000U 5,000 Univers (porcine) 07-17 Units, ity of injection 13:00: Subcutaneo [place] 5,000 Units 00 us, Q12H, Med ical First dose Branch on [place] 07/17/20 at 0800, Until Discontinu ed, Routine NaCl 0.9% 0 2020- No 1000mL at 999 Uni vers (NS) bolus 07-17 mL/hr, ity of infusion 11:30: 10:54 1,000 mL, [place] as 1,000 mL 00 :00 [facility] 1 dose, [place] 07/17/20 at 0630, STAT ondansetron 2020- No 4mg 4 mg, Slow Univers (ZOFRAN 07-17 IV Push, ity of (PF)) 08:30: 07:30 ONCE, 1 [place] injection 4 00 :00 dose, [place] Med ical mg 07/17/20 at Branch 0330, RAKAN NaCl 0.9% 0 2020- No 1000mL at 999 Uni vers (NS) bolus 07-17 mL/hr, ity of infusion 08:15: 08:28 1,000 mL, [place] as 1,000 mL 00 :00 [facility] 1 dose, [place] 07/17/20 at 0315, STAT iohexol 2020-0 2020- No 100mL 100 mL, Unive rs (OMNIPAQUE 07-17 Intravenou it y of 350 07:30: 07:07 s, ONCE, 1 [place] BULK-100 00 :00 dose, [place] Medica l mL) 07/17/20 at [place] injection 0230, 100 mL Routine Ecotrin Low [...] 40 MG 40 MG n 40 MG Glucose Glucose No Glucose testing testing testing strips strips strips Janumet XR Janumet XR No Janumet XR 50-1000 MG 50-1000 MG 50-1000 MG Ecotrin Low Ecotrin Low No Ecotrin Strength Strength Low Strength Carvedilol Carvedilol No 1{table BID Carvedilol 25 MG 25 MG t_with_ 25 MG food} Levemir Levemir No Levemir FlexTouch FlexTouch FlexTouch 100 UNIT/ML 100 UNIT/ML 100 UNIT/ML Losartan Losartan No 1{table QD Losartan Potassium-H Potassium-H t} Potassium- CTZ 100-25 CTZ 100-25 HCTZ MG MG 100-25 MG Glimepiride Glimepiride No Glimepirid 4 MG 4 MG e 4 MG Carvedilol Carvedilol No Carvedilol 25 MG 25 MG 25 MG Lancets 28G Lancets 28G No Lancets 28G Plavix 75 Plavix 75 No 1{table QD Plavix 75 MG MG t} MG Janumet XR Janumet XR No Janumet XR 50-1000 MG 50-1000 MG 50-1000 MG Furosemide Furosemide No 1{table Furosemide 40 MG 40 MG t} 40 MG Tresiba Tresiba No QD Tresiba FlexTouch FlexTouch FlexTouch 100 UNIT/ML 100 UNIT/ML 100 UNIT/ML Carvedilol Carvedilol No Carvedilol 25 MG 25 MG 25 MG Ecotrin Low Ecotrin Low No Ecotrin Strength Strength Low Strength Carvedilol Carvedilol No 1{table BID Carvedilol 25 MG 25 MG t_with_ 25 MG food} Glimepiride Glimepiride No Glimepirid 4 MG 4 MG e 4 MG Glimepiride Glimepiride No 1{table BID Glimepirid 4 MG 4 MG t_with_ e [address]_or_t he_firs t_main_ meal_of _the_da y} Plavix 75 Plavix 75 No 1{table QD Plavix 75 MG MG t} MG Janumet XR Janumet XR No 2{table QD Janumet XR 50-1000 MG 50-1000 MG ts_with 50-1000 MG _evenin g_meal} Levemir Levemir No Levemir FlexTouch FlexTouch FlexTouch 100 UNIT/ML 100 UNIT/ML 100 UNIT/ML Clopidogrel Clopidogrel No 1{table QD Clopidogre Bisulfate Bisulfate t} l 75 MG 75 MG Bisulfate 75 MG Simvastatin Simvastatin No 1{table QD Simvastati 40 MG 40 MG t_in_th n 40 MG e_eveni ng} Lancets 28G Lancets 28G No Lancets 28G Glucose Glucose No Glucose testing testing testing strips strips strips Simvastatin Simvastatin No Simvastati 40 MG 40 MG n 40 MG Glucose Glucose No Glucose testing testing [...] Observation Time Observation Value Comments Source height 2022-11-28 09:00:00 67 [in_i] [facility] weight 2022-11-28 09:00:00 264.6 [lb_av] [facility] temperature 2022-11-28 09:00:00 97.0 [degF] [facility] bmi 2022-11-28 09:00:00 41.44 kg/m2 [facility] oximetry 2022-11-28 09:00:00 97 % [facility] respiratory rate 2022-11-28 09:00:00 17 /min Comm on [facility] blood pressure 2022-11-28 09:00:00 128 mm[Hg] [facility] - systolic [facility] blood pressure 2022-11-28 09:00:00 63 mm[Hg] [facility] - diastolic [facility] height 2022-05-10 13:10:00 67 [in_i] [facility] weight 2022-05-10 13:10:00 266.0 [lb_av] [facility] temperature 2022-05-10 13:10:00 98.7 [degF] [facility] bmi 2022-05-10 13:10:00 41.66 kg/m2 [facility] oximetry 2022-05-10 13:10:00 96 % [facility] respiratory rate 2022-05-10 13:10:00 17 /min Comm on [facility] blood pressure 2022-05-10 13:10:00 137 mm[Hg] Common [facility] - systolic [facility] blood pressure 2022-05-10 13:10:00 77 mm[Hg] Common [facility] - diastolic [facility] height 2022-02-06 15:40:00 67 [in_i] Common S pirit [facility] weight 2022-02-06 15:40:00 261.6 [lb_av] Common [facility] temperature 2022-02-06 15:40:00 98.1 [degF] [facility] bmi 2022-02-06 15:40:00 40.97 kg/m2 [facility] oximetry 2022-02-06 15:40:00 97 % Common [facility] respiratory rate 2022-02-06 15:40:00 17 /min Comm on [facility] blood pressure 2022-02-06 15:40:00 138 mm[Hg] [facility] - systolic [facility] blood pressure 2022-02-06 15:40:00 73 mm[Hg] Common [facility] - diastolic [facility] height 2022-02-06 15:40:00 67 [in_i] Common [facility] weight 2022-02-06 15:40:00 261.6 [lb_av] Common [facility] temperature 2022-02-06 15:40:00 98.1 [degF] Common [facility] bmi 2022-02-06 15:40:00 40.97 kg/m2 Common S [facility] oximetry 2022-02-06 15:40:00 97 % Common [facility] respiratory rate 2022-02-06 15:40:00 17 /min Comm on [facility] blood pressure 2022-02-06 15:40:00 138 mm[Hg] [facility] - systolic [facility] blood pressure 2022-02-06 15:40:00 73 mm[Hg] [facility] - diastolic [facility] height 2021-12-04 14:20:00 67 [in_i] [facility] weight 2021-12-04 14:20:00 246.3 [lb_av] Common [facility] - [facility] temperature 2021-12-04 14:20:00 97.3 [degF] Common S pirit [facility] bmi 2021-12-04 14:20:00 38.57 kg/m2 Common [facility] oximetry 2021-12-04 14:20:00 97 % Common [facility] respiratory rate 2021-12-04 14:20:00 17 /min Comm on [facility] blood pressure 2021-12-04 14:20:00 130 mm[Hg] [facility] - systolic [facility] blood pressure 2021-12-04 14:20:00 67 mm[Hg] [facility] - diastolic [facility] height 2021-11-15 13:10:00 67 [in_i] Common S [facility] weight 2021-11-15 13:10:00 260 [lb_av] Common S pirit [facility] temperature 2021-11-15 13:10:00 98 [degF] Common [facility]irit [facility] bmi 2021-11-15 13:10:00 40.72 kg/m2 [facility] - [facility] blood pressure 2021-11-15 13:10:00 132 mm[Hg] [facility] - systolic [facility] blood pressure 2021-11-15 13:10:00 65 mm[Hg] [facility] - diastolic [facility] height 2021-08-14 13:10:00 67 [in_i] Common S pirit [facility] weight 2021-08-14 13:10:00 262.4 [lb_av] Common [facility] temperature 2021-08-14 13:10:00 98.1 [degF] Common [facility] bmi 2021-08-14 13:10:00 41.09 kg/m2 [facility] oximetry 2021-08-14 13:10:00 96 % [facility] respiratory rate 2021-08-14 13:10:00 17 /min Comm on [facility] blood pressure 2021-08-14 13:10:00 133 mm[Hg] Common [facility] - systolic [facility] blood pressure 2021-08-14 13:10:00 63 mm[Hg] Common [facility] - diastolic [facility] height 2021-05-15 09:40:00 67 [in_i] [facility] weight 2021-05-15 09:40:00 255.8 [lb_av] [facility] temperature 2021-05-15 09:40:00 97.4 [degF] [facility] bmi 2021-05-15 09:40:00 40.06 kg/m2 [facility] oximetry 2021-05-15 09:40:00 96 % [facility] respiratory rate 2021-05-15 09:40:00 18 /min Comm on [facility] blood pressure 2021-05-15 09:40:00 138 mm[Hg] Common [facility] systolic [facility] blood pressure 2021-05-15 09:40:00 62 mm[Hg] Common [facility] diastolic [facility] Systolic blood 2020-07-20 17:26:00 167 mm[Hg] Univer sity of pressure [facility] Diastolic blood 2020-07-20 17:26:00 84 mm[Hg] Unive rsity of pressure [facility] Heart rate 2020-07-20 17:26:00 70 /min [facility] Body temperature 2020-07-20 17:26:00 36.22 Jia Univ ersity [facility] [place] Respiratory rate 2020-07-20 17:26:00 18 /min [facility] Oxygen saturation in 2020-07-20 17:26:00 97 /min University Arterial blood by [facility] Pulse oximetry Branch Body height 2020-07-19 18:31:[address] [facility] Body weight 2020-07-19 18:31:[address] [facility] BMI 2020-07-19 18:31:00 38.40 kg/m2 [facility] Procedures Procedure Date / Time Performing Clinician Source Performed POCT GLUCOSE (AUTOMATED) 2020-07-20 18:09[facility] 2020-07-20 13:42:00 Tere Dumont [facility] [place] MAGNESIUM 2020-07-20 10:57:00 González Ponce [facility] BASIC METABOLIC PANEL 2020-07-20 10:57:00 González Ponce [facility] (NA, K, CL, CO2, GLUCOSE, Medica l Branch BUN, CREATININE, CA) POCT GLUCOSE (AUTOMATED) 2020-07-20 02:48:[address] [facility] POCT GLUCOSE (AUTOMATED) 2020-07-19 22:55:[address] [facility] IR ANGIOGRAM CEREBRAL 2020-07-19 21:45:04 González Ponce [facility] POCT GLUCOSE (AUTOMATED) 2020-07-19 17:00:00 Tere Dumont [facility] [place] CAROTID DUPLEX BILATERAL 2020-07-19 13:57:06 [place] Ponce [facility] BY VASCULAR LAB [facility] POCT GLUCOSE (AUTOMATED) 2020-07-19 13:06:00 Tere Dumont [facility] MAGNESIUM 2020-07-19 10:52:00 González Ponce [facility] BASIC METABOLIC PANEL 2020-07-19 10:52:00 [facility] ([facility], K, CL, CO2, GLUCOSE, Medica l Branch BUN, CREATININE, CA) CBC WITH DIFF 2020-07-19 10:52:00 Jose Goldsmith [facility] PROTHROMBIN TIME / INR 2020-07-19 10:52:00 González Ponce [facility] POCT GLUCOSE (AUTOMATED) 2020-07-19 02:24[facility]00 [facility] ([facility]OMATED) 2020-07-18 21:48:00 [facility] VERIFY[facility] ASPIRIN TEST 2020-07-18 19:30:00 González Ponce [facility] ECHO ROUTINE W/DOPPLER 2020-07-18 18:18:37 Jose Goldsmith [facility] POCT GLUCOSE (AUTOMATED) 2020-07-18 17:07:[address] [facility] POCT GLUCOSE (AUTOMATED) 2020-07-18 13:11:[address] [facility] BASIC METABOLIC PANEL 2020-07-18 10:27:00 Jose Goldsmith [facility] (NA, K, CL, CO2, GLUCOSE, Medica l Branch BUN, CREATININE, CA) CBC WITH DIFF 2020-07-18 10:27:00 Jose Goldsmith [facility] PROTHROMBIN TIME / INR 2020-07-18 10:27:00 [facility] ACTIVATED PARTIAL 2020-07-18 10:27[facility]AST 2020-07-18 04:35:12 Jose Goldsmith [facility] BASIC METABOLIC PANEL 2020-07-18 02:28:00 Bari Gibbons [facility] (NA, K, CL, CO2, GLUCOSE, Medica l Branch BUN, CREATININE, CA) CREATININE, URINE RANDOM 2020-07-18 02:22:00 [facility] [place] UREA NITROGEN, URINE 2020-07-18 02:22[facility] RANDOM 2020-07-18 02:22[facility]00 [facility] ([facility]OMATED) 2020-07-18 02:12:[address] [facility] POCT GLUCOSE (AUTOMATED) 2020-07-17 22:11:[address] [facility] POCT GLUCOSE (AUTOMATED) 2020-07-17 17:30:00 [facility] ([facility]OMATED) 2020-07-17 14:40:[address] [facility] COVID-19 (ID NOW RAPID 2020-07-17 07:40:00 Alida Carpenter [facility] TESTING) Medical Branch CT ANGIOGRAM HEAD 2020-07-17 07:15:16 Singer [facility] CT ANGIOGRAM NECK 2020-07-17 07:15:16 Singer [facility] CT ABDOMEN PELVIS WO 2020-07-17 07:13:32 Alida Carpenter [facility] CONTRAST Medical Branch CT HEAD WO CONTRAST 2020-07-17 07:12:[address] [facility] URINALYSIS 2020-07-17 06:06:00 Singer [facility] XR CHEST 1 VW 2020-07-17 05:52:29 Singer [facility] EKG-12 LEAD 2020-07-17 05:25:31 Singer [facility] TROPONIN I 2020-07-17 05:22:00 Singer [facility] THYROID STIMULATING 2020-07-17 05:22:00 Shira [facility] HORMONE [facility] COMP. METABOLIC PANEL 2020-07-17 05:22:00 Alida Carpenter [facility] ([id number]) [facility] Branch LIPID PANEL ([id number])(TOTAL 2020-07-17 05:22:00 Alida [facility] CHOLESTEROL, Medical Branch TRIGLYCERIDES, HDL) CBC WITH DIFF 2020-07-17 05:22:00 Singer Alida [facility] GLYCOSYLATED HEMOGLOBIN 2020-07-17 05:22:00 Singer Alida [facility] (A[facility] Medical Branch EKG-12 LEAD 2020-07-17 05:18:57 Singer Alida [place] [facility] [facility] EMERGENCY DEPARTMENT 2020-07-17 05:01:00 Doctor Unassigned, [facility] DOCUMENTS [facility] EMERGENCY SERVICES 2020-07-17 05:01:00 [facility] AGREEMENTS AND [facility] AUTHORIZATIONS Encounters Start End Encounter Admission Attending Care Care Encounter Source Date/Time Date/Time Type Type Clinicians Facility Department ID 2022-11-26 Outpatient Arshad, STLMLC STLC [id number] Common 08:43:01 Trell 9[address]64 [facility] 2022-08-09 Outpatient Arshad, STLMLC STLMLC [id number] Common 10:01:01 Trell 12368 [facility] 2021-12-04 Outpatient Arshad, STLMLC STLC [id number] Common 14:22:02 Trell 76861 [facility] 2021-11-15 Outpatient Arshad, STLMLC STLC [id number] Common 13:30:17 Trell 63048 [facility] 2021-11-15 Outpatient Arshad, STLMLC STLMLC [id number] Common 13:29:55 Trell 22263 [facility] 2021-11-15 Outpatient Arshad, STLMLC STLC [id number] Common 13:12:17 Trell 88379 [facility] 2021-11-15 Outpatient Arshad, STLMLC STLMLC [id number] Common 12:55:42 Trell 00508 [facility] 2021-11-15 Outpatient Arshad, STLMLC STLMLC [id number] Common 12:54:02 Trell 26161 [facility] 2021-11-15 Outpatient Arshad, STLMLC STLC [id number] Common 12:41:32 Trell 68325 [facility] 2021-11-15 Outpatient Arshad, STLMLC STLMLC [id number] Common 12:39:04 Trell 24723 [facility] 2021-11-15 Outpatient Arshad, STLMLC STLMLC [id number] Common 10:56:02 Trell [facility] 2022-11-28 2022-11-28 (HOSP F/U) STLMLC STLMLC [id number] Common 00:00:00 00:00:00 Hospital Spiri t Follow Up - [facility] 2022-11-23 2022-11-23 (TEL) STLMLC STLMLC [id number] Co mmon 00:00:00 00:00:00 [facility] 2022-05-10 2022-05-10 OFFICE STLMLC STLMLC [id number] Co mmon 00:00:00 00:00:00 VISIT [facility] PT - CHI LEVEL 4 [facility] 2022-02-06 2022-02-06 OFFICE STLMLC STLMLC [id number] Co mmon 00:00:00 00:00:00 VISIT [facility] PT - CHI LEVEL 4 [facility] 2022-02-06 2022-02-06 SUB ANNUAL STLMLC STLMLC [id number] Common 00:00:00 00:00:00 MCR [facility] - [facility] VISIT [facility] 2021-12-27 2021-12-27 (TEL) STLMLC STLMLC [id number] Co mmon 00:00:00 00:00:00 [facility] 2021-12-04 2021-12-04 (TEL) STLMLC STLMLC [id number] Co mmon 00:00:00 00:00:00 [facility] 2021-12-04 2021-12-04 (HOSP F/U) STLMLC STLMLC [id number] Common 00:00:00 00:00:00 Hospital Spiri t Follow Up - [facility] 2021-11-28 2021-11-28 (TEL) STLMLC STLMLC [id number] Co mmon 00:00:00 00:00:00 [facility] 2021-11-15 2021-11-15 OFFICE STLMLC STLMLC [id number] Co mmon 00:00:00 00:00:00 VISIT [facility] PT - CHI LEVEL 4 [facility] 2021-11-15 2021-11-15 (TEL) STLMLC STLMLC [id number] Co mmon 00:00:00 00:00:00 [facility] 2021-08-14 2021-08-14 OFFICE STLMLC STLMLC [id number] Co mmon 00:00:00 00:00:00 VISIT [facility] PT - CHI LEVEL 4 [facility] 2021-05-15 2021-05-15 OFFICE STLMLC STLMLC [id number] Co mmon 00:00:00 00:00:00 VISIT [facility] PT - CHI LEVEL 4 [facility] 2021-05-08 2021-05-08 Outpatient STLMLC STLMLC [id number] Common 00:00:00 00:00:00 [facility] 2021-03-31 2021-03-31 Outpatient STLMLC STLMLC [id number] Common 00:00:00 00:00:00 [facility] 2021-03-09 2021-03-09 Outpatient STLMLC STLMLC [id number] Common 00:00:00 00:00:00 [facility] 2021-02-13 2021-02-13 Outpatient STLMLC STLMLC [id number] Common 00:00:00 00:00:00 [facility] 2021-02-13 2021-02-13 Outpatient STLMLC STLMLC [id number] Common 00:00:00 00:00:00 [facility] 2021-02-07 2021-02-07 Outpatient STLMLC STLMLC [id number] Common 00:00:00 00:00:00 [facility] 2020-12-29 2020-12-29 Outpatient STLMLC STLMLC [id number] Common 00:00:00 00:00:00 [facility] 2020-07-21 2020-07-21 Olivia Beal [id number] [facility] 00:00:00 00:00:00 of Karen Stuart 350.1.13.10 it y of Josh 4.2.7.2.686 [facility] [phone] [place] [address] Branch 2020-07-17 2020-07-20 Hospital Alida Carpenter [id number] Univers 00:15:00 16:05:00 Encounter Tere Dumont 350.1.13. 10 ity [facility] 4.2.7.2.686 [facility] [phone] [place] [address] Branch 2020-07-17 2020-07-17 Emergency X [facility] ERT [id number] Univers 00:15:00 00:15:00 ALIDA jaime [facility] Results Test Description Test Time Test Comments Results Result Comments Source POCT GLUCOSE (AUTOMATED) 2020-07-20 18:21:00 Test Item Value Reference Range Interpretation Comme nts POCT GLU (test code = 7046473205) 189 mg/dL 70-110 H Lab Interpretation (test code = 84596-6) Abnormal [facility]2020-07-20 13:45:00 Test Item Value Reference Range Interpretation Comments POCT GLU (test code = 7205931876) 353 mg/dL 70-110 H Lab Interpretation (test code = Abnormal 52652-5) [facility] (NA, K, CL, CO2, GLUCOSE, BUN, CREATININE, CA)2020-07-20 11:48:00 Test Item Value Reference Range Interpretation Comments NA (test code = 141 mmol/L 135-145 4819068690) K (test code = 4.3 mmol/L 3.5-5 1257671882) CL (test code = 113 mmol/L 98-108 H 6332939331) CO2 TOTAL (test code = 21 mmol/L 23-31 L 0789338398) AGAP (test code = 2-16 0838619082) BUN (test code = 16 mg/dL 7-23 2349873494) GLUCOSE (test code = 189 mg/dL 70-110 H 9269242154) CREATININE (test code = 1.44 mg/dL 0.6-1.25 H 6843391992) CALCIUM (test code = 8.5 mg/dL 8.6-10.6 L 7043560581) eGFR Calculation mL/min/1.73m2 (Non-) (test code = 4022813706) eGFR Calculation mL/min/1.73m2 () (test code = 9610855115) SHAKIRA (test code = SHAKIRA) Association of [...] tests). Lab Interpretation Abnormal (test code = 46166-0) [facility]30 11:48:00 Test Item Value Reference Range Interpretation Comments MAGNESIUM (test code = 2053550700) 2.0 mg/dL 1.7-2.4 Lab Interpretation (test code = Normal 84772-6) [facility] GLUCOSE (AUTOMATED)2020-07-20 02:49:00 Test Item Value Reference Range Interpretation Comments POCT GLU (test code = 9036611432) 205 mg/dL 70-110 H Lab Interpretation (test code = Abnormal 73191-1) [facility] GLUCOSE (AUTOMATED)2020-07-19 22:58:00 Test Item Value Reference Range Interpretation Comments POCT GLU (test code = 6450216681) 139 mg/dL 70-110 H Lab Interpretation (test code = Abnormal 10612-3) [facility] GLUCOSE (AUTOMATED)2020-07-19 17:03:00 Test Item Value Reference Range Interpretation Comments POCT GLU (test code = 8268655695) 174 mg/dL 70-110 H Lab Interpretation (test code = Abnormal 16688-6) [facility] GLUCOSE (AUTOMATED)2020-07-19 13:11:00 Test Item Value Reference Range Interpretation Comments POCT GLU (test code = 8714342984) 183 mg/dL 70-110 H Lab Interpretation (test code = Abnormal 50416-4) [facility] Metabolic Panel (NA, K, CL, CO2, GLUCOSE, BUN, CREATININE, CA)2020-07-19 11:42:00 Test Item Value Reference Range Interpretation Comments NA (test code = 140 mmol/L 135-145 8518072221) K (test code = 4.4 mmol/L 3.5-5 8517431510) CL (test code = 113 mmol/L 98-108 H 7795712223) CO2 TOTAL (test code = 19 mmol/L 23-31 L 8398114623) AGAP (test code = 2-16 8231919983) BUN (test code = 27 mg/dL 7-23 H 9854481578) GLUCOSE (test code = 156 mg/dL 70-110 H 4355479376) CREATININE (test code = 2.29 mg/dL 0.6-1.25 H 4901998890) CALCIUM (test code = 8.1 mg/dL 8.6-10.6 L 4678831976) eGFR Calculation mL/min/1.73m2 (Non-) (test code = 7022380604) eGFR Calculation mL/min/1.73m2 () (test code = 7332102029) SHAKIRA (test code = SHAKIRA) Association of [...] tests). Lab Interpretation Abnormal (test code = 50276-2) [facility]2020-09-29 11:42:00 Test Item Value Reference Range Interpretation Comments MAGNESIUM (test code = 0552926723) 2.0 mg/dL 1.7-2.4 Lab Interpretation (test code = Normal 26470-9) [facility] Alice[facility] / [id number] 11:31:00 Test Item Value Reference Range Interpretation Comments PROTIME PATIENT (test See_Comment H [Auto mated message] code = 5964-2) The system [employer] generated this result transmitted ref erence range: 10.1 - 1 2.6 Seconds. The reference range was not used to int erpret this result as normal/abnormal . INR (test code = 6301-6) Nor mal INR <1.1; Warfarin Therap eutic range 2.0 to 3. 0 or 2.5 to 3.5, dep ending upon the indica tions. Lab Interpretation (test Abnormal code = 65755-1) [facility] WITH [id number] 11:09:00 Test Item Value Reference Range Interpretation [...] RDW-SD (test code = 42.7 fL 38.5-51.6 33591-2) RDW-CV (test code = 13.3 % 12.1-15.4 788-0) PLT (test code = See_Comment [Automated 777-3) message] The sy stem which generated this result transmitted reference range : 150 - 328 10*3/ ?L. The reference r rossy was not used to interpret this result as normal/abnormal . MPV (test code = 9.2 fL 9.8-13 L 81267-4) NRBC/100 WBC (test See_Comment [Automat ed code = 2803314454) message] The system which generated this result transmitted reference range : 0.0 - 10.0 /100 WBCs. The refer ence range was not u sed to interpret th is result as normal/abnormal . NRBC x10^3 (test code <0.01 See_Comment [Auto mated = 8745498987) message] The s ystem which generated this result transmitted reference range : 10*3/?L. The reference range was not used to interpret this result as normal/abnormal . GRAN MAT (NEUT) % 68.1 % (test code = 770-8) IMM GRAN % (test code 0.40 % = 1019865013) LYMPH % (test code = 19.5 % 736-9) MONO % (test code = 9.2 % 5905-5) EOS % (test code = 2.4 % 713-8) BASO % (test code = 0.4 % 706-2) GRAN MAT x10^3(ANC) 4.88 10*3/uL 1.99-6.95 (test code = 6269443765) IMM GRAN x10^3 (test 0.03 10*3/uL 0-0.06 code = 8723424543) LYMPH x10^3 (test code 1.40 10*3/uL 1.09-3.23 = 731-0) MONO x10^3 (test code 0.66 10*3/uL 0.36-1.02 = 742-7) EOS x10^3 (test code = 0.17 10*3/uL 0.06-0.53 711-2) BASO x10^3 (test code 0.03 10*3/uL 0.01-0.09 = 704-7) Lab Interpretation Abnormal (test code = 30867-5) [facility] GLUCOSE (AUTOMATED)2020-07-19 02:24:00 Test Item Value Reference Range Interpretation Comments POCT GLU (test code = 6747849533) 211 mg/dL 70-110 H Lab Interpretation (test code = Abnormal 10697-2) [facility] GLUCOSE (AUTOMATED)2020-07-18 21:49:00 Test Item Value Reference Range Interpretation Comments POCT GLU (test code = 5491018644) 147 mg/dL 70-110 H Lab Interpretation (test code = Abnormal 07836-8) [facility]IFY[facility] ASPIRIN [id number] 20:11:00 Test Item Value Reference Range Interpretation Comments VerifyNow Aspirin See Comment ARU Test (test code = 5756099610) SHAKIRA (test code = < 550 ARU [...] clinical data available to the clinician. [facility]2020-07-18 17:08:00 Test Item Value Reference Range Interpretation Comments POCT GLU (test code = 3217356649) 233 mg/dL 70-110 H Lab Interpretation (test code = Abnormal 82250-8) [facility] AliceMR BRAIN WO [id number] 16:11:19 Impression: Acute infarctions in the right [...] white matter.Preliminary Report Dictated by Resident: Carol Andrade MD., have reviewed this study and agree with theabove report.[facility]2020-07-18 13:12:00 Test Item Value Reference Range Interpretation Comments POCT GLU (test code = 6098188706) 134 mg/dL 70-110 H Lab Interpretation (test code = Abnormal 86424-5) [facility] AlicePROT[facility]OM[facility] / [id number] 11:34:00 Test Item Value Reference Range Interpretation Comments PROTIME PATIENT (test See_Comment H [Auto mated message] code = 5964-2) The system [employer] generated this result transmitted ref erence range: 10.1 - 1 2.6 Seconds. The reference range was not used to int erpret this result as normal/abnormal . INR (test code = 6301-6) Nor mal INR <1.1; Warfarin Therap eutic range 2.0 to 3. 0 or 2.5 to 3.5, dep ending upon the indica tions. Lab Interpretation (test Abnormal code = 27860-8) [facility] AliceaPTT2020-09-28 11:34:00 Test Item Value Reference Range Interpretation Comments APTT Patient (test code See_Comment L [Au tomated message] = 3173-2) The system [employer] generated this result transmitted ref erence range: 26 - 36 Seconds. The reference range was not used to int erpret this result as normal/abnormal . Lab Interpretation (test Abnormal code = 62654-1) [facility] Metabolic Panel (NA, K, CL, CO2, GLUCOSE, BUN, CREATININE, CA)2020-07-18 10:52:00 Test Item Value Reference Range Interpretation Comments NA (test code = 141 mmol/L 135-145 1948580427) K (test code = 4.4 mmol/L 3.5-5 2179696165) CL (test code = 112 mmol/L 98-108 H 0329424012) CO2 TOTAL (test code = 20 mmol/L 23-31 L 0224285692) AGAP (test code = 2-16 3178206216) BUN (test code = 28 mg/dL 7-23 H 7613998748) GLUCOSE (test code = 116 mg/dL 70-110 H 4392749016) CREATININE (test code = 2.30 mg/dL 0.6-1.25 H 3037268856) CALCIUM (test code = 7.9 mg/dL 8.6-10.6 L 0776198373) eGFR Calculation mL/min/1.73m2 (Non-) (test code = 3872669710) eGFR Calculation mL/min/1.73m2 () (test code = 3188790200) SHAKIRA (test code = SHAKIRA) Association of [...] tests). Lab Interpretation Abnormal (test code = 38189-1) [facility] WITH [id number] 10:52:00 Test Item Value Reference Range Interpretation Comments WBC (test code = See_Comment [Automated 9390-2) message] The sy stem which generated this result transmitted reference range : 4.20 - 10.70 10*3/?L. The reference range was not used to interpret this result as normal/abnormal . RBC (test code = See_Comment L [Automated 389-8) message] The sy stem which generated this [...] RDW-SD (test code = 43.8 fL 38.5-51.6 85248-4) RDW-CV (test code = 13.4 % 12.1-15.4 788-0) PLT (test code = See_Comment [Automated 777-3) message] The sy stem which generated this result transmitted reference range : 150 - 328 10*3/ ?L. The reference r rossy was not used to interpret this result as normal/abnormal . MPV (test code = 9.1 fL 9.8-13 L 28123-6) NRBC/100 WBC (test See_Comment [Automat ed code = 8509150147) message] The system which generated this result transmitted reference range : 0.0 - 10.0 /100 WBCs. The refer ence range was not u sed to interpret th is result as normal/abnormal . NRBC x10^3 (test code <0.01 See_Comment [Auto mated = 3320274563) message] The s ystem which generated this result transmitted reference range : 10*3/?L. The reference range was not used to interpret this result as normal/abnormal . GRAN MAT (NEUT) % 65.9 % (test code = 770-8) IMM GRAN % (test code 0.40 % = 9902239323) LYMPH % (test code = 21.8 % 736-9) MONO % (test code = 9.5 % 5905-5) EOS % (test code = 2.1 % 713-8) BASO % (test code = 0.3 % 706-2) GRAN MAT x10^3(ANC) 5.07 10*3/uL 1.99-6.95 (test code = 6446819214) IMM GRAN x10^3 (test 0.03 10*3/uL 0-0.06 code = 2622366601) LYMPH x10^3 (test code 1.68 10*3/uL 1.09-3.23 = 731-0) MONO x10^3 (test code 0.73 10*3/uL 0.36-1.02 = 742-7) EOS x10^3 (test code = 0.16 10*3/uL 0.06-0.53 711-2) BASO x10^3 (test code <0.03 0.01-0.09 = 704-7) Lab Interpretation Abnormal (test code = 50043-4) [facility] Alice[facility]YROID STIMULATING [id number] 03:37:00 Test Item Value Reference Range Interpretation Comments TSH (test code = See_Comment Biotin has been 8009589927) reported to cau se a negative bias, interpret resul ts relative to pat ient's use of biotin. [Automated mess age] The system [employer] generated this result transmitted ref erence range: 0.45 - 4 .70 mIU/L. The refe rence range was not u sed to interpret this result as normal/abnor mal. Lab Interpretation (test Normal code = 99658-8) [facility] AliceSODIUM, URINE [id number] 02:48:00 Test Item Value Reference Range Interpretation Comments NA URINE (test code = 2864820700) 129 mmol/L [facility] AliceCREATININE, URINE [id number] 02:48:00 Test Item Value Reference Range Interpretation Comments CREAT U (test code = 8095282349) 112.6 mg/dL [facility] AliceUREA NITROGEN, URINE [id number] 02:48:00 Test Item Value Reference Range Interpretation Comments UREA N UR (test code = 5444422100) 808 mg/dL [facility] Alice[facility] Metabolic Panel (NA, K, CL, CO2, GLUCOSE, BUN, CREATININE, CA)2020-07-18 02:48:00 Test Item Value Reference Range Interpretation Comments NA (test code = 138 mmol/L 135-145 8174617750) K (test code = 4.5 mmol/L 3.5-5 6514503931) CL (test code = 110 mmol/L 98-108 H 2964040619) CO2 TOTAL (test code = 22 mmol/L 23-31 L 4586318615) AGAP (test code = 2-16 7663008431) BUN (test code = 29 mg/dL 7-23 H 8512321397) GLUCOSE (test code = 193 mg/dL 70-110 H 6961605660) CREATININE (test code = 2.34 mg/dL 0.6-1.25 H 2885036834) CALCIUM (test code = 8.1 mg/dL 8.6-10.6 L 1650523262) eGFR Calculation mL/min/1.73m2 (Non-) (test code = 5775420678) eGFR Calculation mL/min/1.73m2 () (test code = 7284803461) SHAKIRA (test code = SHAKIRA) Association of [...] tests). Lab Interpretation Abnormal (test code = 41354-1) [facility] GLUCOSE (AUTOMATED)2020-07-18 02:13:00 Test Item Value Reference Range Interpretation Comments POCT GLU (test code = 5591055972) 193 mg/dL 70-110 H Lab Interpretation (test code = Abnormal 50620-4) [facility] GLUCOSE (AUTOMATED)2020-07-17 22:12:00 Test Item Value Reference Range Interpretation Comments POCT GLU (test code = 9426134498) 178 mg/dL 70-110 H Lab Interpretation (test code = Abnormal 89014-9) [facility]2020-07-17 17:41:00 Test Item Value Reference Range Interpretation Comments POCT GLU (test code = 7211130158) 166 mg/dL 70-110 H Lab Interpretation (test code = Abnormal 70280-0) [facility] AliceXR CHEST 1 [id number] 15:17:07 No acute intrathoracic abnormality. Preliminary Report Dictated by Resident: Javi Hancock MD., have reviewed this study and agree with the abovereport.PROCEDURE: XR CHEST 1 VW CLINICAL INDICATION: stroke COMPARISON: None FINDINGS: The lungs are clear. No pleural effusion or pneumothorax is seen. The heartis normal in size. No acute bony abnormality. [facility], Radiant Results Inft User 07/17/2020 10:18 AM CDTPROCEDURE: XR CHEST 1 VWCLINICAL INDICATION: strokeCOMPARISON: NoneFINDINGS:The lungs are clear. No pleural effusion or pneumothorax is seen. 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 [...] be infundibulum, aneurysm not excluded. Attention onfollow-up. I, Tamar Ford MD., have reviewed this study and agree with theabove report.[facility] ANGIO[facility] [id number] 15:03:11 Complete occlusion of the right proximal [...] ophthalmic artery with attenuation of the distal K5vutzmvqf on theright-sided in comparison to the left. [...] this study and agree with theabove report.[facility] GL[facility]SE (AUTOMATED)2020-07-17 14:51:00 Test Item Value Reference Range Interpretation Comments POCT GLU (test code = 3625529718) 163 mg/dL 70-110 H Lab Interpretation (test code = Abnormal 15218-4) [facility] HEAD WO [id number] 14:36:44 Small right frontal lobe infarct. ASPECTS [...] this study and agree with theabove report.[facility] AliceCT ABDOMEN PELVIS WO [id number] 14:21:29 1. 3 mm obstructing right distal [...] severe spondylosis are seen at L4-L5 and L5-X3TKKOBWXTGZ9. 3 mm obstructing right dista l ureteric stone with mild upstreamhydroureteronephrosis.2. Diverticulosis of the sigmoid colon without CT evidence ofdiverticulitis3. Fat-containing umbilical hernia.Preliminary Report Dictated by Resident: Bhavya Hart, Javi Das MD., have reviewed this study and agree w ith the abovereport.[facility] AliceCOVID-19 (ID NOW RAPID TESTING)2020-07-17 08:04:00 Test Item Value Reference Range Interpretation Comments SARS-CoV-2 Rapid ID NOW Not Detected Not Detected (test code = 22003-0) SHAKIRA (test code = SHAKIRA) ID NOW COVID-19 Assay is an isothermal nucleic acid amplification test intended for the qualitative detection of nucleic acid from SARS-CoV-2 viral RNA in nasopharyngeal (NURSE PRIVATE DUTY) specimens. It is used under Emergency Use [...] indicated. Lab Interpretation Normal (test code = 73876-6) [facility] AliceURINALYSIS2020-09-27 06:24:00 Test Item Value Reference Range Interpretation Comments APPEARANCE (test code = Clear Clear 8554329594) COLOR (test code = Yellow Yellow 7384548107) PH (test code = 4.8-8.0 7384328552) SP GRAVITY (test code = 1.003-1.030 0497205365) GLU U QUAL (test code = Normal Normal 0597733197) BLOOD (test code = 1+ Negative A 0407363967) KETONES (test code = Negative Negative 7252314065) PROTEIN (test code = Negative Negative 2887-8) UROBILIN (test code = 2.0 mg/dL Normal A 9228690950) BILIRUBIN (test code = Negative Negative 2786964204) NITRITE (test code = Negative Negative 5949411003) LEUK MARLENE (test code = Negative Negative 1870782951) RBC/HPF (test code = See_Comment H [Autom ated message] 6344059379) The system [employer] generated this result transmit chris reference range : 0 - 3 HPF. The refe rence range was not u sed to interpret th is result as normal/abnormal . WBC/HPF (test code = See_Comment [Autom ated message] 9594027344) The system [employer] generated this result transmit chris reference range : 0 - 5 HPF. The refe rence range was not u sed to interpret th is result as normal/abnormal . BACTERIA (test code = Few Negative A 1124195621) SQ EPITH (test code = <1 HPF 3580646307) Lab Interpretation (test Abnormal code = 74184-0) [facility] AliceGLYCOSYLATED HEMOGLOBIN (A1C)2020-07-17 05:56:00 Test Item Value Reference Range Interpretation Comments HGB A1C (test code = 7.7 % 4-6 H 4548-4) SHAKIRA (test code = SHAKIRA) %A1C (NGSP) Interpretation (ADA)4.8-5.6 ? ? Normal or (Non-Diabetic Range)5.7-6.4 ? ? Increased Risk (Pre-Diabetic)>6.5 ?Diabetes Indicated Lab Interpretation Abnormal (test code = 13020-7) [facility] AliceTROPONIN [id number] 05:56:00 Test Item Value Reference Range Interpretation Comments TROPONIN I (test 0.001 ng/mL See_Comment [Automated code = 3236080771) message] The system which generated this result [...] ? Lab Interpretation Normal (test code = 89245-3) [facility]. METABOLIC PANEL (15224)2020-07-17 05:43:00 Test Item Value Reference Range Interpretation Comments NA (test code = 139 mmol/L 135-145 2081701944) K (test code = 4.3 mmol/L 3.5-5 8088524721) CL (test code = 106 mmol/L 98-108 1872128357) CO2 TOTAL (test code = 24 mmol/L 23-31 2446505836) AGAP (test code = 2-16 9137005643) BUN (test code = 29 mg/dL 7-23 H 4413008807) GLUCOSE (test code = 178 mg/dL 70-110 H 6124209512) CREATININE (test code = 2.55 mg/dL 0.6-1.25 H 8454509426) TOTAL BILI (test code = 0.7 mg/dL 0.1-1.3 5405391932) CALCIUM (test code = 8.8 mg/dL 8.6-10.6 6359292305) T PROTEIN (test code = 6.8 g/dL 6.3-8.2 7680685020) ALBUMIN (test code = 3.7 g/dL 3.5-5 2213933915) ALK PHOS (test code = 75 U/L 34-122 9956258819) ALTv (test code = 14 U/L 5-50 1742-6) AST(SGOT) (test code = 17 U/L 13-40 4329781440) eGFR Calculation mL/min/1.73m2 (Non-) (test code = 6082029755) eGFR Calculation mL/min/1.73m2 () (test code = 0631791345) SHAKIRA (test code = SHAKIRA) Association of [...] tests). Lab Interpretation Abnormal (test code = 41347-8) [facility]TOTAL CHOLESTEROL, TRIGLYCERIDES, HDL)2020-07-17 05:43:00 Test Item Value Reference Range Interpretation Comments CHOL (test code = 105 mg/dL 120-200 L [id number]) HDL (test code = 32 mg/dL >40 L [id number]) HDLC RATIO (test code = See_Comment [Au tomated message] [id number]) The system [employer] generated this result transmit chris reference range : <=5.0. The refe rence range was not u sed to interpret th is result as normal/abnormal . TRIG (test code = 104 mg/dL 30-170 [id number]) LDL CHOL (test code = 52 mg/dL See_Comment [Auto mated message] 66447-3) The system [employer] generated this result transmit chris reference range : <=160. The refe rence range was not u sed to interpret th is result as normal/abnormal . VLDL (test code = 21 mg/dL 5-60 [id number]) Lab Interpretation (test Abnormal code = 41176-5) [facility] WITH [id number] 05:28:00 Test Item Value Reference Range Interpretation [...] RDW-SD (test code = 43.8 fL 38.5-51.6 53906-7) RDW-CV (test code = 13.3 % 12.1-15.4 788-0) PLT (test code = See_Comment [Automated 777-3) message] The sy stem which generated this result transmitted reference range : 150 - 328 10*3/ ?L. The reference r rossy was not used to interpret this result as normal/abnormal . MPV (test code = 9.2 fL 9.8-13 L 62544-6) NRBC/100 WBC (test See_Comment [Automat ed code = [id number]) message] The system which generated this result transmitted reference range : 0.0 - 10.0 /100 WBCs. The refer ence range was not u sed to interpret th is result as normal/abnormal . NRBC x10^3 (test code <0.01 See_Comment [Auto mated = [id number]) message] The s ystem which generated this result transmitted reference range : 10*3/?L. The reference range was not used to interpret this result as normal/abnormal . GRAN MAT (NEUT) % 68.5 % (test code = 770-8) IMM GRAN % (test code 0.70 % = [id number]) LYMPH % (test code = 18.5 % 736-9) MONO % (test code = 10.6 % 5905-5) EOS % (test code = 1.3 % 713-8) BASO % (test code = 0.4 % 706-2) GRAN MAT x10^3(ANC) 6.31 10*3/uL 1.99-6.95 (test code = 4306976233) IMM GRAN x10^3 (test 0.06 10*3/uL 0-0.06 code = 5155562853) LYMPH x10^3 (test code 1.70 10*3/uL 1.09-3.23 = 731-0) MONO x10^3 (test code 0.98 10*3/uL 0.36-1.02 = 742-7) EOS x10^3 (test code = 0.12 10*3/uL 0.06-0.53 711-2) BASO x10^3 (test code 0.04 10*3/uL 0.01-0.09 = 704-7) Lab Interpretation Abnormal (test code = 03084-3) [facility]"
[2023-04-14] MEDS ORDERED: HYDROCODONE/APAP 7.5/325 MG TAB ONE (17:25)
[2023-04-14] MEDS ORDERED: LIDOCAINE HCL JELLY 2% 6 ML SYRINGE TOP ONE (17:25)
[2023-04-14] MEDS ORDERED: TDAP (DIPHTH,PERTUSS(ACELL),TET VAC) 0.5 ML VIAL IMVAC ONE (17:26)
[2023-04-14] MEDS ORDERED: LIDOCAINE 1% W/EPI 1:100,000 50 ML MDV ONE (18:37)
--- NOTE | 2023-04-14 19:06 | EDPHYS ---
Physician Documentation [facility] Name: Augustine Gooden Age: 73 yrs Sex: Male : 1950 Arrival Date: 04/14/2023 Time: 16:24 Bed 10 Private MD: Jeancarlos [facility] ED Physician Husam Nicolas HPI: 04/14 17:10 This 73 yrs old Male presents to ER via Ambulatory with complaints of Hand Injury, cp Laceration To Hand. 17:10 The patient or guardian reports injury, a laceration, irregular. The complaints affect cp the dorsum of right hand. 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 Onset: The symptoms/episode began/occurred just prior to arrival. Associated signs and symptoms: Pertinent negatives: cyanosis distally, numbness distally. Historical: - Allergies: 17:00 Codeine; ll1 - PMHx: 17:00 Diabetes - IDDM; Hyperlipidemia; Hypertension; ll1 - Immunization history:: Client reports having NOT received the Covid vaccine. - Social history:: Smoking status: Patient denies any tobacco usage or history of. ROS: 17:15 Constitutional: Negative for body aches, chills, fever, poor PO intake. cp 17:15 Cardiovascular: Negative for chest pain. cp 17:15 Respiratory: Negative for cough, shortness of breath, wheezing. 17:15 Abdomen/GI: Positive for of the upper abdomen, abrasion. 17:15 MS/extremity: Positive for laceration, pain, of the dorsal side of right hand, Negative for paresthesias. 17:15 All other systems are negative. Exam: 17:20 Constitutional: The patient appears in no acute distress, alert, awake, non-toxic, well cp developed, well nourished. 17:20 Head/Face: Normocephalic, atraumatic. cp 17:20 Chest/axilla: Inspection: normal, Palpation: is normal, no crepitus, no tenderness. cp 17:20 Cardiovascular: Rate: normal, Pulses: Pulses are 2+ in right radial artery. 17:20 Respiratory: the patient does not display signs of respiratory distress, Respirations: normal, no use of accessory muscles, no retractions, labored breathing, is not present, Breath sounds: are clear throughout, no decreased breath sounds, no stridor, no wheezing. 17:20 Abdomen/GI: Inspection: bruising, mid upper abdomen, superficial abrasion, Bowel sounds: active, all quadrants, Palpation: soft, in all quadrants, mild abdominal tenderness, in the mid upper abdomen, rebound tenderness, is not appreciated, involuntary guarding, is not appreciated. 17:20 Back: pain, is absent, ROM is normal. 17:20 Musculoskeletal/extremity: Extremities: grossly normal except: noted in the dorsal of right hand: pain, tenderness, deep, irregular shaped skin tear with mild bleeding. xam of wound does not show tendon injury, full active ROM each digit, sensation intact. Vital Signs: 16:59 BP 140 / 76; Pulse 73; Resp 17; Temp 98.2; Pulse Ox 97% ; Weight 119.75 kg; Height 5 ll1 ft. 9 in. ; Pain 5/10; 19:30 Resp 20; kl 16:59 Body Mass Index 38.99 (119.75 kg, 175.26 cm) ll1 16:59 Pain Scale: Adult ll1 Laceration: 19:00 Wound Repair of 12cm ( 4.7in ) subcutaneous laceration to dorsal side of right hand. cp Irregularly shaped.. Skin/tissue flap noted.. Distal neuro/vascular/tendon intact. Anesthesia: Wound infiltrated with 10 mls of 1% lidocaine w/ Epi. Wound prep: Moderate cleansing by me, Wound irrigation by me. Skin closed with 10 5-0 Prolene using interrupted sutures and sterile technique. Dressed with Bacitracin, 4x4's. Patient tolerated well. MDM: 17:03 Patient medically screened. cp 18:00 Differential diagnosis: open fracture, contusion, abrasion, tendon injury, skin cp avulsion. 19:05 Data reviewed: vital signs, nurses notes, radiologic studies, plain films. cp 19:05 I considered the following discharge prescriptions or medication management in the emergency department Medications were administered in the Emergency Department. See MAR. Care significantly affected by the following chronic conditions: Diabetes, Hypertension. Counseling: I had a detailed discussion with the patient and/or guardian regarding: the historical points, exam findings, and any diagnostic results supporting the discharge/admit diagnosis, radiology results, the need for outpatient follow up, a hand specialist, to return to the emergency department if symptoms worsen or persist or if there are any questions or concerns that arise at home. Response to treatment: the patient's symptoms have markedly improved after treatment, and as a result, I will discharge patient. Special discussion: I discussed in detail with the patient the higher chance of wound infection based on his presenting history. 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 cm10 Exp: 09/07/2023. Lot #: [id number]. } Route: IM; Site: right deltoid; 17:46 Follow up: Response: (VIS) Vaccine information sheet provided today. Questions and/or cm10 concerns addressed. VIS edition date: May 26, 2021.; No adverse reaction 17:27 Not Given (Patient Refused): Hydrocodone-Acetaminophen PO (7.5 mg-325 mg) 1 tabs PO cm10 once; RASS on ADMIN: Combtv4, Very Agttd3, Agttd2, Rstlss1, AlertClm0, Drwsy-1, Lt Sdtn-2, Mod Sdtn-3, Dp Sdtn-4, UnArsble-5 17:27 Drug: Lidocaine Mucous Membrane Gel 2 % 1 ea Volume: 15 ml; Route: Mucous Membrane; cm10 18:48 Drug: Lidocaine-Epinephrine Infiltration -1%: (1:100,000) 10 ml Volume: 20 ml; Route: cm10 Infiltration; 19:29 Drug: Cephalexin PO 1000 mg Route: PO; Disposition Summary: 04/14/23 19:05 Discharge Ordered Location: Home cp Problem: new cp Symptoms: have improved cp Condition: Stable cp Diagnosis - Laceration without foreign body of right hand, initial encounter cp Followup: cp - With: Mandeep Carballo MD - When: 2 - 3 days - Reason: Wound Recheck Discharge Instructions: - Discharge Summary Sheet cp - Laceration Care, Adult cp - Sutured Wound Care cp Forms: - Medication Reconciliation Form cp - Thank You Letter cp - Antibiotic Education cp - Prescription Opioid Use cp Prescriptions: - Cephalexin 500 mg Oral Capsule - take 1 capsule by ORAL route every 8 hours for 10 days; 30 capsule; Refills: 0, cp Product Selection Permitted - Ibuprofen 800 mg Oral Tablet - take 1 tablet by ORAL route every 8 hours As needed take with food; 30 tablet; cp Refills: 0, Product Selection Permitted Signatures: Dispatcher [employer] EDGianna Ring RN RN kl Page, Corey, PA PA Mary Jones RN RN ll1 Susanne Paz RN RN cm10 Corrections: (The following items were deleted from the chart) 19: 19:05 Splint - Volar Wrist Splint ordered. [facility] 04/15 18:27 04/14 19:00 Wound Repair of 12cm ( 4.7in ) subcutaneous laceration to dorsal side of cp right hand. Irregularly shaped.. Skin/tissue flap noted.. Distal neuro/vascular/tendon intact. Anesthesia: Wound infiltrated with 10 mls of 1% lidocaine w/ Epi. Wound prep: Moderate cleansing by me, Wound irrigation by me. Skin closed with 10 5-0 Prolene using interrupted sutures and sterile technique. Dressed with Bacitracin, 4x4's. Patient tolerated well. 04/15 18:28 04/14 19:00 Wound Repair of 12cm ( 4.7in ) subcutaneous laceration to dorsal side of cp right hand. Irregularly shaped.. Skin/tissue flap noted.. Distal neuro/vascular/tendon intact. Anesthesia: Wound infiltrated with 10 mls of 1% lidocaine w/ Epi. Wound prep: Moderate cleansing by me, Wound irrigation by me. Skin closed with 10 5-0 Prolene using interrupted sutures and sterile technique. Dressed with Bacitracin, 4x4's. Patient tolerated well. cp
--- NOTE | 2023-04-14 19:06 | ER ---
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 Abrasions upper ll1 abdomen. No active bleeding. on blood thinners. Coronavirus screen: Vaccine status: Patient reports being unvaccinated. Client denies travel out of the [place] in the last 14 days. At this time, the client does not indicate any symptoms associated with coronavirus-19. Ebola Screen: Patient denies travel to an Ebola-affected area in the 21 days before illness onset. Initial Sepsis Screen: Does the patient meet any 2 criteria? No. Patient's initial sepsis screen is negative. Does the patient have a suspected source of infection? Yes: Skin breakdown/wound. Risk Assessment: Do you want to hurt yourself or someone else? Patient reports no desire to harm self or others. Onset of symptoms was April 14, 2023. 16:59 Method Of Arrival: Ambulatory ll1 16:59 Acuity: JULIUS 3 ll1 Triage Assessment: 17:01 General: Appears uncomfortable, Behavior is calm, cooperative, appropriate for age. ll1 Pain: Complains of pain in right hand Pain currently is 5 out of 10 on a pain scale. Derm: R hand laceration, upper abdominal abrasion. Musculoskeletal: Circulation, motion, and sensation intact. Capillary refill < 3 seconds. 18:56 Injury Description: Laceration sustained to right hand. cm10 Historical: - Allergies: 17:00 Codeine; ll1 - PMHx: 17:00 Diabetes - IDDM; Hyperlipidemia; Hypertension; ll1 - Immunization history:: Client reports having NOT received the Covid vaccine. - Social history:: Smoking status: Patient denies any tobacco usage or history of. Screenin:55 [facility] ED Fall Risk Assessment (Adult) History of falling in the last 3 months, cm10 including since admission No falls in past 3 months (0 pts) Confusion or Disorientation No (0 pts) Intoxicated or Sedated No (0 pts) Impaired Gait No (0 pts) Mobility Assist Device Used No (0 pt) Altered Elimination No (0 pt) Score/Fall Risk Level 0 - 2 = Low Risk. Abuse screen: Denies threats or abuse. Denies injuries from another. Nutritional screening: No deficits noted. Tuberculosis screening: No symptoms or risk factors identified. Assessment: 18:54 Reassessment: No changes from previously documented assessment. Neuro: No deficits cm10 noted. Level of Consciousness is awake, alert, Oriented to person, place, time, situation. Respiratory: No deficits noted. Airway is patent Respiratory effort is even, unlabored, Respiratory pattern is regular, symmetrical. Derm:. Musculoskeletal:. Musculoskeletal: Laceration to right hand. 19:29 Reassessment: Patient appears in no apparent distress at this time. Patient states kl feeling better. Patient states symptoms have improved. Vital Signs: 16:59 BP 140 / 76; Pulse 73; Resp 17; Temp 98.2; Pulse Ox 97% ; Weight 119.75 kg; Height 5 ll1 ft. 9 in. ; Pain 5/10; 19:30 Resp 20; kl 16:59 Body Mass Index 38.99 (119.75 kg, 175.26 cm) ll1 16:59 Pain Scale: Adult ll1 ED Course: 16:24 Patient arrived in ED. am2 16:25 Trell Arshad DO is Private Physician. am2 16:48 Husam Garcia PA is PHCP. cp 16:48 Husam Nicolas MD is Attending Physician. cp 17:00 Triage completed. ll1 17:01 Arm band placed on. ll1 17:08 Susanne Paz, JUD is Primary Nurse. cm10 18:41 XRAY Hand RIGHT 3 View In Process Unspecified. EDMS 18:56 Patient has correct armband on for positive identification. cm10 19:05 Mandeep Carballo MD is Referral Physician. cp 19:29 Assist provider with laceration repair on right hand Set up tray. Performed by Husam SALVADOR Dressed with 4X4s, Kerlix, Neosporin, Patient tolerated well. Patient did not have IV access during this emergency room visit. 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 cm10 Exp: 09/07/2023. Lot #: [id number]. } Route: IM; Site: right deltoid; 17:46 Follow up: Response: (VIS) Vaccine information sheet provided today. Questions and/or cm10 concerns addressed. VIS edition date: May 26, 2021.; No adverse reaction 17:27 Not Given (Patient Refused): Hydrocodone-Acetaminophen PO (7.5 mg-325 mg) 1 tabs PO cm10 once; RASS on ADMIN: Combtv4, Very Agttd3, Agttd2, Rstlss1, AlertClm0, Drwsy-1, Lt Sdtn-2, Mod Sdtn-3, Dp Sdtn-4, UnArsble-5 17:27 Drug: Lidocaine Mucous Membrane Gel 2 % 1 ea Volume: 15 ml; Route: Mucous Membrane; cm10 18:48 Drug: Lidocaine-Epinephrine Infiltration -1%: (1:100,000) 10 ml Volume: 20 ml; Route: cm10 Infiltration; 19:29 Drug: Cephalexin PO 1000 mg Route: PO; Medication: 18:56 Vaccine Information Statement (VIS) provided today. Questions and/or concerns cm10 addressed. VIS edition date: May 26, 2021. Outcome: 19:05 Discharge ordered by MD. nirmala 19:30 Discharged to home via wheelchair, with family. 19:30 Condition: improved 19:30 Discharge instructions given to patient, Instructed on discharge instructions, follow up and referral plans. medication usage, wound care, Demonstrated understanding of instructions, follow-up care, medications, wound care, Prescriptions given X 1. 19:31 Patient left the ED. Signatures: Dispatcher [employer] EDMS Gianna Jones, RN RN Husam Carlos, MADELEINE PA Senia Rutledge Lynsay, RN RN ll1 Susanne Paz RN RN cm10
--- NOTE | 2023-04-14 19:12 | RAD REPORT ---
EXAM DESCRIPTION: RAD - Hand Right 3 View - 04/14/2023 6:39 pm CLINICAL HISTORY: PAIN COMPARISON: No comparisons FINDINGS: Soft tissue swelling is seen along the dorsum of the hand. No acute fracture, dislocation or aggressive marrow lesion.
[2023-04-14] MEDS ORDERED: CEPHALEXIN 250 MG CAP ONE (19:22)
[2023-04-14 19:37] VITALS: BP 140/76; TEMP 98.2; O2SAT 97
== END 2023-04-14 19:31 | disposition home or self-care (01) ==
LOC: ER 16:24
PROC: 0HQFXZZ Repair Right Hand Skin, External Approach (ICD-10-PCS; principal; 2023-04-14)
DX: S61.411A Laceration without foreign body of right hand, initial encounter (principal); Z23 Encounter for immunization; Z88.5 Allergy status to narcotic agent
CPT/HCPCS: 90471; 99284